=== PATIENT | male | born 1950 | race Caucasian/White ===

== ENCOUNTER 2017-01-12 11:07 | Inpatient (IN) ==
--- NOTE | 2017-01-12 11:32 | EKG Report ---
Stationary ECG Study [facility] Test Date: 01/12/2017 11:33:22 AM Pat Name: MARLEN DIMAS Department: Room: 611 Gender: M Bottom Filler: LEONARDO : 1950 Requested by: Norm Brown Order Number: [id number] Reading MD: MACKENZIE COELHO Intervals [place] Rate: 88 P: 19 MA: 137 QRS: 41 QRSD: 87 T: 61 QT: 346 QTc: 391 Interpretive Statements SINUS RHYTHM at 88 bpm WNL Electronically Signed On 01-12-17 16:05:59 CDT by MACKENZIE COELHO [email or web address]
[2017-01-12 11:42] LABS: Basophils % 0.2 % (0.0-0.8); Eosinophils # 0.2 10*3/uL (0.0-0.87); Eosinophils % 0.9 % (0.00-10.9); Hematocrit 37.4 VOL% (42.0-52.0); Hemoglobin 13.4 GM/DL (14.0-18.0); Immature Granulocytes % 0.8 %; Immature Granulocytes Absolute 0.18 #; Lymphocytes # 1.3 10*3/uL (1.4-4.0); Lymphocytes % 5.9 % (21.2-54.2); Mean Corpuscular HGB Conc 35.8 GM/DL (32-36); Mean Corpuscular Hemoglobin 32 PG (27-34); Mean Corpuscular Volume 89.9 FL (87-102); Mean Platelet Volume 10.3 FL (9.6-12.0); Monocytes # 1.3 10*3/uL (0.11-0.8); Monocytes % 6.1 % (1.7-12.7); Neutrophils # 18.3 10*3/uL (1.4-7.4); Neutrophils % 86.1 % (38.7-73.9); Platelet Count 187 T/CUMM (130-400); Red Blood Count 4.16 MC/CUMM (3.8-5.5); White Blood Count 21.3 T/CUMM (4-12)
[2017-01-12 12:01] LABS: Band Neutrophils 1 % (0-10); Eosinophils 1 % (0-10); Hypochromasia 1+; Lymphocytes 1 % (20-55); Segmented Neutrophils 91 % (50-85); Total Cells Counted 100
[2017-01-12 12:02] LABS: Microcytosis 1+; Platelet Estimate Adequate
[2017-01-12 12:21] LABS: Calcium 8.6 MG/DL (8.5-10.1); Potassium 4.1 MMOL/L (3.5-5.1)
--- NOTE | 2017-01-12 12:23 | General Surg History&Physical ---
Assessment and Plan - Time spent with patient Time spent with patient: Less than 30 minutes (1) Spider bite wound Status: Acute Assessment and plan: This wound reportedly began with a spider bite. This had multiple debridements and now possibly secondarily infected. There are some satellite areas of eschar which may need debridement to see if there is underlying additional necrosis. This will need debridement under anesthesia. We can also consider hyperbaric oxygen therapy as well as IV antibiotic therapy. The procedure and risk of been explained and he wishes to proceed. Current Visit: Yes Qualifiers: Encounter type: initial encounter History of Present Illness Chief complaint: Spider bite right leg History of present illness: Mr. Hunt is a 66 year old male Who several months ago was felt to have sustained a brown recluse bite to his right lower extremity when he was cleaning out an old shed. He did not witness a spider bite. He had a gradual ulcerated area on his right leg which was initially treated by Dr. Whelan and then he was referred to the wound healing center. He is undergone serial debridements but more recently was noted to have some satellite areas of necrosis as well as redness and pain and tenderness extending up his medial right lower leg. I was contacted by the wound center this morning for further debridement and admission for IV antibiotics. He has had some increasing pain in the wound. Pain is mild to moderate. He does not know of aggravating or alleviating factors. He is not having fever or chills that he is aware of. Allergies Allergy/AdvReac Type Severity Reaction Status Date / Time No Known Allergies Allergy Unverified 01/12/17 11:06 Medical,Surgical,& Family Hx - Medical History Cardio: History of: Hypertension Neurology: No history of: Seizures Endocrine: History of: Diabetes Mellitus (IDDM), Thyroid Disorder Musculoskeletal: History of: Back/Neck Problems - Surgical History HEENT Surgeries: Surgical HX of: Eye Surgery (cataracts) - Social History Smoking Status: Light tobacco smoker Frequency of Alcohol Use: None Type of Drug Use: None Exam - Constitutional Vitals: Period Temp Pulse Resp BP Sys/Mancera Pulse Ox Last 24 Hr 98 F 89 20 95/56 98 General appearance: no acute distress - Head Head exam: Present: normocephalic - Eye Eye exam: Absent: scleral icterus Pupils: Present: KATHERYN - ENT Mouth exam: Present: normal voice - Neck Neck exam: Present: trachea midline - Respiratory Respiratory exam: Present: clear to auscultation bilaterally. Absent: accessory muscle use - Cardiovascular Cardiovascular exam: Present: RRR - GI/Abdominal GI/Abdominal exam: Present: soft. Absent: distended, tenderness - Extremities Exam Extremities exam: Present: other (There is about a 7 cm open wound of his right medial calf with exposed fascia. There is some necrotic subcutaneous tissue and possibly some necrotic fascia. There is a exudate over the surface of the wound. There is some erythema extending proximal to the wound along the medial aspect of the lower leg with induration and mild tenderness.). Absent: edema - Neurological Exam Neurological exam: Present: alert, oriented X3. Absent: motor sensory deficit Speech: Present: normal - Skin Skin exam: Present: normal color - Constitutional Constitutional: Absent: chills, fever(s), weight loss - EENT Nose, mouth and throat: Absent: dysphagia - Cardiovascular Cardiovascular: Absent: chest pain at rest, chest pain with activity, dyspnea - Respiratory Respiratory: Absent: cough, dyspnea, hemoptysis, dyspnea on exertion - Gastrointestinal Gastrointestinal: Absent: abdominal pain, hematemesis, hematochezia, nausea, vomiting - Genitourinary Genitourinary: Absent: hematuria - Musculoskeletal Musculoskeletal: Present: back pain - Neurological Neurological: Absent: focal weakness, syncope - Endocrine Endocrine: Absent: polyuria Hematologic/Lymphatic: Absent: easy bleeding, easy bruising Results - Labs CBC & BMP: 01/12/17 11:34 Lab Results: I have reviewed the past 24 hour labs
[2017-01-12] MEDS ORDERED: DEXTROSE 50% 25 GM/50 ML VIAL IV ONE ×2 (12:31)
[2017-01-12] MEDS: LACTATED RINGERS 1,000 ML IV SCH (12:37)
[2017-01-12] MEDS ORDERED: VANCOMYCIN INJ 1,500 MG in SODIUM CHLORIDE 0.9% 500 ML IV ONE (12:45)
[2017-01-12] MEDS ORDERED: BUPIVACAINE 0.25% 50 ML VIAL ONE (13:20)
[2017-01-12] MEDS ORDERED: ONDANSETRON 4 MG/2 ML VIAL IV PRN (14:38)
[2017-01-12] MEDS ORDERED: GLUCAGON 1 MG VIAL IM PRN (14:38)
--- NOTE | 2017-01-12 14:38 | Operative Note ---
Date of procedure: 01/12/17 Pre-op diagnosis: Large necrotic ulcer right lower extremity Post-op diagnosis: same Procedure: Excisional debridement of right lower extremity ulcer likely secondary infected with soft tissue necrotizing infection removing skin subcutaneous tissue fascia and muscle 14 x 9 cm Findings and technique: After informed consent was obtained the patient was brought the operating room and placed in supine position. After IV sedation was administered the patient's right lower extremity was prepped and draped in usual sterile fashion. Local anesthesia was infiltrated widely around this ulcer which was about 6 x 7 cm. The patient was noted to have necrotic skin edges and necrotic subcutaneous tissue as well as some exposed fascia and muscle in the base of the wound with very unhealthy appearing gastrocnemius muscle. The calf itself was not tight. There were satellite areas multiple in number extending over the posterior leg and distally and a few medial some of these are 1 cm in diameter and some of these 1 x 3 cm in size dry eschar. In the proximal aspect of the wound beneath the subcutaneous layer which was necrotic there was a layer of necrotic fascia and soupy appearing muscle which extended proximally up the posterior leg towards the popliteal fossa for about 6 cm. I excised several of these are ulcerated satellite areas and sent in both for tissue culture and also for pathology. Etiology of this was not entirely clear. These each had a punched out lytic which could represent ischemia or pyoderma gangrenosum or less likely active infection. The subcutaneous tissue appeared to be ischemic and portions of necrotic but not purulent. The fascia was soupy and partially liquefied along with some underlying muscle. This was all sharply debrided away. Some of this was sent for culture some of this for permanent section. This was debrided up the posterior leg raising up skin flaps but most of the skin was viable so I preserve this. Wound was irrigated and packed open with moist saline gauze and a bulky dressing applied. Prognosis for his lower extremities questionable. I discussed this case with Dr. Stephanie Contreras and he relayed to me that there was a question of ischemia and the patient actually had a vascular workup ordered but did not keep his CT angiogram done. We will evaluate this further as well Anesthesia: MAC, local Surgeon / Physician: Norm Brown III. Estimated blood loss: other (50 mL) Specimens: other (Tissue for culture and for permanent pathology) Condition: stable Disposition: PACU Results - Labs CBC & BMP: 01/12/17 11:34 01/12/17 11:34 Discharge Plan - Discharge Medications No Action Clorazepate Dipotassium 3.75 mg PO BID Cyclobenzaprine HCl 10 mg PO BID PRN PRN Reason: Muscle Spasm Colchicine [Colcrys] 1 tablet PO DAILY Glyburide/Metformin HCl [Glyburide-Metformin 5-500 mg] 1 each PO BID HYDROcodone/ACETAMIN 5-325 [[place] 5-325] 1 tablet PO BID PRN PRN Reason: Pain Levothyroxine Sodium [Levo-T] 100 mcg PO DAILY Meloxicam 7.5 mg PO DAILY Tramadol HCl [Tramadol Tab] 50 mg PO BID PRN PRN Reason: Pain Insulin Detemir [Levemir FlexPen] 64 unit SUBCUT BEDTIME buPROPion [Wellbutrin] 100 mg PO DAILY Nebivolol [Bystolic] 5 mg PO DAILY Magnesium Chloride [Slow Mag] 64 mg PO DAILY Indapamide [Lozol] 1.25 mg PO DAILY PRN PRN Reason: diuretic Pravastatin Sodium 40 mg PO DAILY NIFEdipine XL TAB [Procardia Xl] 60 mg PO DAILY - Follow Up or Referral - Forms/Instructions
[2017-01-12] MEDS ORDERED: PROPOFOL 200 MG/20 ML VIAL IV ONE (14:42)
[2017-01-12] MEDS ORDERED: KETAMINE 500 MG/10 ML VIAL ONE (14:43)
[2017-01-12] MEDS ORDERED: MIDAZOLAM 2 MG/2 ML VIAL ONE (14:43)
[2017-01-12] MEDS ORDERED: CLINDAMYCIN INJ 600 MG in PREMIX 1 EACH IV SCH (15:30)
[2017-01-12] MEDS: SODIUM CHLORIDE 0.45% 1,000 ML IV SCH (16:06)
--- NOTE | 2017-01-12 16:19 | CT Report ---
Exam: CT angio abdomen/femoral Date: 01/12/2017 2:44 PM Comparison: None Indication: Necrotic ulceration right lower extremity status post debridement Technical: Axial CT imaging was performed from the lung bases through the iliac crest with to the toes. Coronal and sagittal reformatted images were additionally created and submitted for review. 3-D Maximal intensity projection images of the vasculature were additionally created and are available for review. 100 cc of Omnipaque 350 were utilized. Dose reduction: This CT exam was performed using one or more of the following dose reduction techniques: Automated exposure control, automated adjustment of the mA and/or KV according to patient size, or use of iterative reconstruction technique. Total DLP: 1490 mGy*cm Findings: CT angiogram: Abdomen/pelvis. Descending thoracic aorta is nonaneurysmal. Minimal atherosclerotic plaque is noted. The abdominal aorta is also nonaneurysmal. 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 The occlusion occurs approximately just below the level of the left L3 lumbar artery takeoff. The distal aorta is completely occluded with complete occlusion of the common iliac arteries bilaterally which are densely calcified. There is reconstitution within both external iliac vessels, which are diminutive with multifocal atherosclerotic plaque noted. The bilateral internal iliac vessels are also patent but demonstrate multifocal atherosclerotic plaque. Of note, the bilateral inferior epigastric arteries are noted to the significantly hypertrophied/tortuous with direct indication to the common femoral arteries bilaterally Right lower extremity: Common femoral artery is patent with multifocal atherosclerotic plaque and mild (50%) luminal stenosis. The superficial femoral artery is also patent with multifocal atherosclerotic plaque. At the abductor hiatus, there is complete occlusion of the superficial femoral artery with reconstitution of the proximal popliteal artery above the knee. Multifocal atherosclerotic plaque is noted throughout the popliteal artery with areas of mild-moderate (50%) luminal stenosis suggested. Below the knee, there is a three-vessel runoff to the right foot. Left lower extremity: Common femoral artery is patent with mild atherosclerotic plaque. There is mild multifocal atherosclerotic plaque throughout the superficial femoral artery with only mild luminal narrowing. At the abductor hiatus, there is mild-moderate scattered plaque and luminal narrowing (estimated 50-60%). Below the knee, the popliteal artery is patent with multifocal atherosclerotic plaque. The posterior tibial artery is diminutive but appears patent. The anterior tibial and peroneal arteries also are diminutive in size but appear patent with minimal atherosclerotic plaque. Three-vessel runoff. Soft tissue analysis: Lung bases: Minimal by basilar atelectatic changes. No significant pleural or pericardial effusion. Liver and gallbladder: No abnormal enhancing hepatic lesions. No biliary ductal dilatation or gallstones. Of note, the common bile duct is dilated measuring 1.3 cm. There is also a 6 mm calcific density dependently within the CBD likely representing a retained stone. Portal vein patency is not well visualized due to early contrast bolus timing. Spleen: No focal lesions. Pancreas: Unremarkable Adrenals: Unremarkable Kidneys: Both kidneys are equally perfused and demonstrate no evidence for obstructive uropathy. Bowel and Mesentery: Small bowel is nondilated. No free fluid/air within the abdomen. Moderate stool throughout the colon. No mesenteric adenopathy. Retroperitoneum: No enlarged lymph nodes. IVC: Patent Pelvis: Bladder: Markedly distended but otherwise grossly unremarkable with no focal wall thickening or mass Fluid: No free fluid identified. Lymph nodes: No enlarged lymph nodes. Pelvic organs: Prostate is not enlarged. Osseous structures: No suspicious appearing osseous abnormalities noted. Impression: 1. 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 2. Hypertrophied inferior epigastric vessels with reconstitution at the internal/external iliacs with multifocal atherosclerotic plaque. Mild atherosclerotic disease of both common femoral arteries which are otherwise patent. 3. Complete occlusion of the distal right SFA near the abductor hiatus with reconstitution above the knee. Three-vessel runoff to the right foot. 4. Multifocal atherosclerotic plaque with areas of mild-moderate stenosis within the left SFA popliteal. Three-vessel runoff to the left foot. 5. Probable choledocholithiasis and moderate dilatation of the CBD. No evidence of acute cholecystitis. Critical findings discussed with Dr. Stephanie CAR via telephone at 4:15 PM on the day of the examination. PROCEDURE INTERPRETED AT [facility] DEPARTMENT OF RADIOLOGY Final Report Signed by: Mike Slade
--- NOTE | 2017-01-12 16:24 | Hospitalist Consult Note ---
Assessment and Plan (1) Diabetes mellitus type 2 in obese Status: Acute Assessment and plan: Continue home medication meantime do Accu-Cheks q. before meals and at bedtime. Cover the Accu-Cheks with the Humulin R intermediate scale. Check lipid profile in the morning. His A1c on this admission is 7.0%. Current Visit: Yes (2) Spider bite wound Status: Acute Assessment and plan: Before clear to surgical team. Patient also going to be seen by infectious disease. Current Visit: Yes Qualifiers: Encounter type: initial encounter (3) Hypothyroidism Status: Acute Assessment and plan: Check TSH in the morning. This to verify adequacy of treatment Current Visit: Yes (4) Degenerative arthritis Status: Acute Assessment and plan: Continue home medications Current Visit: Yes History of Present Illness - Data of Consult Patient: new to practice (Case of a 66-year-old gentleman who is being admitted to [facility]. by Dr. Ritchie following a debridement of right lower leg area which she supposed to being beaten by a brown recluse spider month ago. Reportedly this patient has had prior debridement of this wound this at this time. Wound was dressed and the compressive dressings after debridement today so I did not examine it. My services is being consulted for medical management of his diabetes mellitus type 2 hypertension history of hypothyroidism history of gout and degenerative arthritis.) Consult date: 01/12/17 Requesting Physician: - Consult Narrative Reason for consult: Medical management History of present illness: Mr. Hunt is a 66 year old male History of diabetes mellitus type 2 reportedly well controlled. Patient does not know what his last A1c was. Is using combination of glyburide/metformin and also Levemir insulin at home. He states that the last time we checked his blood sugar yesterday was in the 70s. Patient also has a history of hypertension, history of hypothyroidism, history of gout and possible degenerative arthritis. He is in the hospital now for soft tissue debridement of supposedly brown recluse bite several months ago. I am informed this area has been debrided before this time. He denies fever or shaking riders at this time. CC: Norm Brown, III., - Home Medications and Allergies Home Medications: Home Medications Medication Instructions Recorded Confirmed Type Clorazepate Dipotassium 3.75 mg PO BID 01/12/17 01/12/17 History Colchicine [Colcrys] 1 tablet PO DAILY 01/12/17 01/12/17 History Cyclobenzaprine HCl 10 mg PO BID PRN 01/12/17 01/12/17 History Glyburide/Metformin HCl 1 each PO BID 01/12/17 01/12/17 History [Glyburide-Metformin 5-500 mg] HYDROcodone/ACETAMIN 5-325 [[place] 1 tablet PO BID PRN 01/12/17 01/12/17 History 5-325] Indapamide [Lozol] 1.25 mg PO DAILY PRN 01/12/17 01/12/17 History Insulin Detemir [Levemir FlexPen] 64 unit SUBCUT BEDTIME 01/12/17 01/12/17 History Levothyroxine Sodium [Levo-T] 100 mcg PO DAILY 01/12/17 01/12/17 History Magnesium Chloride [Slow Mag] 64 mg PO DAILY 01/12/17 01/12/17 History Meloxicam 7.5 mg PO DAILY 01/12/17 01/12/17 History NIFEdipine XL TAB [Procardia Xl] 60 mg PO DAILY 01/12/17 01/12/17 History Nebivolol [Bystolic] 5 mg PO DAILY 01/12/17 01/12/17 History Pravastatin Sodium 40 mg PO DAILY 01/12/17 01/12/17 History Tramadol HCl [Tramadol Tab] 50 mg PO BID PRN 01/12/17 01/12/17 History buPROPion [Wellbutrin] 100 mg PO DAILY 01/12/17 01/12/17 History Allergies/Adverse Reactions: Allergies Allergy/AdvReac Type Severity Reaction Status Date / Time No Known Allergies Allergy Unverified 01/12/17 11:06 Medical,Surgical,& Family Hx - Medical History Cardio: History of: Hypertension Neurology: No history of: Seizures Endocrine: History of: Diabetes Mellitus (IDDM), Thyroid Disorder Musculoskeletal: History of: Back/Neck Problems - Surgical History HEENT Surgeries: Surgical HX of: Eye Surgery (cataracts) - Social History Smoking Status: Light tobacco smoker Frequency of Alcohol Use: None Type of Drug Use: None Review of systems: A 12 point system assessment was done patient denies any shaking riders at this time denies any chills. He is awake and seem to have come out of anesthesia. I then the chief complaint of necrotizing process in the right lower extremity his past medical history and history of presenting illness nothing else is panning out. Exam - Constitutional Vitals: Period Temp Pulse Resp BP Sys/Mancera Pulse Ox Last 24 Hr 97.6 F-98 F 79-89 18-20 95-128/56-73 92-100 General appearance: over weight - Head Head exam: Present: normocephalic, atraumatic - Eye Eye exam: Present: EOMI, other (Anicteric sclera no conjunctival petechia) Pupils: Present: KATHERYN - ENT ENT exam: Present: normal oropharynx - Neck Neck exam: Present: other (Supple neck no adenopathy) - Respiratory Respiratory exam: Present: clear to auscultation bilaterally - Cardiovascular Cardiovascular exam: Present: regular rate and rhythm - GI/Abdominal GI/Abdominal exam: Present: normal bowel sounds, soft - Extremities Exam Extremities exam: Present: full ROM, other (No cyanosis no obvious edema the wound site is dressed in a compressive dressing just had debridement) - Neurological Exam Neurological exam: Present: alert, oriented X3, CN II-XII intact - Psychiatric Psychiatric exam: Present: normal affect, normal mood - Skin Skin exam: Present: warm, dry Results - Labs CBC & BMP: 01/12/17 11:34 01/12/17 11:34 Lab Results: I have reviewed the past 24 hour labs
[2017-01-12] MEDS ORDERED: INDAPAMIDE 2.5 MG TABLET PO PRN (16:36)
--- NOTE | 2017-01-12 16:45 | Vascular Surgery Consult Note ---
History of Present Illness Chief complaint: aortoiliac occlusion History of present illness: Mr. Hunt is a 66 year old male Mr. Vargas is 66-year-old man I met in the office last week with evidence of aortoiliac occlusive disease. He was scheduled for CT angiography but due to progression of the ulcer on his right calf he was hospitalized today to begin treatment of what appears to be a more complex infection that is likely complicated by the degree of ischemia he has. I have reviewed his CT angiogram done today which does show aortoiliac occlusion but he has reasonable common femorals and proximal superficial femoral she does have occlusion of his distal right superficial femoral but reconstitution popliteal with what appears to be fair to good three-vessel runoff. At this time I think he should be planning on an aortobifemoral bypass in order to provide adequate perfusion of his lower leg in order to heal the wound but this needs to be done after all infection is under good control. I do think we need to get cardiac evaluation to be certain that he does not have cardiac disease that is undiagnosed at this point time although he does not report any significant chest pains or unusual shortness of breath. His exercise tolerance has been down due to to his aortoiliac disease. He also reminded me that we had discussed getting a duplex scan of his carotid arteries due to a carotid bruit that I can hear on the left side so I will go ahead and order that and I will follow while here hopefully we can get problems attended to in a timely fashion Home Medications Medication Instructions Recorded Confirmed Type Clorazepate Dipotassium 3.75 mg PO BID 01/12/17 01/12/17 History Colchicine [Colcrys] 1 tablet PO DAILY 01/12/17 01/12/17 History Cyclobenzaprine HCl 10 mg PO BID PRN 01/12/17 01/12/17 History Glyburide/Metformin HCl 1 each PO BID 01/12/17 01/12/17 History [Glyburide-Metformin 5-500 mg] HYDROcodone/ACETAMIN 5-325 [[place] 1 tablet PO BID PRN 01/12/17 01/12/17 History 5-325] Indapamide [Lozol] 1.25 mg PO DAILY PRN 01/12/17 01/12/17 History Insulin Detemir [Levemir FlexPen] 64 unit SUBCUT BEDTIME 01/12/17 01/12/17 History Levothyroxine Sodium [Levo-T] 100 mcg PO DAILY 01/12/17 01/12/17 History Magnesium Chloride [Slow Mag] 64 mg PO DAILY 01/12/17 01/12/17 History Meloxicam 7.5 mg PO DAILY 01/12/17 01/12/17 History NIFEdipine XL TAB [Procardia Xl] 60 mg PO DAILY 01/12/17 01/12/17 History Nebivolol [Bystolic] 5 mg PO DAILY 01/12/17 01/12/17 History Pravastatin Sodium 40 mg PO DAILY 01/12/17 01/12/17 History Tramadol HCl [Tramadol Tab] 50 mg PO BID PRN 01/12/17 01/12/17 History buPROPion [Wellbutrin] 100 mg PO DAILY 01/12/17 01/12/17 History Allergies Allergy/AdvReac Type Severity Reaction Status Date / Time No Known Allergies Allergy Unverified 01/12/17 11:06 Medical,Surgical,& Family Hx - Medical History Cardio: History of: Hypertension Neurology: No history of: Seizures Endocrine: History of: Diabetes Mellitus (IDDM), Thyroid Disorder Musculoskeletal: History of: Back/Neck Problems - Surgical History HEENT Surgeries: Surgical HX of: Eye Surgery (cataracts) - Social History Smoking Status: Light tobacco smoker Frequency of Alcohol Use: None Type of Drug Use: None Exam - Constitutional Vitals: Period Temp Pulse Resp BP Sys/Mancera Pulse Ox Last 24 Hr 97.6 F-98 F 79-89 18-20 95-128/56-73 92-100 Results - Labs CBC & BMP: 01/12/17 11:34 01/12/17 11:34
[2017-01-12] MEDS: ENOXAPARIN 40 MG/0.4 ML SYRINGE SUBCUT SCH (16:53)
--- NOTE | 2017-01-12 17:09 | XRay Report ---
History: Hyperbaric oxygen therapy. Soft tissue ulcer right lower extremity. Peripheral vascular disease Date: 01/12/2017 Study: Chest x-ray AP portable Comparison exam: No previous There is mild cardiomegaly. There is no mediastinal mass. The pulmonary vasculature is not engorged. There is no gross pleural effusion. The lungs are generally clear for shallow breath. There is mild to moderate thoracic spondylosis. Impression: No definite evidence of an acute cardiopulmonary process. Mild cardiomegaly. Shallow breath PROCEDURE INTERPRETED AT [facility] DEPARTMENT OF RADIOLOGY Final Report Signed by: Dr. Linda Gaxiola
[2017-01-12] MEDS: PIPERACILLIN/TAZOBACTAM 3,375 MG in SODIUM CHLORIDE 0.9% 100 ML IV SCH (17:36)
[2017-01-12] MEDS: INSULIN REGULAR 100 UNIT/ML SUBCUT SCH (18:14)
[2017-01-12] MEDS: INSULIN GLARGINE 100 UNIT/ML SUBCUT SCH (21:30)
[2017-01-12] MEDS: glyBURIDE/METFORMIN 5-500 MG TABLET PO SCH (21:30)
[2017-01-12] MEDS: CLORAZEPATE 3.75 MG TABLET PO SCH (21:30)
[2017-01-12] MEDS: DEXTROSE 50% 25 GM/50 ML VIAL IV PRN (23:46)
[2017-01-13] MEDS: INSULIN REGULAR 100 UNIT/ML SUBCUT SCH ×4 (00:18→17:44)
[2017-01-13] MEDS: PIPERACILLIN/TAZOBACTAM 3,375 MG in SODIUM CHLORIDE 0.9% 100 ML IV SCH ×3 (00:24→17:44)
[2017-01-13] MEDS: VANCOMYCIN INJ 1,250 MG in SODIUM CHLORIDE 0.9% 250 ML IV SCH ×2 (04:27→16:31)
[2017-01-13] MEDS: DEXTROSE 50% 25 GM/50 ML VIAL IV PRN (06:24)
[2017-01-13 06:33] LABS: Basophils % 0.2 % (0.0-0.8); Eosinophils # 0.3 10*3/uL (0.0-0.87); Eosinophils % 1.9 % (0.00-10.9); Hematocrit 34.2 VOL% (42.0-52.0); Hemoglobin 12.3 GM/DL (14.0-18.0); Immature Granulocytes % 0.7 %; Immature Granulocytes Absolute 0.11 #; Lymphocytes # 1.6 10*3/uL (1.4-4.0); Lymphocytes % 9.6 % (21.2-54.2); Mean Corpuscular Hemoglobin 32 PG (27-34); Mean Corpuscular Volume 88.4 FL (87-102); Mean Platelet Volume 10.5 FL (9.6-12.0); Monocytes # 1.5 10*3/uL (0.11-0.8); Monocytes % 8.9 % (1.7-12.7); Neutrophils % 78.7 % (38.7-73.9); Platelet Count 142 T/CUMM (130-400); Red Blood Count 3.87 MC/CUMM (3.8-5.5); Red Cell Distribution Width 13.8 % (9.3-17.3); White Blood Count 16.5 T/CUMM (4-12)
--- NOTE | 2017-01-13 07:12 | Event Note ---
He feels better and has soreness in his leg as expected. He is afebrile with stable vital signs. We are treating him with IV antibiotics and wound care. The major underlying problem severe multilevel peripheral vascular disease. I have had him seen by Dr. Moss who agrees that he will need an aortobifemoral bypass. Obviously we want to have the infection cleared up completely before doing this procedure. He has severe limb threatening ischemia and this is probably ischemic necrosis along his posterior leg. I suspect that he developed some secondary infection. Cultures are pending.
[2017-01-13 07:13] LABS: Albumin 2.6 G/DL (3.4-5.0); Calcium 8.3 MG/DL (8.5-10.1); Potassium 3.7 MMOL/L (3.5-5.1)
[2017-01-13 07:21] LABS: Risk Ratio 4.96; Thyroid Stimulating Hormone 0.41 uIU/ml (0.358-3.74); Uric Acid 4.5 MG/DL (3.5-7.2); VLDL CHOLESTEROL 30.8 MG/DL
[2017-01-13] MEDS: NEBIVOLOL 5 MG TABLET PO SCH (09:42)
[2017-01-13] MEDS: LEVOTHYROXINE 100 MCG TABLET PO SCH (09:42)
[2017-01-13] MEDS: glyBURIDE/METFORMIN 5-500 MG TABLET PO SCH ×2 (09:42→22:25)
[2017-01-13] MEDS: MAGNESIUM CHLORIDE 64 MG TABLET PO SCH (09:42)
[2017-01-13] MEDS: PRAVASTATIN 40 MG TABLET PO SCH (09:42)
[2017-01-13] MEDS: MELOXICAM 7.5 MG TABLET PO SCH (09:42)
[2017-01-13] MEDS: CLORAZEPATE 3.75 MG TABLET PO SCH ×2 (09:42→22:17)
[2017-01-13] MEDS: SODIUM CHLORIDE 0.45% 1,000 ML IV SCH ×2 (09:43→17:44)
[2017-01-13] MEDS: buPROPion 100 MG TABLET PO SCH (09:43)
--- NOTE | 2017-01-13 11:01 | Event Note ---
Patient is afebrile with good vital signs cultures are still pending we will get the cardiac evaluation in anticipation of aortobifemoral bypassing and also go ahead and get duplex scan of the carotids due to the left carotid bruit
[2017-01-13] MEDS: ENOXAPARIN 40 MG/0.4 ML SYRINGE SUBCUT SCH (12:27)
--- NOTE | 2017-01-13 12:30 | Hospitalist Progress Note ---
Assessment and Plan (1) Diabetes mellitus type 2 in obese Status: Chronic Assessment and plan: Continue home medication meantime do Accu-Cheks q. before meals and at bedtime. Cover the Accu-Cheks with the Humulin R intermediate scale. Check lipid profile in the morning. His A1c on this admission is 7.0%. I informed the patient is going for hyperbaric chamber treatments. He will need his blood sugars to be a little bit on the high side when going into the chamber. I see that morning Accu-Cheks were above 130. Current Visit: Yes (2) Spider bite wound Status: Chronic Assessment and plan: Before clear to surgical team. Patient also going to be seen by infectious disease. Current Visit: Yes Qualifiers: Encounter type: initial encounter (3) Hypothyroidism Status: Chronic Assessment and plan: TSH showing adequate thyroxine supplementation. Current Visit: Yes (4) Degenerative arthritis Status: Acute Assessment and plan: Continue home medications Current Visit: Yes Hospitalist: Subjective Interval history: Patient seen in consult follow-up no new complaints. Patient was seen yesterday for medical management. Consent of the nonhealing wound in the debridement and patient was on colchicine. That medication was stopped. Reason is" and can be more anti-mitotic. His uric acid is on 4.5. Hemoglobin A1c of 7 which would be a target for somebody his management of diabetes. Because of her diabetes at all therefore been continued Exam - Constitutional Vitals: Period Temp Pulse Resp BP Sys/Mancera Pulse Ox Last 24 Hr 97.6 F-98.8 F 79-95 18-20 98-128/53-73 92-100 General appearance: over weight - Head Head exam: Present: normocephalic, atraumatic - Eye Eye exam: Present: EOMI Pupils: Present: KATHERYN - Respiratory Respiratory exam: Present: clear to auscultation bilaterally - Cardiovascular Cardiovascular exam: Present: regular rate and rhythm - GI/Abdominal GI/Abdominal exam: Present: normal bowel sounds, soft - Extremities Exam Extremities exam: Present: full ROM, other (Wound is dressed no advancing cellulitis) - Neurological Exam Neurological exam: Present: alert, oriented X3, CN II-XII intact - Psychiatric Psychiatric exam: Present: normal affect, normal mood - Skin Skin exam: Present: normal color, warm, dry Results - Labs CBC & BMP: 01/13/17 05:55 01/13/17 05:55 Lab Results: I have reviewed the past 24 hour labs
[2017-01-13] MEDS: LACTATED RINGERS 1,000 ML IV SCH (12:31)
[2017-01-13] MEDS: MORPHINE 2 MG/1 ML SYRINGE IV PRN ×3 (12:38→20:16)
--- NOTE | 2017-01-13 14:25 | Anesthesia Post-Op ---
Anesthesia Post OP - Post Ansesthetic Evaluation Patient seen in post op: Yes Resp: within normal limits CV: within normal limits Mental: within normal limits Temp: within normal limits [id number]: within normal limits Nausea and Vomiting: within normal limits Pain: within normal limits
--- NOTE | 2017-01-13 14:33 | Pathology Report from [facility] ---
[facility] ACCESSION # : [id number] PATIENT NAME : Per iDmas ORDERING DR : ANATOLY BENNETT III, MD CLINICAL HX: RT leg wound POST-OP DX: Same SPECIMEN INFO: #1 RT leg ulcer #2 Additional leg ulcer GROSS DESCRIPTION: Received in formalin in two parts labeled:#1 PER DIMAS & RT LEG ULCER is an aggregate of debrided tissue measuring 1.5 x 1.2 cm, submitted in cassette #1.#2 PER DIMAS & RT LEG ULCER ADDITIONAL is a fragment of debrided focally necrotic tissue measuring 3.8 x 1.7 cm. A merchandising representative section is submitted in cassette #2. DIAGNOSIS FOR PER DIMAS: #1 RIGHT LEG ULCER: Gangrene.#2 ADDITIONAL LEG ULCER: Gangrene COLLECTED DATE: 01/12/2017 [facility] [place] REPORT DATE: 01/13/2017 ELECTRONICALLY SIGNED BY: Aisha Dugan III, M.D. 01/13/2017 - 9:30:30 [facility]
--- NOTE | 2017-01-13 14:42 | Event Note ---
I have been to see the patient 3 times unsuccessfully. The nursing staff told me that he is in hyperbaric. I will try to continue to see the patient as time allows. I have discussed with Ms Rj who saw while I was in the catheterization lab.
--- NOTE | 2017-01-13 15:55 | Infectious Disease Consult ---
Assessment and Plan (1) Diabetes mellitus type 2 in obese Status: Chronic Current Visit: Yes (2) Hyperlipidemia Status: Chronic Current Visit: Yes (3) Hypertension Status: Chronic Current Visit: Yes (4) Spider bite wound Status: Chronic Assessment and plan: The patient leg wound infection may or may not have been related to a spider bite. Multiple organisms are growing from the tissue culture today. Recommendations: I agree with empiric vancomycin and Zosyn. We will follow cultures and adjust antibiotics accordingly. Renal function will need to be monitored daily on the vancomycin and vancomycin trough levels checked intermittently. Will consult pharmacy to assist with this monitoring. Thank you very much for the consult. Will follow. Current Visit: Yes Qualifiers: Encounter type: initial encounter History of Present Illness Chief complaint: Necrotic wounds to right leg History of present illness: Patient seen and examined this morning. Mr. Hunt is a 66 year old male with nonhealing wounds about the right leg since 3 months ago. He thinks it started with a spider bite. Patient has been on several courses of antibiotics and has had debridements done however the wounds have continued, with infection so he was admitted to hospital for further evaluation. He had been seen by Dr. Moss who the patient said told him that he had vascular compromise to the leg with the possibility of losing it in the future if no intervention is done. With his infection the patient has not had any fever or other constitutional symptoms. I am asked to advise regarding antibiotics. Home Medications Medication Instructions Recorded Confirmed Type Clorazepate Dipotassium 3.75 mg PO BID 01/12/17 01/12/17 History Colchicine [Colcrys] 1 tablet PO DAILY 01/12/17 01/12/17 History Cyclobenzaprine HCl 10 mg PO BID PRN 01/12/17 01/12/17 History Glyburide/Metformin HCl 1 each PO BID 01/12/17 01/12/17 History [Glyburide-Metformin 5-500 mg] HYDROcodone/ACETAMIN 5-325 [[place] 1 tablet PO BID PRN 01/12/17 01/12/17 History 5-325] Indapamide [Lozol] 1.25 mg PO DAILY PRN 01/12/17 01/12/17 History Insulin Detemir [Levemir FlexPen] 64 unit SUBCUT BEDTIME 01/12/17 01/12/17 History Levothyroxine Sodium [Levo-T] 100 mcg PO DAILY 01/12/17 01/12/17 History Magnesium Chloride [Slow Mag] 64 mg PO DAILY 01/12/17 01/12/17 History Meloxicam 7.5 mg PO DAILY 01/12/17 01/12/17 History NIFEdipine XL TAB [Procardia Xl] 60 mg PO DAILY 01/12/17 01/12/17 History Nebivolol [Bystolic] 5 mg PO DAILY 01/12/17 01/12/17 History Pravastatin Sodium 40 mg PO DAILY 01/12/17 01/12/17 History Tramadol HCl [Tramadol Tab] 50 mg PO BID PRN 01/12/17 01/12/17 History buPROPion [Wellbutrin] 100 mg PO DAILY 01/12/17 01/12/17 History Allergies Allergy/AdvReac Type Severity Reaction Status Date / Time No Known Allergies Allergy Unverified 01/12/17 11:06 12 point system: reviewed and no additional remarkable complaints except as stated (Per HPI) Medical,Surgical,& Family Hx - Medical History Cardio: History of: Hypertension Neurology: No history of: Seizures Endocrine: History of: Diabetes Mellitus (IDDM), Thyroid Disorder Musculoskeletal: History of: Back/Neck Problems - Surgical History HEENT Surgeries: Surgical HX of: Eye Surgery (cataracts) - Social History Smoking Status: Light tobacco smoker Frequency of Alcohol Use: None Type of Drug Use: None Infectious Disease Exam H&P - Constitutional Vitals: Vital Signs Temp Pulse Resp BP Pulse Ox 98.1 F 95 H 20 114/64 99 01/13/17 11:52 01/13/17 11:52 01/13/17 11:52 01/13/17 11:52 01/13/17 11:52 Intake and Output 01/12/17 01/13/17 01/13/17 23:59 07:59 15:59 Intake Total 340 / 340 470 / 470 420 / 420 Output Total 780 / 780 850 / 850 800 / 800 Balance -440 / -440 -380 / -380 -380 / -380 Intake: IV 100 / 100 350 / 350 Zosyn 3,375 mg In Ns 100 100 / 100 100 / 100 ml @ 25 mls/hr IV Q8H [facility] Rx#:[id number] Vancomycin Inj 1,000 mg 250 / 250 In Ns 250 ml @ 250 mls/hr IV Q12H [facility] Rx#: [id number] Oral 240 / 240 120 / 120 420 / 420 Output: Urine 780 / 780 850 / 850 800 / 800 Other: Voiding Method Urinal Urinal Urinal # Bowel Movements 0 0 Exam: General: Patient relatively comfortable HEENT: Mucous membranes pink and moist, anicteric acyanotic, KATHERYN, no oropharyngeal exudates Neck: Supple, no thyroid gland enlargement Respiratory system: Breath sounds vesicular, no crepitations or wheezes Cardiovascular: Normal S1 and S2, no murmurs appreciated Abdomen: Normal bowel sounds, soft nontender throughout, no organomegaly or mass Genitourinary: No suprapubic pain or bladder distention Extremities: no edema, right leg with surgical bandage which I did not remove since his from his recent surgery yesterday Skin: No rash Reports - Labs CBC & BMP: 01/13/17 05:55 01/13/17 05:55 Labs: Laboratory Results - last 24 hr 01/12/17 01/12/17 01/12/17 15:56 15:58 17:57 WBC RBC Hgb Hct MCV MCH MCHC RDW Plt Count MPV Neut % (Auto) Lymph % (Auto) [place] % (Auto) Eos % (Auto) Baso % (Auto) Neut # (Auto) Lymph # (Auto) [place] # (Auto) Eos # (Auto) Baso # (Auto) Immature Gran % Nucleated RBC % Immature Gran # Nucleated RBCs # Sodium Potassium Chloride Carbon Dioxide Anion Gap BUN Creatinine GFR Calculation BUN/Creatinine Ratio Glucose POC Glucose 86 209 H Calculated Osmolality Uric Acid Calcium Total Bilirubin AST ALT Alkaline Phosphatase Total Creatine Kinase 244 Total Protein Albumin Globulin Albumin/Globulin Ratio Triglycerides Cholesterol LDL Cholesterol VLDL Cholesterol HDL Cholesterol Heart Disease Risk Ratio TSH 3rd Generation 01/12/17 01/12/17 01/12/17 20:10 20:48 23:42 WBC RBC Hgb Hct MCV MCH MCHC RDW Plt Count MPV Neut % (Auto) Lymph % (Auto) [place] % (Auto) Eos % (Auto) Baso % (Auto) Neut # (Auto) Lymph # (Auto) [place] # (Auto) Eos # (Auto) Baso # (Auto) Immature Gran % Nucleated RBC % Immature Gran # Nucleated RBCs # Sodium Potassium Chloride Carbon Dioxide Anion Gap BUN Creatinine GFR Calculation BUN/Creatinine Ratio Glucose POC Glucose 159 H 138 H 49 L* Calculated Osmolality Uric Acid Calcium Total Bilirubin AST ALT Alkaline Phosphatase Total Creatine Kinase Total Protein Albumin Globulin Albumin/Globulin Ratio Triglycerides Cholesterol LDL Cholesterol VLDL Cholesterol HDL Cholesterol Heart Disease Risk Ratio [facility] 3rd Generation 01/13/17 01/13/17 01/13/17 00:24 05:55 05:55 WBC 16.5 H RBC 3.87 Hgb 12.3 L Hct 34.2 L MCV 88.4 MCH 32 MCHC 36.0 RDW 13.8 Plt Count 142 D MPV 10.5 Neut % (Auto) 78.7 H Lymph % (Auto) 9.6 L [place] % (Auto) 8.9 Eos % (Auto) 1.9 Baso % (Auto) 0.2 Neut # (Auto) 13.0 H Lymph # (Auto) 1.6 [place] # (Auto) 1.5 H Eos # (Auto) 0.3 Baso # (Auto) 0.0 Immature Gran % 0.7 Nucleated RBC % 0.0 Immature Gran # 0.11 Nucleated RBCs # 0.00 Sodium 136 Potassium 3.7 Chloride 104 Carbon Dioxide 22 Anion Gap 13.7 BUN 17 D Creatinine 0.80 GFR Calculation 113 BUN/Creatinine Ratio 21.00 H Glucose 47 L POC Glucose 154 H Calculated Osmolality 270.0 L Uric Acid Calcium 8.3 L Total Bilirubin 1.00 AST 25 ALT 22 Alkaline Phosphatase 100 Total Creatine Kinase Total Protein 6.0 L Albumin 2.6 L Globulin 3.4 Albumin/Globulin Ratio 0.7 L Triglycerides Cholesterol LDL Cholesterol VLDL Cholesterol HDL Cholesterol Heart Disease Risk Ratio TSH 3rd Generation 01/13/17 01/13/17 01/13/17 05:55 06:18 06:58 WBC RBC Hgb Hct MCV MCH MCHC RDW Plt Count MPV Neut % (Auto) Lymph % (Auto) [place] % (Auto) Eos % (Auto) Baso % (Auto) Neut # (Auto) Lymph # (Auto) [place] # (Auto) Eos # (Auto) Baso # (Auto) Immature Gran % Nucleated RBC % Immature Gran # Nucleated RBCs # Sodium Potassium Chloride Carbon Dioxide Anion Gap BUN Creatinine GFR Calculation BUN/Creatinine Ratio Glucose POC Glucose 48 L* 201 H Calculated Osmolality Uric Acid 4.5 Calcium Total Bilirubin AST ALT Alkaline Phosphatase Total Creatine Kinase Total Protein Albumin Globulin Albumin/Globulin Ratio Triglycerides 154 H Cholesterol 124 LDL Cholesterol 76.0 VLDL Cholesterol 30.8 HDL Cholesterol 25 L Heart Disease Risk Ratio 4.96 TSH 3rd Generation 0.410 01/13/17 01/13/17 09:47 11:22 WBC RBC Hgb Hct MCV MCH MCHC RDW Plt Count MPV Neut % (Auto) Lymph % (Auto) [place] % (Auto) Eos % (Auto) Baso % (Auto) Neut # (Auto) Lymph # (Auto) [place] # (Auto) Eos # (Auto) Baso # (Auto) Immature Gran % Nucleated RBC % Immature Gran # Nucleated RBCs # Sodium Potassium Chloride Carbon Dioxide Anion Gap BUN Creatinine GFR Calculation BUN/Creatinine Ratio Glucose POC Glucose 162 H 128 H Calculated Osmolality Uric Acid Calcium Total Bilirubin AST ALT Alkaline Phosphatase Total Creatine Kinase Total Protein Albumin Globulin Albumin/Globulin Ratio Triglycerides Cholesterol LDL Cholesterol VLDL Cholesterol HDL Cholesterol Heart Disease Risk Ratio TSH 3rd Generation - Reports Microbiology: Microbiology 01/12/17 14:36 Tissue Culture - Preliminary Foot - Right Gram Negative Rods Gram Positive Cocci Gram Stain - Final 01/12/17 Unknown Abscess Culture - Preliminary Leg - Rt Lower Gram Negative Rods Gram Positive Cocci
--- NOTE | 2017-01-13 17:23 | Cardiology Consult Note ---
Rj Mayes Vanessa RN, am scribing for, and in the presence of, Ilana Girard DO 17 :23. Assessment and Plan - Time spent with patient Time spent with patient: Greater than 30 minutes (Due to assessment, planning, documentation, and medication review) (1) Preoperative cardiovascular examination Status: Acute Assessment and plan: Proceed with proposed surgical intervention as needed without further cardiovascular workup and evaluation Current Visit: Yes (2) Spider bite wound Status: Chronic Assessment and plan: Status post probable spider bite several months ago and now has nonhealing ulcerated area of right leg now with necrosis despite multiple debridements and antibiotics. This is being managed by surgical services and vascular surgery. Current Visit: Yes Qualifiers: Encounter type: initial encounter (3) Hypertension Status: Chronic Assessment and plan: Blood pressure is well controlled at this time. Continue current plan of care. Current Visit: Yes (4) Hyperlipidemia Status: Chronic Assessment and plan: Continue pravastatin. Fasting lipid panel this morning with slightly abnormal triglyceride level but overall unremarkable. Current Visit: Yes (5) Hx of supraventricular tachycardia Status: Chronic Assessment and plan: Patient has previously been evaluated by Dr. Franco for SVT. This has been stable and well controlled with Bystolic. Current Visit: Yes (6) Diabetes mellitus type 2 in obese Status: Chronic Assessment and plan: Glucose levels well controlled at this time. Hospital medicine services have been consulted for primary management of diabetes. Current Visit: Yes (7) Hypothyroidism Status: Chronic Assessment and plan: Synthroid has been continued. TSH this morning 0.410. Current Visit: Yes History of Present Illness - Data of Consult Patient: new to practice (Previous evaluated per Dr. Franco in 2016 ([facility] Consult date: 01/13/17 Requesting Physician: Norm Brown III. - Consult Narrative Reason for consult: preoperative cardiovascular exam History of present illness: PRIMARY LEVEL VIAL SETTER: DR. FRANCO Mr. Hunt is a 66 year old male with risk factor significant for: hypertension, hyperlipidemia, diabetes, tobacco use, obesity, and family history of CAD. Patient is a current everyday smoker. Past medical history includes hypothyroidism, SVT, back/neck problems. Patient was admitted on January 12 to surgical services for further evaluation and treatment of right leg ulcer which has had multiple debridements and now infected. Ulcer is apparently related to previous spider bite several months ago. Recently, the area has been noted to have some furthering necrosis with pain and tenderness of his right leg, and he was admitted from the wound center for IV antibiotics and surgical intervention. He has also been recently on outpatient basis by Dr. 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 Since admission, he has had a CT angiogram demonstrating aortoiliac occlusion with reconstitution in the popliteal area and three-vessel runoff into the right foot. Patient is now being set up for aortobifemoral bypass to provide more adequate perfusion of the lower extremity and assist in wound healing. This will take place once current infection is more stable. Cardiology has been consulted for preoperative cardiovascular exam. Patient seen and examined. Patient is lying completely flat in bed upon arrival to room, is in no acute distress, and is without obvious need. Denies recent or current exertional chest pain. Does report he experiences some dypsnea on exertion for approximately the past year or so, and he feels it has worsened in the last few months especially since he has been requiring the use of a cane to assist with ambulation due to significant discomfort of the right lower extremity. Reports that after walking short distances, he has been requiring rest periods. However, this fatigue has not worsened in severity over the past year. Denies PND, palpitations, presyncope, or syncope. No overt signs of heart failure. BP is well controlled on current medications. Preliminary cultures of right foot and leg on January 12 with gram negative rods and gram positive cocci. Final results pending. I finally was able to see the patient in his room while he was eating dinner. 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 Franco approximately a month and half ago in November. He has not had palpitations or SVT in some time. He denies any signs or symptoms of angina or heart failure he has never had heart failure or coronary artery disease. I feel this patient safe for the patient proceed with proposed surgical intervention for his right lower extremity spider bite without further cardiovascular workup and evaluation. I recommend continuation of his beta- adair. CC: Norm Brown III., - Home Medications and Allergies Home Medications: Home Medications Medication Instructions Recorded Confirmed Type Clorazepate Dipotassium 3.75 mg PO BID 01/12/17 01/12/17 History Colchicine [Colcrys] 1 tablet PO DAILY 01/12/17 01/12/17 History Cyclobenzaprine HCl 10 mg PO BID PRN 01/12/17 01/12/17 History Glyburide/Metformin HCl 1 each PO BID 01/12/17 01/12/17 History [Glyburide-Metformin 5-500 mg] HYDROcodone/ACETAMIN 5-325 [[place] 1 tablet PO BID PRN 01/12/17 01/12/17 History 5-325] Indapamide [Lozol] 1.25 mg PO DAILY PRN 01/12/17 01/12/17 History Insulin Detemir [Levemir FlexPen] 64 unit SUBCUT BEDTIME 01/12/17 01/12/17 History Levothyroxine Sodium [Levo-T] 100 mcg PO DAILY 01/12/17 01/12/17 History Magnesium Chloride [Slow Mag] 64 mg PO DAILY 01/12/17 01/12/17 History Meloxicam 7.5 mg PO DAILY 01/12/17 01/12/17 History NIFEdipine XL TAB [Procardia Xl] 60 mg PO DAILY 01/12/17 01/12/17 History Nebivolol [Bystolic] 5 mg PO DAILY 01/12/17 01/12/17 History Pravastatin Sodium 40 mg PO DAILY 01/12/17 01/12/17 History Tramadol HCl [Tramadol Tab] 50 mg PO BID PRN 01/12/17 01/12/17 History buPROPion [Wellbutrin] 100 mg PO DAILY 01/12/17 01/12/17 History Allergies/Adverse Reactions: Allergies Allergy/AdvReac Type Severity Reaction Status Date / Time No Known Allergies Allergy Unverified 01/12/17 11:06 - Constitutional Constitutional: Present: fatigue. Absent: anorexia, chills, fever(s), frequent falls, night sweats, stops breathing during sleep, weakness, weight gain, weight loss - EENT Eyes: Absent: blurry vision Ears: Absent: decreased hearing Nose, mouth and throat: Absent: dysphagia, epistaxis, nasal congestion, neck pain, sinus pressure, vertigo - Cardiovascular Cardiovascular: Present: dyspnea on exertion. Absent: chest pain at rest, chest pain with activity, diaphoresis, dyspnea, edema, radiating jaw, neck or arm pain, lightheadedness, orthopnea, palpitations, PND - Respiratory Respiratory: Present: dyspnea on exertion. Absent: cough, hemoptysis, change in phlegm color - Gastrointestinal Gastrointestinal: Absent: abdominal pain, bloating, constipation, diarrhea, dysphagia, early satiety, hematemesis, hematochezia, melena, nausea, vomiting - Genitourinary Genitourinary: Absent: difficulty urinating, dysuria, flank pain, hematuria - Musculoskeletal Musculoskeletal: Present: arthralgias, limited range of motion (right leg due to current ulceration and ischemia), myalgias - Neurological Neurological: Absent: abnormal gait, confusion, dizziness, frequent falls, syncope, tremor(s) - Psychiatric Psychiatric: Absent: anxiety, depression - Endocrine Endocrine: Absent: cold intolerance, heat intolerance - Hematologic/Lymphatic Hematologic/Lymphatic: Absent: easy bleeding, easy bruising Medical,Surgical,& Family Hx - Medical History Cardio: History of: Cardiac Dysrhythmia (SVT), Hypertension No history of: CHF, LA, Pacemaker, Valvular Heart Disease Psychological: History of: Depression Neurology: No history of: Dementia, Peripheral Neuropathy, Seizures, TIA Endocrine: History of: Diabetes Mellitus (IDDM), Dyslipidemia, Thyroid Disorder Rheumatology: No history of;: Fibromyalgia Respiratory: No history of: Asthma, COPD, Obstructive Sleep Apnea, Pulmonary Hypertension Renal: No history of: Renal Problems Genitourinary: No history of: Kidney Stones, Prostate Problems Gastrointestinal: No history of: Gastrointestinal Bleed, Hepatitis, Liver Problems, Pancreatitis Musculoskeletal: History of: Back/Neck Problems Hematology: No history of: Anemia, Blood Transfusion Reaction Other: No history of: Cancer, HIV - Surgical History Cardiac Surgeries: Patient Denies: Cardiac Catheterization, Cardiac Surgery HEENT Surgeries: Surgical HX of: Eye Surgery (cataracts) - Social History Smoking Status: Current every day smoker Time spent discussing smoking cessation with patient: more than 10 minutes Frequency of Alcohol Use: None Type of Drug Use: None Functional capacity: uses cane/walker Physical Examination Vital Signs Temp Pulse Resp BP Pulse Ox 98 F 89 20 95/56 98 01/12/17 12:11 01/12/17 12:11 01/12/17 12:11 01/12/17 12:11 01/12/17 12:11 General: Present: No Apparent Distress HEENT: Present: PERRL, Normocephaly, Mucus Membranes Moist. Absent: Jaundice, Pallor Neck: Present: Midline Trachea, No JVD/HJR, No Masses, Bruit (Bilateral) Cardiac: Present: Reg Rate and Rhythm, S1/S2, Other (No rubs gallops or significant murmur). Absent: Tachycardia, Bradycardia Lungs: Present: Clear Ascult./Percussion, Oxygen, No Wheeze, Rales, Rhonchi Neuro: Present: Grossly Intact. Absent: Numbness, Tingling, Weakness, Resting Tremor, Essential Tremor Abdomen: Present: Soft, Active Bowel Sounds. Absent: Ascites, Tender, Firm Skin: Present: Ulceration (Right lower leg; area is currently wrapped with surgical dressing.). Absent: Bruising Extremities: Present: No Clubbing, No Cyanosis, No Edema, Normal Upper Extr. Pulses (3+ bilaterally), Normal Lower Extr. Pulses (2+ bilaterally), Capillary Refill (Normal), Other (Warm, dry) Result/EKG - Labs CBC & BMP: 01/13/17 05:55 01/13/17 05:55 Lab Results: I have reviewed the past 24 hour labs Labs: Laboratory Results - last 24 hr 01/12/17 01/12/17 01/12/17 11:34 11:34 11:34 WBC 21.3 H RBC 4.16 Hgb 13.4 L Hct 37.4 L MCV 89.9 MCH 32 MCHC 35.8 RDW 14.0 Plt Count 187 MPV 10.3 Neut % (Auto) 86.1 H Lymph % (Auto) 5.9 L Island % (Auto) 6.1 Eos % (Auto) 0.9 Baso % (Auto) 0.2 Neut # (Auto) 18.3 H Lymph # (Auto) 1.3 L Island # (Auto) 1.3 H Eos # (Auto) 0.2 Baso # (Auto) 0.0 Total Counted 100 Immature Gran % 0.8 Nucleated RBC % 0.0 Immature Gran # 0.18 Segmented Neutrophils 91 H Band Neutrophils 1 Lymphocytes 1 L Monocytes 6 Eosinophils 1 Nucleated RBCs # 0.00 Platelet Estimate Adequate Hypochromasia 1+ Microcytosis 1+ Sodium 136 Potassium 4.1 Chloride 105 Carbon Dioxide 21 Anion Gap 14.1 BUN 30 H Creatinine 1.20 GFR Calculation 76 BUN/Creatinine Ratio 25.00 H Glucose 51 L POC Glucose Hemoglobin A1c 7.0 H Calculated Osmolality 274.0 Uric Acid Calcium 8.6 Total Bilirubin AST ALT Alkaline Phosphatase Total Creatine Kinase Total Protein Albumin Globulin Albumin/Globulin Ratio Triglycerides Cholesterol LDL Cholesterol VLDL Cholesterol HDL Cholesterol Heart Disease Risk Ratio TSH 3rd Generation 01/12/17 01/12/17 01/12/17 12:33 13:11 15:56 WBC RBC Hgb Hct MCV MCH MCHC RDW Plt Count MPV Neut % (Auto) Lymph % (Auto) Island % (Auto) Eos % (Auto) Baso % (Auto) Neut # (Auto) Lymph # (Auto) Island # (Auto) Eos # (Auto) Baso # (Auto) Total Counted Immature Gran % Nucleated RBC % Immature Gran # Segmented Neutrophils Band Neutrophils Lymphocytes Monocytes Eosinophils Nucleated RBCs # Platelet Estimate Hypochromasia Microcytosis Sodium Potassium Chloride Carbon Dioxide Anion Gap BUN Creatinine GFR Calculation BUN/Creatinine Ratio Glucose POC Glucose 55 L 154 H Hemoglobin A1c Calculated Osmolality Uric Acid Calcium Total Bilirubin AST ALT Alkaline Phosphatase Total Creatine Kinase 244 Total Protein Albumin Globulin Albumin/Globulin Ratio Triglycerides Cholesterol LDL Cholesterol VLDL Cholesterol HDL Cholesterol Heart Disease Risk Ratio TSH Generation 01/12/17 01/12/17 01/12/17 15:58 17:57 20:10 WBC RBC Hgb Hct MCV MCH MCHC RDW Plt Count MPV Neut % (Auto) Lymph % (Auto) Island % (Auto) Eos % (Auto) Baso % (Auto) Neut # (Auto) Lymph # (Auto) Island # (Auto) Eos # (Auto) Baso # (Auto) Total Counted Immature Gran % Nucleated RBC % Immature Gran # Segmented Neutrophils Band Neutrophils Lymphocytes Monocytes Eosinophils Nucleated RBCs # Platelet Estimate Hypochromasia Microcytosis Sodium Potassium Chloride Carbon Dioxide Anion Gap BUN Creatinine GFR Calculation BUN/Creatinine Ratio Glucose POC Glucose 86 209 H 159 H Hemoglobin A1c Calculated Osmolality Uric Acid Calcium Total Bilirubin AST ALT Alkaline Phosphatase Total Creatine Kinase Total Protein Albumin Globulin Albumin/Globulin Ratio Triglycerides Cholesterol LDL Cholesterol VLDL Cholesterol HDL Cholesterol Heart Disease Risk Ratio TSH 3rd Generation 01/12/17 01/12/17 01/13/17 20:48 23:42 00:24 WBC RBC Hgb Hct MCV MCH MCHC RDW Plt Count MPV Neut % (Auto) Lymph % (Auto) Island % (Auto) Eos % (Auto) Baso % (Auto) Neut # (Auto) Lymph # (Auto) Island # (Auto) Eos # (Auto) Baso # (Auto) Total Counted Immature Gran % Nucleated RBC % Immature Gran # Segmented Neutrophils Band Neutrophils Lymphocytes Monocytes Eosinophils Nucleated RBCs # Platelet Estimate Hypochromasia Microcytosis Sodium Potassium Chloride Carbon Dioxide Anion Gap BUN Creatinine GFR Calculation BUN/Creatinine Ratio Glucose POC Glucose 138 H 49 L* 154 H Hemoglobin A1c Calculated Osmolality Uric Acid Calcium Total Bilirubin AST ALT Alkaline Phosphatase Total Creatine Kinase Total Protein Albumin Globulin Albumin/Globulin Ratio Triglycerides Cholesterol LDL Cholesterol VLDL Cholesterol HDL Cholesterol Heart Disease Risk Ratio TSH 3rd Generation 01/13/17 01/13/17 01/13/17 05:55 05:55 05:55 WBC 16.5 H RBC 3.87 Hgb 12.3 L Hct 34.2 L MCV 88.4 MCH 32 MCHC 36.0 RDW 13.8 Plt Count 142 D MPV 10.5 Neut % (Auto) 78.7 H Lymph % (Auto) 9.6 L Island % (Auto) 8.9 Eos % (Auto) 1.9 Baso % (Auto) 0.2 Neut # (Auto) 13.0 H Lymph # (Auto) 1.6 Island # (Auto) 1.5 H Eos # (Auto) 0.3 Baso # (Auto) 0.0 Total Counted Immature Gran % 0.7 Nucleated RBC % 0.0 Immature Gran # 0.11 Segmented Neutrophils Band Neutrophils Lymphocytes Monocytes Eosinophils Nucleated RBCs # 0.00 Platelet Estimate Hypochromasia Microcytosis Sodium 136 Potassium 3.7 Chloride 104 Carbon Dioxide 22 Anion Gap 13.7 BUN 17 D Creatinine 0.80 GFR Calculation 113 BUN/Creatinine Ratio 21.00 H Glucose 47 L POC Glucose Hemoglobin A1c Calculated Osmolality 270.0 L Uric Acid 4.5 Calcium 8.3 L Total Bilirubin 1.00 AST 25 ALT 22 Alkaline Phosphatase 100 Total Creatine Kinase Total Protein 6.0 L Albumin 2.6 L Globulin 3.4 Albumin/Globulin Ratio 0.7 L Triglycerides 154 H Cholesterol 124 LDL Cholesterol 76.0 VLDL Cholesterol 30.8 HDL Cholesterol 25 L Heart Disease Risk Ratio 4.96 TSH 3rd Generation 0.410 01/13/17 01/13/17 01/13/17 06:18 06:58 09:47 WBC RBC Hgb Hct MCV MCH MCHC RDW Plt Count MPV Neut % (Auto) Lymph % (Auto) Island % (Auto) Eos % (Auto) Baso % (Auto) Neut # (Auto) Lymph # (Auto) Island # (Auto) Eos # (Auto) Baso # (Auto) Total Counted Immature Gran % Nucleated RBC % Immature Gran # Segmented Neutrophils Band Neutrophils Lymphocytes Monocytes Eosinophils Nucleated RBCs # Platelet Estimate Hypochromasia Microcytosis Sodium Potassium Chloride Carbon Dioxide Anion Gap BUN Creatinine GFR Calculation BUN/Creatinine Ratio Glucose POC Glucose 48 L* 201 H 162 H Hemoglobin A1c Calculated Osmolality Uric Acid Calcium Total Bilirubin AST ALT Alkaline Phosphatase Total Creatine Kinase Total Protein Albumin Globulin Albumin/Globulin Ratio Triglycerides Cholesterol LDL Cholesterol VLDL Cholesterol HDL Cholesterol Heart Disease Risk Ratio TSH 3rd Generation - Diagnostic Findings Procedure: Chest x-ray: image reviewed by me, report reviewed by me - EKG EKG results: interpreted by me, no acute changes EKG shows: sinus rhythm IEra Shea, DO, personally performed the services described in this documentation, ascribed by Blanca De La Rosa RN in my presence, and it is both accurate and complete 723 .
--- NOTE | 2017-01-13 19:06 | CT Report ---
Exam:CT angio neck Date: 01/13/2017 1:16 PM Comparison: Carotid ultrasound 11/26/2016 Indication: Left carotid bruit Technique: Axial CT images were obtained from the thoracic aortic arch to the skull base with 80 cc of contrast Omnipaque 350 with sagittal axial and coronal imaging reconstructions from axial data. Additional 3-D vascular maximum intensity reproduction images were created and submitted for review. Dose reduction: This CT exam was performed using one or more of the following dose reduction techniques: Automated exposure control, automated adjustment of the mA and/or KV according to patient size, or use of iterative reconstruction technique. Total DLP: 220 Findings: There is multifocal atherosclerotic plaque noted within the aortic arch and great vessels. There is suggestion of moderate focal stenosis with densely calcified plaque in the proximal left subclavian artery (axial image 41 and sagittal image 119). The common carotid arteries appear patent with prominent atherosclerotic plaque noted at the carotid bifurcations bilaterally. The vertebral arteries are patent bilaterally throughout their course in the neck. Minimal focal atherosclerotic plaque is noted at the right vertebral artery origin. The right carotid: Right internal carotid artery measures approximately 4 mm diameter. Severe stenosis is noted at the bifurcation. Estimated luminal stenosis is 85-90%. External carotid artery and branches are patent with mild proximal stenosis. The left carotid: Left internal carotid artery measures 4.8 mm diameter. There is prominent atherosclerotic plaque at the bifurcation with moderate-severe narrowing estimated at 75-85%. External carotid artery and branches are patent but there is additional severe stenosis suggested at the external carotid artery origin. Non-CT Angiogram findings: Lungs are clear. Paraseptal emphysematous changes are noted. There is no adenopathy in the axillary, supra clavicular or mediastinal adelfo stations. Thyroid gland appears unremarkable. No abnormal enhancing lesions are identified within the neck soft tissues. Intracranial contents appear grossly within normal limits. There are mild multilevel degenerative changes noted within the cervical spine. There is no acute osseous abnormality. Impression: 1. Severe bilateral atherosclerotic disease and luminal stenosis within both internal carotid arteries, estimated stenosis of 85-90% on the right and 75-85% on the left. 2. Severe stenosis of the left external carotid artery origin also noted. Direct NASCET criteria was utilized. PROCEDURE INTERPRETED AT [facility] DEPARTMENT OF RADIOLOGY Final Report Signed by: Mike Slade
[2017-01-13] MEDS: CYCLOBENZAPRINE 10 MG TABLET PO PRN (22:17)
[2017-01-13] MEDS: INSULIN GLARGINE 100 UNIT/ML SUBCUT SCH (22:17)
[2017-01-14] MEDS: PIPERACILLIN/TAZOBACTAM 3,375 MG in SODIUM CHLORIDE 0.9% 100 ML IV SCH ×3 (00:53→18:31)
[2017-01-14] MEDS: INSULIN REGULAR 100 UNIT/ML SUBCUT SCH ×4 (01:18→18:32)
[2017-01-14] MEDS: VANCOMYCIN INJ 1,250 MG in SODIUM CHLORIDE 0.9% 250 ML IV SCH ×2 (04:53→16:57)
--- NOTE | 2017-01-14 09:03 | General Surgery Progress Note ---
Assessment and Plan (1) Spider bite wound Status: Chronic Assessment and plan: This wound reportedly began with a spider bite. This had multiple debridements and now possibly secondarily infected. There are some satellite areas of eschar which may need debridement to see if there is underlying additional necrosis. This will need debridement under anesthesia. We can also consider hyperbaric oxygen therapy as well as IV antibiotic therapy. The procedure and risk of been explained and he wishes to proceed. 01/14: He says his leg feels the same and he has motor function in his foot. I looked at his wound with Dr. Velasquez from vascular surgery. He has further necrosis. He needs revascularization but this is an infected field. He is on his way for hyperbaric oxygen treatment this morning and then after that I will debride him again. He understands that his leg may not be salvageable. We are going to try to clear up the infection and get this cleaned up before revascularization. This may be difficult and may ultimately require an amputation. Current Visit: Yes Qualifiers: Encounter type: initial encounter Subjective Patient reports: Present: no new complaints, fever. Absent: nausea, vomiting Exam - Constitutional Vitals: Period Temp Pulse Resp BP Sys/Mancera Pulse Ox Last 24 Hr 97.4 F-100.1 F 85-113 18-22 114-149/59-73 92-99 General appearance: no acute distress - Head Head exam: Present: normocephalic - Eye Eye exam: Absent: scleral icterus - Respiratory Respiratory exam: Absent: accessory muscle use - Extremities Exam Extremities exam: Present: other (The wound has some necrotic muscle proximally but there is no crepitus or gas or obvious cellulitis. There is some liquid drainage which appears to represent necrotic tissue coming more proximally from the wound.). Absent: calf tenderness, edema - Neurological Exam Neurological exam: Present: alert, oriented X3 Results - Labs CBC & BMP: 01/13/17 05:55 01/13/17 05:55 Lab Results: I have reviewed the past 24 hour labs
--- NOTE | 2017-01-14 09:16 | Event Note ---
I reviewed the wound with Dr. Stephanie Contreras and ALBARO Magallanes this morning and certainly there appears to be some continued necrosis but there is also some reasonably healthy gastrocnemius muscle there does not appear to be much surrounding cellulitis at this point in time. Dr. Stephanie Cnotreras and I agree that this revascularization is her best chance of healing this area but certainly we do not want to risk an infected aorto bifemoral graft. My thoughts are to proceed with the debridement the Dr. Stephanie Contreras is going to do today and hyperbaric oxygen will continue antibiotic therapy hopefully will get cultures and sensitivities back to adjust antibiotics if necessary and my thoughts are to potentially plan on aortobifemoral bypass Thursday. Also significantly we have gotten CTA of his carotid arteries which indicates a very high-grade stenosis of both greater than 90% on the right and the left side was greater than 75-80%. It appears that these are asymptomatic and I do not feel that we should delay an aortobifemoral bypass to address the carotid arteries prior to that surgery.
[2017-01-14] MEDS: NEBIVOLOL 5 MG TABLET PO SCH (10:50)
[2017-01-14] MEDS: PRAVASTATIN 40 MG TABLET PO SCH (10:51)
[2017-01-14] MEDS: CLORAZEPATE 3.75 MG TABLET PO SCH ×2 (10:51→21:09)
[2017-01-14] MEDS: MELOXICAM 7.5 MG TABLET PO SCH (10:51)
[2017-01-14] MEDS: LEVOTHYROXINE 100 MCG TABLET PO SCH (10:51)
[2017-01-14] MEDS: MAGNESIUM CHLORIDE 64 MG TABLET PO SCH (10:51)
[2017-01-14] MEDS: buPROPion 100 MG TABLET PO SCH (10:51)
[2017-01-14] MEDS: glyBURIDE/METFORMIN 5-500 MG TABLET PO SCH (10:53)
[2017-01-14] MEDS ORDERED: OXYTOCIN 10 UNIT/ML VIAL ONE (11:00)
[2017-01-14] MEDS ORDERED: PROPOFOL 200 MG/20 ML VIAL IV ONE (11:00)
[2017-01-14] MEDS ORDERED: LIDOCAINE 100 MG/5 ML SYRINGE ONE (11:00)
--- NOTE | 2017-01-14 11:42 | Event Note ---
Patient not seen as he had gone for HBO treatment and after that he will be having debridement surgery. Chart reviewed he has further necrosis of the right leg. Cultures not yet finalized but growing gram-negative rods and gram- positive cocci. He will continue on current antibiotics and I will follow up the cultures again tomorrow and adjust antibiotics accordingly.
--- NOTE | 2017-01-14 11:51 | Hospitalist Progress Note ---
Assessment and Plan (1) Diabetes mellitus type 2 in obese Status: Chronic Assessment and plan: Attention to change in a diabetes treatment with reduction of Lantus to 30 units at bedtime discontinuation of glyburide/metformin and living him on the metformin alone 500 mg with breakfast. Continue to check [id number] of glucose. Patient will be reassessed in the morning. Changes discussed with the patient Current Visit: Yes (2) Spider bite wound Status: Chronic Assessment and plan: Before clear to surgical team. Patient also going to be seen by infectious disease. Current Visit: Yes Qualifiers: Encounter type: initial encounter (3) Hypothyroidism Status: Chronic Assessment and plan: TSH showing adequate thyroxine supplementation. Current Visit: Yes (4) Degenerative arthritis Status: Acute Assessment and plan: Continue home medications Current Visit: Yes (5) Hypoglycemia Status: Acute Assessment and plan: This could be a combination of too much insulin and has been getting use of glyburide and at this time him starting to go to hyperbaric chamber. Cut down the dose of insulin as mentioned above continue [id number] measurements of glucose at intention is to maintain blood sugars between 115 and 135. At the time of him going to hyperbaric chamber his blood sugar should be above 125. Current Visit: Yes Hospitalist: Subjective Interval history: Admitted to the hospital with a skin soft tissue infection that is status post debridement. Patient is consulted to internal medicine and infectious disease. But here to manage his diabetes. Of concern is that blood sugar this morning was very low. My suspicion is that he Lantus insulin that he been using at home is too much for the hospital involvement given control of caloric intake here. We will cut the insulin in half to 30 units at bedtime. She also be taken off the glyburide which she is on is insulinagog. I will leave him on metformin 500 mg of breakfast. Exam - Constitutional Vitals: Period Temp Pulse Resp BP Sys/Manecra Pulse Ox Last 24 Hr 97.4 F-100.1 F 85-113 18-22 114-149/59-73 92-99 General appearance: over weight - Head Head exam: Present: normocephalic, atraumatic - Eye Eye exam: Present: EOMI Pupils: Present: KATHERYN - Respiratory Respiratory exam: Present: clear to auscultation bilaterally - Cardiovascular Cardiovascular exam: Present: regular rate and rhythm - GI/Abdominal GI/Abdominal exam: Present: normal bowel sounds, soft - Extremities Exam Extremities exam: Present: full ROM - Neurological Exam Neurological exam: Present: alert, oriented X3, CN II-XII intact - Psychiatric Psychiatric exam: Present: normal affect, normal mood - Skin Skin exam: Present: warm, dry Results - Labs CBC & BMP: 01/13/17 05:55 01/13/17 05:55 Lab Results: I have reviewed the past 24 hour labs (Noted low point of care glucose measurements) Quality Measures - VTE Contraindication to Mechanical VTE Prophylaxis: Ischemic Vascular Disease
[2017-01-14] MEDS: ENOXAPARIN 40 MG/0.4 ML SYRINGE SUBCUT SCH (13:14)
--- NOTE | 2017-01-14 14:25 | Cardiology Progress Note ---
Assessment and Plan - Time spent with patient Time spent with patient: Less than 30 minutes (1) Preoperative cardiovascular examination Status: Acute Assessment and plan: See plan of care listed below. Current Visit: Yes (2) Spider bite wound Status: Chronic Assessment and plan: See plan of care listed below. Current Visit: Yes Qualifiers: Encounter type: initial encounter (3) Hypertension Status: Chronic Assessment and plan: See plan of care listed below. Current Visit: Yes (4) Hyperlipidemia Status: Chronic Assessment and plan: See plan of care listed below. Current Visit: Yes (5) Hx of supraventricular tachycardia Status: Chronic Assessment and plan: See plan of care listed below. Current Visit: Yes (6) Diabetes mellitus type 2 in obese Status: Chronic Assessment and plan: See plan of care listed below. Current Visit: Yes (7) Hypothyroidism Status: Chronic Assessment and plan: See plan of care listed below. Current Visit: Yes Cardiology - PN: Subj Interval history: PRIMARY REFRIGERATION PERSON: DR. FRANCO SUMMARY: Mr. Hunt is a 66 year old male with a history of hypertension, hyperlipidemia, diabetes, tobacco use, obesity, family history of CAD, hypothyroidism, SVT, back/neck problems who was admitted on 01/12/17 to surgical services for further evaluatino and treatment of right leg ulcer which has had multiple debridements, now infected. Ulcer is apparently related to previous spider bite several months ago. Recently, the area has been noted to have some furthering necrosis with pain and tenderness of his right leg, and he was admitted from the wound center for IV antibiotics and surgical intervention. He has also been recently on outpatient basis by Dr. 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 Cardiology has been consulted for preoperative cardiovascular exam. He has not had palpitations or SVT in some time. He denies any signs or symptoms of angina or heart failure he has never had heart failure or coronary artery disease. It was felt Mr. Hunt could safely proceed with proposed surgical intervention without further cardiovascular workup and evaluation. It was recommended he continue his beta-adair. JANUARY 14, 2017 UPDATE: Mr. Hunt is lying in bed upon exam today. He denies any chest pain, shortness of breath, palpitations. His vital signs have been stable. Potassium is 3.7. Creatinine 0.8 GFR 113. ASSESSMENT/PLAN: 1. PREOPERATIVE CARDIOVASCULAR EXAMINATION - It was felt Mr. Hunt could safely proceed with proposed surgical intervention without further cardiovascular workup and evaluation. It was recommended he continue his beta- adair. 2. SPIDER BITE WOUND - Status post probable spider bite several months ago and now has nonhealing ulcerated area of right leg now with necrosis despite multiple debridements and antibiotics. This is being managed by surgical services and vascular surgery. 3. HYPERTENSION - Blood pressure is well controlled at this time. Continue current plan of care. 4. HYPERLIPIDEMIA - Continue pravastatin. Fasting lipid panel this morning with slightly abnormal triglyceride level but overall unremarkable. 5. HX OF SVT - Patient has previously been evaluated by Dr. Franco for SVT. This has been stable and well controlled with Bystolic. 6. DIABETES MELLITUS - Hospital medicine is following along for primary management of diabetes. Glucose levels well controlled at this time. 7. HYPOTHYROIDISM - Currently on Synthroid with current TSH 0.410. Exam (Progress Note) - Constitutional Vitals: Period Temp Pulse Resp BP Sys/Mancera Pulse Ox Last 24 Hr 97.4 F-100.1 F 85-113 18-22 127-149/59-73 92-98 Exam: General: Present: No Apparent Distress HEENT: Present: PERRL, Normocephaly, Mucus Membranes Moist. Absent: Jaundice, Pallor Neck: Present: Midline Trachea, No JVD/HJR, No Masses, Bruit present bilaterally Cardiac: Present: Reg Rate and Rhythm, S1/S2, Other (No rubs gallops or significant murmur). Absent: Tachycardia, Bradycardia Lungs: Present: Clear Ascult./Percussion, Oxygen, No Wheeze, Rales, Rhonchi Neuro: Present: Grossly Intact. Absent: Numbness, Tingling, Weakness, Resting Tremor, Essential Tremor Abdomen: Present: Soft, Active Bowel Sounds. Absent: Ascites, Tender, Firm Skin: Present: Ulceration (Right lower leg; area is currently wrapped with surgical dressing.). Absent: Bruising Extremities: Present: Warm, dry. No Clubbing, No Cyanosis, No Edema, Upper Extr. Pulses 3+ bilaterally, Lower Extr. Pulses 2+ bilaterally, Capillary Refill normal Result/EKG - Labs CBC & BMP: 01/13/17 05:55 01/13/17 05:55 Lab Results: I have reviewed the past 24 hour labs Labs: Laboratory Results - last 24 hr 01/12/17 01/13/17 01/14/17 15:04 19:47 01:18 POC Glucose 109 H 98 108 H 01/14/17 01/14/17 01/14/17 06:44 07:29 08:34 POC Glucose 60 L < 20 L* 228 H 01/14/17 13:29 POC Glucose 91 Quality Measures - VTE Contraindication to Mechanical VTE Prophylaxis: Ischemic Vascular Disease
[2017-01-14] MEDS ORDERED: METOCLOPRAMIDE 10 MG/2 ML VIAL ONE (14:37)
--- NOTE | 2017-01-14 15:05 | Operative Note ---
Date of procedure: 01/14/17 Pre-op diagnosis: Necrotizing soft tissue infection right lower extremity Post-op diagnosis: same Procedure: Excisional debridement of skin subcutaneous tissue fascia and muscle right lower extremity 7 x 18 cm Findings and technique: After informed consent was obtained the patient was brought the operating room placed in supine position. After IV sedation was administered the patient's right lower extremity was prepped and draped in usual sterile fashion. Local anesthesia was infiltrated and the incision carried out to the popliteal fossa. The necrosis of fascia and muscle appeared to and about 2 cm above were I debrided before. In the previous area of debridement there was some necrotic muscle but this was all superficial. This was all tangentially excised with a #10 blade down to healthy bleeding muscle. Gastrocnemius muscle beneath the debrided surface of appeared to be normal and contracted vigorously with electrocautery. Skin edges and subcutaneous tissue circumferentially around the edges of the wound were debrided back about 1/2 cm further but at this point these tissues all appeared viable after debridement. The final debrided area measured at 7 cm wide by 18 cm in length. A moist saline dressing was placed after the wound was copiously irrigated and a bulky dressing and wrap was placed on the lower extremity. He appeared to tolerate the procedure well. Surgeon / Physician: Norm Brown III. Loss Prevention Consultant: Henry Moss Estimated blood loss: other (50 mL) Specimens: none sent Condition: stable Disposition: PACU Results - Labs CBC & BMP: 01/13/17 05:55 01/13/17 05:55 Discharge Plan - Discharge Medications No Action Clorazepate Dipotassium 3.75 mg PO BID Cyclobenzaprine HCl 10 mg PO BID PRN PRN Reason: Muscle Spasm Colchicine [Colcrys] 1 tablet PO DAILY Glyburide/Metformin HCl [Glyburide-Metformin 5-500 mg] 1 each PO BID HYDROcodone/ACETAMIN 5-325 [[place] 5-325] 1 tablet PO BID PRN PRN Reason: Pain Levothyroxine Sodium [Levo-T] 100 mcg PO DAILY Meloxicam 7.5 mg PO DAILY Tramadol HCl [Tramadol Tab] 50 mg PO BID PRN PRN Reason: Pain Insulin Detemir [Levemir FlexPen] 64 unit SUBCUT BEDTIME buPROPion [Wellbutrin] 100 mg PO DAILY Nebivolol [Bystolic] 5 mg PO DAILY Magnesium Chloride [Slow Mag] 64 mg PO DAILY Indapamide [Lozol] 1.25 mg PO DAILY PRN PRN Reason: diuretic Pravastatin Sodium 40 mg PO DAILY NIFEdipine XL TAB [Procardia Xl] 60 mg PO DAILY - Follow Up or Referral - Forms/Instructions
--- NOTE | 2017-01-14 15:19 | Anesthesia Post-Op ---
Anesthesia Post OP - Post Ansesthetic Evaluation Patient seen in post op: Yes Resp: within normal limits CV: within normal limits Mental: within normal limits Temp: within normal limits [id number]: within normal limits Nausea and Vomiting: within normal limits Pain: within normal limits
[2017-01-14] MEDS: SODIUM HYPOCHLORITE 0.25% IRRIG 473 ML BOTTLE TOP SCH (16:58)
[2017-01-14] MEDS: CHLORHEXIDINE 4% SOLN 118 ML BOTTLE TOP SCH (16:58)
[2017-01-14] MEDS: INSULIN GLARGINE 100 UNIT/ML SUBCUT SCH ×2 (21:10→21:12)
[2017-01-15] MEDS: PIPERACILLIN/TAZOBACTAM 3,375 MG in SODIUM CHLORIDE 0.9% 100 ML IV SCH ×2 (01:34→08:37)
[2017-01-15] MEDS: INSULIN REGULAR 100 UNIT/ML SUBCUT SCH ×4 (04:47→18:08)
[2017-01-15] MEDS: MORPHINE 2 MG/1 ML SYRINGE IV PRN ×3 (05:21→20:17)
[2017-01-15] MEDS: VANCOMYCIN INJ 1,250 MG in SODIUM CHLORIDE 0.9% 250 ML IV SCH ×2 (06:01→16:47)
[2017-01-15 07:08] LABS: Basophils # 0.1 10*3/uL (0.0-0.2); Basophils % 0.3 % (0.0-0.8); Eosinophils # 0.6 10*3/uL (0.0-0.87); Hematocrit 38.1 VOL% (42.0-52.0); Immature Granulocytes % 0.6 %; Immature Granulocytes Absolute 0.13 #; Lymphocytes # 1.9 10*3/uL (1.4-4.0); Lymphocytes % 9.3 % (21.2-54.2); Mean Corpuscular HGB Conc 36.7 GM/DL (32-36); Mean Corpuscular Hemoglobin 32 PG (27-34); Mean Platelet Volume 10.6 FL (9.6-12.0); Monocytes # 1.8 10*3/uL (0.11-0.8); Monocytes % 8.8 % (1.7-12.7); Neutrophils # 15.8 10*3/uL (1.4-7.4); Platelet Count 198 T/CUMM (130-400); Red Blood Count 4.38 MC/CUMM (3.8-5.5); Red Cell Distribution Width 13.2 % (9.3-17.3); White Blood Count 20.2 T/CUMM (4-12)
[2017-01-15 07:22] LABS: Band Neutrophils 1 % (0-10); Eosinophils 1 % (0-10); Hypochromasia Slight; Lymphocytes 12 % (20-55); Microcytosis Slight; Platelet Estimate Adequate; Segmented Neutrophils 80 % (50-85); Total Cells Counted 100
[2017-01-15] MEDS: metFORMIN 500 MG TABLET PO SCH (08:34)
[2017-01-15] MEDS: PRAVASTATIN 40 MG TABLET PO SCH (08:36)
[2017-01-15] MEDS: NEBIVOLOL 5 MG TABLET PO SCH (08:36)
[2017-01-15] MEDS: MAGNESIUM CHLORIDE 64 MG TABLET PO SCH (08:37)
[2017-01-15] MEDS: CLORAZEPATE 3.75 MG TABLET PO SCH ×2 (08:37→20:17)
[2017-01-15] MEDS: buPROPion 100 MG TABLET PO SCH (08:37)
[2017-01-15] MEDS: MELOXICAM 7.5 MG TABLET PO SCH (08:37)
[2017-01-15] MEDS: ENOXAPARIN 40 MG/0.4 ML SYRINGE SUBCUT SCH (08:37)
[2017-01-15] MEDS: LEVOTHYROXINE 100 MCG TABLET PO SCH (08:37)
--- NOTE | 2017-01-15 12:13 | Hospitalist Progress Note ---
Assessment and Plan (1) Diabetes mellitus type 2 in obese Status: Chronic Assessment and plan: Patient is now on Levemir insulin 25 units at bedtime and metformin 500 mg with breakfast. Continue to monitor sugars at point of care. My suspicion is that he would do well. Being that he is going to hyperbaric chamber treatments for sure that should be a little bit on the high side because the chamber will drop his sugars even more. Try to start blood sugars above 125 at all times. I believe internal medicine can sign off at this point. Current Visit: Yes (2) Spider bite wound Status: Chronic Assessment and plan: Before clear to surgical team. Patient also going to be seen by infectious disease. Current Visit: Yes Qualifiers: Encounter type: initial encounter (3) Hypothyroidism Status: Chronic Assessment and plan: TSH showing adequate thyroxine supplementation. Current Visit: Yes (4) Degenerative arthritis Status: Acute Assessment and plan: Continue home medications Current Visit: Yes Hospitalist: Subjective Interval history: Patient is seen interviewed and examined and chart has been reviewed. Concern of hypoglycemia seem to be resolving on lower doses of Levemir. I am reducing Levemir further to 25 units at bedtime. His blood sugars will be lower because he is using hyperbaric chamber. Exam - Constitutional Vitals: Period Temp Pulse Resp BP Sys/Mancera Pulse Ox Last 24 Hr 97.2 F-99.3 F 76-96 16-22 123-150/58-86 95-100 General appearance: over weight - Head Head exam: Present: normocephalic, atraumatic - Eye Eye exam: Present: EOMI Pupils: Present: KATHERYN - ENT ENT exam: Present: normal exam - Neck Neck exam: Present: normal inspection - Respiratory Respiratory exam: Present: clear to auscultation bilaterally - Cardiovascular Cardiovascular exam: Present: regular rate and rhythm - GI/Abdominal GI/Abdominal exam: Present: normal bowel sounds, soft - Extremities Exam Extremities exam: Present: full ROM, other (Also is dressed and I did not undress) - Neurological Exam Neurological exam: Present: alert, oriented X3, CN II-XII intact - Psychiatric Psychiatric exam: Present: normal affect, normal mood - Skin Skin exam: Present: normal color, warm, dry Results - Labs CBC & BMP: 01/15/17 05:08 01/13/17 05:55 Lab Results: I have reviewed the past 24 hour labs Quality Measures - VTE Contraindication to Mechanical VTE Prophylaxis: Ischemic Vascular Disease
--- NOTE | 2017-01-15 12:34 | Cardiology Progress Note ---
Assessment and Plan - Time spent with patient Time spent with patient: Less than 30 minutes (1) Preoperative cardiovascular examination Status: Acute Assessment and plan: See plan of care listed below. Current Visit: Yes (2) Spider bite wound Status: Chronic Assessment and plan: See plan of care listed below. Current Visit: Yes Qualifiers: Encounter type: initial encounter (3) Hypertension Status: Chronic Assessment and plan: See plan of care listed below. Current Visit: Yes (4) Hyperlipidemia Status: Chronic Assessment and plan: See plan of care listed below. Current Visit: Yes (5) Hx of supraventricular tachycardia Status: Chronic Assessment and plan: See plan of care listed below. Current Visit: Yes (6) Diabetes mellitus type 2 in obese Status: Chronic Assessment and plan: See plan of care listed below. Current Visit: Yes (7) Hypothyroidism Status: Chronic Assessment and plan: See plan of care listed below. Current Visit: Yes Cardiology - PN: Subj Interval history: PRIMARY AUTOMOBILE BODY REPAIRER HELPER: DR. FRANCO SUMMARY: Mr. Hunt is a 66 year old male with a history of hypertension, hyperlipidemia, diabetes, tobacco use, obesity, family history of CAD, hypothyroidism, SVT, back/neck problems who was admitted on 01/12/17 to surgical services for further evaluatino and treatment of right leg ulcer which has had multiple debridements, now infected. Ulcer is apparently related to previous spider bite several months ago. Recently, the area has been noted to have some furthering necrosis with pain and tenderness of his right leg, and he was admitted from the wound center for IV antibiotics and surgical intervention. He has also been recently on outpatient basis by Dr. 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 Cardiology has been consulted for preoperative cardiovascular exam. He has not had palpitations or SVT in some time. He denies any signs or symptoms of angina or heart failure he has never had heart failure or coronary artery disease. It was felt Mr. Hunt could safely proceed with proposed surgical intervention without further cardiovascular workup and evaluation. It was recommended he continue his beta-adair. JANUARY 15, 2017 UPDATE: Mr. Hunt is lying in bed upon exam today. He denies any chest pain, shortness of breath, palpitations. His vital signs have been stable, blood pressure mildly elevated at noon today. WBC has risen from a couple of days ago. At this time, he is stable from a cardiology standpoint. He underwent debridement of his right lower extremity wound by Dr. Stephanie CAR yesterday afternoon. He is scheduled for another hyperbaric treatment this afternoon. ASSESSMENT/PLAN: 1. PREOPERATIVE CARDIOVASCULAR EXAMINATION - It was felt Mr. Hunt could safely proceed with proposed surgical intervention without further cardiovascular workup and evaluation. It was recommended he continue his beta- adair. 2. SPIDER BITE WOUND - Status post probable spider bite several months ago and now has nonhealing ulcerated area of right leg now with necrosis despite multiple debridements and antibiotics. This is being managed by surgical services and vascular surgery. 3. HYPERTENSION - Blood pressure is well controlled at this time. Continue current plan of care. 4. HYPERLIPIDEMIA - Continue pravastatin. Fasting lipid panel with slightly abnormal triglyceride level but overall unremarkable. 5. HX OF SVT - Patient has previously been evaluated by Dr. Franco for SVT. This has been stable and well controlled with Bystolic. 6. DIABETES MELLITUS - Hospital medicine is following along for primary management of diabetes. Glucose levels well controlled at this time. 7. HYPOTHYROIDISM - Currently on Synthroid with current TSH 0.410. Exam (Progress Note) - Constitutional Vitals: Period Temp Pulse Resp BP Sys/Mancera Pulse Ox Last 24 Hr 97.2 F-99.3 F 76-96 16-22 123-150/58-86 95-100 Exam: General: Present: No Apparent Distress HEENT: Present: PERRL, Normocephaly, Mucus Membranes Moist. Absent: Jaundice, Pallor Neck: Present: Midline Trachea, No JVD/HJR, No Masses, Bruit present bilaterally Cardiac: Present: Reg Rate and Rhythm, S1/S2. Absent: Tachycardia, Bradycardia Lungs: Present: Clear Ascult./Percussion, Oxygen, No Wheeze, Rales, Rhonchi Neuro: Present: Grossly Intact. Absent: Numbness, Tingling, Weakness, Resting Tremor, Essential Tremor Abdomen: Present: Soft, Active Bowel Sounds. Absent: Ascites, Tender, Firm Skin: Present: Ulceration (Right lower leg; area is currently wrapped with surgical dressing.). Absent: Bruising Extremities: Present: Warm, dry. No Clubbing, No Cyanosis, No Edema, Upper Extr. Pulses 3+ bilaterally, Lower Extr. Pulses 2+ bilaterally, Capillary Refill normal Result/EKG - Labs CBC & BMP: 01/15/17 05:08 01/13/17 05:55 Lab Results: I have reviewed the past 24 hour labs Labs: Laboratory Results - last 24 hr 01/14/17 01/14/17 01/14/17 13:29 15:48 16:50 WBC RBC Hgb Hct MCV MCH MCHC RDW Plt Count MPV Neut % (Auto) Lymph % (Auto) [place] % (Auto) Eos % (Auto) Baso % (Auto) Neut # (Auto) Lymph # (Auto) [place] # (Auto) Eos # (Auto) Baso # (Auto) Total Counted Immature Gran % Nucleated RBC % Immature Gran # Segmented Neutrophils Band Neutrophils Lymphocytes Monocytes Eosinophils Nucleated RBCs # Platelet Estimate Hypochromasia Microcytosis POC Glucose 91 94 Vancomycin Trough 10.6 01/14/17 01/14/17 01/15/17 18:31 19:46 00:31 WBC RBC Hgb Hct MCV MCH MCHC RDW Plt Count MPV Neut % (Auto) Lymph % (Auto) [place] % (Auto) Eos % (Auto) Baso % (Auto) Neut # (Auto) Lymph # (Auto) [place] # (Auto) Eos # (Auto) Baso # (Auto) Total Counted Immature Gran % Nucleated RBC % Immature Gran # Segmented Neutrophils Band Neutrophils Lymphocytes Monocytes Eosinophils Nucleated RBCs # Platelet Estimate Hypochromasia Microcytosis POC Glucose 87 143 H 94 Vancomycin Trough 01/15/17 01/15/17 01/15/17 05:08 06:23 11:11 WBC 20.2 H RBC 4.38 Hgb 14.0 Hct 38.1 L MCV 87.0 MCH 32 MCHC 36.7 H RDW 13.2 Plt Count 198 D MPV 10.6 Neut % (Auto) 78.0 H Lymph % (Auto) 9.3 L [place] % (Auto) 8.8 Eos % (Auto) 3.0 Baso % (Auto) 0.3 Neut # (Auto) 15.8 H Lymph # (Auto) 1.9 [place] # (Auto) 1.8 H Eos # (Auto) 0.6 Baso # (Auto) 0.1 Total Counted 100 Immature Gran % 0.6 Nucleated RBC % 0.0 Immature Gran # 0.13 Segmented Neutrophils 80 Band Neutrophils 1 Lymphocytes 12 L Monocytes 6 Eosinophils 1 Nucleated RBCs # 0.00 Platelet Estimate Adequate Hypochromasia Slight Microcytosis Slight POC Glucose 86 114 H Vancomycin Trough Quality Measures - VTE Contraindication to Mechanical VTE Prophylaxis: Ischemic Vascular Disease
[2017-01-15] MEDS: SODIUM HYPOCHLORITE 0.25% IRRIG 473 ML BOTTLE TOP SCH ×2 (13:58→17:36)
[2017-01-15] MEDS: CHLORHEXIDINE 4% SOLN 118 ML BOTTLE TOP SCH ×2 (13:58→17:36)
--- NOTE | 2017-01-15 16:20 | Infectious Disease Progress ---
Assessment and Plan (1) Diabetes mellitus type 2 in obese Status: Chronic Current Visit: Yes (2) Hyperlipidemia Status: Chronic Current Visit: Yes (3) Hypertension Status: Chronic Current Visit: Yes (4) Spider bite wound Status: Chronic Assessment and plan: Necrotic wound to right leg infected with multiple organisms. Case complicated by severe peripheral vascular disease. Recommendations: 1. Based on susceptibilities of the organisms will de-escalate from Zosyn to ceftriaxone 1 g daily 2. Continue vancomycin with monitoring of serum levels; goal trough level of around 50 3. Monitor renal function closely on vancomycin, recheck BMP tomorrow Current Visit: Yes Qualifiers: Encounter type: initial encounter Infectious Disease - PN: Subj Interval history: Patient seen and examined this morning. He is doing fairly okay except for being sleepy. He has not had fever. Had debridement of the right leg wound yesterday. He is due for revascularization surgery on Thursday. No nausea vomiting or diarrhea on antibiotics. Infectious Disease Exam (PN) - Constitutional Vitals: Temp Pulse Resp BP Pulse Ox 97.3 F L 86 20 149/70 98 01/15/17 11:56 01/15/17 11:56 01/15/17 11:56 01/15/17 11:56 01/15/17 11:56 General appearance: over weight Exam: General appearance: no acute distress, drowsy - Eye Eye exam: Present: EOMI. no icterus Pupils: Present: KATHERYN - ENT ENT exam: no oral exudates - Respiratory Respiratory exam: vesicular BS, no crepitations or wheezes - Cardiovascular Cardiovascular exam: regular rate and rhythm, no murmurs - GI/Abdominal GI/Abdominal exam: normal bowel sounds, soft, non-tender, no organomegaly or mass - Extremities Exam Extremities exam: Right leg bandaged - Skin Skin exam: no rash Results - Labs CBC & BMP: 01/15/17 05:08 01/13/17 05:55 Lab Results: I have reviewed the past 24 hour labs (Multiple organisms isolated from right leg wound including Klebsiella, Proteus, enterococcus faecalis, and MRSA) Quality Measures - VTE Contraindication to Mechanical VTE Prophylaxis: Ischemic Vascular Disease
[2017-01-15] MEDS: INSULIN GLARGINE 100 UNIT/ML SUBCUT SCH (20:04)
[2017-01-15] MEDS: cefTRIAXone 1,000 MG in SODIUM CHLORIDE 0.9% 100 ML IV SCH (20:17)
[2017-01-15] MEDS: SODIUM CHLORIDE 0.45% 1,000 ML IV SCH (20:19)
[2017-01-16] MEDS: INSULIN REGULAR 100 UNIT/ML SUBCUT SCH ×4 (00:52→18:18)
[2017-01-16] MEDS: MORPHINE 2 MG/1 ML SYRINGE IV PRN ×3 (04:09→20:57)
[2017-01-16] MEDS: VANCOMYCIN INJ 1,250 MG in SODIUM CHLORIDE 0.9% 250 ML IV SCH ×2 (04:10→14:46)
[2017-01-16 05:38] LABS: Calcium 8.2 MG/DL (8.5-10.1); Osmolality,Calculated 256.1 MOS/KG (273-304); Potassium 4.3 MMOL/L (3.5-5.1)
--- NOTE | 2017-01-16 07:24 | Event Note ---
He feels much better. He is afebrile. His wound looks much better and there does not appear to be progressive infection or necrosis. I took down his dressing and there are scattered areas of necrotic skin edge and subcutaneous tissue at the edges and a few small areas of fascia that need to be debrided. He is scheduled for hyperbaric oxygen again today. We will let him go ahead and get this treatment. I will schedule him for debridement again for tomorrow. Hopefully we will have him ready for revascularization next week. I feel that the progressive nature of his infection is resolved.
[2017-01-16] MEDS ORDERED: DEXTROSE 50% 25 GM/50 ML SYRINGE IV PRN (07:52)
--- NOTE | 2017-01-16 10:44 | Hospitalist Progress Note ---
Assessment and Plan (1) Diabetes mellitus type 2 in obese Status: Chronic Assessment and plan: Patient is now on Levemir insulin 25 units at bedtime and metformin 500 mg with breakfast. Continue to monitor sugars at point of care. My suspicion is that he would do well. Being that he is going to hyperbaric chamber treatments for sure that should be a little bit on the high side because the chamber will drop his sugars even more. Try to start blood sugars above 125 at all times. I believe internal medicine can sign off at this point. Current Visit: Yes (2) Spider bite wound Status: Chronic Assessment and plan: Before clear to surgical team. Patient also going to be seen by infectious disease. Current Visit: Yes Qualifiers: Encounter type: initial encounter (3) Hypothyroidism Status: Chronic Assessment and plan: TSH showing adequate thyroxine supplementation. Current Visit: Yes (4) Degenerative arthritis Status: Acute Assessment and plan: Continue home medications Current Visit: Yes (5) Hyponatremia Status: Acute Assessment and plan: Treated with buffered salt tablets 1 mg p.o. 3 times daily with food. Repeat BMP and magnesium tomorrow. Current Visit: Yes Hospitalist: Subjective Interval history: This is an internal medicine for over the patient was been consulted to us by surgery. Initially for management of his blood sugars. This seemed to be optimally managed now however today and noticed that she is developed a drop in his serum sodium. Sugar levels are unremarkable. Patient will be given some buffered sodium chloride tablets with the coming 24 hours. Repeat a BMP and magnesium tomorrow. Diabetes management is optimal make sure that blood sugar remains within normal manageable range. Internal medicine will check up on hyponatremia tomorrow and make a decision whether to sign off. Exam - Constitutional Vitals: Period Temp Pulse Resp BP Sys/Mancera Pulse Ox Last 24 Hr 97.1 F-98.8 F 74-90 18-22 122-149/59-70 95-99 General appearance: over weight - Head Head exam: Present: normal inspection, normocephalic, atraumatic - Respiratory Respiratory exam: Present: clear to auscultation bilaterally - Cardiovascular Cardiovascular exam: Present: regular rate and rhythm - GI/Abdominal GI/Abdominal exam: Present: normal bowel sounds, soft - Extremities Exam Extremities exam: Present: full ROM, other (Patient going to hyperbaric chamber) - Neurological Exam Neurological exam: Present: alert, oriented X3, CN II-XII intact - Psychiatric Psychiatric exam: Present: normal affect, normal mood - Skin Skin exam: Present: normal color, warm, dry Results - Labs CBC & BMP: 01/15/17 05:08 01/16/17 04:46 Lab Results: I have reviewed the past 24 hour labs (Noted new hyponatremia; being treated) Quality Measures - VTE Contraindication to Mechanical VTE Prophylaxis: Ischemic Vascular Disease
--- NOTE | 2017-01-16 10:46 | Event Note ---
<Idalmis Kline - Last Filed: 01/16/17 10:43> I stopped by to see Mr. Hunt and he was not in his room. I will stop by this afternoon to check on him. He has been stable from a cardiac standpoint the past few days. Current vital signs and labs are stable. <Ilana Girard - Last Filed: 01/17/17 07:18> No events on monitor. Nothing further to add at this time. Please call or reconsult if further cardiac assistance needed.
[2017-01-16] MEDS: MAGNESIUM CHLORIDE 64 MG TABLET PO SCH (12:03)
--- NOTE | 2017-01-16 12:03 | Infectious Disease Progress ---
Assessment and Plan (1) Diabetes mellitus type 2 in obese Status: Chronic Current Visit: Yes (2) Hyperlipidemia Status: Chronic Current Visit: Yes (3) Hypertension Status: Chronic Current Visit: Yes (4) Spider bite wound Status: Chronic Assessment and plan: Necrotic wound to right leg infected with multiple organisms. Case complicated by severe peripheral vascular disease. Recommendations: 1. Continue ceftriaxone and vancomycin 2. Vancomycin trough level pending for this afternoon; goal ~15 3. Continue to monitor renal function closely on vancomycin Current Visit: Yes Qualifiers: Encounter type: initial encounter Infectious Disease - PN: Subj Interval history: Patient was in excruciating pain when I saw him, pain involving the right leg. He has been tolerating the antibiotics without nausea vomiting or diarrhea. He has not had any fever. Infectious Disease Exam (PN) - Constitutional Vitals: Temp Pulse Resp BP Pulse Ox 98.9 F 79 20 131/57 98 01/16/17 11:51 01/16/17 11:51 01/16/17 11:51 01/16/17 11:51 01/16/17 11:51 General appearance: over weight Exam: General appearance: In severe painful distress - Eye Eye exam: Present: EOMI. no icterus Pupils: Present: KATHERYN - ENT ENT exam: no oral exudates - Respiratory Respiratory exam: vesicular BS, no crepitations or wheezes - Cardiovascular Cardiovascular exam: regular rate and rhythm, no murmurs - GI/Abdominal GI/Abdominal exam: normal bowel sounds, soft, non-tender, no organomegaly or mass - Extremities Exam Extremities exam: Right leg bandaged - Skin Skin exam: no rash Results - Labs CBC & BMP: 01/15/17 05:08 01/16/17 04:46 Lab Results: I have reviewed the past 24 hour labs Quality Measures - VTE Contraindication to Mechanical VTE Prophylaxis: Ischemic Vascular Disease
[2017-01-16] MEDS: CLORAZEPATE 3.75 MG TABLET PO SCH ×2 (12:04→20:57)
[2017-01-16] MEDS: SODIUM CHLORIDE 1 GM TABLET PO SCH ×3 (12:04→20:57)
[2017-01-16] MEDS: buPROPion 100 MG TABLET PO SCH (12:04)
[2017-01-16] MEDS: LEVOTHYROXINE 100 MCG TABLET PO SCH (12:04)
[2017-01-16] MEDS: metFORMIN 500 MG TABLET PO SCH (12:04)
[2017-01-16] MEDS: PRAVASTATIN 40 MG TABLET PO SCH (12:04)
[2017-01-16] MEDS: MELOXICAM 7.5 MG TABLET PO SCH (12:05)
[2017-01-16] MEDS: ENOXAPARIN 40 MG/0.4 ML SYRINGE SUBCUT SCH (12:05)
[2017-01-16] MEDS: NEBIVOLOL 5 MG TABLET PO SCH (12:06)
--- NOTE | 2017-01-16 12:16 | Event Note ---
Mr. Thompson continue with hyperbaric oxygen and Dr. Stephanie Contreras plans for debridement tomorrow I agreed it does appear that we have control of his ongoing infection and that we can proceed with aortobifemoral bypassing on Thursday. At this point we feel ischemia is contributing to the difficulty in healing and controlling his right leg and that it is imperative that we proceed with the bypass in order to be able to heal the large ulcer on the leg. My plan will be to continue his add the antibiotic IV antibiotics after surgery longer than normal due to the ongoing treatment of the infection. I discussed our findings with Mr. Indio moreland and explained the risks that he has involving the actual operation the risk of infection of the graft postoperative bleeding renal pulmonary or cardiac failure and also his increased risk of stroke associated with high-grade carotid stenosis bilaterally. He understands and does agree with our plan for aortobifemoral bypassing on Thursday.
[2017-01-16] MEDS: SODIUM HYPOCHLORITE 0.25% IRRIG 473 ML BOTTLE TOP SCH (13:33)
[2017-01-16] MEDS: CHLORHEXIDINE 4% SOLN 118 ML BOTTLE TOP SCH (13:34)
--- NOTE | 2017-01-16 14:37 | Cardiology Progress Note ---
Addendum entered and electronically signed by Idalmis Kline [employer] 01/16/17 14:52 : Mr. Hunt has been stable from a cardiac standpoint and we have nothing further to add at this time. We will drop off his case. Please feel free to reconsult us if we can be of further assistance or if new issues arise. Original Note: <Idalmis Kline - Last Filed: 01/16/17 14:34> Assessment and Plan - Time spent with patient Time spent with patient: Less than 30 minutes (1) Preoperative cardiovascular examination Status: Acute Assessment and plan: See plan of care listed below. Current Visit: Yes (2) Spider bite wound Status: Chronic Assessment and plan: See plan of care listed below. Current Visit: Yes Qualifiers: Encounter type: initial encounter (3) Hypertension Status: Chronic Assessment and plan: See plan of care listed below. Current Visit: Yes (4) Hyperlipidemia Status: Chronic Assessment and plan: See plan of care listed below. Current Visit: Yes (5) Hx of supraventricular tachycardia Status: Chronic Assessment and plan: See plan of care listed below. Current Visit: Yes (6) Diabetes mellitus type 2 in obese Status: Chronic Assessment and plan: See plan of care listed below. Current Visit: Yes (7) Hypothyroidism Status: Chronic Assessment and plan: See plan of care listed below. Current Visit: Yes Cardiology - PN: Subj Interval history: PRIMARY SPANISH LECTURER: DR. FRANCO SUMMARY: Mr. Hunt is a 66 year old male with a history of hypertension, hyperlipidemia, diabetes, tobacco use, obesity, family history of CAD, hypothyroidism, SVT, back/neck problems who was admitted on 01/12/17 to surgical services for further evaluatino and treatment of right leg ulcer which has had multiple debridements, now infected. Ulcer is apparently related to previous spider bite several months ago. Recently, the area has been noted to have some furthering necrosis with pain and tenderness of his right leg, and he was admitted from the wound center for IV antibiotics and surgical intervention. He has also been recently on outpatient basis by Dr. 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 Cardiology has been consulted for preoperative cardiovascular exam. He has not had palpitations or SVT in some time. He denies any signs or symptoms of angina or heart failure he has never had heart failure or coronary artery disease. It was felt Mr. Hunt could safely proceed with proposed surgical intervention without further cardiovascular workup and evaluation. It was recommended he continue his beta-adair. JANUARY 16, 2017 UPDATE: Mr. Hunt is lying in bed upon exam today. He denies any chest pain, shortness of breath, palpitations. His vital signs have been stable. At this time, he is stable from a cardiology standpoint. He underwent debridement of his right lower extremity wound by Dr. Stephanie CAR on 01/14/17. He underwent another hyperbaric treatment today. His RLE wound has recently been redressed and he is currently in pain. ASSESSMENT/PLAN: 1. PREOPERATIVE CARDIOVASCULAR EXAMINATION - It was felt Mr. Hunt could safely proceed with proposed surgical intervention without further cardiovascular workup and evaluation. It was recommended he continue his beta- adair. 2. SPIDER BITE WOUND - Status post probable spider bite several months ago and now has nonhealing ulcerated area of right leg now with necrosis despite multiple debridements and antibiotics. This is being managed by surgical services and vascular surgery. 3. HYPERTENSION - Blood pressure is well controlled at this time. Continue current plan of care. 4. HYPERLIPIDEMIA - Continue pravastatin. Fasting lipid panel with slightly abnormal triglyceride level but overall unremarkable. 5. HX OF SVT - Patient has previously been evaluated by Dr. Franco for SVT. This has been stable and well controlled with Bystolic. 6. DIABETES MELLITUS - [facility] medicine is following along for primary management of diabetes. Glucose levels well controlled at this time. 7. HYPOTHYROIDISM - Currently on Synthroid with current TSH 0.410. Exam (Progress Note) - Constitutional Vitals: Period Temp Pulse Resp BP Sys/Mancera Pulse Ox Last 24 Hr 97.1 F-98.9 F 74-90 18-20 122-143/57-68 95-99 Exam: General: Present: No Apparent Distress HEENT: Present: PERRL, Normocephaly, Mucus Membranes Moist. Absent: Jaundice, Pallor Neck: Present: Midline Trachea, No JVD/HJR, No Masses, Bruit present bilaterally Cardiac: Present: Reg Rate and Rhythm, S1/S2. Absent: Tachycardia, Bradycardia Lungs: Present: Clear Ascult./Percussion, Oxygen, No Wheeze, Rales, Rhonchi Neuro: Present: Grossly Intact. Absent: Numbness, Tingling, Weakness, Resting Tremor, Essential Tremor Abdomen: Present: Soft, Active Bowel Sounds. Absent: Ascites, Tender, Firm Skin: Present: Ulceration (Right lower leg; area is currently wrapped with surgical dressing.). Absent: Bruising Extremities: Present: Warm, dry. No Clubbing, No Cyanosis, No Edema, Upper Extr. Pulses 3+ bilaterally, Lower Extr. Pulses 2+ bilaterally, Capillary Refill normal Result/EKG - Labs CBC & BMP: 01/15/17 05:08 01/16/17 04:46 Lab Results: I have reviewed the past 24 hour labs Labs: Laboratory Results - last 24 hr 01/15/17 01/15/17 01/16/17 17:59 19:39 00:15 Sodium Potassium Chloride Carbon Dioxide Anion Gap BUN Creatinine GFR Calculation BUN/Creatinine Ratio Glucose POC Glucose 131 H 112 H 94 Calculated Osmolality Calcium Blood Type Antibody Screen 01/16/17 01/16/17 01/16/17 04:05 04:46 04:46 Sodium 128 L Potassium 4.3 Chloride 97 L Carbon Dioxide 20 L Anion Gap 15.3 H BUN 11 Creatinine 0.80 GFR Calculation 113 BUN/Creatinine Ratio 13.00 Glucose 114 H POC Glucose 93 Calculated Osmolality 256.1 L Calcium 8.2 L Blood Type AB POSITIVE Antibody Screen Negative 01/16/17 01/16/17 01/16/17 06:00 07:49 08:18 Sodium Potassium Chloride Carbon Dioxide Anion Gap BUN Creatinine GFR Calculation BUN/Creatinine Ratio Glucose POC Glucose 99 109 H 106 Calculated Osmolality Calcium Blood Type Antibody Screen 01/16/17 11:36 Sodium Potassium Chloride Carbon Dioxide Anion Gap BUN Creatinine GFR Calculation BUN/Creatinine Ratio Glucose POC Glucose 101 Calculated Osmolality Calcium Blood Type Antibody Screen Quality Measures - VTE Contraindication to Mechanical VTE Prophylaxis: Ischemic Vascular Disease <Ilana Girard - Last Filed: 01/16/17 15:43> Assessment and Plan (1) Preoperative cardiovascular examination Status: Acute Current Visit: Yes (2) Spider bite wound Status: Chronic Current Visit: Yes Qualifiers: Encounter type: initial encounter (3) Hypertension Status: Chronic Current Visit: Yes (4) Hyperlipidemia Status: Chronic Current Visit: Yes (5) Hx of supraventricular tachycardia Status: Chronic Current Visit: Yes (6) Diabetes mellitus type 2 in obese Status: Chronic Current Visit: Yes (7) Hypothyroidism Status: Chronic Current Visit: Yes Exam (Progress Note) - Constitutional Vitals: Period Temp Pulse Resp BP Sys/Mancera Pulse Ox Last 24 Hr 97.1 F-98.9 F 74-90 18-20 122-143/57-68 95-99 Result/EKG - Labs CBC & BMP: 01/15/17 05:08 01/16/17 04:46 Labs: Laboratory Results - last 24 hr 01/15/17 01/15/17 01/16/17 17:59 19:39 00:15 Sodium Potassium Chloride Carbon Dioxide Anion Gap BUN Creatinine GFR Calculation BUN/Creatinine Ratio Glucose POC Glucose 131 H 112 H 94 Calculated Osmolality Calcium Blood Type Antibody Screen 01/16/17 01/16/17 01/16/17 04:05 04:46 04:46 Sodium 128 L Potassium 4.3 Chloride 97 L Carbon Dioxide 20 L Anion Gap 15.3 H BUN 11 Creatinine 0.80 GFR Calculation 113 BUN/Creatinine Ratio 13.00 Glucose 114 H POC Glucose 93 Calculated Osmolality 256.1 L Calcium 8.2 L Blood Type AB POSITIVE Antibody Screen Negative 01/16/17 01/16/17 01/16/17 06:00 07:49 08:18 Sodium Potassium Chloride Carbon Dioxide Anion Gap BUN Creatinine GFR Calculation BUN/Creatinine Ratio Glucose POC Glucose 99 109 H 106 Calculated Osmolality Calcium Blood Type Antibody Screen 01/16/17 01/16/17 11:36 15:23 Sodium Potassium Chloride Carbon Dioxide Anion Gap BUN Creatinine GFR Calculation BUN/Creatinine Ratio Glucose POC Glucose 101 97 Calculated Osmolality Calcium Blood Type Antibody Screen
[2017-01-16] MEDS: SODIUM CHLORIDE 0.45% 1,000 ML IV SCH (14:54)
[2017-01-16] MEDS: CYCLOBENZAPRINE 10 MG TABLET PO PRN (20:57)
[2017-01-16] MEDS: cefTRIAXone 1,000 MG in SODIUM CHLORIDE 0.9% 100 ML IV SCH (20:58)
[2017-01-16] MEDS: INSULIN GLARGINE 100 UNIT/ML SUBCUT SCH (20:58)
[2017-01-17] MEDS: SODIUM CHLORIDE 0.45% 1,000 ML IV SCH ×2 (00:32→10:43)
[2017-01-17] MEDS: INSULIN REGULAR 100 UNIT/ML SUBCUT SCH ×4 (00:32→17:43)
[2017-01-17 03:09] LABS: Magnesium 1.9 MG/DL (1.8-2.4); Osmolality,Calculated 256.1 MOS/KG (273-304); Potassium 4.2 MMOL/L (3.5-5.1)
[2017-01-17] MEDS: MORPHINE 2 MG/1 ML SYRINGE IV PRN ×2 (03:29→20:51)
[2017-01-17] MEDS: VANCOMYCIN INJ 1,250 MG in SODIUM CHLORIDE 0.9% 250 ML IV SCH ×2 (04:14→17:39)
[2017-01-17] MEDS: PRAVASTATIN 40 MG TABLET PO SCH (08:37)
[2017-01-17] MEDS: SODIUM CHLORIDE 1 GM TABLET PO SCH ×3 (08:37→20:52)
[2017-01-17] MEDS: metFORMIN 500 MG TABLET PO SCH (08:37)
[2017-01-17] MEDS: MAGNESIUM CHLORIDE 64 MG TABLET PO SCH (08:37)
[2017-01-17] MEDS: ENOXAPARIN 40 MG/0.4 ML SYRINGE SUBCUT SCH (08:37)
[2017-01-17] MEDS: buPROPion 100 MG TABLET PO SCH (08:37)
[2017-01-17] MEDS: MELOXICAM 7.5 MG TABLET PO SCH (08:37)
[2017-01-17] MEDS: LEVOTHYROXINE 100 MCG TABLET PO SCH (08:37)
[2017-01-17] MEDS: CLORAZEPATE 3.75 MG TABLET PO SCH ×2 (08:37→20:52)
[2017-01-17] MEDS: NEBIVOLOL 5 MG TABLET PO SCH (08:57)
[2017-01-17] MEDS: SODIUM HYPOCHLORITE 0.25% IRRIG 473 ML BOTTLE TOP SCH (09:00)
[2017-01-17] MEDS: CHLORHEXIDINE 4% SOLN 118 ML BOTTLE TOP SCH (09:00)
--- NOTE | 2017-01-17 09:12 | Hospitalist Progress Note ---
Assessment and Plan (1) Diabetes mellitus type 2 in obese Status: Chronic Assessment and plan: Stable and controlled on current regime. HbA1c- 7.0. Current Visit: Yes (2) Spider bite wound Status: Chronic Assessment and plan: Necrotic wound to right leg infected with multiple organisms. Case complicated by severe peripheral vascular disease. plan continue Iv antibiotics For debridement today and possible aortobifemoral bypassing on Thursday. Follow ID, Surgery and Cardiology's recommendations Current Visit: Yes Qualifiers: Encounter type: initial encounter (3) Hypothyroidism Status: Chronic Assessment and plan: continue supplements Current Visit: Yes (4) Degenerative arthritis Status: Acute Assessment and plan: stable on home meds Current Visit: Yes (5) Hyponatremia Status: Acute Assessment and plan: Mild- Treated with buffered salt tablets 1 mg p.o. 3 times daily with food. Repeat bmp in am Current Visit: Yes (6) Hypertension Status: Chronic Assessment and plan: stable Current Visit: Yes (7) Hx of supraventricular tachycardia Status: Chronic Assessment and plan: Cardiology is evaluating. Current Visit: Yes Hospitalist: Subjective Interval history: Patient seen this am. Sodium level is still about the same. His blood sugar is properly controlled.He is awaiting a debridement this am. No new issues and no major events overnight. Exam - Constitutional Vitals: Period Temp Pulse Resp BP Sys/Mancera Pulse Ox Last 24 Hr 97.6 F-98.9 F 75-93 18-22 114-155/57-90 93-100 General appearance: no acute distress - Head Head exam: Present: normal inspection - Respiratory Respiratory exam: Present: clear to auscultation bilaterally - Cardiovascular Cardiovascular exam: Present: regular rate and rhythm - GI/Abdominal GI/Abdominal exam: Present: normal bowel sounds - Extremities Exam Extremities exam: Present: other (right leg bandaged, dressings look clean) - Neurological Exam Neurological exam: Present: alert, oriented X3 Results - Labs CBC & BMP: 01/15/17 05:08 01/17/17 02:31 Lab Results: I have reviewed the past 24 hour labs Quality Measures - VTE Contraindication to Mechanical VTE Prophylaxis: Ischemic Vascular Disease
[2017-01-17] MEDS ORDERED: PROPOFOL 200 MG/20 ML VIAL IV ONE (15:02)
[2017-01-17] MEDS ORDERED: LIDOCAINE 2% 5 ML VIAL ONE (15:02)
[2017-01-17] MEDS ORDERED: BUPIVACAINE 0.25% 50 ML VIAL ONE (15:11)
--- NOTE | 2017-01-17 15:41 | Operative Note ---
Date of procedure: 01/17/17 Pre-op diagnosis: Large ischemic wound right lower extremity Post-op diagnosis: same Procedure: Excisional debridement of ischemic right lower extremity wound 7.5 x 19 cm skin subcutaneous tissue, muscle, fascia Findings and technique: After informed consent was obtained the patient was brought the operating room and placed in supine position. After IV sedation was administered the patient's right lower extremity was prepped and draped in usual sterile fashion. Local anesthesia was infiltrated along the wound edges and the most lateral wound edge was excised a bit more and necrotic subcutaneous tissue beneath this debrided as well undermining about a centimeter beneath the skin. There were scattered areas of necrotic fascia which were debrided with a #15 blade. There were small areas of muscle as well superficially. All of this was debrided sharply back to healthy bleeding tissue. I extended the proximal end of the incision about a centimeter and this tissue appeared all viable at the proximal end of the wound. There was no evidence of active infection. The wound was copiously irrigated and good hemostasis noted. Blood loss was minimal. A moist saline packing was placed in a bulky dressing applied. Anesthesia: MAC, local Surgeon / Physician: Norm Brown III. Estimated blood loss: minimal Specimens: none sent Condition: stable Disposition: PACU Results - Labs CBC & BMP: 01/15/17 05:08 01/17/17 02:31 Discharge Plan - Discharge Medications No Action Clorazepate Dipotassium 3.75 mg PO BID Cyclobenzaprine HCl 10 mg PO BID PRN PRN Reason: Muscle Spasm Colchicine [Colcrys] 1 tablet PO DAILY Glyburide/Metformin HCl [Glyburide-Metformin 5-500 mg] 1 each PO BID HYDROcodone/ACETAMIN 5-325 [[place] 5-325] 1 tablet PO BID PRN PRN Reason: Pain Levothyroxine Sodium [Levo-T] 100 mcg PO DAILY Meloxicam 7.5 mg PO DAILY Tramadol HCl [Tramadol Tab] 50 mg PO BID PRN PRN Reason: Pain Insulin Detemir [Levemir FlexPen] 64 unit SUBCUT BEDTIME buPROPion [Wellbutrin] 100 mg PO DAILY Nebivolol [Bystolic] 5 mg PO DAILY Magnesium Chloride [Slow Mag] 64 mg PO DAILY Indapamide [Lozol] 1.25 mg PO DAILY PRN PRN Reason: diuretic Pravastatin Sodium 40 mg PO DAILY NIFEdipine XL TAB [Procardia Xl] 60 mg PO DAILY - Follow Up or Referral - Forms/Instructions
--- NOTE | 2017-01-17 15:50 | Anesthesia Post-Op ---
Anesthesia Post OP - Post Ansesthetic Evaluation Patient seen in post op: Yes Resp: within normal limits CV: within normal limits Mental: within normal limits Temp: within normal limits [id number]: within normal limits Nausea and Vomiting: within normal limits Pain: within normal limits
[2017-01-17] MEDS ORDERED: fentaNYL 100 MCG/2 ML VIAL ONE (15:52)
[2017-01-17] MEDS ORDERED: MIDAZOLAM 2 MG/2 ML VIAL ONE (15:52)
[2017-01-17] MEDS ORDERED: ONDANSETRON 4 MG/2 ML VIAL IV PRN (16:02)
[2017-01-17] MEDS: HYDROmorphone 2 MG/1 ML VIAL IV PRN ×4 (16:05→16:28)
[2017-01-17] MEDS: INSULIN GLARGINE 100 UNIT/ML SUBCUT SCH (20:50)
[2017-01-17] MEDS: cefTRIAXone 1,000 MG in SODIUM CHLORIDE 0.9% 100 ML IV SCH (20:52)
[2017-01-18] MEDS: INSULIN REGULAR 100 UNIT/ML SUBCUT SCH ×4 (00:47→18:51)
[2017-01-18] MEDS: VANCOMYCIN INJ 1,250 MG in SODIUM CHLORIDE 0.9% 250 ML IV SCH ×3 (01:00→18:32)
[2017-01-18] MEDS: MORPHINE 2 MG/1 ML SYRINGE IV PRN ×5 (01:01→18:33)
[2017-01-18 03:15] LABS: Calcium 7.9 MG/DL (8.5-10.1); Osmolality,Calculated 256.1 MOS/KG (273-304); Potassium 4.2 MMOL/L (3.5-5.1)
[2017-01-18] MEDS: SODIUM CHLORIDE 0.45% 1,000 ML IV SCH ×2 (06:30→21:27)
[2017-01-18] MEDS: metFORMIN 500 MG TABLET PO SCH (07:48)
[2017-01-18] MEDS: LEVOTHYROXINE 100 MCG TABLET PO SCH (09:22)
[2017-01-18] MEDS: PRAVASTATIN 40 MG TABLET PO SCH (09:22)
[2017-01-18] MEDS: CLORAZEPATE 3.75 MG TABLET PO SCH ×2 (09:22→21:27)
[2017-01-18] MEDS: MELOXICAM 7.5 MG TABLET PO SCH (09:23)
[2017-01-18] MEDS: buPROPion 100 MG TABLET PO SCH (09:23)
[2017-01-18] MEDS: NEBIVOLOL 5 MG TABLET PO SCH (09:23)
[2017-01-18] MEDS: ENOXAPARIN 40 MG/0.4 ML SYRINGE SUBCUT SCH (09:23)
[2017-01-18] MEDS: MAGNESIUM CHLORIDE 64 MG TABLET PO SCH (09:23)
--- NOTE | 2017-01-18 09:43 | Hospitalist Progress Note ---
Assessment and Plan (1) Diabetes mellitus type 2 in obese Status: Chronic Assessment and plan: Stable and controlled on current regime. HbA1c- 7.0. Current Visit: Yes (2) Spider bite wound Status: Chronic Assessment and plan: Necrotic wound to right leg infected with multiple organisms. Case complicated by severe peripheral vascular disease. S/p debridement yesterday. plan continue Iv antibiotics For aortobifemoral bypassing in am. Follow ID, Surgery and Cardiology's recommendations Current Visit: Yes Qualifiers: Encounter type: initial encounter (3) Hypothyroidism Status: Chronic Assessment and plan: continue supplements Current Visit: Yes (4) Degenerative arthritis Status: Acute Assessment and plan: stable on home meds Current Visit: Yes (5) Hyponatremia Status: Acute Assessment and plan: Mild- Treated with buffered salt tablets 1 mg p.o. 3 times daily with food. Repeat bmp in am Current Visit: Yes (6) Hypertension Status: Chronic Assessment and plan: stable Current Visit: Yes (7) Hx of supraventricular tachycardia Status: Chronic Assessment and plan: Cardiology is evaluating. Current Visit: Yes Hospitalist: Subjective Interval history: Patient seen this am, he has no new complaints.. He had a debridement of his wound yesterday. He will be having a vascular surgery in am. Exam - Constitutional Vitals: Period Temp Pulse Resp BP Sys/Mancera Pulse Ox Last 24 Hr 97.6 F-100.1 F 66-129 16-20 97-136/40-98 16-100 General appearance: no acute distress - Head Head exam: Present: normal inspection - Eye Eye exam: Present: EOMI - Respiratory Respiratory exam: Present: clear to auscultation bilaterally - Cardiovascular Cardiovascular exam: Present: regular rate and rhythm - GI/Abdominal GI/Abdominal exam: Present: normal bowel sounds - Extremities Exam Extremities exam: Present: other (right leg bandaged, dressings look clean) - Neurological Exam Neurological exam: Present: alert, oriented X3 Results - Labs CBC & BMP: 01/15/17 05:08 01/18/17 01:47 Lab Results: I have reviewed the past 24 hour labs Quality Measures - VTE Contraindication to Mechanical VTE Prophylaxis: Ischemic Vascular Disease
--- NOTE | 2017-01-18 11:21 | Event Note ---
He feels much better. His wound looked much better yesterday. His dressing is dry and we will change this today. He should be okay for revascularization for tomorrow. Feel that the active infection in his right lower extremity has been resolved.
[2017-01-18 12:58] LABS: Basophils % 0.3 % (0.0-0.8); Eosinophils # 0.4 10*3/uL (0.0-0.87); Eosinophils % 2.9 % (0.00-10.9); Hematocrit 33.9 VOL% (42.0-52.0); Hemoglobin 12.6 GM/DL (14.0-18.0); Immature Granulocytes % 0.8 %; Immature Granulocytes Absolute 0.11 #; Lymphocytes # 1.6 10*3/uL (1.4-4.0); Lymphocytes % 11.9 % (21.2-54.2); Mean Corpuscular HGB Conc 37.2 GM/DL (32-36); Mean Corpuscular Hemoglobin 32 PG (27-34); Mean Corpuscular Volume 85.8 FL (87-102); Mean Platelet Volume 9.8 FL (9.6-12.0); Monocytes # 1.6 10*3/uL (0.11-0.8); Monocytes % 11.7 % (1.7-12.7); Neutrophils # 9.7 10*3/uL (1.4-7.4); Neutrophils % 72.4 % (38.7-73.9); Platelet Count 149 T/CUMM (130-400); Red Blood Count 3.95 MC/CUMM (3.8-5.5); Red Cell Distribution Width 13.2 % (9.3-17.3); White Blood Count 13.3 T/CUMM (4-12)
[2017-01-18] MEDS: CHLORHEXIDINE 4% SOLN 118 ML BOTTLE TOP SCH (13:40)
[2017-01-18] MEDS: SODIUM HYPOCHLORITE 0.25% IRRIG 473 ML BOTTLE TOP SCH (13:40)
[2017-01-18 13:59] LABS: Calcium 8.3 MG/DL (8.5-10.1); Magnesium 1.9 MG/DL (1.8-2.4)
[2017-01-18 14:00] LABS: Osmolality,Calculated 258.2 MOS/KG (273-304); Potassium 4.5 MMOL/L (3.5-5.1)
[2017-01-18] MEDS: cefTRIAXone 1,000 MG in SODIUM CHLORIDE 0.9% 100 ML IV SCH (21:26)
[2017-01-18] MEDS: INSULIN GLARGINE 100 UNIT/ML SUBCUT SCH (21:27)
[2017-01-19] MEDS: INSULIN REGULAR 100 UNIT/ML SUBCUT SCH ×4 (00:38→17:25)
[2017-01-19] MEDS: VANCOMYCIN INJ 1,250 MG in SODIUM CHLORIDE 0.9% 250 ML IV SCH ×3 (01:16→21:39)
[2017-01-19] MEDS: MORPHINE 2 MG/1 ML SYRINGE IV PRN ×2 (03:43→10:21)
[2017-01-19] MEDS ORDERED: HEPARIN 5,000 UNIT/1 ML VIAL ONE ×2 (07:02→08:54)
[2017-01-19] MEDS ORDERED: VANCOMYCIN 500 MG VIAL ONE ×2 (07:03→08:54)
[2017-01-19] MEDS ORDERED: TISSUE ADHESIVE 1 EACH APPLICATOR TOP ONE (07:03)
[2017-01-19 07:06] LABS: Calcium 8.6 MG/DL (8.5-10.1); Osmolality,Calculated 263.5 MOS/KG (273-304); Potassium 4.6 MMOL/L (3.5-5.1)
[2017-01-19 07:48] LABS: Basophils # 0.1 10*3/uL (0.0-0.2); Basophils % 0.4 % (0.0-0.8); Eosinophils # 0.5 10*3/uL (0.0-0.87); Eosinophils % 3.6 % (0.00-10.9); Hematocrit 33.3 VOL% (42.0-52.0); Hemoglobin 12.2 GM/DL (14.0-18.0); Immature Granulocytes % 0.8 %; Immature Granulocytes Absolute 0.11 #; Lymphocytes # 1.6 10*3/uL (1.4-4.0); Lymphocytes % 11.8 % (21.2-54.2); Mean Corpuscular HGB Conc 36.6 GM/DL (32-36); Mean Corpuscular Hemoglobin 31 PG (27-34); Mean Corpuscular Volume 85.4 FL (87-102); Mean Platelet Volume 10.1 FL (9.6-12.0); Monocytes # 1.5 10*3/uL (0.11-0.8); Monocytes % 10.9 % (1.7-12.7); Neutrophils # 9.9 10*3/uL (1.4-7.4); Neutrophils % 72.5 % (38.7-73.9); Platelet Count 144 T/CUMM (130-400); Red Cell Distribution Width 13.3 % (9.3-17.3); White Blood Count 13.6 T/CUMM (4-12)
--- NOTE | 2017-01-19 08:47 | Event Note ---
He feels well. He did have a fever of 102 last night. I took down his leg dressing on his wound looks good. I see no signs of active infection or necrosis.
[2017-01-19] MEDS ORDERED: MORPHINE 10 MG/10 ML VIAL ONE (08:48)
[2017-01-19] MEDS: MELOXICAM 7.5 MG TABLET PO SCH (09:59)
[2017-01-19] MEDS: buPROPion 100 MG TABLET PO SCH (09:59)
[2017-01-19] MEDS: NEBIVOLOL 5 MG TABLET PO SCH (09:59)
[2017-01-19] MEDS: MAGNESIUM CHLORIDE 64 MG TABLET PO SCH (09:59)
[2017-01-19] MEDS: LEVOTHYROXINE 100 MCG TABLET PO SCH (09:59)
[2017-01-19] MEDS: PRAVASTATIN 40 MG TABLET PO SCH (09:59)
[2017-01-19] MEDS: CLORAZEPATE 3.75 MG TABLET PO SCH ×2 (09:59→20:49)
--- NOTE | 2017-01-19 10:03 | Hospitalist Progress Note ---
Assessment and Plan (1) Diabetes mellitus type 2 in obese Status: Chronic Assessment and plan: Stable and controlled on current regime. HbA1c- 7.0. Current Visit: Yes (2) Spider bite wound Status: Chronic Assessment and plan: Necrotic wound to right leg infected with multiple organisms. Case complicated by severe peripheral vascular disease. S/p debridement two days ago. He is for aortobifemoral bypassing this am plan continue Iv antibiotics . Follow ID, Surgery and Cardiology's recommendations Current Visit: Yes Qualifiers: Encounter type: initial encounter (3) Hypothyroidism Status: Chronic Assessment and plan: continue supplements Current Visit: Yes (4) Degenerative arthritis Status: Acute Assessment and plan: stable on home meds Current Visit: Yes (5) Hyponatremia Status: Acute Assessment and plan: Mild- Treated with buffered salt tablets 1 mg p.o. 3 times daily with food. Repeat bmp in am Current Visit: Yes (6) Hypertension Status: Chronic Assessment and plan: stable Current Visit: Yes (7) Hx of supraventricular tachycardia Status: Chronic Assessment and plan: Cardiology is advising. Current Visit: Yes Hospitalist: Subjective Interval history: Patient states some pain around his right leg. His wound was open and it looked fairly clean. he is going for a revascularization surgery today. Exam - Constitutional Vitals: Period Temp Pulse Resp BP Sys/Mancera Pulse Ox Last 24 Hr 97.0 F-102.3 F 80-113 18-20 99-123/54-79 92-100 General appearance: no acute distress - Head Head exam: Present: normal inspection - Respiratory Respiratory exam: Present: clear to auscultation bilaterally - Cardiovascular Cardiovascular exam: Present: regular rate and rhythm - GI/Abdominal GI/Abdominal exam: Present: normal bowel sounds - Extremities Exam Extremities exam: Present: other (right leg wound) - Neurological Exam Neurological exam: Present: alert, oriented X3 Results - Labs CBC & BMP: 01/19/17 07:32 01/19/17 05:49 Lab Results: I have reviewed the past 24 hour labs Quality Measures - VTE Contraindication to Mechanical VTE Prophylaxis: Ischemic Vascular Disease
[2017-01-19] MEDS: CHLORHEXIDINE 4% SOLN 118 ML BOTTLE TOP SCH (10:05)
[2017-01-19] MEDS: SODIUM HYPOCHLORITE 0.25% IRRIG 473 ML BOTTLE TOP SCH (10:05)
[2017-01-19] MEDS: ENOXAPARIN 40 MG/0.4 ML SYRINGE SUBCUT SCH (10:42)
[2017-01-19] MEDS: metFORMIN 500 MG TABLET PO SCH (10:42)
[2017-01-19] MEDS ORDERED: DEXTROSE 50% 25 GM/50 ML SYRINGE IV PRN (11:11)
[2017-01-19] MEDS ORDERED: GLUCAGON 1 MG VIAL IM PRN (11:11)
--- NOTE | 2017-01-19 11:12 | Event Note ---
Mr. Vargas indeed spiked a fever of 102.3 last night it does not obviously appear to be coming from the right leg but we therefore not certain where it is coming from. The right leg does appear to be healing with current therapy and therefore I think it is safer that we did not do an aortobifemoral bypass in the face of some sort sort of infection. I talked with Dr. Stephanie CAR and it may be most appropriate that we consider moving him to [facility] to undergo hyperbaric oxygen and wound care and continued treatment of whatever infection were dealing with and then do the aortobifemoral bypass in several weeks once we are certain there is no infection that could involve the aortic graft. We also have to recall that he has high-grade bilateral carotid stenosis that will need to be addressed in the future as well
--- NOTE | 2017-01-19 11:57 | Infectious Disease Progress ---
Assessment and Plan (1) Diabetes mellitus type 2 in obese Status: Chronic Current Visit: Yes (2) Hyperlipidemia Status: Chronic Current Visit: Yes (3) Hypertension Status: Chronic Current Visit: Yes (4) Spider bite wound Status: Chronic Assessment and plan: Necrotic wound to right leg infected with multiple organisms. Case complicated by severe peripheral vascular disease. Patient awaiting vascular surgery today. Recommendations: 1. Continue ceftriaxone and vancomycin 2. Vancomycin trough acceptable at 12.8, for soft tissue infection [blood cultures were negative] 3. Continue to monitor renal function closely on vancomycin, sulfites normal at 0.8 Current Visit: Yes Qualifiers: Encounter type: initial encounter Infectious Disease - PN: Subj Interval history: Patient doing fine, uneventful weekend. No fever, pain controlled when I saw him and he seems a bit confused possibly because he just gotten narcotic pain medicine. Denied new rash or itching [even though a rash was noted, but patient says that he has had this problem for many years and has seen 7 different dermatologists for it]. Infectious Disease Exam (PN) - Constitutional Vitals: Temp Pulse Resp BP Pulse Ox 98.4 F 83 20 105/61 97 01/19/17 11:50 01/19/17 11:50 01/19/17 11:50 01/19/17 11:50 01/19/17 11:50 General appearance: no acute distress Exam: General appearance: Comfortable, but drowsy from narcotic pain medicine - Eye Eye exam: Present: EOMI. no icterus Pupils: Present: KATHERYN - ENT ENT exam: no oral exudates - Respiratory Respiratory exam: vesicular BS, no crepitations or wheezes - Cardiovascular Cardiovascular exam: regular rate and rhythm, no murmurs - GI/Abdominal GI/Abdominal exam: normal bowel sounds, soft, non-tender, no organomegaly or mass - Extremities Exam Extremities exam: Right leg bandaged - Skin Skin exam: Erythematous papular rash scattered over upper arms and also entire chest, abdomen, back and proximal thighs Results - Labs CBC & BMP: 01/19/17 07:32 01/19/17 05:49 Lab Results: I have reviewed the past 24 hour labs (Blood cultures negative) Quality Measures - VTE Contraindication to Mechanical VTE Prophylaxis: Ischemic Vascular Disease
[2017-01-19] MEDS: SODIUM CHLORIDE 0.45% 1,000 ML IV SCH (13:04)
[2017-01-19] MEDS: CYCLOBENZAPRINE 10 MG TABLET PO PRN (20:49)
[2017-01-19] MEDS: cefTRIAXone 1,000 MG in SODIUM CHLORIDE 0.9% 100 ML IV SCH (20:49)
[2017-01-19] MEDS: INSULIN GLARGINE 100 UNIT/ML SUBCUT SCH (21:39)
[2017-01-20] MEDS: INSULIN REGULAR 100 UNIT/ML SUBCUT SCH ×4 (00:26→18:48)
[2017-01-20] MEDS: SODIUM CHLORIDE 0.45% 1,000 ML IV SCH ×2 (04:30→21:30)
[2017-01-20] MEDS: VANCOMYCIN INJ 1,250 MG in SODIUM CHLORIDE 0.9% 250 ML IV SCH ×2 (04:30→18:17)
[2017-01-20] MEDS: NEBIVOLOL 5 MG TABLET PO SCH (09:22)
[2017-01-20] MEDS: metFORMIN 500 MG TABLET PO SCH (09:22)
[2017-01-20] MEDS: MAGNESIUM CHLORIDE 64 MG TABLET PO SCH (09:23)
[2017-01-20] MEDS: PRAVASTATIN 40 MG TABLET PO SCH (09:23)
[2017-01-20] MEDS: LEVOTHYROXINE 100 MCG TABLET PO SCH (09:23)
[2017-01-20] MEDS: MELOXICAM 7.5 MG TABLET PO SCH (09:23)
[2017-01-20] MEDS: buPROPion 100 MG TABLET PO SCH (09:23)
[2017-01-20] MEDS: CLORAZEPATE 3.75 MG TABLET PO SCH (09:23)
--- NOTE | 2017-01-20 10:10 | Infectious Disease Progress ---
Assessment and Plan (1) Diabetes mellitus type 2 in obese Status: Chronic Current Visit: Yes (2) Hyperlipidemia Status: Chronic Current Visit: Yes (3) Hypertension Status: Chronic Current Visit: Yes (4) Spider bite wound Status: Chronic Assessment and plan: Necrotic wound to right leg infected with multiple organisms. Case complicated by severe peripheral vascular disease. He had fever night before last but has been afebrile since and looks relatively okay with no focus of obvious new infection. Recommendations: 1. Continue ceftriaxone and vancomycin 2. Follow-up repeat blood cultures Current Visit: Yes Qualifiers: Encounter type: initial encounter Infectious Disease - PN: Subj Interval history: Patient surgery was postponed yesterday of the night before expect 102.3. He feels relatively okay today, no new symptoms including no cough shortness of breath, no vomiting or diarrhea. The rash he noticed yesterday has improved today without any changes in his medications. Infectious Disease Exam (PN) - Constitutional Vitals: Temp Pulse Resp BP Pulse Ox 96.8 F L 81 20 120/65 98 01/20/17 07:29 01/20/17 07:29 01/20/17 09:57 01/20/17 07:29 01/20/17 07:29 General appearance: no acute distress Exam: General appearance: Comfortable - Eye Eye exam: Present: EOMI. no icterus Pupils: Present: KATHERYN - ENT ENT exam: no oral exudates - Respiratory Respiratory exam: vesicular BS, no crepitations or wheezes - Cardiovascular Cardiovascular exam: regular rate and rhythm, no murmurs - GI/Abdominal GI/Abdominal exam: normal bowel sounds, soft, non-tender, no organomegaly or mass - Extremities Exam Extremities exam: Right leg bandaged - Skin Skin exam: Erythematous papular rash much improved today Results - Labs CBC & BMP: 01/19/17 07:32 01/19/17 05:49 Lab Results: I have reviewed the past 24 hour labs Quality Measures - VTE Contraindication to Mechanical VTE Prophylaxis: Ischemic Vascular Disease
--- NOTE | 2017-01-20 10:59 | Hospitalist Progress Note ---
Assessment and Plan (1) Diabetes mellitus type 2 in obese Status: Chronic Assessment and plan: Stable and controlled on current regime. HbA1c- 7.0. Current Visit: Yes (2) Spider bite wound Status: Chronic Assessment and plan: Necrotic wound to right leg infected with multiple organisms. Case complicated by severe peripheral vascular disease. S/p debridement ,Aortobifemoral bypassing surgery postponed due to fever. plan continue Iv antibiotics, re-culture and CXR . Follow ID, Surgery and Cardiology's recommendations Current Visit: Yes Qualifiers: Encounter type: initial encounter (3) Hypothyroidism Status: Chronic Assessment and plan: continue supplements Current Visit: Yes (4) Degenerative arthritis Status: Acute Assessment and plan: stable on home meds Current Visit: Yes (5) Hyponatremia Status: Acute Assessment and plan: Mild- Treated with buffered salt tablets 1 mg p.o. 3 times daily with food. Repeat bmp in am Current Visit: Yes (6) Hypertension Status: Chronic Assessment and plan: stable Current Visit: Yes (7) Hx of supraventricular tachycardia Status: Chronic Assessment and plan: Cardiology is advising. Current Visit: Yes Hospitalist: Subjective Interval history: Patient's vascular surgery was held yesterday due to fever. He will be going to [facility] today and they surgery will be re-scheduled. Patient complains of pain in his leg. Exam - Constitutional Vitals: Period Temp Pulse Resp BP Sys/Mancera Pulse Ox Last 24 Hr 96.8 F-98.4 F 81-122 20-22 105-120/57-70 92-99 General appearance: no acute distress - Head Head exam: Present: normal inspection - Respiratory Respiratory exam: Present: clear to auscultation bilaterally - Cardiovascular Cardiovascular exam: Present: regular rate and rhythm - GI/Abdominal GI/Abdominal exam: Present: normal bowel sounds - Extremities Exam Extremities exam: Present: other (right leg wound) - Neurological Exam Neurological exam: Present: alert, oriented X3 Results - Labs CBC & BMP: 01/19/17 07:32 01/19/17 05:49 Lab Results: I have reviewed the past 24 hour labs Quality Measures - VTE Contraindication to Mechanical VTE Prophylaxis: Ischemic Vascular Disease
--- NOTE | 2017-01-20 12:47 | Event Note ---
He has had no more fever. He really has no complaints. His leg is comfortable. His dressing is dry. We are still doing aggressive wound care. I think we are probably at a point we can look at discharging home and managing his wound as an outpatient. I will check with the wound healing center. We would probably want to make sure that his wound is well-healed and there are no evidence of infection before doing a major peripheral vascular procedure which will require placement of prosthetic material.
--- NOTE | 2017-01-20 17:45 | Event Note ---
I agree with Dr. Stephanie Contreras if we can obtain healing and cleaning of this large wound in the right lower leg without revascularization that would be the ideal approach and then plan on an aortobifemoral bypass and some time later bilateral carotid endarterectomies I have explained this to Mr. Vargas he understands and agrees with the plan I can follow him in the office with Dr. Stephanie Contreras as far as the wound and planning on the aortobifemoral bypass
[2017-01-20] MEDS: ENOXAPARIN 40 MG/0.4 ML SYRINGE SUBCUT SCH (18:08)
[2017-01-20] MEDS: CHLORHEXIDINE 4% SOLN 118 ML BOTTLE TOP SCH (18:09)
[2017-01-20] MEDS: SODIUM HYPOCHLORITE 0.25% IRRIG 473 ML BOTTLE TOP SCH (18:10)
--- NOTE | 2017-01-20 18:45 | XRay Report ---
XR chest 1V portable Indication: Fever Comparison: Chest x-ray 01/12/2017 Technique: Portable AP chest was performed. Findings: Heart size is normal. Pulmonary vasculature appears within normal limits. No significant abnormality of the mediastinal contours demonstrated. Lungs are clear. Bones and soft tissues demonstrate no significant abnormalities. Impression: 1. No evidence of acute pathology. 01/20/2017 6:42 PM PROCEDURE INTERPRETED AT [facility] DEPARTMENT OF RADIOLOGY Final Report Signed by: Dr. Joel Escalera
[2017-01-20] MEDS: cefTRIAXone 1,000 MG in SODIUM CHLORIDE 0.9% 100 ML IV SCH (21:27)
[2017-01-20] MEDS: CYCLOBENZAPRINE 10 MG TABLET PO PRN (21:28)
[2017-01-20] MEDS: INSULIN GLARGINE 100 UNIT/ML SUBCUT SCH (21:30)
[2017-01-21] MEDS: INSULIN REGULAR 100 UNIT/ML SUBCUT SCH ×3 (00:18→12:24)
[2017-01-21] MEDS: VANCOMYCIN INJ 1,250 MG in SODIUM CHLORIDE 0.9% 250 ML IV SCH ×2 (01:51→09:58)
[2017-01-21 07:11] LABS: Albumin 2.3 G/DL (3.4-5.0); Calcium 8.5 MG/DL (8.5-10.1); Osmolality,Calculated 264.4 MOS/KG (273-304); Phosphorous 2.8 MG/DL (2.5-4.9); Potassium 4.6 MMOL/L (3.5-5.1)
[2017-01-21] MEDS: LEVOTHYROXINE 100 MCG TABLET PO SCH (08:56)
[2017-01-21] MEDS: metFORMIN 500 MG TABLET PO SCH (08:56)
[2017-01-21] MEDS: MAGNESIUM CHLORIDE 64 MG TABLET PO SCH (08:56)
[2017-01-21] MEDS: PRAVASTATIN 40 MG TABLET PO SCH (08:56)
[2017-01-21] MEDS: NEBIVOLOL 5 MG TABLET PO SCH (08:56)
[2017-01-21] MEDS: buPROPion 100 MG TABLET PO SCH (08:56)
[2017-01-21] MEDS: MELOXICAM 7.5 MG TABLET PO SCH (08:56)
[2017-01-21] MEDS: ENOXAPARIN 40 MG/0.4 ML SYRINGE SUBCUT SCH (09:04)
[2017-01-21] MEDS ORDERED: COLLAGENASE OINT 30 GM TUBE TOP SCH (09:30)
[2017-01-21] MEDS: CHLORHEXIDINE 4% SOLN 118 ML BOTTLE TOP SCH (10:43)
[2017-01-21] MEDS: SODIUM HYPOCHLORITE 0.25% IRRIG 473 ML BOTTLE TOP SCH (10:43)
--- NOTE | 2017-01-21 11:28 | Hospitalist Progress Note ---
Assessment and Plan (1) Diabetes mellitus type 2 in obese Status: Chronic Assessment and plan: Stable and controlled on current regime. HbA1c- 7.0. Current Visit: Yes (2) Spider bite wound Status: Chronic Assessment and plan: Necrotic wound to right leg infected with multiple organisms. Case complicated by severe peripheral vascular disease. S/p debridement ,Aortobifemoral bypassing surgery postponed due to fever for a later date. WC- gram negative rods plan Continue antibiotics, wound care Follow ID, Surgery and Cardiology's recommendations Current Visit: Yes Qualifiers: Encounter type: initial encounter (3) Hypothyroidism Status: Chronic Assessment and plan: continue supplements Current Visit: Yes (4) Degenerative arthritis Status: Acute Assessment and plan: stable on home meds Current Visit: Yes (5) Hyponatremia Status: Acute Assessment and plan: Mild- Treated with buffered salt tablets 1 mg p.o. 3 times daily with food. Current Visit: Yes (6) Hypertension Status: Chronic Assessment and plan: stable Current Visit: Yes (7) Hx of supraventricular tachycardia Status: Chronic Assessment and plan: stable. Current Visit: Yes Hospitalist: Subjective Interval history: Patient states he was doing alright. [facility] declined him yesterday due to his Insurance policy.He will be going home today with outpt wound care and continuation of antibiotics. Exam - Constitutional Vitals: Period Temp Pulse Resp BP Sys/Mancera Pulse Ox Last 24 Hr 96.8 F-98.3 F 73-111 18-22 102-113/55-65 95-99 General appearance: no acute distress - Head Head exam: Present: normal inspection - Respiratory Respiratory exam: Present: clear to auscultation bilaterally - Cardiovascular Cardiovascular exam: Present: regular rate and rhythm - GI/Abdominal GI/Abdominal exam: Present: normal bowel sounds - Extremities Exam Extremities exam: Present: other (right leg wound) - Neurological Exam Neurological exam: Present: alert, oriented X3 Results - Labs CBC & BMP: 01/19/17 07:32 01/21/17 06:09 Lab Results: I have reviewed the past 24 hour labs Quality Measures - VTE Contraindication to Mechanical VTE Prophylaxis: Ischemic Vascular Disease
[2017-01-21 11:45] VITALS: BP 117/62
--- NOTE | 2017-01-21 11:48 | Infectious Disease Progress ---
Assessment and Plan (1) Diabetes mellitus type 2 in obese Status: Chronic Current Visit: Yes (2) Hyperlipidemia Status: Chronic Current Visit: Yes (3) Hypertension Status: Chronic Current Visit: Yes (4) Spider bite wound Status: Chronic Assessment and plan: Necrotic wound to right leg infected with multiple organisms. Case complicated by severe peripheral vascular disease. He has been afebrile for the past 48 hours. Recommendations: On discharge patient can be switched to Bactrim double strength 1 tablet twice a day, and Augmentin 875 mg twice a day, both for 14 days. He will follow with Dr. Brown in the outpatient setting I will see him only if necessary. Current Visit: Yes Qualifiers: Encounter type: initial encounter Infectious Disease - PN: Subj Interval history: Patient feeling okay, control pain to right leg. He has not fever. No nausea vomiting or diarrhea and antibiotics. He supposed to be going home today. Infectious Disease Exam (PN) - Constitutional Vitals: Temp Pulse Resp BP Pulse Ox 98.2 F 84 20 117/62 99 01/21/17 11:44 01/21/17 11:44 01/21/17 11:44 01/21/17 11:44 01/21/17 11:44 General appearance: no acute distress Exam: General appearance: Comfortable - Eye Eye exam: Present: EOMI. no icterus Pupils: Present: KATHERYN - ENT ENT exam: no oral exudates - Extremities Exam Extremities exam: Right leg bandaged - Skin Skin exam: Erythematous papular rash improved Results - Labs CBC & BMP: 01/19/17 07:32 01/21/17 06:09 Lab Results: I have reviewed the past 24 hour labs Quality Measures - VTE Contraindication to Mechanical VTE Prophylaxis: Ischemic Vascular Disease
--- NOTE | 2017-01-21 13:08 | Discharge Summary ---
Hospital Course - Hospital Course Hospital Course: 66-year-old white male with history of hypertension, hyperlipidemia, diabetes, tobacco use, obesity, hypothyroidism, SVT admitted on 01/12/[address] Stephanie CAR with necrotic right leg wound. Patient was followed by cardiology, hospitalist, Dr. Moss from vascular surgery, and Dr. Mayorga the infectious diseases. Patient underwent his first debridement on 01/12/2017 for necrotizing soft tissue infection. He underwent hyperbaric oxygen treatment daily to help heal the wound. His second operation was on 01/14/2017 where he underwent further debridement that went into the muscle. His final operation was on 2016. Patient's wound is looking much better. His insurance will not allow long-term acute care placement for further wound care and IV antibiotics. He will be discharged home with home health for daily wound care and these orders have been written. Dr. Silver is recommended Bactrim twice daily and Augmentin twice daily both for 14 days. Patient will follow up with Dr. Brown the third and Dr. Moss in 1 week. Patient will likely undergo an aorto bi-fem bypass in the near future. Complete discharge instructions were given to the patient. Care coordination, chart review, and completed discharge paperwork took approximately 45 minutes. - Time spent with patient Time with patient DS: Greater than 30 minutes Discharge Plan - Discharge Data Disposition: Discharge Diet: heart healthy Activity: as per physical therapy Hygiene: may shower Weight Bearing at Discharge: weight bear as tolerated Driving: other (No driving if taking pain medications) Contact your physician if you experience:: fever over 101, Redness or swelling - Discharge Medications New Amoxicillin/Clav Tab [Augmentin Tab] 875 mg PO BID #28 tablet Chlorhexidine 4% Soln [Hibiclens] 1 applic TOP DAILY applic HYDROcodone/ACETAMIN 5-325 [[place] 5-325] 1 tablet PO Q4H PRN #30 tablet PRN Reason: Pain Moderate (4-7) Sodium Hypochlorite 0.25% Irr [Dakins 1/2 Strength 0.25% Soln] 1 applic TOP DAILY applic Sulfameth/Trimeth 800-160 Tab [Bactrim DS Tab] 1 tablet PO BID #28 tablet Collagenase Oint [Santyl Oint] 1 applic TOP DAILY applic Continue Clorazepate Dipotassium 3.75 mg PO BID Cyclobenzaprine HCl 10 mg PO BID PRN PRN Reason: Muscle Spasm Colchicine [Colcrys] 1 tablet PO DAILY Glyburide/Metformin HCl [Glyburide-Metformin 5-500 mg] 1 each PO BID Levothyroxine Sodium [Levo-T] 100 mcg PO DAILY Meloxicam 7.5 mg PO DAILY Tramadol HCl [Tramadol Tab] 50 mg PO BID PRN PRN Reason: Pain Insulin Detemir [Levemir FlexPen] 64 unit SUBCUT BEDTIME buPROPion [Wellbutrin] 100 mg PO DAILY Nebivolol [Bystolic] 5 mg PO DAILY Magnesium Chloride [Slow Mag] 64 mg PO DAILY Indapamide [Lozol] 1.25 mg PO DAILY PRN PRN Reason: diuretic Pravastatin Sodium 40 mg PO DAILY NIFEdipine XL TAB [Procardia Xl] 60 mg PO DAILY Discontinued HYDROcodone/ACETAMIN 5-325 [[place] 5-325] 1 tablet PO BID PRN PRN Reason: Pain - Follow Up or Referral Follow Up: Norm Brown III., MD [Physician] - 1 Week (see rosanne at same time in clinic) - Forms/Instructions Exam - Constitutional Vitals: Period Temp Pulse Resp BP Sys/Mancera Pulse Ox Last 24 Hr 97.8 F-98.3 F 73-111 18-22 108-117/55-65 95-99 Discharge Results Procedures and tests throughout hospitalization: Pending Orders 01/20/17 08:51 Blood Culture Routine 01/20/17 11:38 Urine Culture Routine 01/20/17 18:30 Wound Culture Routine 01/22/17 09:30 Vancomycin,Trough Timed Labs on day of discharge: Labs from last 24 hours 01/21/17 01/21/17 01/21/17 11:29 06:09 04:58 Sodium 133 L Potassium 4.6 Chloride 101 Carbon Dioxide 25 Anion Gap 11.6 BUN 8 Creatinine 0.80 GFR Calculation 113 BUN/Creatinine Ratio 10.00 Glucose 120 H POC Glucose 219 H 144 H Calculated Osmolality 264.4 L Calcium 8.5 Phosphorus 2.8 Albumin 2.3 L Vancomycin Trough 01/21/17 01/20/17 01/20/17 00:17 19:28 18:38 Sodium Potassium Chloride Carbon Dioxide Anion Gap BUN Creatinine GFR Calculation BUN/Creatinine Ratio Glucose POC Glucose 106 245 H 258 H Calculated Osmolality Calcium Phosphorus Albumin Vancomycin Trough 01/20/17 12:28 Sodium Potassium Chloride Carbon Dioxide Anion Gap BUN Creatinine GFR Calculation BUN/Creatinine Ratio Glucose POC Glucose Calculated Osmolality Calcium Phosphorus Albumin Vancomycin Trough 21.7 H Preliminary micro results at discharge 01/20/17 11:38 Urine Culture - Preliminary Urine,Clean Catch No Growth at 24 hours. 01/20/17 08:51 Blood Culture - Preliminary Blood No growth at 1 day 01/20/17 08:51 Blood Culture - Preliminary Blood No growth at 1 day 01/20/17 18:30 Wound Culture - Preliminary Leg - Rt Lower Gram Negative Rods DS: Provider Date of admission: 01/12/17 14:38 Primary care physician: Rajeev Osborne MD Attending physician on admission: Norm Brown III., Consults: 01/12/17 14:38 Consult to Physician [CONS] Routine Comment: Diabetic financial management consultant Provider: Consult to Specialist Group: Hospitalist When should Consulting Provider be notified: Now Person Notified: genevieve Date Notified: 01/12/17 Time Notified: 16:03 Consult Notification Comment: Consult to Physician [CONS] Routine Comment: Necrotizing soft tissue infection right lower extr Consulting Provider: Felipa Silver Consult to Specialist Group: Infectious Disease When should Consulting Provider be notified: Now Person Notified: brittaney Date Notified: 01/12/17 Time Notified: 15:44 01/12/17 16:30 Consult to Physician [CONS] Routine Comment: Preop eval needs aortobifem Consulting Provider: Consult to Specialist Group: Cardiology When should Consulting Provider be notified: In am Person Notified: Yolande Date Notified: 01/12/17 Time Notified: 17:53 Consult Notification Comment: [facility] notified at 1753 01/13/17 10:58 Consult to Physician [CONS] Routine Comment: Consulting Provider: Consult to Specialist Group: Cardiology 01/13/17 10:59 Consult to Physician [CONS] Routine Comment: aortoiliac occlusion. evaluate cardiac status Consulting Provider: Cardiology - [facility] Consult to Specialist Group: Cardiology Person Notified: ben Date Notified: 01/13/17 Time Notified: 11:20 01/13/17 15:58 Consult to Pharmacy [CONS] Routine Reason for Pharmacy Consult: Dose/Manage Vancomycin 01/14/17 09:41 Consult to Anesthesiology [CONS] Routine Consulting Provider: Reason for Anesthesiology: Pre-op Clearance 01/19/17 11:43 Consult to Case Mgmt/Social Srvs [CONS] Routine Reason for Case Mgmt/Social Srvs: LTAC Consult Comment: britney 01/21/17 09:18 Consult to Case Mgmt/Social Srvs [CONS] Routine Reason for Case Mgmt/Social Srvs: Home Health Equipment Consult Comment: daily wound care, walker for home Discharging clinician: ALBARO Salamanca Expected date of discharge: 01/21/17
[2017-01-21] MEDS: SODIUM CHLORIDE 0.45% 1,000 ML IV SCH (13:49)
== END 2017-01-21 14:21 | disposition home health service (06) | DRG 580 ==
LOC: N.OR 11:07 → N.SDSINP 11:11 → N.2E 14:38
PROVIDERS: ADMIT Surgery; ATTEND Surgery

== ENCOUNTER 2017-03-20 12:56 | Inpatient (IN) ==
[2017-03-20] MEDS ORDERED: SODIUM CHLORIDE 0.9% 1,000 ML IV STA ×2 (13:19→14:45)
[2017-03-20] MEDS ORDERED: VANCOMYCIN INJ 1,000 MG in SODIUM CHLORIDE 0.9% 250 ML IV STA (13:19)
--- NOTE | 2017-03-20 13:24 | Emergency Department Note ---
Arrival - Arrival Chief Complaint: Wound/Laceration Stated Complaint: wound ED Nursing Triage Note: spider bite to right lower leg on october that is infected. told by home health nurse today to come to er Mode of Arrival: Stretcher Limitations: No Limitations Source: Patient Time Seen by Provider: 03/20/17 13:19 - History of Present Illness HPI Narrative: This 66-year-old white male who has been battling a horrendous right calf necrotic lesion from a spider bite has had significant change in the appearance of the wound as well as generalized weakness to the point he collapsed on the floor yesterday and could not get himself up without the help of a neighbor. He has been followed by both Dr. Brown and Dr. Moss as concerns his wound and has been compliant with medication but has observed a considerable change in the character of the wound since changing a type of topical ointment he had been prescribed. The patient denies any chills or fever in association with this but has had increasing instabilities of blood sugars on both ends of the spectrum. He is not on any antibiotics at this point time. Currently he is hypotensive but in no obvious distress. Onset (ago): day(s) (Patient presents several days post change in symptoms) Allergies/Adverse Reactions: Allergies Allergy/AdvReac Type Severity Reaction Status Date / Time No Known Allergies Allergy Unverified 01/28/17 07:35 Home Medications: Home Medications Medication Instructions Recorded Confirmed Type Clorazepate Dipotassium 3.75 mg PO BID 01/12/17 03/20/17 History Colchicine [Colcrys] 1 tablet PO QAM 01/12/17 03/20/17 History Cyclobenzaprine HCl 10 mg PO BID PRN 01/12/17 03/20/17 History Glyburide/Metformin HCl 1 each PO BID 01/12/17 03/20/17 History [Glyburide-Metformin 5-500 mg] Insulin Detemir [Levemir FlexPen] 64 unit SUBCUT BEDTIME 01/12/17 03/20/17 History Levothyroxine Sodium [Levo-T] 100 mcg PO QAM 01/12/17 03/20/17 History Magnesium Chloride [Slow Mag] 64 mg PO QAM 01/12/17 03/20/17 History Meloxicam 7.5 mg PO QAM 01/12/17 03/20/17 History NIFEdipine XL TAB [Procardia Xl] 60 mg PO QAM 01/12/17 03/20/17 History Nebivolol [Bystolic] 5 mg PO QAM 01/12/17 03/20/17 History Pravastatin Sodium 40 mg PO QAM 01/12/17 03/20/17 History Tramadol HCl [Tramadol Tab] 50 mg PO BID PRN 01/12/17 03/20/17 History buPROPion [Wellbutrin] 100 mg PO QAM 01/12/17 03/20/17 History HYDROcodone/ACETAMIN 5-325 [[place] 1 tablet PO Q4H PRN #30 tablet 01/21/17 Rx 5-325] Chlorhexidine 4% Soln [Hibiclens] 1 applic TOP QA 03/20/17 03/20/17 History Collagenase Oint [Santyl Oint] 1 applic TOP QAM 03/20/17 03/20/17 History Lisinopril [Lisinopril] 10 mg PO QAM 03/20/17 03/20/17 History Sodium Hypochlorite 0.25% Irr 1 applic TOP QAM 03/20/17 03/20/17 History [Dakins 1/2 Strength 0.25% Soln] predniSONE TAB [PredniSONE] 10 mg PO QAM 03/20/17 03/20/17 History Review of System - Review of System 12 point system: reviewed and no additional remarkable complaints except as stated - Review of System Constitutional: Present: as per HPI Skin: Present: as per HPI Medical,Surgical,& Family Hx - Medical History Cardio: History of: Cardiac Dysrhythmia (SVT), Hypertension No history of: CHF, AR, Pacemaker, Valvular Heart Disease Psychological: History of: Depression Neurology: No history of: Cerebrovascular Accident, Dementia, Migraine, Peripheral Neuropathy, Seizures, TIA, Vertigo HEENT: History of: Dental Problems (UPPER AND LOWER) Endocrine: History of: Diabetes Mellitus (IDDM), Dyslipidemia, Thyroid Disorder Rheumatology: History of;: Gout (MEDICATION), Rheumatoid Arthritis Respiratory: No history of: Asthma, COPD, Obstructive Sleep Apnea, Pulmonary Hypertension Comment Only: Respiratory Problems (HAD FLU VACCINE) Gastrointestinal: No history of: Gastrointestinal Bleed Musculoskeletal: History of: Back/Neck Problems Hematology: No history of: Blood Transfusion Reaction Other: No history of: Anesthesia Reactions, Cancer, HIV - Surgical History Cardiac Surgeries: Patient Denies: Cardiac Catheterization, Cardiac Surgery Thoracic Surgeries: Patient denies;: Organ Transplant HEENT Surgeries: Surgical HX of: Eye Surgery (cataracts) Abdominal Surgeries: Patient denies: Colonoscopy - Family History Family History: Reports;: Family Diabetes (FATHER) - Social History Smoking Status: Current every day smoker Exam Physical Examination: GENERAL: Well developed, well nourished but ill-appearing white male in no acute distress. HEENT: Normocephalic. No trauma. Moist mucous membranes. EOMI. PERRLA. ENT NML NECK: Supple. No adenopathy. CARDIAC: Regular. No murmurs. Heart rate 96 CHEST: Clear to auscultation. No respiratory distress. O2 sat 97% ABDOMEN: Soft. Nontender. Active bowel sounds. EXTREMITIES: No trauma. Normal ROM. No pedal edema. Right calf reveals 12" x 4 " black eschar with red tender boundary which was infiltrated with maggots SKIN: No diaphoresis. No rash. Wound as above. NEURO: Alert. Oriented 3 but very lethargic. Motor, sensory, vibratory intact. No focal deficits. Vital Signs: Vital Signs Temperature 97.3 F L 03/20/17 12:59 Pulse Rate 96 H 03/20/17 12:59 Respiratory Rate 20 03/20/17 12:59 Blood Pressure 106/52 03/20/17 12:59 Course - Reevaluation(s) Reevaluation #1: Patient advised of need for hospitalization. - Consultations Consultation #1: Patient seen in consultation with Dr. Chang who will admit for further evaluation treatment. Results - Labs CBC & BMP: 03/20/17 13:37 03/20/17 13:37 Labs: I reviewed the laboratory noted the significant elevation white blood cell count , renal azotemic numbers, hyponatremia, and elevated CK. - Diagnostic Findings Procedure: Chest x-ray: image reviewed by me, report reviewed by me (No acute process.) Disposition Clinical Impression: Sepsis, Infected eschar, Renal azotemia, Rhabdomyolysis Case discussed with: patient Disposition: Still a Patient Condition: Guarded Time of Disposition: 14:44
[2017-03-20] MEDS ORDERED: VANCOMYCIN 1,000 MG VIAL ONE (13:31)
--- NOTE | 2017-03-20 13:36 | XRay Report ---
XR chest 1V portable Indication: Altered mental status. Chest one view: Comparison 01/20/2017. Heart size and mediastinal contour are normal. Lungs are hypoinflated but generally clear, except for minimal bibasilar atelectasis. Pleural spaces are clear. Bones are intact. Impression: Mild pulmonary hypoinflation with atelectasis. PROCEDURE INTERPRETED AT [facility] DEPARTMENT OF RADIOLOGY Final Report Signed by: Bradford Jaimes M.D.
[2017-03-20 13:50] LABS: Basophils % 0.2 % (0.0-0.8); Eosinophils # 0.1 10*3/uL (0.0-0.87); Eosinophils % 0.4 % (0.00-10.9); Hematocrit 26.6 VOL% (42.0-52.0); Hemoglobin 9.7 GM/DL (14.0-18.0); Immature Granulocytes % 1.4 %; Immature Granulocytes Absolute 0.26 #; Lymphocytes # 1.4 10*3/uL (1.4-4.0); Lymphocytes % 7.1 % (21.2-54.2); Mean Corpuscular HGB Conc 36.5 GM/DL (32-36); Mean Corpuscular Hemoglobin 31 PG (27-34); Mean Corpuscular Volume 84.4 FL (87-102); Mean Platelet Volume 9.9 FL (9.6-12.0); Monocytes # 1.5 10*3/uL (0.11-0.8); Neutrophils # 15.8 10*3/uL (1.4-7.4); Neutrophils % 82.9 % (38.7-73.9); Platelet Count 212 T/CUMM (130-400); Red Blood Count 3.15 MC/CUMM (3.8-5.5); Red Cell Distribution Width 15.5 % (9.3-17.3); White Blood Count 19.1 T/CUMM (4-12)
[2017-03-20 14:27] LABS: Lactic Acid 1.6 MMOL/L (0.4-2.0)
[2017-03-20 14:41] LABS: Alanine Aminotransferase 59 U/L (16-61); Albumin 2.3 G/DL (3.4-5.0); Alkaline Phosphatase 115 U/L (45-117); Aspartate Amino Transferase 289 U/L (0-37); Blood Urea Nitrogen 73 MG/DL (7-18); CKMB % 0.5 %; Glucose 71 MG/DL (74-106); Osmolality,Calculated 270.5 MOS/KG (273-304); Potassium 3.7 MMOL/L (3.5-5.1); Sodium 125 MMOL/L (136-145); Troponin I Only < 0.015 NG/ML (0.00-0.045)
[2017-03-20 15:21] LABS: Apearance,Urine Slightly Hazy (Clear); Bilirubin,Urine Negative (Negative); Blood, Urine Large mg/dL (Negative); Glucose,Urine (UA) Negative (Negative); Hyaline Casts,Urine 4 /LPF (0-3); Ketones,Urine Negative (Negative); Mucus,Urine Occasional /LPF (Occasional); Nitrite,Urine Negative (Negative); Protein,Urine 30 MG/DL; RBC,Urine 10 /HPF (0-4); Squamous Epithelial Cell,Urine Occasional /HPF (0-10); Urine Specific Gravity 1.013 (1.001-1.035); Urine Urobilinogen < 2.0 EU/DL (0.2-1.0); WBC,Urine 5 /HPF (0-6)
[2017-03-20 15:22] LABS: Urine Color Brown (Yellow)
--- NOTE | 2017-03-20 16:07 | General Surg History&Physical ---
Assessment and Plan (1) Sepsis Status: Acute Assessment and plan: Sepsis secondary to infection of the chronic, ischemic wound of the right lower extremity. Blood cultures have been obtained and are pending. We will continue with ciprofloxacin and vancomycin based on previous cultures. Patient will undergo debridement of the wound in the morning. IV hydration in the interim. We will consult hospitalist for assistance in medical management with me should the patient's multiple comorbidities and current acute renal failure with baseline creatinine of 0.8, and acute on chronic hyponatremia with baseline sodium levels recorded here around 132. Current Visit: Yes (2) Peripheral vascular disease Status: Acute Assessment and plan: Wound healing is compromised secondary to severe PVD, but the procedure has been precluded due to the associated infection of the right lower extremity. Monitor for now we will consult with Dr. Velasquez. I discussed with the patient and his family member present that he is certainly at risk for limb loss. Current Visit: Yes (3) Acute renal failure (ARF) Status: Acute Assessment and plan: Baseline creatinine around 0.8. Consult hospitalist for assistance in management. We will hydrate and monitor as he is certainly volume depleted. Avoid nephrotoxic agents. Note pharmacy has been consulted for dose adjustment of medications. Current Visit: Yes (4) Nicotine dependence Status: Acute Assessment and plan: We will encourage smoking cessation. This could certainly be another factor for the wound's failure to heal. Will encourage cessation. Current Visit: Yes Qualifiers: Nicotine product type: cigarettes (5) Hypoglycemia Status: Acute Assessment and plan: Patient with insulin-dependent diabetes mellitus. His reported having hypoglycemic episodes at home with blood glucose levels in the 50s. Blood glucose levels borderline low here. We will hold home meds and start sliding scale insulin. Appreciate hospitalist assistance in management. Current Visit: No (6) Hyponatremia Status: Acute Assessment and plan: Chronic but currently slightly worse with sodium of 125. IV hydration and monitor. Current Visit: No (7) Prophylactic measure Status: Acute Assessment and plan: GI prophylaxis: PPI daily DVT prophylaxis: Patient has severe PVD we will hold mechanical devices. Current Visit: Yes History of Present Illness Chief complaint: Weakness RLE infection History of present illness: Mr. Hunt is a 66 year old male with past medical history of insulin dependent diabetes mellitus, severe peripheral vascular disease, hypertension, hypothyroidism, and gout who presented to the emergency department with worsening infection of the right lower extremity. The patient is somewhat sleepy and is a fair historian, but the chart from his previous admission has been reviewed. Patient apparently suffered a spider bite in October 2016 after which he developed and infection and initially received wound care on an outpatient basis. He subsequently required admission for IV antibiotics and multiple surgical debridements with cultures with polymicrobial growth including Klebsiella, Proteus, MRSA, and enterococcus. He was found to have a severe PVD with recommendation for femoropopliteal bypass due to severe PVD, but this procedure was delayed I considering the infection of the right lower extremity. The patient was discharged on 01/21/2017 with home health services and oral antibiotics per infectious disease recommendations, and he required additional excisional debridement on 01/28/2017 which improves performed on an outpatient basis. He has continued with home health services and performing daily wound care himself, and on no antibiotics. Patient reports he has been having increased pain and weakness for the past 2-3 days. He was unable to get out of the floor yesterday. He denies any known fever, chills, riders although he does report generalized weakness and decreased oral intake. He denies chest pain, palpitations, shortness breath, wheeze, cough, dysuria, flank pain, or additional open wounds. Home Medications Medication Instructions Recorded Confirmed Type Clorazepate Dipotassium 3.75 mg PO BID 01/12/17 03/20/17 History Colchicine [Colcrys] 1 tablet PO QAM 01/12/17 03/20/17 History Cyclobenzaprine HCl 10 mg PO BID PRN 01/12/17 03/20/17 History Glyburide/Metformin HCl 1 each PO BID 01/12/17 03/20/17 History [Glyburide-Metformin 5-500 mg] Insulin Detemir [Levemir FlexPen] 64 unit SUBCUT BEDTIME 01/12/17 03/20/17 History Levothyroxine Sodium [Levo-T] 100 mcg PO QAM 01/12/17 03/20/17 History Magnesium Chloride [Slow Mag] 64 mg PO QAM 01/12/17 03/20/17 History Meloxicam 7.5 mg PO QAM 01/12/17 03/20/17 History NIFEdipine XL TAB [Procardia Xl] 60 mg PO QAM 01/12/17 03/20/17 History Nebivolol [Bystolic] 5 mg PO QAM 01/12/17 03/20/17 History Pravastatin Sodium 40 mg PO QAM 01/12/17 03/20/17 History Tramadol HCl [Tramadol Tab] 50 mg PO BID PRN 01/12/17 03/20/17 History buPROPion [Wellbutrin] 100 mg PO QAM 01/12/17 03/20/17 History HYDROcodone/ACETAMIN 5-325 [[place] 1 tablet PO Q4H PRN #30 tablet 01/21/17 Rx 5-325] Chlorhexidine 4% Soln [Hibiclens] 1 applic TOP QA 03/20/17 03/20/17 History Collagenase Oint [Santyl Oint] 1 applic TOP [facility] 03/20/17 03/20/17 History Lisinopril [Lisinopril] 10 mg PO QA 03/20/17 03/20/17 History Sodium Hypochlorite 0.25% Irr 1 applic TOP [facility] 03/20/17 03/20/17 History [Dakins 1/2 Strength 0.25% Soln] predniSONE TAB [PredniSONE] 10 mg PO QAM 03/20/17 03/20/17 History Allergies Allergy/AdvReac Type Severity Reaction Status Date / Time No Known Allergies Allergy Unverified 01/28/17 07:35 Medical,Surgical,& Family Hx - Medical History Cardio: History of: Cardiac Dysrhythmia (SVT), Hypertension Psychological: History of: Depression HEENT: History of: Dental Problems (UPPER AND LOWER) Endocrine: History of: Diabetes Mellitus (IDDM), Dyslipidemia, Thyroid Disorder Rheumatology: History of;: Gout (MEDICATION) Respiratory: Comment Only: Respiratory Problems (HAD FLU VACCINE) Renal: No history of: Renal Problems Musculoskeletal: History of: Back/Neck Problems Other: History of: MRSA, Miscellaneous Medical Problems (Severe peripheral vascular disease, 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) No history of: Anesthesia Reactions - Surgical History HEENT Surgeries: Surgical HX of: Eye Surgery (cataracts) - Family History Family History: Reports;: Family Diabetes (FATHER) - Social History Smoking Status: Current every day smoker Frequency of Alcohol Use: None Marital Status: Single Lives With:: Alone Exam - Constitutional Vitals: Period Temp Pulse Resp BP Sys/Mancera Pulse Ox Last 24 Hr 97.3 F-97.3 F 96-96 20-20 106-106/52-52 General appearance: other (Ill-appearing) - Head Head exam: Present: atraumatic - Eye Eye exam: Absent: scleral icterus - Neck Neck exam: Present: trachea midline - Respiratory Respiratory exam: Present: other (Coarse breath sounds bilaterally; no wheeze, rales, or rhonchi appreciated) - Cardiovascular Cardiovascular exam: Present: RRR - GI/Abdominal GI/Abdominal exam: Present: normal bowel sounds, soft. Absent: tenderness - Extremities Exam Extremities exam: Present: other (Right lower extremity with large calf wound with dry overlying eschar which is foul-smelling. Maggots reported on one previously. Surrounding erythema and satellite arterial ulcers also present.) - Neurological Exam Neurological exam: Present: alert, oriented X3 - Skin Skin exam: Present: other (Brisk capillary refill of fingers. ). Absent: diaphoretic, mottled - Constitutional Constitutional: Present: as per HPI - Cardiovascular Cardiovascular: Present: as per HPI - Respiratory Respiratory: Present: as per HPI - Gastrointestinal Gastrointestinal: Absent: diarrhea, nausea, vomiting - Genitourinary Genitourinary: Present: as per HPI Results - Labs CBC & BMP: 03/20/17 13:37 03/20/17 13:37 Lab Results: I have reviewed the past 24 hour labs - Impressions EKG is pending Chest x-ray with atelectatic changes Electronic medical record reviewed from previous hospitalization
[2017-03-20 16:14] LABS: Burr Cells Few; Platelet Estimate Normal; Poikilocytosis 1+
[2017-03-20] MEDS ORDERED: SODIUM CHLORIDE 0.9% 1,000 ML IV SCH (16:45)
[2017-03-20] MEDS ORDERED: DEXTROSE 50% 25 GM/50 ML SYRINGE IV PRN (16:45)
[2017-03-20] MEDS ORDERED: SODIUM CHLORIDE 0.9% 1,000 ML IV ONE (16:45)
[2017-03-20] MEDS ORDERED: GLUCAGON 1 MG VIAL IM PRN (16:45)
[2017-03-20] MEDS ORDERED: ACETAMINOPHEN 325 MG TABLET PO PRN (16:45)
[2017-03-20] MEDS ORDERED: CIPROFLOXACIN INJ 400 MG in PREMIX 1 EACH IV SCH (17:30)
[2017-03-20] MEDS ORDERED: CYCLOBENZAPRINE 10 MG TABLET PO PRN (17:57)
[2017-03-20] MEDS: INSULIN REGULAR 100 UNIT/ML SUBCUT SCH ×2 (17:58→21:32)
--- NOTE | 2017-03-20 18:01 | Hospitalist Consult Note ---
<Jorge Larson - Last Filed: 03/20/17 17:50> Assessment and Plan - Time spent with patient Time spent with patient: Greater than 30 minutes (1) Ischemic necrosis of right leg Status: Acute Assessment and plan: Patient followed by general surgery is scheduled for excisional debridement of necrotic tissue in the a.m. ID has been consulted for assistance with antibiotic management. Current Visit: Yes (2) Sepsis Status: Acute Assessment and plan: Secondary to chronic ischemic wound of right lower extremity. Blood cultures pending. Patient started on Cipro and vancomycin. White count 19.1, lactic acid 1.6. Patient is hypotensive. IV fluids have been ordered for volume repletion. Current Visit: Yes (3) Elevated CPK Status: Acute Assessment and plan: Patient at risk for rhabdomyolysis. Total creatinine kinase greater than 5000. We will continue IV fluids. Current Visit: Yes (4) Elevated AST (SGOT) Status: Acute Current Visit: Yes (5) Diabetes mellitus type 2 in obese Status: Chronic Assessment and plan: Patient is actually hypoglycemic on admission. Will give 1 amp D50 and start D5 infusion. Continue Accu-cheks ACHS and SSI. Current Visit: No (6) Hypothyroidism Status: Chronic Current Visit: No (7) Hyperlipidemia Status: Chronic Current Visit: No (8) Hypoglycemia Status: Acute Assessment and plan: Give 1 amp D50. Start D5 infusion. Hemoglobin A1c. Current Visit: No (9) Hyponatremia Status: Acute Current Visit: No (10) Tobacco abuse Status: Acute Assessment and plan: Patient admits to continued nicotine dependence. He has been counseled on the importance of cessation as well as how this dependence could further complicate wound healing. We will continue to encourage cessation and offer assistance as the patient agrees. Current Visit: Yes (11) Peripheral vascular disease Status: Acute Assessment and plan: Chronic. Dr. Moss has been consulted for assistance with management. Current Visit: Yes (12) Acute renal failure (ARF) Status: Acute Assessment and plan: Baseline creatinine apparently 0.8. Creatinine today is 2.5. We will continue IVF. Consider renal consult. Current Visit: Yes History of Present Illness - Data of Consult Patient: new to practice Consult date: 03/20/17 Requesting Physician: Chi Chang - Consult Narrative Reason for consult: medical management History of present illness: Mr. Hunt is a 66 year old male with past medical history significant for hypertension, PVD, insulin-dependent diabetes mellitus, gout and depression. This patient is followed by Dr. Stephanie CAR and currently being managed by Dr. Chang. He is admitted for a chronic to the medial calf of the right leg is scheduled to have an excisional debridement of the necrotic tissue on tomorrow. We will consulted to assist with medical management. On exam, the patient is resting comfortably in the bed. He does have a severely affected right leg with eschar, necrotic tissue and visible maggots. Patient's nephew is at bedside and reports much of the history. Apparently this patient suffered a spider bite in October 2016 and did not have the wound looked that up until approximately 3 weeks later. He has been through a series of excisional debridements and wound care in addition to vascular surgeries in an effort to salvage his leg. It appears that the wound was doing well until recently. Patient denies headache, blurry vision, decreased appetite, abdominal tenderness , lower extremity edema. Patient does have confirmed dark, loose and foul- smelling stool, dysuria and difficulty walking. Regarding his diabetes, the patient is on oral metformin in addition to nightly Levemir. Today the patient is hypoglycemic with the nurse documenting a blood sugar of 42 just before our exam. Patient will be given an amp of D50 and started on D5 infusion. Patient's labs are grossly abnormal. WBC 19.1, hemoglobin 9.7, hematocrit 26.6, sodium 125, chloride 94, carbon dioxide 20, BUN 73, creatinine 2.50, osmolality 270.5, AST 289, ALT 59, total creatinine kinase 5172, CK-MB 25.2. Of note, the patient's urine is a dark brown color with large blood, RBCs, WBC and hyaline cast. This case been discussed with Dr. Wade, consulting physician. We are happy to follow along throughout this patient's course. Thank you for the consult. CC: Norm Brown III., - Home Medications and Allergies Home Medications: Home Medications Medication Instructions Recorded Confirmed Type Clorazepate Dipotassium 3.75 mg PO BID 01/12/17 03/20/17 History Colchicine [Colcrys] 1 tablet PO QAM 01/12/17 03/20/17 History Cyclobenzaprine HCl 10 mg PO BID PRN 01/12/17 03/20/17 History Glyburide/Metformin HCl 1 each PO BID 01/12/17 03/20/17 History [Glyburide-Metformin 5-500 mg] Insulin Detemir [Levemir FlexPen] 64 unit SUBCUT BEDTIME 01/12/17 03/20/17 History Levothyroxine Sodium [Levo-T] 100 mcg PO QAM 01/12/17 03/20/17 History Magnesium Chloride [Slow Mag] 64 mg PO QAM 01/12/17 03/20/17 History Meloxicam 7.5 mg PO QAM 01/12/17 03/20/17 History NIFEdipine XL TAB [Procardia Xl] 60 mg PO QAM 01/12/17 03/20/17 History Nebivolol [Bystolic] 5 mg PO QAM 01/12/17 03/20/17 History Pravastatin Sodium 40 mg PO QAM 01/12/17 03/20/17 History Tramadol HCl [Tramadol Tab] 50 mg PO BID PRN 01/12/17 03/20/17 History buPROPion [Wellbutrin] 100 mg PO QAM 01/12/17 03/20/17 History HYDROcodone/ACETAMIN 5-325 [Seney 1 tablet PO Q4H PRN #30 tablet 01/21/17 Rx 5-325] Chlorhexidine 4% Soln [Hibiclens] 1 applic [facility] 03/20/17 03/20/17 History Collagenase Oint [Santyl Oint] 1 applic TOP QA 03/20/17 03/20/17 History Lisinopril [Lisinopril] 10 mg PO QA 03/20/17 03/20/17 History Sodium Hypochlorite 0.25% Irr 1 applic [facility] 03/20/17 03/20/17 History [Dakins 1/2 Strength 0.25% Soln] predniSONE TAB [PredniSONE] 10 mg PO QAM 03/20/17 03/20/17 History Allergies/Adverse Reactions: Allergies Allergy/AdvReac Type Severity Reaction Status Date / Time No Known Allergies Allergy Unverified 01/28/17 07:35 Medical,Surgical,& Family Hx - Medical History Cardio: History of: Cardiac Dysrhythmia (SVT), Hypertension No history of: CHF, [place], Pacemaker, Valvular Heart Disease Psychological: History of: Depression Neurology: No history of: Cerebrovascular Accident, Dementia, Migraine, Peripheral Neuropathy, Seizures, TIA, Vertigo HEENT: History of: Dental Problems (UPPER AND LOWER) Endocrine: History of: Diabetes Mellitus (IDDM), Dyslipidemia, Thyroid Disorder Rheumatology: History of;: Gout (MEDICATION), Rheumatoid Arthritis Respiratory: No history of: Asthma, COPD, Obstructive Sleep Apnea, Pulmonary Hypertension Comment Only: Respiratory Problems (HAD FLU VACCINE) Renal: No history of: Renal Problems Gastrointestinal: No history of: Gastrointestinal Bleed, Hepatitis, Liver Problems, Pancreatitis Musculoskeletal: History of: Back/Neck Problems Hematology: No history of: Blood Transfusion Reaction Other: History of: MRSA, Miscellaneous Medical Problems (Severe peripheral vascular disease, 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) No history of: Anesthesia Reactions, Cancer, HIV - Surgical History Cardiac Surgeries: Patient Denies: Cardiac Catheterization, Cardiac Surgery Thoracic Surgeries: Patient denies;: Organ Transplant HEENT Surgeries: Surgical HX of: Eye Surgery (cataracts) Abdominal Surgeries: Patient denies: Colonoscopy - Family History Family History: Reports;: Family Diabetes (FATHER and SISTER) - Social History Smoking Status: Current every day smoker Frequency of Alcohol Use: None Marital Status: Single Lives With:: Alone Functional capacity: independent ambulation - Constitutional Constitutional: Present: weakness. Absent: anorexia, headache(s) - EENT Eyes: Absent: blurry vision, loss of vision Ears: Absent: decreased hearing, ear pain Nose, mouth and throat: Absent: hoarseness, sinus pressure, sore throat - Cardiovascular Cardiovascular: Absent: chest pain at rest, chest pain with activity, dyspnea, dyspnea on exertion - Respiratory Respiratory: Absent: cough, dyspnea, hemoptysis, pain on inspiration - Gastrointestinal Gastrointestinal: Present: change in bowel habits (dark, loose, foul smelling stool), diarrhea, loose stools. Absent: abdominal pain, nausea, vomiting - Genitourinary Genitourinary: Present: difficulty urinating, hematuria. Absent: flank pain - Musculoskeletal Musculoskeletal: Present: arthralgias, muscle weakness - Neurological Neurological: Present: abnormal gait, numbness. Absent: syncope - Psychiatric Psychiatric: Present: depression. Absent: anxiety - Endocrine Endocrine: Present: cold intolerance - Hematologic/Lymphatic Hematologic/Lymphatic: Present: easy bleeding, easy bruising Exam - Constitutional Vitals: Period Temp Pulse Resp BP Sys/Mancera Pulse Ox Last 24 Hr 97.3 F-97.3 F 77-96 16-20 80-116/41-60 95-100 Exam: General appearance: obese, mild distress - Head Head exam: Present: normocephalic, atraumatic - Eye Eye exam: Present: EOMI. Absent: conjunctival injection, nystagmus Pupils: Present: KATHERYN, normal accommodation - ENT ENT exam: Present: normal exam, normal external ear exam - Neck Neck exam: Present: normal inspection. Absent: lymphadenopathy, tenderness, thyromegaly - Respiratory Respiratory exam: Present: clear to auscultation bilaterally. Absent: rales, rhonchi, wheezes - Cardiovascular Cardiovascular exam: Present: regular rate and rhythm. Absent: carotid bruit, gallop, rubs - GI/Abdominal GI/Abdominal exam: Present: normal bowel sounds. Absent: ascites, distended, mass - Extremities Exam Extremities exam: Present: Ischemic necrosis of the right lower extremity - Back Exam Back exam: Absent: CVA tenderness (L), CVA tenderness (R) - Neurological Exam Neurological exam: Present: alert, oriented X3, CN II-XII intact, reflexes normal - Psychiatric Psychiatric exam: Present: normal affect, normal mood - Skin Skin exam: Present: Ischemic necrosis of the right lower extremity, eschar, mottling Results - Labs CBC & BMP: 03/20/17 13:37 03/20/17 13:37 Lab Results: I have reviewed the past 24 hour labs - Diagnostic Findings Procedure: Chest x-ray: image reviewed by me, report reviewed by me Quality Measures - VTE Contraindication to Pharmacological VTE Prophylaxis: High Risk of Bleeding Contraindication to Mechanical VTE Prophylaxis: Ischemic Vascular Disease <Dee Wade - Last Filed: 03/20/17 20:03> Assessment and Plan (1) Ischemic necrosis of right leg Status: Acute Assessment and plan: sepsis order set, zosyn and daptomycin instead of vanco due to renal failure. Wound cx grew out proteus, MRSA, Klebsiella and enterococcus, blood cx pending Current Visit: Yes (2) Acute renal failure (ARF) Status: Acute Assessment and plan: renal us, monitor for rhabdo Current Visit: Yes (3) Elevated AST (SGOT) Status: Acute Assessment and plan: hold pravastatin, denies alcohol hx, check alcohol level and uds, hold pravastatin, thiamine and folate Current Visit: Yes (4) Elevated CPK Status: Acute Assessment and plan: check mg and phos, serial cpk, aggressive hydration Current Visit: Yes (5) Nicotine dependence Status: Acute Assessment and plan: nicotine patch Current Visit: Yes Qualifiers: Nicotine product type: cigarettes (6) Peripheral vascular disease Status: Acute Current Visit: Yes (7) Sepsis Status: Acute Assessment and plan: sepsis order set used Current Visit: Yes (8) Hypoglycemia Status: Acute Assessment and plan: bs every 2 hours till stable on D5, HOLD insulin, glyburide/metformin Current Visit: No (9) Hyponatremia Status: Acute Assessment and plan: d5ns at 150 ml/hr Current Visit: No (10) Hypertension Status: Chronic Assessment and plan: blood pressure running low, hold bystolic lisinopril, Current Visit: No (11) Hypokalemia Status: Acute Assessment and plan: replace and recheck in am Current Visit: Yes History of Present Illness - Consult Narrative History of present illness: Mr. Hunt is a 66 year old male seen and examined. Nephew at bedside answering questions. Patient will needs to go for wound care, IV abx and rehab. He is at high risk for losing his right leg. Leg looks ischemic with necrosis. Agree with above. Patient rather lethargic due to low bs. Asked them to give D50. CC: Norm Brown III., Exam - Constitutional Vitals: Period Temp Pulse Resp BP Sys/Mancera Pulse Ox Last 24 Hr 97.3 F-97.8 F 77-96 16-20 80-116/41-60 95-100 Results - Labs CBC & BMP: 03/20/17 13:37 03/20/17 18:31 Labs: blood cx pending, ua negative for infection, sputum cx pending - Diagnostic Findings Procedure: Chest x-ray: report reviewed by me (hypoinflation with atelectasis )
[2017-03-20] MEDS: DEXTROSE 5% NACL 0.9% 1,000 ML IV SCH (18:26)
[2017-03-20 18:29] LABS: Magnesium 2.3 MG/DL (1.8-2.4); Phosphorous 3.9 MG/DL (2.5-4.9)
[2017-03-20 18:40] LABS: Free T4 (Free Thyroxine) 1.13 NG/DL (0.76-1.46); Thyroid Stimulating Hormone 1.58 uIU/ml (0.358-3.74)
[2017-03-20] MEDS ORDERED: VANCOMYCIN INJ 1,250 MG in SODIUM CHLORIDE 0.9% 250 ML IV SCH (19:00)
[2017-03-20] MEDS ORDERED: INFLUENZA VIRUS VACCINE 0.5 ML SYRINGE IM ONE (19:04)
[2017-03-20] MEDS: ALBUTEROL/IPRATROPIUM 3 ML NEB RESP TX SCH ×2 (19:30→23:58)
[2017-03-20] MEDS ORDERED: SODIUM CHLORIDE 0.9% 2,650 ML IV ONE (19:44)
[2017-03-20 19:48] LABS: Calcium 7.4 MG/DL (8.5-10.1); Osmolality,Calculated 276.1 MOS/KG (273-304); Potassium 3.3 MMOL/L (3.5-5.1)
[2017-03-20] MEDS ORDERED: POTASSIUM CHLORIDE 20 MEQ TABLET PO ONE (19:55)
[2017-03-20 21:15] LABS: ABG Base Excess -6.9 MMOL/L (-2.5-2.5); ABG HCO3 18.8 MMOL/L (20-26); ABG Oxygen Saturation 95.5 % (95-100); ABG PCO2 23.4 MM HG (35-48); ABG PH 7.434 (7.35-7.45); ABG PO2 78.6 MM HG (80-95); ABG TCO2 13.8 MMOL/L (23-27); Allen Test Positive; Pt O2 Delivery Device Room Air
[2017-03-20 21:27] LABS: Barbiturates Screen,Urine Negative (Negative); Benzodiazepines Screen,Urine Positive (Negative); Cannabinoid Screen,Urine Negative (Negative); Opiate Screen,Urine Positive (Negative); Phencyclidine Screen,Urine Negative (Negative)
[2017-03-20] MEDS: CLORAZEPATE 3.75 MG TABLET PO SCH (21:30)
[2017-03-20] MEDS: PIPERACILLIN/TAZOBACTAM 3,375 MG in SODIUM CHLORIDE 0.9% 100 ML IV SCH (22:01)
[2017-03-21 01:54] LABS: Basophils # 0.1 10*3/uL (0.0-0.2); Basophils % 0.3 % (0.0-0.8); Eosinophils # 0.1 10*3/uL (0.0-0.87); Eosinophils % 0.6 % (0.00-10.9); Hematocrit 27.4 VOL% (42.0-52.0); Hemoglobin 9.7 GM/DL (14.0-18.0); Immature Granulocytes % 1.1 %; Immature Granulocytes Absolute 0.18 #; Lymphocytes # 1.1 10*3/uL (1.4-4.0); Lymphocytes % 6.5 % (21.2-54.2); Mean Corpuscular HGB Conc 35.4 GM/DL (32-36); Mean Corpuscular Hemoglobin 30 PG (27-34); Mean Corpuscular Volume 84.6 FL (87-102); Mean Platelet Volume 9.7 FL (9.6-12.0); Monocytes # 1.1 10*3/uL (0.11-0.8); Monocytes % 6.6 % (1.7-12.7); Neutrophils # 14.5 10*3/uL (1.4-7.4); Neutrophils % 84.9 % (38.7-73.9); Platelet Count 195 T/CUMM (130-400); Red Blood Count 3.24 MC/CUMM (3.8-5.5); Red Cell Distribution Width 15.1 % (9.3-17.3)
[2017-03-21 02:08] LABS: Albumin 2.2 G/DL (3.4-5.0); Bilirubin,Total 0.5 MG/DL (0.2-1.0); Calcium 7.5 MG/DL (8.5-10.1); Osmolality,Calculated 275.8 MOS/KG (273-304); Potassium 3.7 MMOL/L (3.5-5.1)
[2017-03-21] MEDS: ALBUTEROL/IPRATROPIUM 3 ML NEB RESP TX SCH ×6 (03:38→23:22)
[2017-03-21 03:49] LABS: Band Neutrophils 3 % (0-10); Eosinophils 2 % (0-10); Lymphocytes 7 % (20-55); Platelet Estimate Normal; Segmented Neutrophils 86 % (50-85); Total Cells Counted 100
[2017-03-21] MEDS: DEXTROSE 5% NACL 0.9% 1,000 ML IV SCH ×2 (04:22→18:25)
[2017-03-21] MEDS ORDERED: SODIUM CHLORIDE 0.9% 500 ML IV ONE (05:46)
[2017-03-21] MEDS: PIPERACILLIN/TAZOBACTAM 3,375 MG in SODIUM CHLORIDE 0.9% 100 ML IV SCH ×3 (06:22→21:47)
[2017-03-21] MEDS: INSULIN REGULAR 100 UNIT/ML SUBCUT SCH ×4 (08:06→21:38)
[2017-03-21] MEDS ORDERED: LIDOCAINE 2% 5 ML VIAL ONE (08:43)
[2017-03-21] MEDS ORDERED: PROPOFOL 200 MG/20 ML VIAL IV ONE (08:43)
[2017-03-21] MEDS ORDERED: PHENYLEPHRINE 1 MG/10 ML SYRINGE IV ONE (08:43)
[2017-03-21] MEDS ORDERED: HYDROCORTISONE 100 MG VIAL ONE (08:43)
[2017-03-21] MEDS ORDERED: LIDOCAINE 1%/EPI INJ 20 ML VIAL ONE (08:52)
[2017-03-21] MEDS ORDERED: PRAVASTATIN 40 MG TABLET PO SCH (09:00)
--- NOTE | 2017-03-21 10:25 | Operative Note ---
Date of procedure: 03/21/17 Pre-op diagnosis: Chronic wound right lower leg with nonviable tissue, rhabdomyolysis Post-op diagnosis: same Procedure: Procedure performed: Excisional debridement of right lower leg including nonviable and necrotic skin, subcutaneous tissue, fascia, muscle. Area debrided 22 x 10 cm Procedure in detail: After informed consent was obtained, patient was taken to the operating suite lights upon the operating table. After monitored anesthesia was initiated the right lower extremity was prepped and draped in usual sterile fashion. After procedural pause remaining maggots within the wound were suctioned. 10 blade scalpel forceps Metzenbaum scissors and curette were all used to perform an excisional debridement removing all of the necrotic nonviable tissue. This extended down onto the gastrocnemius muscle and portions of it were removed as well. All of the obvious nonviable tissue was removed. Infection did not appear to represent necrotizing fasciitis. There was no extension of the infection beyond the wound. There was good hemostasis with spot electrocautery. The wound was irrigated with Dakin's solution and Dakin soaked Kerlix was used to pack the wound. Sterile dressings applied and patient was taken recovery room in stable condition. All lap and needle counts were correct at the end of the case. Anesthesia: MAC Surgeon / Physician: Chi Chang Estimated blood loss: other (Less than 10 cc) Specimens: other (Culture sent) Condition: stable Disposition: PACU Results - Labs CBC & BMP: 03/21/17 00:56 03/21/17 00:56 Discharge Plan - Discharge Medications No Action Clorazepate Dipotassium 3.75 mg PO BID Cyclobenzaprine HCl 10 mg PO BID PRN PRN Reason: Muscle Spasm Colchicine [Colcrys] 1 tablet PO QAM Glyburide/Metformin HCl [Glyburide-Metformin 5-500 mg] 1 each PO BID Levothyroxine Sodium [Levo-T] 100 mcg PO QAM Meloxicam 7.5 mg PO QAM Tramadol HCl [Tramadol Tab] 50 mg PO BID PRN PRN Reason: Pain Insulin Detemir [Levemir FlexPen] 64 unit SUBCUT BEDTIME buPROPion [Wellbutrin] 100 mg PO QAM HYDROcodone/ACETAMIN 5-325 [Ruso 5-325] 1 tablet PO Q4H PRN #30 tablet PRN Reason: Pain Moderate (4-7) Collagenase Oint [Santyl Oint] 1 applic TOP QAM Chlorhexidine 4% Soln [Hibiclens] 1 applic TOP QAM Lisinopril [Lisinopril] 10 mg PO QAM Nebivolol [Bystolic] 5 mg PO QAM Magnesium Chloride [Slow Mag] 64 mg PO QAM Pravastatin Sodium 40 mg PO QAM NIFEdipine XL TAB [Procardia Xl] 60 mg PO QAM Sodium Hypochlorite 0.25% Irr [Dakins 1/2 Strength 0.25% Soln] 1 applic TOP QAM predniSONE TAB [PredniSONE] 10 mg PO QAM - Follow Up or Referral - Forms/Instructions
[2017-03-21] MEDS: LEVOTHYROXINE 100 MCG TABLET PO SCH (12:54)
[2017-03-21] MEDS: MAGNESIUM CHLORIDE 64 MG TABLET PO SCH (12:54)
[2017-03-21] MEDS: THIAMINE 100 MG TABLET PO SCH (12:54)
[2017-03-21] MEDS: buPROPion 100 MG TABLET PO SCH (12:54)
[2017-03-21] MEDS: CLORAZEPATE 3.75 MG TABLET PO SCH ×2 (12:54→21:40)
[2017-03-21] MEDS: FOLIC ACID 1 MG TABLET PO SCH (12:55)
[2017-03-21] MEDS: PANTOPRAZOLE 40 MG TABLET PO SCH (12:55)
--- NOTE | 2017-03-21 13:18 | Hospitalist Progress Note ---
Assessment and Plan (1) Ischemic necrosis of right leg Status: Acute Assessment and plan: Status post debridement continue Zosyn and daptomycin Current Visit: Yes (2) Acute renal failure (ARF) Status: Acute Assessment and plan: renal us pending, no evidence of rhabdomyolysis. BUN and creatinine improving with hydration Current Visit: Yes (3) Elevated AST (SGOT) Status: Acute Assessment and plan: hold pravastatin, denies alcohol intake but his AST remains high Current Visit: Yes (4) Elevated CPK Status: Acute Assessment and plan: Review his CPKs due to falls no evidence of rhabdomyolysis. Current Visit: Yes (5) Nicotine dependence Status: Acute Assessment and plan: nicotine patch Current Visit: Yes Qualifiers: Nicotine product type: cigarettes (6) Peripheral vascular disease Status: Acute Assessment and plan: Dr. Moss will consult. Current Visit: Yes (7) Sepsis Status: Acute Assessment and plan: sepsis Current Visit: Yes (8) Hypoglycemia Status: Acute Assessment and plan: Blood sugars are now elevated. Try taking the D5 out of the normal saline and decrease blood sugar checks to every 4 Current Visit: No (9) Hyponatremia Status: Acute Assessment and plan: Improving with normal saline. Continue to hydrate. Recheck BMP in the Current Visit: No (10) Hypertension Status: Chronic Assessment and plan: Blood pressure more stable today but we continue to hold by systolic and lisinopril. Continue normal saline Current Visit: No (11) Hypokalemia Status: Acute Assessment and plan: Resolved but continue to monitor. Current Visit: Yes Hospitalist: Subjective Interval history: Patient is rather lethargic returning from surgery. Patient underwent an extensive debridement of his necrotic tissue including the muscle the fascia and the subcutaneous tissue. Patient has a poor living status and will have to go to LTAC for rehab prior to returning home. Exam - Constitutional Vitals: Period Temp Pulse Resp BP Sys/Mancera Pulse Ox Last 24 Hr 97 F-98.8 F 77-97 16-24 84-124/41-60 93-100 Exam: Heart Rate-[RRR] Lungs-[CTAB] GI-[+bs soft, NT] Ext-right leg graft. Neuro lethargic from anesthesia psych unable to evaluate due to anesthesia General [no acute distress] Results - Labs CBC & BMP: 03/21/17 00:56 03/21/17 00:56 Lab Results: I have reviewed the past 24 hour labs Labs: Cultures 2 pending, magnesium 2.3, phosphorus 3.9, CPK is trending down. No evidence of rhabdo - Diagnostic Findings Procedure: Ultrasound: report reviewed by me (Renal ultrasound pending) Quality Measures - VTE Contraindication to Pharmacological VTE Prophylaxis: High Risk of Bleeding Contraindication to Mechanical VTE Prophylaxis: Ischemic Vascular Disease
--- NOTE | 2017-03-21 13:46 | Anesthesia Post-Op ---
Anesthesia Post OP - Post Ansesthetic Evaluation Patient seen in post op: Yes Resp: within normal limits CV: within normal limits Mental: within normal limits Temp: within normal limits [id number]: within normal limits Nausea and Vomiting: within normal limits Pain: within normal limits
[2017-03-21] MEDS ORDERED: fentaNYL 100 MCG/2 ML VIAL ONE (13:52)
[2017-03-21] MEDS ORDERED: KETAMINE 500 MG/10 ML VIAL ONE (13:52)
[2017-03-21] MEDS ORDERED: MIDAZOLAM 2 MG/2 ML VIAL ONE (13:52)
[2017-03-21] MEDS ORDERED: VANCOMYCIN INJ 1,250 MG in SODIUM CHLORIDE 0.9% 250 ML IV SCH (14:00)
[2017-03-21] MEDS: SODIUM CHLORIDE 0.9% 1,000 ML IV SCH (14:28)
[2017-03-21] MEDS: NICOTINE 21 MG/24 HR PATCH TRANSDERM SCH (14:32)
[2017-03-21] MEDS: DAPTOmycin 500 MG in SODIUM CHLORIDE 0.9% 50 ML IV SCH (21:20)
[2017-03-22 00:44] LABS: Albumin 2.1 G/DL (3.4-5.0); Bilirubin,Total 0.8 MG/DL (0.2-1.0); Calcium 7.8 MG/DL (8.5-10.1); Osmolality,Calculated 282.8 MOS/KG (273-304); Potassium 3.5 MMOL/L (3.5-5.1); Total Protein 5.1 G/DL (6.4-8.3)
[2017-03-22 00:45] LABS: Basophils % 0.2 % (0.0-0.8); Eosinophils % 0.2 % (0.00-10.9); Hematocrit 27.2 VOL% (42.0-52.0); Hemoglobin 9.8 GM/DL (14.0-18.0); Immature Granulocytes % 1.1 %; Immature Granulocytes Absolute 0.19 #; Lymphocytes # 1.2 10*3/uL (1.4-4.0); Lymphocytes % 6.8 % (21.2-54.2); Mean Corpuscular Hemoglobin 31 PG (27-34); Mean Corpuscular Volume 85.3 FL (87-102); Mean Platelet Volume 9.7 FL (9.6-12.0); Monocytes # 1.1 10*3/uL (0.11-0.8); Monocytes % 6.5 % (1.7-12.7); Neutrophils # 14.4 10*3/uL (1.4-7.4); Neutrophils % 85.2 % (38.7-73.9); Platelet Count 180 T/CUMM (130-400); Red Blood Count 3.19 MC/CUMM (3.8-5.5); Red Cell Distribution Width 15.5 % (9.3-17.3)
[2017-03-22] MEDS: ALBUTEROL/IPRATROPIUM 3 ML NEB RESP TX SCH ×6 (03:40→22:52)
[2017-03-22 03:59] LABS: Anisocytosis 1+
[2017-03-22 04:00] LABS: Platelet Estimate Normal
[2017-03-22] MEDS: SODIUM CHLORIDE 0.9% 1,000 ML IV SCH ×5 (04:15→17:19)
[2017-03-22] MEDS: PIPERACILLIN/TAZOBACTAM 3,375 MG in SODIUM CHLORIDE 0.9% 100 ML IV SCH ×3 (06:20→22:33)
[2017-03-22] MEDS: LEVOTHYROXINE 100 MCG TABLET PO SCH (06:21)
[2017-03-22] MEDS ORDERED: SODIUM CHLORIDE 0.9% 500 ML IV ONE (08:24)
--- NOTE | 2017-03-22 08:27 | Ultrasound Report ---
Renal ultrasound Indication: Acute renal failure Comparison: None available Findings: There is small amount of ascites are present in the right side of the abdomen. There is prominent left extrarenal pelvis. Otherwise the kidneys are normal in size and echogenicity. No hydronephrosis or nephrolithiasis is seen. The right renal length is 11.9 cm. The left renal length is 11.1 cm. No free fluid or other abnormality is seen. Impression: Prominent left extrarenal pelvis. No other evidence of renal abnormality demonstrated. Ultrasound images stored and captured. PROCEDURE INTERPRETED AT [facility] DEPARTMENT OF RADIOLOGY Final Report Signed by: Dr. Nixon Beltran
[2017-03-22] MEDS ORDERED: DIGOXIN 0.5 MG/2 ML AMP IV ONE ×2 (08:28→17:12)
[2017-03-22] MEDS ORDERED: DILTIAZEM 50 MG/10 ML VIAL IV ONE (08:29)
[2017-03-22] MEDS: INSULIN REGULAR 100 UNIT/ML SUBCUT SCH ×4 (09:38→20:46)
[2017-03-22] MEDS: CLORAZEPATE 3.75 MG TABLET PO SCH (09:40)
[2017-03-22] MEDS: buPROPion 100 MG TABLET PO SCH (09:40)
[2017-03-22] MEDS: FOLIC ACID 1 MG TABLET PO SCH (10:13)
[2017-03-22] MEDS: MAGNESIUM CHLORIDE 64 MG TABLET PO SCH (10:13)
[2017-03-22] MEDS: PANTOPRAZOLE 40 MG TABLET PO SCH ×2 (10:13→20:46)
[2017-03-22] MEDS: THIAMINE 100 MG TABLET PO SCH (10:13)
[2017-03-22] MEDS: NICOTINE 21 MG/24 HR PATCH TRANSDERM SCH (10:13)
--- NOTE | 2017-03-22 10:16 | Gastrointestinal Consult Note ---
Assessment and Plan (1) Gastrointestinal hemorrhage with melena Status: Acute Assessment and plan: Patient noted today to have dark grossly guaiac positive stools on physical exam consistent with melena. He does have some mild epigastric tenderness as well as some reflux symptoms. I am going to increase his Protonix to 40 mg twice daily and we will get him scheduled for upper endoscopy to occur tomorrow. Differential diagnosis is wide but includes esophagitis, gastritis, peptic ulcer disease, AVMs, duodenitis and gastric cancer. This patient may also have some component of anemia due to his necrotic leg ulcers and of course anemia of chronic disease with bone marrow suppression as additional components to his blood loss. I will definitely check the patient's stomach for evidence of Helicobacter pylori infection and possibly celiac sprue. Current Visit: Yes (2) Anemia Status: Acute Current Visit: Yes (3) GERD (gastroesophageal reflux disease) Status: Acute Assessment and plan: He does have some mild reflux symptoms and this should be controlled with pantoprazole 40 mg twice daily. Will check again tomorrow to see if esophagitis is present that might be feeding into his anemia. Current Visit: Yes (4) Screening for colorectal cancer Status: Acute Assessment and plan: The patient has not had a colonoscopy up to this point and is 15 years overdue. There may be a second source for anemia although with his recent drop from hematocrit of 38 to his current 27% this seems more like an acute illness as opposed to chronic blood loss from a cancer. We can arrange for colonoscopy to occur as an outpatient further down the road. We can leave him on his diet at present time and will arrange for upper endoscopy tomorrow morning. If no source of bleeding is found we may consider doing colonoscopy this admission, given the dark guaiac positive stools. Current Visit: Yes History of Present Illness Chief complaint: Melena, HCT 38% --> 27% off of anticoagulation, GERD History of present illness: Mr. Hunt is a 66 year old male who is known to have been bitten by a spider reported to be a brown recluse back in October 2016, who is being followed by Dr. Moss and Dr. Stephanie CAR, as well as Dr. Chang for his severely affected right leg previously with necrotic tissue/eschar/visible maggots now status post debridement as well as wound care and successive vascular surgeries in order to attempt to salvage the leg. Patient is anemic and does feel a fair amount of heartburn indigestion. Back when he was originally seen in 01/15/17 he was noted to have a hematocrit of 38.1%. Over the successive 2 months the patient's hematocrit has drifted down to the 27.2% range, and nursing staff noted that he was having some dark stools today that have proved to be grossly guaiac positive on evaluation by the lab. He does not have particular abdominal pain in the area but is mildly queasy. He wants to drink liquids but has not interested in eating just ye much, with his suppressed appetite. The patient does not recall being scoped from above or below. He is 66 years old-- he has a history of drinking alcohol but was evasive as to how much she would drink but stated that this stopped in the . 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 Home Medications Medication Instructions Recorded Confirmed Type Clorazepate Dipotassium 3.75 mg PO BID 01/12/17 03/20/17 History Colchicine [Colcrys] 1 tablet PO QAM 01/12/17 03/20/17 History Cyclobenzaprine HCl 10 mg PO BID PRN 01/12/17 03/20/17 History Glyburide/Metformin HCl 1 each PO BID 01/12/17 03/20/17 History [Glyburide-Metformin 5-500 mg] Insulin Detemir [Levemir FlexPen] 64 unit SUBCUT BEDTIME 01/12/17 03/20/17 History Levothyroxine Sodium [Levo-T] 100 mcg PO QAM 01/12/17 03/20/17 History Magnesium Chloride [Slow Mag] 64 mg PO QAM 01/12/17 03/20/17 History Meloxicam 7.5 mg PO QAM 01/12/17 03/20/17 History NIFEdipine XL TAB [Procardia Xl] 60 mg PO QAM 01/12/17 03/20/17 History Nebivolol [Bystolic] 5 mg PO QAM 01/12/17 03/20/17 History Pravastatin Sodium 40 mg PO QAM 01/12/17 03/20/17 History Tramadol HCl [Tramadol Tab] 50 mg PO BID PRN 01/12/17 03/20/17 History buPROPion [Wellbutrin] 100 mg PO QAM 01/12/17 03/20/17 History HYDROcodone/ACETAMIN 5-325 [Marathon 1 tablet PO Q4H PRN #30 tablet 01/21/17 Rx 5-325] Chlorhexidine 4% Soln [Hibiclens] 1 applic TOP QA 03/20/17 03/20/17 History Collagenase Oint [Santyl Oint] 1 applic TOP QA 03/20/17 03/20/17 History Lisinopril [Lisinopril] 10 mg PO [facility] 03/20/17 03/20/17 History Sodium Hypochlorite 0.25% Irr 1 applic TOP [facility] 03/20/17 03/20/17 History [Dakins 1/2 Strength 0.25% Soln] predniSONE TAB [PredniSONE] 10 mg PO [facility] 03/20/17 03/20/17 History Allergies Allergy/AdvReac Type Severity Reaction Status Date / Time No Known Allergies Allergy Unverified 01/28/17 07:35 Medical,Surgical,& Family Hx - Medical History Cardio: History of: Cardiac Dysrhythmia (SVT), Hypertension No history of: CHF, [place], Pacemaker, Valvular Heart Disease Psychological: History of: Depression Neurology: No history of: Cerebrovascular Accident, Dementia, Migraine, Peripheral Neuropathy, Seizures, TIA, Vertigo HEENT: History of: Dental Problems (UPPER AND LOWER) Endocrine: History of: Diabetes Mellitus (IDDM), Dyslipidemia, Thyroid Disorder Rheumatology: History of;: Gout (MEDICATION), Rheumatoid Arthritis Respiratory: No history of: Asthma, COPD, Obstructive Sleep Apnea, Pulmonary Hypertension Comment Only: Respiratory Problems (HAD FLU VACCINE) Renal: No history of: Renal Problems Gastrointestinal: No history of: Gastrointestinal Bleed, Hepatitis, Liver Problems, Pancreatitis Musculoskeletal: History of: Back/Neck Problems Hematology: No history of: Blood Transfusion Reaction Other: History of: MRSA, Miscellaneous Medical Problems (Severe peripheral vascular disease, 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) No history of: Anesthesia Reactions, Cancer, HIV - Surgical History Cardiac Surgeries: Patient Denies: Cardiac Catheterization, Cardiac Surgery Thoracic Surgeries: Patient denies;: Organ Transplant HEENT Surgeries: Surgical HX of: Eye Surgery (cataracts) Abdominal Surgeries: Patient denies: Colonoscopy - Family History Family History: Reports;: Family Cancer (father- prostate cancer), Family Diabetes (FATHER and SISTER), Family Hypertension (sister) - Social History Smoking Status: Current every day smoker Frequency of Alcohol Use: None Type of Drug Use: None Review of systems: Constitutional: Denies fever, chills, but does have some nausea, without vomiting Eyes: Denies dry eyes, and scleral icterus HENT: Denies headaches Cardiovascular: Denies acute chest pain and claudication Respiratory: Denies shortness of breath, wheezing, and difficulty breathing, denies cough Gastrointestinal: As noted in the HPI Genitourinary: Denies dysuria and hematuria Neurologic: Denies vision loss, and loss of sensation Musculoskeletal: Admits to joint stiffness, and muscular weakness, no joint swelling Psychiatric: Denies depression and constance symptoms Heme-Lymph: Denies easy bruising, lymph node enlargement or tenderness, night sweats, excessive bleeding Allergies-immunologic: Admits to occasional pruritus but no rhinorrhea Exam - Constitutional Vitals: Period Temp Pulse Resp BP Sys/Mancera Pulse Ox Last 24 Hr 97 F-98.6 F 81-144 17-20 68-151/51-74 91-100 General appearance: mild distress Exam: Constitutional: Well-developed, well-nourished, alert, and in no acute distress Head and face: Head: Normocephalic atraumatic Eyes: Conjunctiva without injection, no gross scleral icterus, pupils equal and round bilaterally Ears: Intact to conversation in both ears Nose: External appearance is normal, nares patent Mouth: Oral mucous membranes moist without erythema dentition noted to be without erosion Neck: Normal appearance, no masses or tenderness, trachea midline Thyroid: Gland midline and appropriate size for age Respiratory: Normal respiratory effort, clear to auscultation without wheezes, rhonchi or rales Cardiovascular: Regular rate and rhythm, normal S1, S2, the exam is without rubs, or gallops. Gastrointestinal: Mild tenderness to palpation in the epigastric region, normal active bowel sounds, tone normal without rigidity or guarding, no masses present, no hepatomegaly, the patient has a moderate amount of tympany but no spleen tip felt. No rectal exam obtained. Lymphatic: Neck without adenopathy, axilla without lymphadenopathy present Musculoskeletal: Right and left lower extremities with trace evidence of edema, right leg is bandaged from recent surgery Skin and subcutaneous tissue: Right leg ulcerations currently bandaged, normal skin turgor, digits and nails without clubbing/cyanosis/deformities. Neurologic: The patient is grossly oriented to person place and time, cranial nerves show tongue movements are normal with normal tongue extrusion midline, light touch sensation is intact. Psychiatric: No hallucinations or delusions are present, does not appear depressed Results - Labs CBC & BMP: 03/22/17 00:14 03/22/17 00:14 Quality Measures - VTE Contraindication to Pharmacological VTE Prophylaxis: High Risk of Bleeding Contraindication to Mechanical VTE Prophylaxis: Ischemic Vascular Disease
--- NOTE | 2017-03-22 11:00 | Event Note ---
Afebrile, hypotensive and was receiving fluids. The time I saw him he was being going to be transferred to the ICU. His lower extremity wound was examined. Overall it appears much improved. There is very minimal shallow nonviable tissue present but no purulence or necrotizing component present. His feet are warm. Creatinine is much improved. White blood cell count 17, 000. GI has been consulted for melena.
--- NOTE | 2017-03-22 11:09 | Hospitalist Progress Note ---
Assessment and Plan (1) Ischemic necrosis of right leg Status: Acute Assessment and plan: Status post debridement continue Zosyn and daptomycin Current Visit: Yes (2) Acute renal failure (ARF) Status: Acute Assessment and plan: renal us normal size kidneys, no evidence of rhabdomyolysis. BUN and creatinine improving with hydration Current Visit: Yes (3) Elevated AST (SGOT) Status: Acute Assessment and plan: hold pravastatin, ast returning to normal Current Visit: Yes (4) Elevated CPK Status: Acute Assessment and plan: CPKs improving, due to falls no evidence of rhabdomyolysis. Current Visit: Yes (5) Nicotine dependence Status: Acute Assessment and plan: nicotine patch Current Visit: Yes Qualifiers: Nicotine product type: cigarettes (6) Peripheral vascular disease Status: Acute Assessment and plan: Dr. Moss will consult. Current Visit: Yes (7) Sepsis Status: Acute Assessment and plan: sepsis worsening, moved to ICU, recheck lactic acid, NS bolus 500 ml Current Visit: Yes (8) Hypoglycemia Status: Acute Assessment and plan: resolved Current Visit: No (9) Hyponatremia Status: Acute Assessment and plan: resolved Current Visit: No (10) Hypokalemia Status: Acute Assessment and plan: Resolved Current Visit: Yes (11) Hypotension Status: Acute Assessment and plan: ns bolus 500 ml, ns at 150 ml/hr Current Visit: Yes Hospitalist: Subjective Interval history: Critical care time 45 minutes. Called urgently by nursing the patient was hypotensive. We gave him a normal saline bolus. We have examined his surgical wound with Dr. Chang and discussed his case. Still has some evidence of necrosis but looks tremendously better from yesterday after debridement. Patient went into A. fib with rapid ventricular response and blood pressure dropped down to 65 systolic. I gave him 0.5 of IV dig and 20 of diltiazem and lowered his heart rate from 177-109. His blood pressure has improved and he is now at 95 systolic. I made him to the CCU for closer monitoring. He has now converted to sinus rhythm but is still tacky at 109. Patient very lethargic still not eating very much. Patient has black tarry stools and was guaiac positive. I am asked Dr. Aponte to see him. So far he has not required any blood. Exam - Constitutional Vitals: Period Temp Pulse Resp BP Sys/Mancera Pulse Ox Last 24 Hr 97.1 F-98.6 F 83-144 17-27 68-151/51-74 91-100 Exam: Heart Rate-[RRR] Lungs-[CTAB] GI-[+bs soft, NT] Ext-right lower extremity still evidence of some necrotic tissue but tremendously better after surgery Neuro still lethargic but answering questions psych depressed mood and affect General [no acute distress] Results - Labs CBC & BMP: 03/22/17 00:14 03/22/17 00:14 Lab Results: I have reviewed the past 24 hour labs Labs: Patient growing 2 types of gram-negative rods and gram-positive cocci in his wound. Blood cultures are negative no growth. - Diagnostic Findings Procedure: Ultrasound: report reviewed by me (renal normal size kidneys ) Quality Measures - VTE Contraindication to Pharmacological VTE Prophylaxis: High Risk of Bleeding Contraindication to Mechanical VTE Prophylaxis: Ischemic Vascular Disease
[2017-03-22] MEDS: DILTIAZEM INJ 100 MG in SODIUM CHLORIDE 0.9% 100 ML IV SCH ×2 (14:30→22:34)
[2017-03-22 14:54] LABS: Apearance,Urine Slightly Hazy (Clear); Bilirubin,Urine Negative (Negative); Blood, Urine Moderate mg/dL (Negative); Glucose,Urine (UA) 50 mg/dL (Negative); Ketones,Urine Negative (Negative); Nitrite,Urine Negative (Negative); Protein,Urine Negative; RBC,Urine 25 /HPF (0-4); Urine Color Yellow (Yellow); Urine Specific Gravity 1.015 (1.001-1.035); Urine Urobilinogen < 2.0 EU/DL (0.2-1.0); WBC,Urine 51 /HPF (0-6)
[2017-03-22] MEDS ORDERED: AMIODARONE INJ 150 MG in DEXTROSE 5% 100 ML IV ONE (15:58)
--- NOTE | 2017-03-22 17:02 | Cardiology Consult Note ---
Assessment and Plan (1) Atrial fibrillation with RVR Status: Acute Assessment and plan: This may related to the patient's underlying illness exacerbating this. We will try to slow his heart rates down. Previous echocardiogram revealed normal left ventricular function over a year ago. He has a SVT previously. He has not kept follow-up. Agree with trying some amiodarone as well as getting echocardiogram. Current Visit: Yes (2) Ischemic necrosis of right leg Status: Acute Assessment and plan: Being treated by surgery. Current Visit: Yes (3) Tobacco abuse Status: Chronic Assessment and plan: This certainly asked his medical problems. Current Visit: Yes (4) Hypotension Status: Acute Assessment and plan: This may relate his heart rate as well as maybe some volume contraction and his sepsis. Current Visit: Yes (5) Anemia Status: Acute Assessment and plan: Etiology unclear. Monitor. Patient may want me blood. Current Visit: Yes History of Present Illness - Data of Consult Patient: known to practice within the last 3 years Consult date: 03/22/17 Requesting Physician: Dee Wade - Consult Narrative Reason for consult: Atrial fibrillation History of present illness: Mr. Hunt is a 66 year old male who was admitted with an infected right leg and apparently septic. He is in atrial fibrillation with rapid ventricular response at this time. His admission ECG and other telemetry strips reveal sinus rhythm. Diltiazem has been a bit slow his heart rates were because of hypotension. Is been given 1 dose of digoxin. He denies any chest pain or anginal symptomatology. I have seen the patient previously not seen him 9 almost a year and a half because of known follow-up. The patient has a history of SVT as well as hypertension dyslipidemia and diabetes and hypothyroidism. Darshan the patient is only a fair historian at best. Is hard to get details. CC: Norm Brown, III., - Home Medications and Allergies Home Medications: Home Medications Medication Instructions Recorded Confirmed Type Clorazepate Dipotassium 3.75 mg PO BID 01/12/17 03/20/17 History Colchicine [Colcrys] 1 tablet PO QAM 01/12/17 03/20/17 History Cyclobenzaprine HCl 10 mg PO BID PRN 01/12/17 03/20/17 History Glyburide/Metformin HCl 1 each PO BID 01/12/17 03/20/17 History [Glyburide-Metformin 5-500 mg] Insulin Detemir [Levemir FlexPen] 64 unit SUBCUT BEDTIME 01/12/17 03/20/17 History Levothyroxine Sodium [Levo-T] 100 mcg PO QAM 01/12/17 03/20/17 History Magnesium Chloride [Slow Mag] 64 mg PO QAM 01/12/17 03/20/17 History Meloxicam 7.5 mg PO QAM 01/12/17 03/20/17 History NIFEdipine XL TAB [Procardia Xl] 60 mg PO QAM 01/12/17 03/20/17 History Nebivolol [Bystolic] 5 mg PO QAM 01/12/17 03/20/17 History Pravastatin Sodium 40 mg PO QAM 01/12/17 03/20/17 History Tramadol HCl [Tramadol Tab] 50 mg PO BID PRN 01/12/17 03/20/17 History buPROPion [Wellbutrin] 100 mg PO QAM 01/12/17 03/20/17 History HYDROcodone/ACETAMIN 5-325 [[place] 1 tablet PO Q4H PRN #30 tablet 01/21/17 Rx 5-325] Chlorhexidine 4% Soln [Hibiclens] 1 applic TOP QAM 03/20/17 03/20/17 History Collagenase Oint [Santyl Oint] 1 applic TOP QAM 03/20/17 03/20/17 History Lisinopril [Lisinopril] 10 mg PO QAM 03/20/17 03/20/17 History Sodium Hypochlorite 0.25% Irr 1 applic TOP QAM 03/20/17 03/20/17 History [[place] 1/2 Strength 0.25% Soln] predniSONE TAB [PredniSONE] 10 mg PO QAM 03/20/17 03/20/17 History Allergies/Adverse Reactions: Allergies Allergy/AdvReac Type Severity Reaction Status Date / Time No Known Allergies Allergy Unverified 01/28/17 07:35 Review of systems: Constitutional: No recent fever chills. He states Weissmann about the same. Eyes: Denies visual changes or loss of vision Ears: Denies decreased hearing, vertigo Nose, mouth and throat: Denies dysphagia, epistaxis, headaches, neck pain, tongue swelling, Neck: Denies thyromegaly or masses. No stiffness. Cardiovascular: as per HPI Respiratory: Denies cough, dyspnea, hemoptysis, dyspnea on exertion, wheezing Gastrointestinal: Denies abdominal pain, constipation, dyspepsia, dysphagia, hematemesis, hematochezia, melena, nausea, vomiting Genitourinary: Denies dysuria, hematuria, nocturia Musculoskeletal: Denies arthralgias, joint swelling, muscle weakness, myalgias Neurological: denies abnormal gait, abnormal speech, confusion, convulsions, frequent falls, headaches, memory loss, syncope Psychiatric: Denies anxiety, confusion, depression Endocrine: Denies cold intolerance, fatigue, heat intolerance Hematologic/Lymphatic: Denies easy bleeding, easy bruising Dermatologic: Denies Rash, itching, shingles Medical,Surgical,& Family Hx - Medical History Cardio: History of: Cardiac Dysrhythmia (SVT), Hypertension No history of: CHF, [place], Pacemaker, Valvular Heart Disease Psychological: History of: Depression Neurology: No history of: Cerebrovascular Accident, Dementia, Migraine, Peripheral Neuropathy, Seizures, TIA, Vertigo HEENT: History of: Dental Problems (UPPER AND LOWER) Endocrine: History of: Diabetes Mellitus (IDDM), Dyslipidemia, Thyroid Disorder Rheumatology: History of;: Gout (MEDICATION), Rheumatoid Arthritis Respiratory: No history of: Asthma, COPD, Obstructive Sleep Apnea, Pulmonary Hypertension Comment Only: Respiratory Problems (HAD FLU VACCINE) Renal: No history of: Renal Problems Gastrointestinal: No history of: Gastrointestinal Bleed, Hepatitis, Liver Problems, Pancreatitis Musculoskeletal: History of: Back/Neck Problems Hematology: No history of: Blood Transfusion Reaction Other: History of: MRSA, Miscellaneous Medical Problems (Severe peripheral vascular disease, 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) No history of: Anesthesia Reactions, Cancer, HIV - Surgical History Cardiac Surgeries: Patient Denies: Cardiac Catheterization, Cardiac Surgery Thoracic Surgeries: Patient denies;: Organ Transplant HEENT Surgeries: Surgical HX of: Eye Surgery (cataracts) Abdominal Surgeries: Patient denies: Colonoscopy - Family History Family History: Reports;: Family Cancer (father- prostate cancer), Family Diabetes (FATHER and SISTER), Family Hypertension (sister) - Social History Smoking Status: Current every day smoker Frequency of Alcohol Use: None Type of Drug Use: None Marital Status: Lives With:: Alone Functional capacity: independent ambulation Physical Examination Vital Signs Temp Pulse Resp BP 97.3 F L 96 H 20 106/52 03/20/17 12:59 03/20/17 12:59 03/20/17 12:59 03/20/17 12:59 Exam: General appearance: normal weight, no acute distress but he is quiet. Head exam: normal inspection, atraumatic Eye exam: Pupils are equal and reactive. EOMI. There is no trauma. Ear exam: Anatomically normal. Normal auditory acuity to conversation. Oral exam: No significant oral lesions. Neck exam: normal inspection no JVD. No carotid bruit. Trachea is in midline. Respiratory exam: clear to auscultation bilaterally posteriorly and anteriorly with good air movement. No rales, rhonchi or wheezes. Cardiovascular exam: Tachycardic with irregular rhythm without gross murmur gallop or rub. No precordial lift. No bruits over the major arteries. Chest wall/torso: Anatomically normal. No tenderness, deformity Peripheral Pulses: Radial pulses are thready and 1-2+. Foot pulses are minimal. GI/Abdominal exam: normal bowel sounds, soft and nontender, no abdominal bruits or pulsatile masses. Musculoskeletal/Extremities exam: Right lower leg is bandaged from his surgical wound. Neurological exam: alert, oriented X3. There is no gross neurologic deficits. Should be no suture in those patients fair historian at best. Psychiatric exam: normal affect, normal mood. Cognitive function is grossly intact. Skin exam: normal color, warm. No rashes or other skin lesions. Result/EKG - Labs CBC & BMP: 03/22/17 00:14 03/22/17 00:14 Lab Results: I have reviewed the past 24 hour labs Labs: Laboratory Results - last 24 hr 03/21/17 03/21/17 03/21/17 18:01 19:50 23:33 WBC RBC Hgb Hct MCV MCH MCHC RDW Plt Count MPV Neut % (Auto) Lymph % (Auto) [place] % (Auto) Eos % (Auto) Baso % (Auto) Neut # (Auto) Lymph # (Auto) [place] # (Auto) Eos # (Auto) Baso # (Auto) Immature Gran % Nucleated RBC % Immature Gran # Nucleated RBCs # Platelet Estimate Immature Plt Fraction Anisocytosis Sodium Potassium Chloride Carbon Dioxide Anion Gap BUN Creatinine GFR Calculation BUN/Creatinine Ratio Glucose POC Glucose 263 H 170 H Calculated Osmolality Calcium Total Bilirubin AST ALT Alkaline Phosphatase Total Creatine Kinase 990 H D Total Protein Albumin Globulin Albumin/Globulin Ratio Urine Color Urine Appearance Urine pH Ur Specific [place] Urine Protein Urine Glucose (UA) Urine Ketones Urine Blood Urine Nitrate Urine Bilirubin Urine Urobilinogen Urine Leukocytes Urine RBC Urine WBC Ur Culture Indicated? 03/22/17 03/22/17 03/22/17 00:14 00:14 00:14 WBC 17.0 H RBC 3.19 L Hgb 9.8 L Hct 27.2 L MCV 85.3 L MCH 31 MCHC 36.0 RDW 15.5 Plt Count 180 MPV 9.7 Neut % (Auto) 85.2 H Lymph % (Auto) 6.8 L [place] % (Auto) 6.5 Eos % (Auto) 0.2 Baso % (Auto) 0.2 Neut # (Auto) 14.4 H Lymph # (Auto) 1.2 L [place] # (Auto) 1.1 H Eos # (Auto) 0.0 Baso # (Auto) 0.0 Immature Gran % 1.1 Nucleated RBC % 0.0 Immature Gran # 0.19 Nucleated RBCs # 0.00 Platelet Estimate Normal Immature Plt Fraction 0.0 Anisocytosis 1+ Sodium 137 Potassium 3.5 Chloride 108 H Carbon Dioxide 19 L Anion Gap 13.5 BUN 35 H D Creatinine 1.30 GFR Calculation 67 BUN/Creatinine Ratio 26.00 H Glucose 138 H POC Glucose Calculated Osmolality 282.8 Calcium 7.8 L Total Bilirubin 0.80 AST 95 H ALT 50 Alkaline Phosphatase 144 H Total Creatine Kinase 611 H D Total Protein 5.1 L Albumin 2.1 L Globulin 3.0 Albumin/Globulin Ratio 0.7 L Urine Color Urine Appearance Urine pH Ur Specific [place] Urine Protein Urine Glucose (UA) Urine Ketones Urine Blood Urine Nitrate Urine Bilirubin Urine Urobilinogen Urine Leukocytes Urine RBC Urine WBC Ur Culture Indicated? 03/22/17 03/22/17 03/22/17 05:01 05:36 07:10 WBC RBC Hgb Hct MCV MCH MCHC RDW Plt Count MPV Neut % (Auto) Lymph % (Auto) [place] % (Auto) Eos % (Auto) Baso % (Auto) Neut # (Auto) Lymph # (Auto) [place] # (Auto) Eos # (Auto) Baso # (Auto) Immature Gran % Nucleated RBC % Immature Gran # Nucleated RBCs # Platelet Estimate Immature Plt Fraction Anisocytosis Sodium Potassium Chloride Carbon Dioxide Anion Gap BUN Creatinine GFR Calculation BUN/Creatinine Ratio Glucose POC Glucose 156 H 173 H Calculated Osmolality Calcium Total Bilirubin AST ALT Alkaline Phosphatase Total Creatine Kinase 417 H D Total Protein Albumin Globulin Albumin/Globulin Ratio Urine Color Urine Appearance Urine pH Ur Specific [place] Urine Protein Urine Glucose (UA) Urine Ketones Urine Blood Urine Nitrate Urine Bilirubin Urine Urobilinogen Urine Leukocytes Urine RBC Urine WBC Ur Culture Indicated? 03/22/17 03/22/17 03/22/17 08:38 11:39 12:06 WBC RBC Hgb Hct MCV MCH MCHC RDW Plt Count MPV Neut % (Auto) Lymph % (Auto) [place] % (Auto) Eos % (Auto) Baso % (Auto) Neut # (Auto) Lymph # (Auto) [place] # (Auto) Eos # (Auto) Baso # (Auto) Immature Gran % Nucleated RBC % Immature Gran # Nucleated RBCs # Platelet Estimate Immature Plt Fraction Anisocytosis Sodium Potassium Chloride Carbon Dioxide Anion Gap BUN Creatinine GFR Calculation BUN/Creatinine Ratio Glucose POC Glucose 184 H 192 H Calculated Osmolality Calcium Total Bilirubin AST ALT Alkaline Phosphatase Total Creatine Kinase 334 H Total Protein Albumin Globulin Albumin/Globulin Ratio Urine Color Urine Appearance Urine pH Ur Specific [place] Urine Protein Urine Glucose (UA) Urine Ketones Urine Blood Urine Nitrate Urine Bilirubin Urine Urobilinogen Urine Leukocytes Urine RBC Urine WBC Ur Culture Indicated? 03/22/17 03/22/17 14:15 16:37 WBC RBC Hgb Hct MCV MCH MCHC RDW Plt Count MPV Neut % (Auto) Lymph % (Auto) [place] % (Auto) Eos % (Auto) Baso % (Auto) Neut # (Auto) Lymph # (Auto) [place] # (Auto) Eos # (Auto) Baso # (Auto) Immature Gran % Nucleated RBC % Immature Gran # Nucleated RBCs # Platelet Estimate Immature Plt Fraction Anisocytosis Sodium Potassium Chloride Carbon Dioxide Anion Gap BUN Creatinine GFR Calculation BUN/Creatinine Ratio Glucose POC Glucose 228 H Calculated Osmolality Calcium Total Bilirubin AST ALT Alkaline Phosphatase Total Creatine Kinase Total Protein Albumin Globulin Albumin/Globulin Ratio Urine Color Yellow Urine Appearance Slightly hazy Urine pH 5.0 Ur Specific [place] 1.015 Urine Protein Negative Urine Glucose (UA) 50 Urine Ketones Negative Urine Blood Moderate Urine Nitrate Negative Urine Bilirubin Negative Urine Urobilinogen < 2.0 H Urine Leukocytes Small H Urine RBC 25 Urine WBC 51 Ur Culture Indicated? Results to follow - Impressions Impressions: Telemetry with atrial ablation rapid ventricular response. ECG of 03/21/17 yesterday morning revealed atrial fibrillation with increased ventricular response. No acute EKG changes though. Quality Measures - VTE Contraindication to Pharmacological VTE Prophylaxis: High Risk of Bleeding Contraindication to Mechanical VTE Prophylaxis: Ischemic Vascular Disease
[2017-03-22] MEDS ORDERED: FUROSEMIDE 40 MG/4 ML VIAL IV ONE (17:20)
[2017-03-22] MEDS ORDERED: POTASSIUM CHLORIDE 20 MEQ TABLET PO ONE (17:22)
--- NOTE | 2017-03-22 17:22 | XRay Report ---
XR chest 1V portable Indication: Shortness of breath Comparison: 28 February 2017 Findings: The heart and mediastinum are stable in size and configuration. The pulmonary vascularity is increased with bilateral increased interstitial lung density. No other lung infiltrates, effusions, pneumothorax or other abnormality is demonstrated. Impression: Findings suggest cardiac decompensation. PROCEDURE INTERPRETED AT [facility] DEPARTMENT OF RADIOLOGY Final Report Signed by: Dr. Nixon Beltran
[2017-03-22] MEDS ORDERED: AMIODARONE INJ 450 MG in DEXTROSE 5% 241 ML IV SCH (17:30)
[2017-03-22] MEDS ORDERED: PHENYLEPHRINE DRIP 40 MG/250 ML PREMIX IV SCH (17:30)
[2017-03-22] MEDS: DAPTOmycin 500 MG in SODIUM CHLORIDE 0.9% 50 ML IV SCH (20:45)
[2017-03-22] MEDS: METOPROLOL TARTRATE 25 MG TABLET PO SCH (20:46)
[2017-03-22] MEDS: MORPHINE 2 MG/1 ML SYRINGE IV PRN (23:23)
[2017-03-23] MEDS: AMIODARONE INJ 450 MG in DEXTROSE 5% 241 ML IV SCH ×2 (01:27→14:50)
[2017-03-23] MEDS: ALBUTEROL/IPRATROPIUM 3 ML NEB RESP TX SCH ×6 (02:54→23:30)
[2017-03-23] MEDS: DILTIAZEM INJ 100 MG in SODIUM CHLORIDE 0.9% 100 ML IV SCH ×2 (04:02→23:35)
[2017-03-23 05:54] LABS: Basophils # 0.1 10*3/uL (0.0-0.2); Basophils % 0.3 % (0.0-0.8); Eosinophils # 0.1 10*3/uL (0.0-0.87); Eosinophils % 0.7 % (0.00-10.9); Hemoglobin 9.9 GM/DL (14.0-18.0); Immature Granulocytes % 1.1 %; Immature Granulocytes Absolute 0.22 #; Lymphocytes # 1.9 10*3/uL (1.4-4.0); Lymphocytes % 9.7 % (21.2-54.2); Mean Corpuscular HGB Conc 35.4 GM/DL (32-36); Mean Corpuscular Hemoglobin 31 PG (27-34); Mean Corpuscular Volume 87.2 FL (87-102); Mean Platelet Volume 9.6 FL (9.6-12.0); Monocytes # 1.8 10*3/uL (0.11-0.8); Monocytes % 9.4 % (1.7-12.7); Neutrophils # 15.3 10*3/uL (1.4-7.4); Neutrophils % 78.8 % (38.7-73.9); Platelet Count 222 T/CUMM (130-400); Red Blood Count 3.21 MC/CUMM (3.8-5.5); Red Cell Distribution Width 15.9 % (9.3-17.3); White Blood Count 19.4 T/CUMM (4-12)
[2017-03-23] MEDS: PIPERACILLIN/TAZOBACTAM 3,375 MG in SODIUM CHLORIDE 0.9% 100 ML IV SCH ×3 (06:00→21:17)
[2017-03-23] MEDS: LEVOTHYROXINE 100 MCG TABLET PO SCH (06:01)
[2017-03-23 06:34] LABS: Eosinophils 1 % (0-10); Giant Platelets Few; Lymphocytes 8 % (20-55); Ovalocytes Slight; Platelet Estimate Adequate; Segmented Neutrophils 81 % (50-85); Total Cells Counted 100
[2017-03-23 06:35] LABS: Albumin 1.9 G/DL (3.4-5.0); Bilirubin,Total 0.8 MG/DL (0.2-1.0); Calcium 7.7 MG/DL (8.5-10.1); Osmolality,Calculated 282.5 MOS/KG (273-304); Potassium 3.7 MMOL/L (3.5-5.1); Total Protein 5.2 G/DL (6.4-8.3)
--- NOTE | 2017-03-23 08:17 | Cardiology Progress Note ---
Assessment and Plan (1) Atrial fibrillation with RVR Status: Acute Current Visit: Yes (2) Diabetes Status: Chronic Assessment and plan: SEE PLAN OF CARE LISTED BELOW. Current Visit: Yes (3) Melena Status: Acute Assessment and plan: SEE PLAN OF CARE LISTED BELOW. Current Visit: Yes (4) Anemia Status: Acute Assessment and plan: SEE PLAN OF CARE LISTED BELOW. Current Visit: Yes (5) Elevated AST (SGOT) Status: Acute Assessment and plan: SEE PLAN OF CARE LISTED BELOW. Current Visit: Yes (6) Ischemic necrosis of right leg Status: Acute Current Visit: Yes (7) Tobacco abuse Status: Chronic Assessment and plan: SEE PLAN OF CARE LISTED BELOW. Current Visit: Yes (8) Hx of supraventricular tachycardia Status: Chronic Assessment and plan: SEE PLAN OF CARE LISTED BELOW. Current Visit: No (9) Hyperlipidemia Status: Chronic Assessment and plan: SEE PLAN OF CARE LISTED BELOW. Current Visit: No (10) Hypertension Status: Chronic Assessment and plan: SEE PLAN OF CARE LISTED BELOW. Current Visit: No (11) Hypothyroidism Status: Chronic Assessment and plan: SEE PLAN OF CARE LISTED BELOW. Current Visit: No Cardiology - PN: Subj Interval history: CLIENT SERVICE ASSOCIATE: Dr. Contreras SUMMARY Mr. Hunt is a 66 year old male who was admitted with an infected right leg and apparently septic. He was noted to be in atrial fibrillation with rapid ventricular response at the time of admission. This appears to be a new diagnosis. Patient has a past medical history of SVT, hypertension, dyslipidemia, hypothyroidism and diabetes. Over a year ago, patient did have echocardiogram which revealed normal left ventricular function. Patient was seen in consultation yesterday by cardiology. Cardizem infusion was initiated as well as digoxin. Patient spontaneously cardioverted back to normal sinus rhythm. Chads vasc score 3. MARCH 23, 2017 Patient was seen and examined in the CCU. Patient is currently on both amiodarone and Cardizem infusion. He is in normal sinus rhythm. At this point , we will discontinue Cardizem infusion, continue amiodarone infusion until 4: 30 PM. Will then transition to p.o. Patient is without cardiac complaints. Denies chest pain, heaviness or tightness. Denies shortness of breath. H&H this morning is 9.9 and 28.0. Stool is 4+ positive for occult blood over the weekend. She has been consulted and plans to do EGD today. Patient is currently n.p.o. Creatinine has now normalized at 0.9. BUN remains elevated at 25. AST is 58. Due to elevated AST we are holding off on adding lipid- lowering agent. Echocardiogram has been completed. Results are pending. Hemodynamically stable. I will further discuss with Dr. Tolentino and await his additional recommendations. IMPRESSION AND PLAN: 1. ATRIAL FIBRILLATION WITH RAPID VENTRICULAR RESPONSE - New diagnosis. Suspect that this is related to patient's acute infectious process. Patient has now converted to normal sinus rhythm. We will discontinue IV Cardizem. Continue amiodarone infusion until 4:30 PM then transition to p.o. Continue beta-blockade. I have slightly increased dose. Continue digoxin. Will monitor renal function closely with this medication. Chads vas score is 3. Unfortunately, patient is not a candidate for anticoagulation given his acute anemia/melena. GI workup underway. 2. ISCHEMIC NECROSIS OF RIGHT LEG - Management per surgery. 3. TOBACCO ABUSE - I have spent several minutes discussing the importance of smoking cessation. 4. HYPERTENSION - Well controlled. Will monitor blood pressure and adjust accordingly this hospitalization. 5 DYSLIPIDEMIA - I will check a lipid panel in the morning. Holding lipid- lowering agent due to elevated AST. 6. HYPOTHYROIDISM - Thyroid studies within normal limits. Management per attending. 7. DIABETES - Hemoglobin A1c 6.0. Continue sliding scale insulin. Management per attending. 8. HISTORY OF SVT - No SVT noted this hospitalization. 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 Continue beta-blockade. 9. ANEMIA - Etiology is unknown at this time. Stool was 4+ positive for occult blood. Because of this, we will hold off on adding anticoagulation until this has been worked up. GI plans for EGD this morning. 10. MELENA - Plan for EGD this morning. Patient is n.p.o. 11. ELEVATED AST - We will hold off on initiating lipid-lowering agent. Monitor daily. Per attending and GI. Exam (Progress Note) - Constitutional Vitals: Period Temp Pulse Resp BP Sys/Mancera Pulse Ox Last 24 Hr 97.2 F-99.3 F 87-174 17-91 63-144/46-91 90-100 Exam: General appearance: Appears well with no apparent distress. Pleasant and cooperative. Appears comfortable. Head exam: PERRL, normal inspection, atraumatic Oral exam: No significant oral lesions. Neck exam: normal inspection no JVD. No carotid bruit. Trachea is in midline. Respiratory exam: clear to auscultation bilaterally posteriorly and anteriorly with good air movement. No rales, rhonchi or wheezes. Oxygen via nasal cannula. Cardiovascular exam: Regular rate and rhythm without gross murmur gallop or rub. No precordial lift. No bruits over the major arteries. Chest wall/torso: Anatomically normal. No tenderness, deformity Peripheral Pulses: Radial pulses are thready and 1-2+. Foot pulses are minimal. GI/Abdominal exam: normal bowel sounds, soft and nontender, no abdominal bruits or pulsatile masses. Musculoskeletal/Extremities exam: Right lower leg is bandaged from his surgical wound. Neurological exam: alert, oriented X3. There is no gross neurologic deficits. Should be no suture in those patients fair historian at best. Psychiatric exam: normal affect, normal mood. Cognitive function is grossly intact. Skin exam: normal color, warm. No rashes or other skin lesions. Result/EKG - Labs CBC & BMP: 03/23/17 04:33 03/23/17 04:33 Lab Results: I have reviewed the past 24 hour labs Labs: Laboratory Results - last 24 hr 03/22/17 03/22/17 03/22/17 07:10 08:38 11:39 WBC RBC Hgb Hct MCV MCH MCHC RDW Plt Count MPV Neut % (Auto) Lymph % (Auto) [place] % (Auto) Eos % (Auto) Baso % (Auto) Neut # (Auto) Lymph # (Auto) [place] # (Auto) Eos # (Auto) Baso # (Auto) Total Counted Immature Gran % Nucleated RBC % Immature Gran # Segmented Neutrophils Lymphocytes Monocytes Eosinophils Nucleated RBCs # Platelet Estimate Giant Platelets Immature Plt Fraction Ovalocytes Sodium Potassium Chloride Carbon Dioxide Anion Gap BUN Creatinine GFR Calculation BUN/Creatinine Ratio Glucose POC Glucose 173 H 184 H Calculated Osmolality Calcium Total Bilirubin AST ALT Alkaline Phosphatase Total Creatine Kinase 334 H B-Natriuretic Peptide Total Protein Albumin Globulin Albumin/Globulin Ratio Urine Color Urine Appearance Urine pH Ur Specific [place] Urine Protein Urine Glucose (UA) Urine Ketones Urine Blood Urine Nitrate Urine Bilirubin Urine Urobilinogen Urine Leukocytes Urine RBC Urine WBC Ur Culture Indicated? 03/22/17 03/22/17 03/22/17 12:06 14:15 16:37 WBC RBC Hgb Hct MCV MCH MCHC RDW Plt Count MPV Neut % (Auto) Lymph % (Auto) [place] % (Auto) Eos % (Auto) Baso % (Auto) Neut # (Auto) Lymph # (Auto) [place] # (Auto) Eos # (Auto) Baso # (Auto) Total Counted Immature Gran % Nucleated RBC % Immature Gran # Segmented Neutrophils Lymphocytes Monocytes Eosinophils Nucleated RBCs # Platelet Estimate Giant Platelets Immature Plt Fraction Ovalocytes Sodium Potassium Chloride Carbon Dioxide Anion Gap BUN Creatinine GFR Calculation BUN/Creatinine Ratio Glucose POC Glucose 192 H 228 H Calculated Osmolality Calcium Total Bilirubin AST ALT Alkaline Phosphatase Total Creatine Kinase B-Natriuretic Peptide Total Protein Albumin Globulin Albumin/Globulin Ratio Urine Color Yellow Urine Appearance Slightly hazy Urine pH 5.0 Ur Specific [place] 1.015 Urine Protein Negative Urine Glucose (UA) 50 Urine Ketones Negative Urine Blood Moderate Urine Nitrate Negative Urine Bilirubin Negative Urine Urobilinogen < 2.0 H Urine Leukocytes Small H Urine RBC 25 Urine WBC 51 Ur Culture Indicated? Results to follow 03/22/17 03/22/17 03/23/17 17:15 20:09 04:33 WBC RBC Hgb Hct MCV MCH MCHC RDW Plt Count MPV Neut % (Auto) Lymph % (Auto) [place] % (Auto) Eos % (Auto) Baso % (Auto) Neut # (Auto) Lymph # (Auto) [place] # (Auto) Eos # (Auto) Baso # (Auto) Total Counted Immature Gran % Nucleated RBC % Immature Gran # Segmented Neutrophils Lymphocytes Monocytes Eosinophils Nucleated RBCs # Platelet Estimate Giant Platelets Immature Plt Fraction Ovalocytes Sodium 139 Potassium 3.7 Chloride 108 H Carbon Dioxide 21 Anion Gap 13.7 BUN 25 H Creatinine 0.90 GFR Calculation 104 BUN/Creatinine Ratio 27.00 H Glucose 143 H POC Glucose 196 H Calculated Osmolality 282.5 Calcium 7.7 L Total Bilirubin 0.80 AST 58 H ALT 47 Alkaline Phosphatase 218 H Total Creatine Kinase B-Natriuretic Peptide 291 H Total Protein 5.2 L Albumin 1.9 L Globulin 3.3 Albumin/Globulin Ratio 0.5 L Urine Color Urine Appearance Urine pH Ur Specific [place] Urine Protein Urine Glucose (UA) Urine Ketones Urine Blood Urine Nitrate Urine Bilirubin Urine Urobilinogen Urine Leukocytes Urine RBC Urine WBC Ur Culture Indicated? 03/23/17 03/23/17 04:33 07:43 WBC 19.4 H RBC 3.21 L Hgb 9.9 L Hct 28.0 L MCV 87.2 MCH 31 MCHC 35.4 RDW 15.9 Plt Count 222 D MPV 9.6 Neut % (Auto) 78.8 H Lymph % (Auto) 9.7 L [place] % (Auto) 9.4 Eos % (Auto) 0.7 Baso % (Auto) 0.3 Neut # (Auto) 15.3 H Lymph # (Auto) 1.9 [place] # (Auto) 1.8 H Eos # (Auto) 0.1 Baso # (Auto) 0.1 Total Counted 100 Immature Gran % 1.1 Nucleated RBC % 0.0 Immature Gran # 0.22 Segmented Neutrophils 81 Lymphocytes 8 L Monocytes 10 Eosinophils 1 Nucleated RBCs # 0.00 Platelet Estimate Adequate Giant Platelets Few Immature Plt Fraction 0.0 Ovalocytes Slight Sodium Potassium Chloride Carbon Dioxide Anion Gap BUN Creatinine GFR Calculation BUN/Creatinine Ratio Glucose POC Glucose 174 H Calculated Osmolality Calcium Total Bilirubin AST ALT Alkaline Phosphatase Total Creatine Kinase B-Natriuretic Peptide Total Protein Albumin Globulin Albumin/Globulin Ratio Urine Color Urine Appearance Urine pH Ur Specific [place] Urine Protein Urine Glucose (UA) Urine Ketones Urine Blood Urine Nitrate Urine Bilirubin Urine Urobilinogen Urine Leukocytes Urine RBC Urine WBC Ur Culture Indicated? Quality Measures - VTE Contraindication to Pharmacological VTE Prophylaxis: High Risk of Bleeding Contraindication to Mechanical VTE Prophylaxis: Ischemic Vascular Disease
[2017-03-23] MEDS: INSULIN REGULAR 100 UNIT/ML SUBCUT SCH ×4 (08:19→20:39)
[2017-03-23] MEDS: METOPROLOL TARTRATE 25 MG TABLET PO SCH ×2 (08:21→20:14)
[2017-03-23] MEDS: PANTOPRAZOLE 40 MG TABLET PO SCH ×2 (08:22→20:40)
[2017-03-23] MEDS: THIAMINE 100 MG TABLET PO SCH (08:22)
[2017-03-23] MEDS: MAGNESIUM CHLORIDE 64 MG TABLET PO SCH (08:22)
[2017-03-23] MEDS: FOLIC ACID 1 MG TABLET PO SCH (08:22)
[2017-03-23] MEDS ORDERED: HYDROCORTISONE 100 MG VIAL IV SCH (08:30)
[2017-03-23] MEDS ORDERED: FUROSEMIDE 40 MG/4 ML VIAL IV ONE (08:37)
[2017-03-23] MEDS: NICOTINE 21 MG/24 HR PATCH TRANSDERM SCH (08:39)
[2017-03-23] MEDS: SODIUM HYPOCHLORITE 0.25% IRRIG 473 ML BOTTLE TOP SCH (08:48)
[2017-03-23] MEDS: MORPHINE 2 MG/1 ML SYRINGE IV PRN ×2 (08:48→15:36)
[2017-03-23] MEDS ORDERED: DIGOXIN 0.5 MG/2 ML AMP IV SCH (09:00)
[2017-03-23] MEDS ORDERED: METOPROLOL TARTRATE 25 MG TABLET PO ONE (09:36)
--- NOTE | 2017-03-23 10:01 | Vascular Surgery Consult Note ---
History of Present Illness Chief complaint: aortoiliac occlusion History of present illness: Mr. Hunt is a 66 year old male Mr. Vargas is a 66-year-old man I have been seeing with Dr. Stephanie CAR for the past 2 months. 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 He is returned with infection of the leg again that has been debrided and is actually cleaning up there is actually relatively healthy looking granulation tissue over the muscle which is showing healing by contracture. He had been seen in the office several weeks ago and was making progress and he was due to see me early this month to plan on the aortobifemoral bypass. At this point I think it still indicated that we revascularize his lower legs I do not know that he is in a condition that would allow the aortobifemoral bypass the option otherwise would be an axillobifemoral bypass but these procedures have a much lower long-term patency than aortobifemoral bypassing. I think at this point in time we should continue to treat the current infection determine the level of his overall health and perhaps we can reach a point proceeding with surgery for revascularization during this hospitalization perhaps even late this week Home Medications Medication Instructions Recorded Confirmed Type Clorazepate Dipotassium 3.75 mg PO BID 01/12/17 03/20/17 History Colchicine [Colcrys] 1 tablet PO QAM 01/12/17 03/20/17 History Cyclobenzaprine HCl 10 mg PO BID PRN 01/12/17 03/20/17 History Glyburide/Metformin HCl 1 each PO BID 01/12/17 03/20/17 History [Glyburide-Metformin 5-500 mg] Insulin Detemir [Levemir FlexPen] 64 unit SUBCUT BEDTIME 01/12/17 03/20/17 History Levothyroxine Sodium [Levo-T] 100 mcg PO QAM 01/12/17 03/20/17 History Magnesium Chloride [Slow Mag] 64 mg PO QAM 01/12/17 03/20/17 History Meloxicam 7.5 mg PO QAM 01/12/17 03/20/17 History NIFEdipine XL TAB [Procardia Xl] 60 mg PO QAM 01/12/17 03/20/17 History Nebivolol [Bystolic] 5 mg PO QAM 01/12/17 03/20/17 History Pravastatin Sodium 40 mg PO QAM 01/12/17 03/20/17 History Tramadol HCl [Tramadol Tab] 50 mg PO BID PRN 01/12/17 03/20/17 History buPROPion [Wellbutrin] 100 mg PO QAM 01/12/17 03/20/17 History HYDROcodone/ACETAMIN 5-325 [[place] 1 tablet PO Q4H PRN #30 tablet 01/21/17 Rx 5-325] Chlorhexidine 4% Soln [Hibiclens] 1 applic TOP QA 03/20/17 03/20/17 History Collagenase Oint [Santyl Oint] 1 applic TOP QA 03/20/17 03/20/17 History Lisinopril [Lisinopril] 10 mg PO QAM 03/20/17 03/20/17 History Sodium Hypochlorite 0.25% Irr 1 applic TOP QAM 03/20/17 03/20/17 History [Dakins 1/2 Strength 0.25% Soln] predniSONE TAB [PredniSONE] 10 mg PO QAM 03/20/17 03/20/17 History Allergies Allergy/AdvReac Type Severity Reaction Status Date / Time No Known Allergies Allergy Unverified 01/28/17 07:35 Medical,Surgical,& Family Hx - Medical History Cardio: History of: Cardiac Dysrhythmia (SVT), Hypertension No history of: CHF, [place], Pacemaker, Valvular Heart Disease Psychological: History of: Depression Neurology: No history of: Cerebrovascular Accident, Dementia, Migraine, Peripheral Neuropathy, Seizures, TIA, Vertigo HEENT: History of: Dental Problems (UPPER AND LOWER) Endocrine: History of: Diabetes Mellitus (IDDM), Dyslipidemia, Thyroid Disorder Rheumatology: History of;: Gout (MEDICATION), Rheumatoid Arthritis Respiratory: No history of: Asthma, COPD, Obstructive Sleep Apnea, Pulmonary Hypertension Comment Only: Respiratory Problems (HAD FLU VACCINE) Renal: No history of: Renal Problems Gastrointestinal: No history of: Gastrointestinal Bleed, Hepatitis, Liver Problems, Pancreatitis Musculoskeletal: History of: Back/Neck Problems Hematology: No history of: Blood Transfusion Reaction Other: History of: MRSA, Miscellaneous Medical Problems (Severe peripheral vascular disease, 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) No history of: Anesthesia Reactions, Cancer, HIV - Surgical History Cardiac Surgeries: Patient Denies: Cardiac Catheterization, Cardiac Surgery Thoracic Surgeries: Patient denies;: Organ Transplant HEENT Surgeries: Surgical HX of: Eye Surgery (cataracts) Abdominal Surgeries: Patient denies: Colonoscopy - Family History Family History: Reports;: Family Cancer (father- prostate cancer), Family Diabetes (FATHER and SISTER), Family Hypertension (sister) - Social History Smoking Status: Current every day smoker Frequency of Alcohol Use: None Type of Drug Use: None Exam - Constitutional Vitals: Period Temp Pulse Resp BP Sys/Mancera Pulse Ox Last 24 Hr 96.7 F-99.3 F 87-174 21-91 63-151/46-91 90-99 Quality Measures - VTE Contraindication to Pharmacological VTE Prophylaxis: High Risk of Bleeding Contraindication to Mechanical VTE Prophylaxis: Ischemic Vascular Disease Results - Labs CBC & BMP: 03/23/17 04:33 03/23/17 04:33
--- NOTE | 2017-03-23 12:10 | Infectious Disease Consult ---
Assessment and Plan (1) Acute renal failure (ARF) Status: Acute Current Visit: Yes (2) Ischemic necrosis of right leg Status: Acute Assessment and plan: Right leg wound infected once again with multiple organisms. Recommendations: I agree with current antibiotic therapy. Monitor CPK closely on daptomycin. When ready for discharge we may be able to get him on an oral antibiotic combination. Thank you much for the consult. Will follow. Current Visit: Yes (3) Peripheral vascular disease Status: Acute Current Visit: Yes (4) Diabetes Status: Chronic Current Visit: Yes (5) Hyperlipidemia Status: Chronic Current Visit: No History of Present Illness Chief complaint: Right leg infection History of present illness: Mr. Hunt is a 66 year old male with severe peripheral vascular disease who has had a chronic nonhealing wound to the right leg. He was in hospital for similar problem about 2 months ago when I saw him and recommended on antibiotic therapy for discharge. He was supposed to have vascular intervention however this has been postponed due to the presence of infection. Patient was brought to hospital over the weekend after home health found his wound looked unhealthy. Apparently he had fallen as well and had difficulty getting back to his bed. Wound culture done on this admission came up positive for several organisms, and I am asked to assist with antibiotic therapy. Patient has not had any fever since admission. He has been in ICU because of GI bleed with hypotensive state. Home Medications Medication Instructions Recorded Confirmed Type Clorazepate Dipotassium 3.75 mg PO BID 01/12/17 03/20/17 History Colchicine [Colcrys] 1 tablet PO QAM 01/12/17 03/20/17 History Cyclobenzaprine HCl 10 mg PO BID PRN 01/12/17 03/20/17 History Glyburide/Metformin HCl 1 each PO BID 01/12/17 03/20/17 History [Glyburide-Metformin 5-500 mg] Insulin Detemir [Levemir FlexPen] 64 unit SUBCUT BEDTIME 01/12/17 03/20/17 History Levothyroxine Sodium [Levo-T] 100 mcg PO QAM 01/12/17 03/20/17 History Magnesium Chloride [Slow Mag] 64 mg PO QAM 01/12/17 03/20/17 History Meloxicam 7.5 mg PO QAM 01/12/17 03/20/17 History NIFEdipine XL TAB [Procardia Xl] 60 mg PO QAM 01/12/17 03/20/17 History Nebivolol [Bystolic] 5 mg PO QAM 01/12/17 03/20/17 History Pravastatin Sodium 40 mg PO QAM 01/12/17 03/20/17 History Tramadol HCl [Tramadol Tab] 50 mg PO BID PRN 01/12/17 03/20/17 History buPROPion [Wellbutrin] 100 mg PO QAM 01/12/17 03/20/17 History HYDROcodone/ACETAMIN 5-325 [[place] 1 tablet PO Q4H PRN #30 tablet 01/21/17 Rx 5-325] Chlorhexidine 4% Soln [Hibiclens] 1 applic TOP QA 03/20/17 03/20/17 History Collagenase Oint [Santyl Oint] 1 applic TOP QA 03/20/17 03/20/17 History Lisinopril [Lisinopril] 10 mg PO QAM 03/20/17 03/20/17 History Sodium Hypochlorite 0.25% Irr 1 applic TOP QAM 03/20/17 03/20/17 History [Dakins 1/2 Strength 0.25% Soln] predniSONE TAB [PredniSONE] 10 mg PO QAM 03/20/17 03/20/17 History Allergies Allergy/AdvReac Type Severity Reaction Status Date / Time No Known Allergies Allergy Unverified 01/28/17 07:35 12 point system: reviewed and no additional remarkable complaints except as stated (Per HPI) Medical,Surgical,& Family Hx - Medical History Cardio: History of: Cardiac Dysrhythmia (SVT), Hypertension No history of: CHF, [place], Pacemaker, Valvular Heart Disease Psychological: History of: Depression Neurology: No history of: Cerebrovascular Accident, Dementia, Migraine, Peripheral Neuropathy, Seizures, TIA, Vertigo HEENT: History of: Dental Problems (UPPER AND LOWER) Endocrine: History of: Diabetes Mellitus (IDDM), Dyslipidemia, Thyroid Disorder Rheumatology: History of;: Gout (MEDICATION), Rheumatoid Arthritis Respiratory: No history of: Asthma, COPD, Obstructive Sleep Apnea, Pulmonary Hypertension Comment Only: Respiratory Problems (HAD FLU VACCINE) Renal: No history of: Renal Problems Gastrointestinal: No history of: Gastrointestinal Bleed, Hepatitis, Liver Problems, Pancreatitis Musculoskeletal: History of: Back/Neck Problems Hematology: No history of: Blood Transfusion Reaction Other: History of: MRSA, Miscellaneous Medical Problems (Severe peripheral vascular disease, 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) No history of: Anesthesia Reactions, Cancer, HIV - Surgical History Cardiac Surgeries: Patient Denies: Cardiac Catheterization, Cardiac Surgery Thoracic Surgeries: Patient denies;: Organ Transplant HEENT Surgeries: Surgical HX of: Eye Surgery (cataracts) Abdominal Surgeries: Patient denies: Colonoscopy - Family History Family History: Reports;: Family Cancer (father- prostate cancer), Family Diabetes (FATHER and SISTER), Family Hypertension (sister) - Social History Smoking Status: Current every day smoker Frequency of Alcohol Use: None Type of Drug Use: None Infectious Disease Exam H&P - Constitutional Vitals: Vital Signs Temp Pulse Resp BP Pulse Ox 96.7 F L 90 28 H 136/62 98 03/23/17 08:00 03/23/17 11:49 03/23/17 11:49 03/23/17 11:45 03/23/17 11:49 Intake and Output 03/22/17 03/23/17 03/23/17 23:59 07:59 15:59 Intake Total 914 / 914 473.5 / 473.5 100 / 100 Output Total 1890 / 1890 1145 / 1145 925 / 925 Balance -976 / -976 -671.5 / -671.5 -825 / -825 Intake: IV 604 / 604 473.5 / 473.5 100 / 100 Cordarone Inj 150 mg In 103 / 103 D5 100 ml @ 618 mls/hr IV ONCE ONE Rx#:[id number] Cordarone Inj 450 mg In 250 / 250 D5 241 ml @ 1 MG/MIN 33. 33 mls/hr IV .Q7H31M NANCY Rx#:[id number] Cubicin 500 mg In Ns 50 50 / 50 ml @ 100 mls/hr IV Q24H NANCY Rx#:[id number] Cardizem Inj 100 mg In Ns 95 / 95 123.5 / 123.5 100 ml @ 5 MG/HR 5 mls/ hr IV TITRATE NANCY Rx#: [id number] Zosyn 3,375 mg In Ns 100 100 / 100 100 / 100 100 / 100 ml @ 25 mls/hr IV Q8H NANCY Rx#:[id number] Ns 1,000 ml @ 125 mls/hr 256 / 256 IV .Q8H NANCY Rx#: [id number] Oral 310 / 310 Output: Urine 1890 / 1890 1145 / 1145 925 / 925 Other: Voiding Method Indwelling Catheter Indwelling Catheter Indwelling Catheter Weight 87.09 kg Patient Weight 03/23/17 23:59 Weight 87.09 kg Exam: General: Patient chronically ill looking, very drowsy but arousable HEENT: Mucous membranes pink and moist, anicteric acyanotic, KATHERYN, no oral exudates, mouth very dry Neck: Supple, no thyroid gland enlargement Respiratory system: Breath sounds vesicular, no crepitations or wheezes Cardiovascular: Normal S1 and S2, no murmurs appreciated Abdomen: Normal bowel sounds, soft nontender throughout, no organomegaly or mass Genitourinary: No suprapubic pain or bladder distention Extremities: no edema, right leg bandaged Skin: No rash Reports - Labs CBC & BMP: 03/23/17 04:33 03/23/17 04:33 Labs: Laboratory Results - last 24 hr 03/22/17 03/22/17 03/22/17 11:39 12:06 14:15 WBC RBC Hgb Hct MCV MCH MCHC RDW Plt Count MPV Neut % (Auto) Lymph % (Auto) [place] % (Auto) Eos % (Auto) Baso % (Auto) Neut # (Auto) Lymph # (Auto) [place] # (Auto) Eos # (Auto) Baso # (Auto) Total Counted Immature Gran % Nucleated RBC % Immature Gran # Segmented Neutrophils Lymphocytes Monocytes Eosinophils Nucleated RBCs # Platelet Estimate Giant Platelets Immature Plt Fraction Ovalocytes Sodium Potassium Chloride Carbon Dioxide Anion Gap BUN Creatinine GFR Calculation BUN/Creatinine Ratio Glucose POC Glucose 192 H Calculated Osmolality Calcium Total Bilirubin AST ALT Alkaline Phosphatase Total Creatine Kinase 334 H B-Natriuretic Peptide Total Protein Albumin Globulin Albumin/Globulin Ratio Urine Color Yellow Urine Appearance Slightly hazy Urine pH 5.0 Ur Specific [place] 1.015 Urine Protein Negative Urine Glucose (UA) 50 Urine Ketones Negative Urine Blood Moderate Urine Nitrate Negative Urine Bilirubin Negative Urine Urobilinogen < 2.0 H Urine Leukocytes Small H Urine RBC 25 Urine WBC 51 Ur Culture Indicated? Results to follow 03/22/17 03/22/17 03/22/17 16:37 17:15 20:09 WBC RBC Hgb Hct MCV MCH MCHC RDW Plt Count MPV Neut % (Auto) Lymph % (Auto) [place] % (Auto) Eos % (Auto) Baso % (Auto) Neut # (Auto) Lymph # (Auto) [place] # (Auto) Eos # (Auto) Baso # (Auto) Total Counted Immature Gran % Nucleated RBC % Immature Gran # Segmented Neutrophils Lymphocytes Monocytes Eosinophils Nucleated RBCs # Platelet Estimate Giant Platelets Immature Plt Fraction Ovalocytes Sodium Potassium Chloride Carbon Dioxide Anion Gap BUN Creatinine GFR Calculation BUN/Creatinine Ratio Glucose POC Glucose 228 H 196 H Calculated Osmolality Calcium Total Bilirubin AST ALT Alkaline Phosphatase Total Creatine Kinase B-Natriuretic Peptide 291 H Total Protein Albumin Globulin Albumin/Globulin Ratio Urine Color Urine Appearance Urine pH Ur Specific [place] Urine Protein Urine Glucose (UA) Urine Ketones Urine Blood Urine Nitrate Urine Bilirubin Urine Urobilinogen Urine Leukocytes Urine RBC Urine WBC Ur Culture Indicated? 03/23/17 03/23/17 03/23/17 04:33 04:33 07:43 WBC 19.4 H RBC 3.21 L Hgb 9.9 L Hct 28.0 L MCV 87.2 MCH 31 MCHC 35.4 RDW 15.9 Plt Count 222 D MPV 9.6 Neut % (Auto) 78.8 H Lymph % (Auto) 9.7 L [place] % (Auto) 9.4 Eos % (Auto) 0.7 Baso % (Auto) 0.3 Neut # (Auto) 15.3 H Lymph # (Auto) 1.9 [place] # (Auto) 1.8 H Eos # (Auto) 0.1 Baso # (Auto) 0.1 Total Counted 100 Immature Gran % 1.1 Nucleated RBC % 0.0 Immature Gran # 0.22 Segmented Neutrophils 81 Lymphocytes 8 L Monocytes 10 Eosinophils 1 Nucleated RBCs # 0.00 Platelet Estimate Adequate Giant Platelets Few Immature Plt Fraction 0.0 Ovalocytes Slight Sodium 139 Potassium 3.7 Chloride 108 H Carbon Dioxide 21 Anion Gap 13.7 BUN 25 H Creatinine 0.90 GFR Calculation 104 BUN/Creatinine Ratio 27.00 H Glucose 143 H POC Glucose 174 H Calculated Osmolality 282.5 Calcium 7.7 L Total Bilirubin 0.80 AST 58 H ALT 47 Alkaline Phosphatase 218 H Total Creatine Kinase B-Natriuretic Peptide Total Protein 5.2 L Albumin 1.9 L Globulin 3.3 Albumin/Globulin Ratio 0.5 L Urine Color Urine Appearance Urine pH Ur Specific [place] Urine Protein Urine Glucose (UA) Urine Ketones Urine Blood Urine Nitrate Urine Bilirubin Urine Urobilinogen Urine Leukocytes Urine RBC Urine WBC Ur Culture Indicated? 03/23/17 12:05 WBC RBC Hgb Hct MCV MCH MCHC RDW Plt Count MPV Neut % (Auto) Lymph % (Auto) [place] % (Auto) Eos % (Auto) Baso % (Auto) Neut # (Auto) Lymph # (Auto) [place] # (Auto) Eos # (Auto) Baso # (Auto) Total Counted Immature Gran % Nucleated RBC % Immature Gran # Segmented Neutrophils Lymphocytes Monocytes Eosinophils Nucleated RBCs # Platelet Estimate Giant Platelets Immature Plt Fraction Ovalocytes Sodium Potassium Chloride Carbon Dioxide Anion Gap BUN Creatinine GFR Calculation BUN/Creatinine Ratio Glucose POC Glucose 173 H Calculated Osmolality Calcium Total Bilirubin AST ALT Alkaline Phosphatase Total Creatine Kinase B-Natriuretic Peptide Total Protein Albumin Globulin Albumin/Globulin Ratio Urine Color Urine Appearance Urine pH Ur Specific [place] Urine Protein Urine Glucose (UA) Urine Ketones Urine Blood Urine Nitrate Urine Bilirubin Urine Urobilinogen Urine Leukocytes Urine RBC Urine WBC Ur Culture Indicated? - Reports Microbiology: Microbiology 03/21/17 Unknown Abscess Culture - Final Leg - Rt Lower Proteus mirabilis Enterobacter cloacae Staph Aureus Methicillin Resis 03/22/17 Unknown Urine Culture - Preliminary Urine,Clean Catch No Growth at 24 hours. 03/22/17 09:00 MRSA Surveillance Culture - Final Nares - Both Nares (Mrsa screen) MRSA ISOLATED Please place patient in contact isolation per Infection Control. 03/21/17 17:30 Stool Culture - Final Stool No enteric pathogens at 48 hrs 03/21/17 17:34 Stool Occult Blood (ANU) - Final Stool 4+ Positive for Occult Blood Stool Occult Blood (ANU) - Final 4+ Positive for Occult Blood 03/21/17 Unknown Anaerobic Culture - Final Tissue - Wound No anaerobe isolated
--- NOTE | 2017-03-23 12:38 | Hospitalist Progress Note ---
Assessment and Plan (1) Diabetes mellitus type 2 in obese Status: Chronic Assessment and plan: 1)DM- continue SSI 2)rapid afib- rate controlled yesterday and he has converted now. contineu dig and dilt and amio for now. 3)GIB with melena- Dr Aponte to see. 4)PVD/diabetic leg infection causing sepsis- surgeons planning further surgery. on cubicin and zosyn for polymicrobial culture results 5)renal failure- resolved. Current Visit: No (2) Hypertension Status: Chronic Current Visit: No (3) Hyperlipidemia Status: Chronic Current Visit: No (4) Peripheral vascular disease Status: Acute Current Visit: Yes (5) Acute renal failure (ARF) Status: Acute Current Visit: Yes (6) Ischemic necrosis of right leg Status: Acute Current Visit: Yes Hospitalist: Subjective Interval history: Mr Hunt is looking ok this morning and says he is feeling a lot better. No nausea, no shortness of breath. Exam - Constitutional Vitals: Period Temp Pulse Resp BP Sys/Mancera Pulse Ox Last 24 Hr 96.7 F-99.3 F 87-174 21-40 63-154/46-91 90-99 General appearance: no acute distress, over weight - Eye Eye exam: Present: EOMI. Absent: scleral icterus - Respiratory Respiratory exam: Present: clear to auscultation bilaterally - Cardiovascular Cardiovascular exam: Present: irregular rhythm, tachycardia - GI/Abdominal GI/Abdominal exam: Present: normal bowel sounds, soft. Absent: tenderness - Extremities Exam Extremities exam: Present: other (wound dressed on right leg. no edema on left.) Results - Labs CBC & BMP: 03/23/17 04:33 03/23/17 04:33 Lab Results: I have reviewed the past 24 hour labs Quality Measures - VTE Contraindication to Pharmacological VTE Prophylaxis: High Risk of Bleeding Contraindication to Mechanical VTE Prophylaxis: Ischemic Vascular Disease
--- NOTE | 2017-03-23 13:09 | CT Report ---
Postcontrast CT right lower extremity March 23, 2017 1122 hours Indication: Compartment syndrome evaluate for necrosis Comparison images not available Technique: CT scanning of the right lower extremity was performed after administration of intravenous contrast per routine protocol. Axial, coronal and sagittal images submitted for interpretation. The CT exam was performed using one or more of the following dose reduction techniques: Automated exposure control, adjustment of the mA and/or kV according to patient size, or use of iterative reconstruction technique. Findings: Extensive superficial soft tissue debridement involving the posterior medial calf with superficial fasciotomy. No subcutaneous air or central hypodensity to suggest necrosis. No abnormal enhancement. The posterior compartmental musculature is unremarkable in attenuation and enhancement. Multifocal plaquing along the superficial femoral and popliteal arteries through the visualized trifurcation. Diminutive enhancement of the distal extremity vasculature. Osseous structures are intact. Impression: 1. Extensive superficial soft tissue debridement and fasciotomy, uncomplicated 2. No findings to suggest deep soft tissue abscess or necrosis. 3. Peripheral atherosclerosis with poor enhancement of the distal extremity vessels. Consider CTA with runoff if clinically concerned for perfusion abnormalities PROCEDURE INTERPRETED AT [facility] DEPARTMENT OF RADIOLOGY Final Report Signed by: Derek Pickens MD
--- NOTE | 2017-03-23 13:20 | Event Note ---
I saw the patient this morning. He looks and feels much better. He denies leg pain. Took down his dressing and his wound actually looks clean. I do not see signs of active infection. His cultures are growing multiple organisms. We will continue with treatment of what was probably some element of septicemia. I discussed the case with Dr. Cummings. Hopefully get him cleaned out enough for revascularization. I think the origin of this wound has been ischemic. Still has motor function and sensation in his foot.
--- NOTE | 2017-03-23 13:33 | Physician Query Form ---
CLICK EDIT DOCUMENT TO SELECT QUERY ANSWER --> OK --> SIGN Cori Jiang RN Clinical Financial Recruiter W) [phone] (f) [phone] [email or web address] PROVIDERS: Make your selection(s) from the choices in EACH section by typing an "x" and enter comments in the comment section. Please use your independent medical judgment in providing your response. This request does not imply that any particular answer is desired or expected. CLINICAL INDICATORS: (Providers should not edit this section) Based on documentation of "Acute sepsis" "Acute renal failure" "Hypotensive, going to be transferred to ICU" "Acute ischemic ischemic necrosis of right leg" Treated with excisional debridement, IV Vancomycin, IV Cubicin, IV Zosyn, IV Solu Cortef, Multiple NS boluses and IV SUDHA. Please clarify which, if any, of the following is the etiology of the above symptoms and treatment rendered: ( ) Severe Sepsis (sepsis with acute organ failure) - Please specify type acute organ failure: ( ) Septic Shock (severe sepsis with hypotension) ( ) SIRS of noninfectious origin ( x) Sepsis due to a device, implant or graft, please specify:right leg infection ( ) Localized infection only, without systemic illness, please specify infection : ( ) Bacteremia (abnormal lab finding only, does not indicate systemic illness) ( ) Other condition, please specify: ( ) Clinically unable to determine Criteria for Sepsis (SIRS due to an infection) should be based on 2 or more of the following being present: Temperature > 101F or < 96.8F WBC > 12,000 or < 4,000, or > 10% bands Tachycardia HR > 90 beats/minute Tachypnea RR > 20 breaths/minute or PaCO2 > 32mmHg Lactate level > 2.0 mmol/L (>4 is equivalent to severe sepsis) Altered Mental Status Mottling of skin or prolonged capillary refill Non-diabetic hyperglycemia (blood sugar >120 mg/dl) Other evidence of acute organ failure associated with sepsis ( severe sepsis) COMMENTS: PLEASE ALSO DOCUMENT RESPONSE IN PROGRESS NOTES AND/OR DISCHARGE SUMMARY Use of terms such as suspected, likely, or probable (associated with a specific diagnosis that is being evaluated, monitored, or treated as if it exists) are acceptable and can be restated in the discharge summary if not ruled out. MTDD
--- NOTE | 2017-03-23 14:20 | Operative Note ---
Date of procedure: 03/23/17 Pre-op diagnosis: Anemia, melena, guaiac positive stools, hematocrit 28%. Post-op diagnosis: other (This patient had bleeding due to a number of causes: 13 cm of LA class D erosive esophagitis in the distal third of the esophagus. There was gastroparesis evident by retained food in the fundus, lesser curvature gastric ulcer 3 cm in size biopsied to rule out malignancy, duodenal bulb ulcer and duodenitis noted as well.) Procedure: PROCEDURE: Esophagogastroduodenoscopy (EGD) with cold biopsy for pathology REFERRING PHYSICIAN: Norm Brown III, MD INDICATIONS: This patient has anemia with hematocrit down to 27/28%, guaiac positive stools, nausea, and history of melena over the last several days. The prior H&P was reviewed and interrim changes are as noted: No change from GI consultation yesterday ENDOSCOPIST: Arvin Aponte MD ENDOSCOPE: Olympus Video 100 System upper endoscope ASA CLASS: 4 EXAM: CV: regular rate and rhythm respiratory: Clear without wheezes abdominal: active bowel sounds MEDICATION: Per nursing anesthesia protocol, see their notes PROCEDURE: After discussion of the potential risks and benefits of upper endoscopy, the informed consent was obtained. The patient was then placed in the left lateral decubitus position where sedation was achieved as noted above. Esophageal intubation was performed without difficulty, and the endoscope was advanced through the esophagus, stomach and duodenum. A slow withdrawal was then performed with retroflexion in the stomach for careful inspection of the incisura angularis, fundus and cardia. The scope was then returned to a neutral position and withdrawn through the esophagus. The patient tolerated the procedure well and without complication. BIOPSIES: Distal esophagus, gastric body and lesser curvature ulcer, duodenal ulcerations/inflammation PHOTOGRAPHS: Obtained FINDINGS: Hypopharynx and Larynx: Normal Esohagoscopy Upper and middle thirds: LA class D erosive esophagitis from 27-40 cm Lower third LA class D erosive esophagitis between 27-40 cm, biopsied Esophogastric junctions: No gross evidence of stricturing, LA class D esophagitis noted here, biopsies taken Gastroscopy: Cardia/Fundus: 2 cm hiatal hernia, large amount of retained food and some heme in the stomach Body: On the lesser curvature at the incisura angularis was a 3 cm ulcer, cavitating, with margins that were biopsied for malignancy and Helicobacter pylori, stomach was J-shaped Antrum and pylorus mild patchy gastritis, biopsied Duodenoscopy: Bulb posterior bulb deep ulcer noted here as well, margins biopsy Second and third portions: Ratty appearing inflammation noted all the way into the second portion of the duodenum, biopsied to rule out pancreatic malignancy IMPRESSION: This patient had bleeding due to a number of causes: 13 cm of LA class D erosive esophagitis in the distal third of the esophagus. There was gastroparesis evident by retained food in the fundus, lesser curvature gastric ulcer 3 cm in size biopsied to rule out malignancy, duodenal bulb ulcer and duodenitis noted as well. RECOMMENDATIONS: Follow up for biopsy results in 1-2 weeks by phone [phone] Continue anti-gastroesophageal reflux measures (avoid carbonated and acidic beverages, avoid eating within 2 hours of bedtime, avoid tight fitting clothing , and elevate the front bed posts 6 inches prior to sleeping. Reglan 10 mg IV every 6 hours for the gastroparesis Protonix 40 mg IV twice daily for the underlying gastritis/gastric ulcers Transfuse as needed Patient requires repeat upper endoscopy and 8 weeks to check for healing. Arvin Aponte MD COPY TO: Norm Brown the third Anesthesia: ISABELLE Surgeon / Physician: Arvin Aponte Estimated blood loss: minimal Specimens: other (Distal esophagus, gastric antrum/body/ulcer bed on the lesser curvature, duodenal ulcer and second portion) Condition: stable Disposition: post procedure unit ([facility] Suite) Results - Labs CBC & BMP: 03/23/17 04:33 03/23/17 04:33 Discharge Plan - Discharge Medications No Action Clorazepate Dipotassium 3.75 mg PO BID Cyclobenzaprine HCl 10 mg PO BID PRN PRN Reason: Muscle Spasm Colchicine [Colcrys] 1 tablet PO QAM Glyburide/Metformin HCl [Glyburide-Metformin 5-500 mg] 1 each PO BID Levothyroxine Sodium [Levo-T] 100 mcg PO QAM Meloxicam 7.5 mg PO QAM Tramadol HCl [Tramadol Tab] 50 mg PO BID PRN PRN Reason: Pain Insulin Detemir [Levemir FlexPen] 64 unit SUBCUT BEDTIME buPROPion [Wellbutrin] 100 mg PO QAM HYDROcodone/ACETAMIN 5-325 [[place] 5-325] 1 tablet PO Q4H PRN #30 tablet PRN Reason: Pain Moderate (4-7) Collagenase Oint [Santyl Oint] 1 applic TOP QAM Chlorhexidine 4% Soln [Hibiclens] 1 applic TOP QAM Lisinopril [Lisinopril] 10 mg PO QAM Nebivolol [Bystolic] 5 mg PO QAM Magnesium Chloride [Slow Mag] 64 mg PO QAM Pravastatin Sodium 40 mg PO QAM NIFEdipine XL TAB [Procardia Xl] 60 mg PO QAM Sodium Hypochlorite 0.25% Irr [Dakins 1/2 Strength 0.25% Soln] 1 applic TOP QAM predniSONE TAB [PredniSONE] 10 mg PO QAM - Follow Up or Referral - Forms/Instructions
--- NOTE | 2017-03-23 14:24 | Gastrointestinal Progress Note ---
Assessment and Plan (1) Gastrointestinal hemorrhage with melena Status: Acute Assessment and plan: Patient noted today to have dark grossly guaiac positive stools on physical exam consistent with melena. He does have some mild epigastric tenderness as well as some reflux symptoms. I am going to increase his Protonix to 40 mg twice daily and we will get him scheduled for upper endoscopy to occur tomorrow. Differential diagnosis is wide but includes esophagitis, gastritis, peptic ulcer disease, AVMs, duodenitis and gastric cancer. This patient may also have some component of anemia due to his necrotic leg ulcers and of course anemia of chronic disease with bone marrow suppression as additional components to his blood loss. I will definitely check the patient's stomach for evidence of Helicobacter pylori infection and possibly celiac sprue. 03/23/17--This patient had bleeding due to a number of causes: 13 cm of LA class D erosive esophagitis in the distal third of the esophagus. There was gastroparesis evident by retained food in the fundus, lesser curvature gastric ulcer 3 cm in size biopsied to rule out malignancy, duodenal bulb ulcer and duodenitis noted as well. Current Visit: Yes (2) Anemia Status: Acute Current Visit: Yes (3) GERD (gastroesophageal reflux disease) Status: Acute Assessment and plan: He does have some mild reflux symptoms and this should be controlled with pantoprazole 40 mg twice daily. Will check again tomorrow to see if esophagitis is present that might be feeding into his anemia. 03/23/17--13 cm of LA class D erosive esophagitis noted on upper endoscopy. Current Visit: Yes (4) Screening for colorectal cancer Status: Acute Assessment and plan: The patient has not had a colonoscopy up to this point and is 15 years overdue. There may be a second source for anemia although with his recent drop from hematocrit of 38 to his current 27% this seems more like an acute illness as opposed to chronic blood loss from a cancer. We can arrange for colonoscopy to occur as an outpatient further down the road. We can leave him on his diet at present time and will arrange for upper endoscopy tomorrow morning. If no source of bleeding is found we may consider doing colonoscopy this admission, given the dark guaiac positive stools. 03/23/17--The patient has enough reasons for his anemia on upper GI tract evaluation. Likely put off colonoscopy until a later date as an outpatient, this could be accomplished at the same time we do the follow-up 8 week exam to recheck the ulcer in the stomach.. Current Visit: Yes Gastroenterology - PN: Subj Interval history: Patient has mild nausea still going on. Exam (Progress Note) - Constitutional Vitals: Period Temp Pulse Resp BP Sys/Mancera Pulse Ox Last 24 Hr 96.7 F-99.3 F 83-174 18-40 63-154/42-093 90-99 General appearance: mild distress - Head Head exam: Present: normocephalic, atraumatic - Eye Eye exam: Present: EOMI Pupils: Present: KATHERYN - Respiratory Respiratory exam: Present: clear to auscultation bilaterally. Absent: rhonchi, stridor, wheezes - Cardiovascular Cardiovascular exam: Present: regular rate and rhythm - GI/Abdominal GI/Abdominal exam: Present: normal bowel sounds, distended, soft. Absent: tenderness, rebound - Extremities Exam Extremities exam: Absent: edema - Neurological Exam Neurological exam: Present: alert, oriented X3 - Psychiatric Psychiatric exam: Present: normal affect, normal mood - Skin Skin exam: Present: warm Results - Labs CBC & BMP: 03/23/17 04:33 03/23/17 04:33
--- NOTE | 2017-03-23 14:59 | Anesthesia Post-Op ---
Anesthesia Post OP - Post Ansesthetic Evaluation Patient seen in post op: Yes Resp: within normal limits CV: within normal limits Mental: within normal limits Temp: within normal limits Dnxz-Ib-Dheojpxio: within normal limits Nausea and Vomiting: within normal limits Pain: within normal limits
[2017-03-23] MEDS: AMIODARONE 200 MG TABLET PO SCH ×2 (15:42→20:40)
[2017-03-23] MEDS ORDERED: DILTIAZEM INJ 100 MG in SODIUM CHLORIDE 0.9% 100 ML IV SCH (17:30)
--- NOTE | 2017-03-23 18:29 | Order Completion Report ---
See report scanned to EMR
[2017-03-23] MEDS: DAPTOmycin 500 MG in SODIUM CHLORIDE 0.9% 50 ML IV SCH (20:39)
[2017-03-23] MEDS: ONDANSETRON 4 MG/2 ML VIAL IV PRN (23:43)
[2017-03-24] MEDS: ALBUTEROL/IPRATROPIUM 3 ML NEB RESP TX SCH ×3 (02:47→11:35)
[2017-03-24] MEDS: DILTIAZEM INJ 100 MG in SODIUM CHLORIDE 0.9% 100 ML IV SCH ×2 (05:54→21:46)
[2017-03-24] MEDS: PIPERACILLIN/TAZOBACTAM 3,375 MG in SODIUM CHLORIDE 0.9% 100 ML IV SCH ×3 (05:54→21:46)
[2017-03-24] MEDS: MORPHINE 2 MG/1 ML SYRINGE IV PRN ×4 (06:15→20:23)
[2017-03-24] MEDS: ONDANSETRON 4 MG/2 ML VIAL IV PRN (06:15)
[2017-03-24] MEDS: LEVOTHYROXINE 100 MCG TABLET PO SCH (06:22)
[2017-03-24 06:34] LABS: ABG Base Excess -6.5 MMOL/L (-2.5-2.5); ABG HCO3 19.1 MMOL/L (20-26); ABG Oxygen Saturation 97.8 % (95-100); ABG PH 7.477 (7.35-7.45); ABG PO2 93.2 MM HG (80-95); ABG TCO2 13.8 MMOL/L (23-27)
[2017-03-24 06:35] LABS: ABG PCO2 20.9 MM HG (35-48)
[2017-03-24 06:45] LABS: Basophils # 0.1 10*3/uL (0.0-0.2); Basophils % 0.3 % (0.0-0.8); Eosinophils # 0.1 10*3/uL (0.0-0.87); Eosinophils % 0.2 % (0.00-10.9); Hematocrit 32.5 VOL% (42.0-52.0); Hemoglobin 11.1 GM/DL (14.0-18.0); Immature Granulocytes % 1.4 %; Immature Granulocytes Absolute 0.47 #; Lymphocytes # 2.3 10*3/uL (1.4-4.0); Lymphocytes % 7.1 % (21.2-54.2); Mean Corpuscular HGB Conc 34.2 GM/DL (32-36); Mean Corpuscular Hemoglobin 30 PG (27-34); Mean Corpuscular Volume 87.8 FL (87-102); Mean Platelet Volume 9.4 FL (9.6-12.0); Monocytes # 2.6 10*3/uL (0.11-0.8); Monocytes % 8.1 % (1.7-12.7); Neutrophils # 26.9 10*3/uL (1.4-7.4); Neutrophils % 82.9 % (38.7-73.9); Platelet Count 268 T/CUMM (130-400); Red Cell Distribution Width 15.8 % (9.3-17.3); White Blood Count 32.5 T/CUMM (4-12)
[2017-03-24 07:16] LABS: Albumin 2.1 G/DL (3.4-5.0); Bilirubin,Total 1.4 MG/DL (0.2-1.0); Calcium 8.3 MG/DL (8.5-10.1); Osmolality,Calculated 282.5 MOS/KG (273-304); Risk Ratio 5.48; Total Protein 5.7 G/DL (6.4-8.3)
[2017-03-24 07:18] LABS: Band Neutrophils 1 % (0-10); Eosinophils 1 % (0-10); Giant Platelets Few; Lymphocytes 8 % (20-55); Platelet Estimate Adequate; Segmented Neutrophils 83 % (50-85); Total Cells Counted 100
[2017-03-24 07:25] LABS: Calcium 8.2 MG/DL (8.5-10.1); Magnesium 1.4 MG/DL (1.8-2.4); Osmolality,Calculated 282.5 MOS/KG (273-304); Potassium 3.8 MMOL/L (3.5-5.1)
--- NOTE | 2017-03-24 07:37 | XRay Report ---
XR chest 1V portable Indication: Shortness of breath Comparison: One March 2017 Findings: The heart and mediastinum are stable in size and configuration. The pulmonary vascularity is normal in caliber. There is increased of bilateral pulmonary density most prominent in the upper lobes similar to previous exam. No other lung infiltrates, effusions, pneumothorax or other abnormality is demonstrated. Impression: No significant change. PROCEDURE INTERPRETED AT [facility] DEPARTMENT OF RADIOLOGY Final Report Signed by: Dr. Nixon Beltran
[2017-03-24] MEDS: METOPROLOL TARTRATE 25 MG TABLET PO SCH (08:08)
[2017-03-24] MEDS: MAGNESIUM CHLORIDE 64 MG TABLET PO SCH (08:08)
[2017-03-24] MEDS: THIAMINE 100 MG TABLET PO SCH (08:08)
[2017-03-24] MEDS: FOLIC ACID 1 MG TABLET PO SCH (08:08)
[2017-03-24] MEDS: PANTOPRAZOLE 40 MG TABLET PO SCH ×2 (08:08→20:04)
[2017-03-24] MEDS: INSULIN REGULAR 100 UNIT/ML SUBCUT SCH ×4 (08:08→20:04)
[2017-03-24] MEDS: NICOTINE 21 MG/24 HR PATCH TRANSDERM SCH (08:08)
[2017-03-24] MEDS: SODIUM HYPOCHLORITE 0.25% IRRIG 473 ML BOTTLE TOP SCH (08:09)
[2017-03-24] MEDS: AMIODARONE INJ 450 MG in DEXTROSE 5% 241 ML IV SCH ×2 (08:15→23:06)
[2017-03-24] MEDS ORDERED: SODIUM CHLORIDE 0.9% 1,000 ML IV SCH (08:30)
--- NOTE | 2017-03-24 09:08 | Gastrointestinal Progress Note ---
Assessment and Plan (1) Gastrointestinal hemorrhage with melena Status: Acute Assessment and plan: Patient noted today to have dark grossly guaiac positive stools on physical exam consistent with melena. He does have some mild epigastric tenderness as well as some reflux symptoms. I am going to increase his Protonix to 40 mg twice daily and we will get him scheduled for upper endoscopy to occur tomorrow. Differential diagnosis is wide but includes esophagitis, gastritis, peptic ulcer disease, AVMs, duodenitis and gastric cancer. This patient may also have some component of anemia due to his necrotic leg ulcers and of course anemia of chronic disease with bone marrow suppression as additional components to his blood loss. I will definitely check the patient's stomach for evidence of Helicobacter pylori infection and possibly celiac sprue. 03/23/17--This patient had bleeding due to a number of causes: 13 cm of LA class D erosive esophagitis in the distal third of the esophagus. There was gastroparesis evident by retained food in the fundus, lesser curvature gastric ulcer 3 cm in size biopsied to rule out malignancy, duodenal bulb ulcer and duodenitis noted as well. 03/24/17--Biopsies from the stomach are still pending at this point to rule out malignancy with gastric cancer/lymphoma. Will look for Helicobacter pylori as well. The patient is on Protonix twice daily and appears that this is allowing his hematocrit to regenerate adequately. No need for colonoscopy this admission. Current Visit: Yes (2) Anemia Status: Acute Current Visit: Yes (3) GERD (gastroesophageal reflux disease) Status: Acute Assessment and plan: He does have some mild reflux symptoms and this should be controlled with pantoprazole 40 mg twice daily. Will check again tomorrow to see if esophagitis is present that might be feeding into his anemia. 03/23/17--13 cm of LA class D erosive esophagitis noted on upper endoscopy. 03/24/17--As noted above, patient is not complaining any difficulty with swallowing or heartburn now. Current Visit: Yes (4) Screening for colorectal cancer Status: Acute Assessment and plan: The patient has not had a colonoscopy up to this point and is 15 years overdue. There may be a second source for anemia although with his recent drop from hematocrit of 38 to his current 27% this seems more like an acute illness as opposed to chronic blood loss from a cancer. We can arrange for colonoscopy to occur as an outpatient further down the road. We can leave him on his diet at present time and will arrange for upper endoscopy tomorrow morning. If no source of bleeding is found we may consider doing colonoscopy this admission, given the dark guaiac positive stools. 03/23/17--The patient has enough reasons for his anemia on upper GI tract evaluation. Likely put off colonoscopy until a later date as an outpatient, this could be accomplished at the same time we do the follow-up 8 week exam to recheck the ulcer in the stomach. 03/24/17--Will observe this patient on food. Current Visit: Yes Gastroenterology - PN: Subj Interval history: No complaints of any belly pain or further dark stools despite the fact that his EGD demonstrated severe esophagitis, gastritis and duodenitis. Biopsies are pending. Patient's white blood cell count is increased up to 32.5K up from 19.4K yesterday, hematocrit is also increased up from 28.0 percent yesterday 32.5 percent today. The patient is growing out Proteus mirabilis Enterobacter cloacae and MRSA from his right leg wound. Exam (Progress Note) - Constitutional Vitals: Period Temp Pulse Resp BP Sys/Mancera Pulse Ox Last 24 Hr 96.1 F-98.8 F 77-165 16-43 81-161/42-093 89-100 General appearance: no acute distress - Eye Eye exam: Present: EOMI Pupils: Present: KATHERYN - Respiratory Respiratory exam: Present: clear to auscultation bilaterally, wheezes. Absent: rhonchi, stridor - Cardiovascular Cardiovascular exam: Present: regular rate and rhythm - GI/Abdominal GI/Abdominal exam: Present: normal bowel sounds, distended, tenderness (On compression of the epigastric area), soft. Absent: guarding, rebound - Neurological Exam Neurological exam: Present: alert, oriented X3 - Psychiatric Psychiatric exam: Present: normal affect, normal mood - Skin Skin exam: Present: warm Results - Labs CBC & BMP: 03/24/17 06:27 03/24/17 06:27
--- NOTE | 2017-03-24 10:14 | Cardiology Progress Note ---
Assessment and Plan (1) Atrial fibrillation with RVR Status: Acute Current Visit: Yes (2) Diabetes Status: Chronic Assessment and plan: SEE PLAN OF CARE LISTED BELOW. Current Visit: Yes (3) Melena Status: Acute Assessment and plan: SEE PLAN OF CARE LISTED BELOW. Current Visit: Yes (4) Anemia Status: Acute Assessment and plan: SEE PLAN OF CARE LISTED BELOW. Current Visit: Yes (5) Elevated AST (SGOT) Status: Acute Assessment and plan: SEE PLAN OF CARE LISTED BELOW. Current Visit: Yes (6) Ischemic necrosis of right leg Status: Acute Current Visit: Yes (7) Tobacco abuse Status: Chronic Assessment and plan: SEE PLAN OF CARE LISTED BELOW. Current Visit: Yes (8) Hx of supraventricular tachycardia Status: Chronic Assessment and plan: SEE PLAN OF CARE LISTED BELOW. Current Visit: No (9) Hyperlipidemia Status: Chronic Assessment and plan: SEE PLAN OF CARE LISTED BELOW. Current Visit: No (10) Hypertension Status: Chronic Assessment and plan: SEE PLAN OF CARE LISTED BELOW. Current Visit: No (11) Hypothyroidism Status: Chronic Assessment and plan: SEE PLAN OF CARE LISTED BELOW. Current Visit: No (12) Erosive esophagitis Status: Acute Assessment and plan: SEE PLAN OF CARE LISTED BELOW. Current Visit: Yes (13) Sepsis Status: Acute Assessment and plan: SEE PLAN OF CARE LISTED BELOW. Current Visit: Yes Cardiology - PN: Subj Interval history: ROOF PROMENADE TILE SETTER: Dr. Contreras SUMMARY Mr. Hunt is a 66 year old male who was admitted with an infected right leg and apparently septic. He was noted to be in atrial fibrillation with rapid ventricular response at the time of admission. This appears to be a new diagnosis. Patient has a past medical history of SVT, hypertension, dyslipidemia, hypothyroidism and diabetes. Over a year ago, patient did have echocardiogram which revealed normal left ventricular function. Patient was seen in consultation yesterday by cardiology. Cardizem infusion was initiated as well as digoxin. Patient spontaneously cardioverted back to normal sinus rhythm. Chads vasc score 3. MARCH 24, 2017 Patient was seen and examined in the CCU along with Dr. Tolentino. Patient has went back to atrial fibrillation with rapid ventricular response. Cardizem infusion was reinitiated last night. This morning, he remains in RVR. After discussing with Dr. Tolentino, we will discontinue Cardizem infusion and reinitiate amiodarone infusion. This can be very difficult to maintain rate control given patient's underlying infectious process. Suspect the patient is septic. White blood cell count this morning is 32. He is also becoming tachypneic and more short of breath. Pulmonary has been consulted. I do saturations above 90%. I will add IV fluids this morning to help with patient's underlying septicemia. I will also increase his beta blockade dose to assist with rate control. He is without chest pain, heaviness or tightness. Denies heart racing/palpitations at this time. However, he reports that he could feel RVR earlier this morning. EGD yesterday did reveal etiology of bleeding. This is felt to be multifactorial to include: Erosive esophagitis, duodenal bulb ulcer and duodenitis. Unfortunately, erosive esophagitis has high bleeding risk and will be unable to anticoagulate patient to reduce his stroke risk. H&H is stable this morning. We will continue to monitor this daily and transfuse as needed. Echocardiogram yesterday revealed preserved EF, 60%. Grade 2 diastolic dysfunction. I will further discuss with Dr. Tolentino and await his additional recommendations. REVIEW OF SYSTEMS: Respiratory: Confirms tachypnea and shortness of breath. Cardiac: Denies chest pain, heaviness or tightness. Confirms heart racing/ palpitations GI: Denies nausea, vomiting. IMPRESSION AND PLAN: 1. ATRIAL FIBRILLATION WITH RAPID VENTRICULAR RESPONSE - New diagnosis. Back in RVR this morning. Will discontinue Cardizem infusion as this is not maintaining rate control. Will reinitiate amiodarone infusion. I will also add IV fluids to help with underlying sepsis. Increase beta-blockade dose. Rate control be hard to maintain given patient's underlying infectious process. Suspect sepsis given patient's increasing white blood cell count of 32. Chads vas score is 3. Unfortunately, patient is not a candidate for anticoagulation as he has a high bleeding risk. EGD yesterday revealed erosive esophagitis, duodenal ulcer and duodenitis. Patient has been deemed not a candidate for anticoagulation. 2. ISCHEMIC NECROSIS OF RIGHT LEG - Management per surgery. 3. TOBACCO ABUSE - I have spent several minutes discussing the importance of smoking cessation. 4. HYPERTENSION - Well controlled. Will monitor blood pressure and adjust accordingly this hospitalization. 5 DYSLIPIDEMIA - Holding lipid-lowering agent due to elevated AST. LDL 92. 6. HYPOTHYROIDISM - Thyroid studies within normal limits. Management per attending. 7. DIABETES - Hemoglobin A1c 6.0. Continue sliding scale insulin. Management per attending. 8. HISTORY OF SVT - No SVT noted this hospitalization. Will monitor on media monitor. Continue beta-blockade. 9. ANEMIA - Improving. Bleeding was felt to be multifactorial to include: Erosive esophagitis, duodenal bulb ulcer and duodenitis. Will monitor daily CBC and transfuse as needed. GI following. Protonix twice daily. 10. MELENA - GI following. EGD 03/23 revealed class D erosive esophagitis, gastroparesis duodenal bulb ulcer and duodenitis. Bleeding felt to be multifactorial to include all of the previous mentioned. Protonix twice daily. 11. ELEVATED AST - We will hold off on initiating lipid-lowering agent. Monitor daily. Per attending and GI. 12. SEPSIS - Suspect source is ischemic necrosis of right leg. IV fluids initiated today. Continue IV antibiotics. Management per attending. 13. EROSIVE ESOPHAGITIS - Monitor daily CBC. Transfuse as needed. Protonix twice daily. Deemed not a candidate for anticoagulation. GI following. Exam (Progress Note) - Constitutional Vitals: Period Temp Pulse Resp BP Sys/Mancera Pulse Ox Last 24 Hr 96.1 F-98.8 F 77-165 16-43 81-161/42-093 89-100 Exam: General appearance: Mild respiratory distress. Cooperative Head exam: PERRL, normal inspection, atraumatic Oral exam: No significant oral lesions. Neck exam: normal inspection no JVD. No carotid bruit. Trachea is in midline. Respiratory exam: clear to auscultation bilaterally, wheezing. Tachypnea. Oxygen via nonrebreather. Cardiovascular exam: Irregular rate and rhythm, tachycardia without gross murmur gallop or rub. No precordial lift. No bruits over the major arteries. Chest wall/torso: Anatomically normal. No tenderness, deformity Peripheral Pulses: Radial pulses are 2+. Foot pulses are minimal. GI/Abdominal exam: normal bowel sounds, soft and nontender, no abdominal bruits or pulsatile masses. Musculoskeletal/Extremities exam: Right lower leg is bandaged from his surgical wound. Neurological exam: alert, oriented X3. There is no gross neurologic deficits. Should be no suture in those patients fair historian at best. Psychiatric exam: normal affect, normal mood. Cognitive function is grossly intact. Skin exam: normal color, warm. No rashes or other skin lesions. Result/EKG - Labs CBC & BMP: 03/24/17 06:27 03/24/17 06:27 Lab Results: I have reviewed the past 24 hour labs Labs: Laboratory Results - last 24 hr 03/23/17 03/23/17 03/23/17 12:05 16:39 19:49 WBC RBC Hgb Hct MCV MCH MCHC RDW Plt Count MPV Neut % (Auto) Lymph % (Auto) [place] % (Auto) Eos % (Auto) Baso % (Auto) Neut # (Auto) Lymph # (Auto) [place] # (Auto) Eos # (Auto) Baso # (Auto) Total Counted Immature Gran % Nucleated RBC % Immature Gran # Segmented Neutrophils Band Neutrophils Lymphocytes Monocytes Eosinophils Nucleated RBCs # Platelet Estimate Giant Platelets Immature Plt Fraction ABG pH ABG pCO2 ABG pO2 ABG HCO3 ABG Total CO2 ABG O2 Saturation ABG Base Excess Sodium Potassium Chloride Carbon Dioxide Anion Gap BUN Creatinine GFR Calculation BUN/Creatinine Ratio Glucose POC Glucose 173 H 176 H 153 H Calculated Osmolality Calcium Magnesium Total Bilirubin AST ALT Alkaline Phosphatase Total Protein Albumin Globulin Albumin/Globulin Ratio Triglycerides Cholesterol LDL Cholesterol VLDL Cholesterol HDL Cholesterol Heart Disease Risk Ratio 03/24/17 03/24/17 03/24/17 06:27 06:27 06:27 WBC 32.5 H D RBC 3.70 L Hgb 11.1 L Hct 32.5 L MCV 87.8 MCH 30 MCHC 34.2 RDW 15.8 Plt Count 268 D MPV 9.4 L Neut % (Auto) 82.9 H Lymph % (Auto) 7.1 L [place] % (Auto) 8.1 Eos % (Auto) 0.2 Baso % (Auto) 0.3 Neut # (Auto) 26.9 H Lymph # (Auto) 2.3 [place] # (Auto) 2.6 H Eos # (Auto) 0.1 Baso # (Auto) 0.1 Total Counted 100 Immature Gran % 1.4 Nucleated RBC % 0.0 Immature Gran # 0.47 Segmented Neutrophils 83 Band Neutrophils 1 Lymphocytes 8 L Monocytes 7 Eosinophils 1 Nucleated RBCs # 0.00 Platelet Estimate Adequate Giant Platelets Few Immature Plt Fraction 0.0 ABG pH ABG pCO2 ABG pO2 ABG HCO3 ABG Total CO2 ABG O2 Saturation ABG Base Excess Sodium 139 139 Potassium 4.0 3.8 Chloride 107 106 Carbon Dioxide 20 L 20 L Anion Gap 16.0 H 16.8 H BUN 24 H 24 H Creatinine 0.80 0.80 GFR Calculation 108 108 BUN/Creatinine Ratio 30.00 H 30.00 H Glucose 141 H 142 H POC Glucose Calculated Osmolality 282.5 282.5 Calcium 8.3 L 8.2 L Magnesium 1.4 L Total Bilirubin 1.40 H AST 46 H ALT 42 Alkaline Phosphatase 265 H Total Protein 5.7 L Albumin 2.1 L Globulin 3.6 H Albumin/Globulin Ratio 0.5 L Triglycerides Cholesterol LDL Cholesterol VLDL Cholesterol HDL Cholesterol Heart Disease Risk Ratio 03/24/17 03/24/17 03/24/17 06:27 06:33 07:39 WBC RBC Hgb Hct MCV MCH MCHC RDW Plt Count MPV Neut % (Auto) Lymph % (Auto) [place] % (Auto) Eos % (Auto) Baso % (Auto) Neut # (Auto) Lymph # (Auto) [place] # (Auto) Eos # (Auto) Baso # (Auto) Total Counted Immature Gran % Nucleated RBC % Immature Gran # Segmented Neutrophils Band Neutrophils Lymphocytes Monocytes Eosinophils Nucleated RBCs # Platelet Estimate Giant Platelets Immature Plt Fraction ABG pH 7.477 H ABG pCO2 20.9 L* ABG pO2 93.2 ABG HCO3 19.1 L ABG Total CO2 13.8 L ABG O2 Saturation 97.8 ABG Base Excess -6.5 L Sodium Potassium Chloride Carbon Dioxide Anion Gap BUN Creatinine GFR Calculation BUN/Creatinine Ratio Glucose POC Glucose 160 H Calculated Osmolality Calcium Magnesium Total Bilirubin AST ALT Alkaline Phosphatase Total Protein Albumin Globulin Albumin/Globulin Ratio Triglycerides 150 Cholesterol 137 LDL Cholesterol 92.0 VLDL Cholesterol 30.0 HDL Cholesterol 25 L Heart Disease Risk Ratio 5.48 Quality Measures - VTE Contraindication to Pharmacological VTE Prophylaxis: High Risk of Bleeding Contraindication to Mechanical VTE Prophylaxis: Ischemic Vascular Disease
--- NOTE | 2017-03-24 10:24 | Pathology Report from [facility] ---
[facility] – [place] ACCESSION # : [id number] PATIENT NAME : Per Dimas ORDERING DR : Arvin Aponte MD CLINICAL HX: GI Bleed POST-OP DX: #1 Large ulcer #2 Duodenitis ? cancer Ulcer bulb #3 Esophagitis SPECIMEN INFO: #1 Lesser curvature ulcer #2 Duodenal biopsy #3 Esophageal biopsy GROSS DESCRIPTION: #1 Received in formalin labeled with the patients name PER DIMAS and #1 consists of multiple fragments of pink-alatorre mucosal tissue collectively measuring 1.2 cm x up to 0.4 cm. Submitted in cassette #1.#2 Received in formalin labeled with the patients name PER DIMAS and #2 consists of multiple fragments of pink-alatorre mucosal tissue collectively measuring 1.1 cm x up to 0.5 cm. Submitted in cassette #2.#3 Received in formalin labeled with the patients name PER DIMAS and #3 consists of multiple fragments of walter-alatorre mucosal tissue collectively measuring 0.8 cm x up to 0.6 cm. Submitted in cassette #3. DIAGNOSIS FOR PER DIMAS: #1 LESSER CURVATURE ULCER BIOPSY: Acute and chronic gastritis with ulceration and intestinal metaplasia. H. pylori not seen on H&E or special stain with appropriate control.#2 DUODENAL BIOPSY: Acute and chronic duodenitis with focal ulceration. No evidence of granulomas, parasites, tumor, or celiac disease.#3 ESOPHAGEAL BIOPSY: Fragmented esophageal squamous mucosa with epithelial hyperplasia and focal acute inflammation. Detached fragments of gastric cardia-type mucosa with inflammation. H. pylori not seen on H&E or special stain with appropriate control. COLLECTED DATE: 03/23/2017 [facility] REPORT DATE: 03/24/2017 ELECTRONICALLY SIGNED BY: Addison Dunbar M.D. 03/24/2017 - 9:00:14 WENCESLAO
[2017-03-24] MEDS ORDERED: METOPROLOL TARTRATE 25 MG TABLET PO ONE (10:50)
--- NOTE | 2017-03-24 11:08 | Event Note ---
Mr. Vargas appears to be having medical issues that would prevent consideration of an aortobifemoral bypass at this time. The leg itself does not appear to be acutely ischemic in the wound when properly treated is healing. I see no evidence of ongoing sepsis related to his right leg or wound nor anything on the past CT scan that would explain it. I do not believe the leg is ischemic in 2 require revascularization in the face of the other ongoing problems. On the other hand it may not be possible for us to adequately treat him as an outpatient and have him prepared for major surgery
[2017-03-24] MEDS ORDERED: ALBUTEROL 2.5 MG/3 ML NEB RESP TX PRN (11:22)
[2017-03-24] MEDS ORDERED: LEVALBUTEROL 1.25 MG/3 ML NEB RESP TX PRN (11:30)
--- NOTE | 2017-03-24 12:16 | Hospitalist Progress Note ---
Assessment and Plan (1) Diabetes mellitus type 2 in obese Status: Chronic Assessment and plan: 1)respiratory distress- better with BIPAP which I started this morning, remains alert and conversant. change albuterol to xopenex. Pulmonary to see. BP is stable. Try a dose of lasix to see if diuresis improves his resp status. 2)rapid afib- back in rapid afib on amio infusion. no anticoagulation because of current GIB. 3)GIB with melena- Dr Aponte did EGD and saw erosive gastritis, gastroparesis, gastric ulcer and duodenal bulb ulcer and duodenitis- biopsies pending. 4)PVD/diabetic leg infection causing sepsis- surgeons planning further surgery. on cubicin and zosyn for polymicrobial culture results 5)renal failure- resolved. Current Visit: No (2) Hypertension Status: Chronic Current Visit: No (3) Hyperlipidemia Status: Chronic Current Visit: No (4) Peripheral vascular disease Status: Acute Current Visit: Yes (5) Acute renal failure (ARF) Status: Acute Current Visit: Yes (6) Ischemic necrosis of right leg Status: Acute Current Visit: Yes Hospitalist: Subjective Interval history: MR Hunt is not feeling well this morning.Last night her went back into afib with RVR from NSR. A dilt drip was started but did not control his heart rate which remained in the 150s. He has been switched to amio this morning but also remians with a rate of 150s. His WBC has increased to 32. He denies pain. He has become more short of breath since going into afib and has increased O2 requirement. Repeat CXR this morning looked unchanged. No cough or sputum production. No nausea or vomiting. No rash no headache. ABG showed 7.47/20.9/93 on NRB early this morning. Pulmonary has been consulted. In the meantime I have changed him to BIPAP which has increased his sats and his respiratory rate has come down. Exam - Constitutional Vitals: Period Temp Pulse Resp BP Sys/Manecra Pulse Ox Last 24 Hr 96.1 F-98.8 F 77-168 16-43 81-161/42-093 89-100 General appearance: mild distress, over weight - Eye Eye exam: Present: EOMI. Absent: scleral icterus - Respiratory Respiratory exam: Present: rhonchi. Absent: wheezes - Cardiovascular Cardiovascular exam: Present: irregular rhythm, tachycardia - GI/Abdominal GI/Abdominal exam: Present: normal bowel sounds, soft - Extremities Exam Extremities exam: Absent: edema - Neurological Exam Neurological exam: Present: alert, oriented X3 - Skin Skin exam: Present: warm, dry Results - Labs CBC & BMP: 03/24/17 06:27 03/24/17 06:27 Lab Results: I have reviewed the past 24 hour labs Quality Measures - VTE Contraindication to Pharmacological VTE Prophylaxis: High Risk of Bleeding Contraindication to Mechanical VTE Prophylaxis: Ischemic Vascular Disease
[2017-03-24] MEDS ORDERED: FUROSEMIDE 40 MG/4 ML VIAL IV ONE (12:20)
[2017-03-24] MEDS ORDERED: MAGNESIUM SULF RIDER 2 GM in PREMIX 1 EACH IV ONE (13:06)
--- NOTE | 2017-03-24 15:22 | Infectious Disease Progress ---
Assessment and Plan (1) Acute renal failure (ARF) Status: Acute Current Visit: Yes (2) Ischemic necrosis of right leg Status: Acute Assessment and plan: In looking at his right leg wound today, it does not appear to be acutely infected. It is likely colonized with multiple organisms. The acute worsening of leukocytosis today may be stress response from the events last night. Recommendations: Continue antibiotics and wound care Current Visit: Yes (3) Peripheral vascular disease Status: Acute Current Visit: Yes (4) Diabetes Status: Chronic Current Visit: Yes (5) Hyperlipidemia Status: Chronic Current Visit: No Infectious Disease - PN: Subj Interval history: Patient seen and examined this morning. He had a rough night with severe tachycardia and oxygen desaturation. He has not had fever. Says he is feeling a bit better this morning. On oxygen via 100% nonrebreather. Infectious Disease Exam (PN) - Constitutional Vitals: Temp Pulse Resp BP Pulse Ox 98.2 F 122 H 29 H 130/70 100 03/24/17 12:00 03/24/17 14:00 03/24/17 14:00 03/24/17 14:00 03/24/17 14:00 General appearance: mild distress, over weight Exam: General appearance: Chronically ill looking, responds appropriately - Eye Eye exam: Present: EOMI. no icterus Pupils: Present: KATHERYN - ENT ENT exam: no oral exudates - Respiratory Respiratory exam: vesicular BS, no crepitations or wheezes - Cardiovascular Cardiovascular exam: regular rate and rhythm, no murmurs - GI/Abdominal GI/Abdominal exam: normal bowel sounds, soft, non-tender, no organomegaly or mass - Extremities Exam Extremities exam: Right leg wound noted with large area of exposed muscle, diffuse interspersed areas of necrotic tissue but no drainage of pus, no surrounding erythema or induration - Skin Skin exam: no rash Results - Labs CBC & BMP: 03/24/17 06:27 03/24/17 06:27 Lab Results: I have reviewed the past 24 hour labs Quality Measures - VTE Contraindication to Pharmacological VTE Prophylaxis: High Risk of Bleeding Contraindication to Mechanical VTE Prophylaxis: Ischemic Vascular Disease
--- NOTE | 2017-03-24 16:08 | Event Note ---
Patient is continued to have some tachycardia looks better. His wound does not appear to be the source of any sepsis. Infectious disease is following.
[2017-03-24] MEDS ORDERED: FUROSEMIDE 20 MG/2 ML VIAL IV ONE (16:32)
--- NOTE | 2017-03-24 16:36 | Pulmonology Consult Note ---
Assessment and Plan (1) Congestive heart failure with left ventricular diastolic dysfunction Status: Acute Assessment and plan: Chest x-ray has developed bilateral upper lobe infiltrates consistent with cephalization as with congestive heart failure since admission. His weight is not up but he was up about 2 L the first day he was here. He is surgically diuresed. He feels a little better at present. He has LVH with a normal LV ejection fraction and 2+ diastolic dysfunction on echo. His BNP was 291 day before yesterday. I do think we need to stop his IV fluids and diurese him further. Getting his heart rhythm regulated will help with good bit. He is getting amiodarone and is at present in sinus rhythm with a rate of 100. Current Visit: Yes (2) Sepsis Status: Acute Assessment and plan: Continuing with antibiotics for sepsis due to right leg wound. I suspect it was originally a staph infection. He never saw the spider. Current Visit: Yes (3) Ischemic necrosis of right leg Status: Acute Assessment and plan: Post debridement. Broad-spectrum antibiotics. CPK has come down since admission Current Visit: Yes (4) Atrial fibrillation with RVR Status: Acute Assessment and plan: Presently sinus rhythm with rate of 100. Hopefully will stay there. Current Visit: Yes (5) Diabetes Status: Chronic Assessment and plan: Blood sugars fairly well controlled. Current Visit: Yes (6) Melena Status: Acute Assessment and plan: No further bleeding. Current Visit: Yes (7) Erosive esophagitis Status: Acute Assessment and plan: Had GI bleeding secondary to this. Current Visit: Yes (8) Acute respiratory failure with hypoxemia Status: Acute Assessment and plan: Oxygen saturation in the upper 90s on facemask BiPAP with settings of 10/5 and 50% oxygen. Try to reduce the oxygen a little bit. I think this will improve with diuresis. Current Visit: Yes History of Present Illness Chief complaint: Dyspnea History of present illness: Mr. Hunt is a 66 year old male who came in with a necrotic area on his right lower leg. He had thought it was a spider bite. He never saw the spider. Subsequently grew out staph and Proteus. He has been on antibiotics and has had it debrided. He developed tachyarrhythmias with paroxysmal atrial fibrillation. He dropped his oxygen saturation during that time. At present his heart rate is about 100 and normal sinus rhythm. O2 sat has come up commensurately. He is on BiPAP 50% with a setting of 10/5 and has an O2 sat in the 98% range. He says he is not short of breath at present. He relates that he smokes an occasional cigar but is not a regular smoker. He does not know of any history of chronic lung disease. He is diabetic. Cardiac evaluation has shown normal LV function with LVH and 2+ diastolic dysfunction. He had a BNP of 291 a couple of days back. Home Medications Medication Instructions Recorded Confirmed Type Clorazepate Dipotassium 3.75 mg PO BID 01/12/17 03/20/17 History Colchicine [Colcrys] 1 tablet PO QAM 01/12/17 03/20/17 History Cyclobenzaprine HCl 10 mg PO BID PRN 01/12/17 03/20/17 History Glyburide/Metformin HCl 1 each PO BID 01/12/17 03/20/17 History [Glyburide-Metformin 5-500 mg] Insulin Detemir [Levemir FlexPen] 64 unit SUBCUT BEDTIME 01/12/17 03/20/17 History Levothyroxine Sodium [Levo-T] 100 mcg PO QAM 01/12/17 03/20/17 History Magnesium Chloride [Slow Mag] 64 mg PO QAM 01/12/17 03/20/17 History Meloxicam 7.5 mg PO QAM 01/12/17 03/20/17 History NIFEdipine XL TAB [Procardia Xl] 60 mg PO QAM 01/12/17 03/20/17 History Nebivolol [Bystolic] 5 mg PO QAM 01/12/17 03/20/17 History Pravastatin Sodium 40 mg PO QAM 01/12/17 03/20/17 History Tramadol HCl [Tramadol Tab] 50 mg PO BID PRN 01/12/17 03/20/17 History buPROPion [Wellbutrin] 100 mg PO QAM 01/12/17 03/20/17 History HYDROcodone/ACETAMIN 5-325 [[place] 1 tablet PO Q4H PRN #30 tablet 01/21/17 Rx 5-325] Chlorhexidine 4% Soln [Hibiclens] 1 applic TOP QAM 03/20/17 03/20/17 History Collagenase Oint [Santyl Oint] 1 applic TOP QAM 03/20/17 03/20/17 History Lisinopril [Lisinopril] 10 mg PO QAM 03/20/17 03/20/17 History Sodium Hypochlorite 0.25% Irr 1 applic TOP [facility] 03/20/17 03/20/17 History [[place] 1/2 Strength 0.25% Soln] predniSONE TAB [PredniSONE] 10 mg PO QAM 03/20/17 03/20/17 History Allergies Allergy/AdvReac Type Severity Reaction Status Date / Time No Known Allergies Allergy Unverified 01/28/17 07:35 12 point system: reviewed and no additional remarkable complaints except as stated - Cardiovascular Cardiovascular: Present: dyspnea, dyspnea on exertion, palpitations - Respiratory Respiratory: Present: dyspnea, dyspnea on exertion - Gastrointestinal Gastrointestinal: Present: melena - Musculoskeletal Musculoskeletal: Present: myalgias (Right leg pain) Exam (Pulmonay) H&P - Constitutional Vitals: Period Temp Pulse Resp BP Sys/Mancera Pulse Ox Last 24 Hr 96.1 F-98.4 F 92-168 19-43 81-158/50-97 89-100 Exam: Patient is alert oriented. Pulse around 100. Systolic blood pressure is 115. Pupils react to light. Facemask BiPAP in place. Neck is supple no bruits. Chest reveals some rales bilaterally and a few rhonchi in the upper lobes. Heart rate around 100 without murmur. Abdomen soft nontender no masses. Extremities no clubbing cyanosis or edema. The right leg is bandaged from the need to the ankle. Medical,Surgical,& Family Hx - Medical History Cardio: History of: Cardiac Dysrhythmia (SVT), Hypertension No history of: CHF, ND, Pacemaker, Valvular Heart Disease Psychological: History of: Depression Neurology: No history of: Cerebrovascular Accident, Dementia, Migraine, Peripheral Neuropathy, Seizures, TIA, Vertigo HEENT: History of: Dental Problems (UPPER AND LOWER) Endocrine: History of: Diabetes Mellitus (IDDM), Dyslipidemia, Thyroid Disorder Rheumatology: History of;: Gout (MEDICATION), Rheumatoid Arthritis Respiratory: No history of: Asthma, COPD, Obstructive Sleep Apnea, Pulmonary Hypertension Comment Only: Respiratory Problems (HAD FLU VACCINE) Renal: No history of: Renal Problems Gastrointestinal: No history of: Gastrointestinal Bleed, Hepatitis, Liver Problems, Pancreatitis Musculoskeletal: History of: Back/Neck Problems Hematology: No history of: Blood Transfusion Reaction Other: History of: MRSA, Miscellaneous Medical Problems (Severe peripheral vascular disease, 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) No history of: Anesthesia Reactions, Cancer, HIV - Surgical History Cardiac Surgeries: Patient Denies: Cardiac Catheterization, Cardiac Surgery Thoracic Surgeries: Patient denies;: Organ Transplant HEENT Surgeries: Surgical HX of: Eye Surgery (cataracts) Abdominal Surgeries: Patient denies: Colonoscopy - Family History Family History: Reports;: Family Cancer (father- prostate cancer), Family Diabetes (FATHER and SISTER), Family Hypertension (sister) - Social History Smoking Status: Current every day smoker Frequency of Alcohol Use: None Type of Drug Use: None Results - Labs CBC & BMP: 03/24/17 06:27 03/24/17 06:27 Lab Results: I have reviewed the past 24 hour labs - Diagnostic Findings Procedure: Chest x-ray: image reviewed by me (Cephalization suggestive of congestive heart failure. This was not present on admission.) Quality Measures - VTE Contraindication to Pharmacological VTE Prophylaxis: High Risk of Bleeding Contraindication to Mechanical VTE Prophylaxis: Ischemic Vascular Disease
[2017-03-24] MEDS: METOPROLOL TARTRATE 50 MG TABLET PO SCH (20:04)
[2017-03-24] MEDS: DAPTOmycin 500 MG in SODIUM CHLORIDE 0.9% 50 ML IV SCH (20:04)
[2017-03-24] MEDS ORDERED: DIGOXIN 0.5 MG/2 ML AMP IV ONE (22:27)
[2017-03-25 03:43] LABS: ABG Base Excess -5.5 MMOL/L (-2.5-2.5); ABG HCO3 15.7 MMOL/L (20-26); ABG Oxygen Saturation 92.3 % (95-100); ABG PH 7.503 (7.35-7.45); ABG PO2 57.4 MM HG (80-95); ABG TCO2 16.4 MMOL/L (23-27); Allen Test Positive; Pt O2 Delivery Device BIPAP
[2017-03-25 03:45] LABS: ABG PCO2 20.5 MM HG (35-48)
[2017-03-25] MEDS: DILTIAZEM INJ 100 MG in SODIUM CHLORIDE 0.9% 100 ML IV SCH (05:05)
[2017-03-25] MEDS: PIPERACILLIN/TAZOBACTAM 3,375 MG in SODIUM CHLORIDE 0.9% 100 ML IV SCH (05:40)
[2017-03-25 05:41] LABS: Calcium 8.1 MG/DL (8.5-10.1); Magnesium 1.7 MG/DL (1.8-2.4); Osmolality,Calculated 287.3 MOS/KG (273-304); Potassium 4.5 MMOL/L (3.5-5.1)
[2017-03-25] MEDS: LEVOTHYROXINE 100 MCG TABLET PO SCH (06:42)
[2017-03-25] MEDS ORDERED: FUROSEMIDE 40 MG/4 ML VIAL IV ONE (06:43)
[2017-03-25] MEDS ORDERED: SODIUM BICARBONATE 50 MEQ/50 ML VIAL IV ONE (06:44)
[2017-03-25] MEDS ORDERED: SODIUM BICARBONATE 50 MEQ/50 ML SYRINGE IV ONE ×4 (06:46→11:35)
--- NOTE | 2017-03-25 06:46 | Pulmonology Progress Note ---
Pulmonary - PN: Subj Interval history: 66-year-old man with a right leg infection and sepsis. He has developed bilateral perihilar and upper lobe infiltrates consistent with congestive heart failure. He has been diuresed but his x-ray really does not look much better. His O2 sat is in the upper 90s on facemask BiPAP 50% oxygen with a setting of 10 /5. His heart rate has gone up to around 115 with atrial fibrillation again. Respiratory rate is about 40. Blood pressure is on the low side. He has a metabolic acidosis. I stopped his IV fluids yesterday because of the congestive heart failure. We will give him 1 amp of bicarbonate diurese further. Patient does not appear to be tiring out but may require mechanical ventilation. His abdomen is also somewhat protuberant and I do not hear bowel sounds. May be developing ileus. Exam (Progress Note) - Constitutional Vitals: Period Temp Pulse Resp BP Sys/Mancera Pulse Ox Last 24 Hr 98 F-99.1 F 102-168 19-44 81-158/45-97 63-100 Exam: He is alert and responsive. Respiratory rate is 40 pulse 115 and irregular. Systolic blood pressure around 95. Afebrile. Pupils reactive. Neck is supple. Chest reveals some basilar rales. Heart rate is rapid and irregular. Abdomen is protuberant. I do not hear any bowel sounds. These nontender. Extremities no clubbing or cyanosis. Bandage on right leg. Trace of edema. Results - Labs CBC & BMP: 03/24/17 06:27 03/25/17 04:13 Lab Results: I have reviewed the past 24 hour labs - Diagnostic Findings Procedure: Chest x-ray: image reviewed by me (Bilateral perihilar and upper lobe infiltrates with cephalization most consistent with congestive heart failure. Little change from yesterday.) Assessment and Plan (1) Congestive heart failure with left ventricular diastolic dysfunction Status: Acute Assessment and plan: Chest x-ray has developed bilateral upper lobe infiltrates consistent with cephalization as with congestive heart failure since admission. His weight is not up but he was up about 2 L the first day he was here. He is surgically diuresed. He feels a little better at present. He has LVH with a normal LV ejection fraction and 2+ diastolic dysfunction on echo. His BNP was 291 day before yesterday. I do think we need to stop his IV fluids and diurese him further. Getting his heart rhythm regulated will help with good bit. He is getting amiodarone and is at present in sinus rhythm with a rate of 100. 03/25/2017 patient is back in atrial fibrillation with rapid ventricular response. This is aggravating his congestive heart failure. Current Visit: Yes (2) Sepsis Status: Acute Assessment and plan: Continuing with antibiotics for sepsis due to right leg wound. I suspect it was originally a staph infection. He never saw the spider. 03/25/2017 continuing broad-spectrum antibiotics. Current Visit: Yes (3) Ischemic necrosis of right leg Status: Acute Assessment and plan: Post debridement. Broad-spectrum antibiotics. CPK has come down since admission 03/25/2017 surgery following. Current Visit: Yes (4) Atrial fibrillation with RVR Status: Acute Assessment and plan: Presently sinus rhythm with rate of 100. Hopefully will stay there. 03/25/2017 heart rate 115 and atrial fibrillation. Cardiology is addressing. Current Visit: Yes (5) Diabetes Status: Chronic Assessment and plan: Blood sugars fairly well controlled. 03/25/2017 glucoses have been fairly well controlled. He does have a metabolic acidosis however. Recheck lactic acid level. Current Visit: Yes (6) Melena Status: Acute Assessment and plan: No further bleeding. Current Visit: Yes (7) Erosive esophagitis Status: Acute Assessment and plan: Had GI bleeding secondary to this. Current Visit: Yes (8) Acute respiratory failure with hypoxemia Status: Acute Assessment and plan: Oxygen saturation in the upper 90s on facemask BiPAP with settings of 10/5 and 50% oxygen. Try to reduce the oxygen a little bit. I think this will improve with diuresis. 03/25/2017 his PO2 was in the 50s this morning however with no changes on the BiPAP settings are FiO2, his O2 sats measured in the upper 90s on the oximeter at present. Will not change settings. Current Visit: Yes
--- NOTE | 2017-03-25 07:30 | XRay Report ---
XR chest 1V portable Indication: Shortness of breath Comparison: 24 March 2017 Findings: The heart and mediastinum are normal in size and configuration. The pulmonary vascularity is normal in caliber. Bilateral lung pulmonary infiltrates are similar to previous study. No other lung infiltrates, effusions, pneumothorax or other abnormality is demonstrated. Impression: No significant change. PROCEDURE INTERPRETED AT [facility] DEPARTMENT OF RADIOLOGY Final Report Signed by: Dr. Nixon Beltran
--- NOTE | 2017-03-25 07:37 | Cardiology Progress Note ---
Assessment and Plan (1) Atrial fibrillation with RVR Status: Acute Current Visit: Yes (2) Diabetes Status: Chronic Assessment and plan: SEE PLAN OF CARE LISTED BELOW. Current Visit: Yes (3) Melena Status: Acute Assessment and plan: SEE PLAN OF CARE LISTED BELOW. Current Visit: Yes (4) Anemia Status: Acute Assessment and plan: SEE PLAN OF CARE LISTED BELOW. Current Visit: Yes (5) Elevated AST (SGOT) Status: Acute Assessment and plan: SEE PLAN OF CARE LISTED BELOW. Current Visit: Yes (6) Ischemic necrosis of right leg Status: Acute Current Visit: Yes (7) Tobacco abuse Status: Chronic Assessment and plan: SEE PLAN OF CARE LISTED BELOW. Current Visit: Yes (8) Hx of supraventricular tachycardia Status: Chronic Assessment and plan: SEE PLAN OF CARE LISTED BELOW. Current Visit: No (9) Hyperlipidemia Status: Chronic Assessment and plan: SEE PLAN OF CARE LISTED BELOW. Current Visit: No (10) Hypertension Status: Chronic Assessment and plan: SEE PLAN OF CARE LISTED BELOW. Current Visit: No (11) Hypothyroidism Status: Chronic Assessment and plan: SEE PLAN OF CARE LISTED BELOW. Current Visit: No (12) Erosive esophagitis Status: Acute Assessment and plan: SEE PLAN OF CARE LISTED BELOW. Current Visit: Yes (13) Sepsis Status: Acute Assessment and plan: SEE PLAN OF CARE LISTED BELOW. Current Visit: Yes (14) Acute kidney injury Status: Acute Assessment and plan: SEE PLAN OF CARE LISTED BELOW. Current Visit: Yes (15) Congestive heart failure with left ventricular diastolic dysfunction Status: Acute Assessment and plan: SEE PLAN OF CARE LISTED BELOW. Current Visit: Yes Qualifiers: Congestive heart failure chronicity: acute Qualified Code(s): I50.31 - Acute diastolic (congestive) heart failure Cardiology - PN: Subj Interval history: FURNACE OPERATOR: Dr. Contreras SUMMARY Mr. Hunt is a 66 year old male who was admitted with an infected right leg and apparently septic. He was noted to be in atrial fibrillation with rapid ventricular response at the time of admission. This appears to be a new diagnosis. Patient has a past medical history of SVT, hypertension, dyslipidemia, hypothyroidism and diabetes. Over a year ago, patient did have echocardiogram which revealed normal left ventricular function. Patient was seen in consultation yesterday by cardiology. Cardizem infusion was initiated as well as digoxin. Patient spontaneously cardioverted back to normal sinus rhythm. Chads vasc score 3. Anticoagulation being held due to GI bleed. Etiology of GI bleed felt to be multifactorial to include: Erosive esophagitis, duodenal bulb ulcer and duodenitis. Unfortunately, erosive esophagitis has high bleeding risk and will be unable to anticoagulate patient to reduce his stroke risk. Echocardiogram revealed preserved EF, 60%. Grade 2 diastolic dysfunction. MARCH 25, 2017 Patient was seen and examined in the CCU. Patient continues to be in atrial fibrillation with reasonably well rate control. Heart rates ranging from 90s- 110s. He required reinitiation of Cardizem infusion overnight due to rapid ventricular response. This is currently infusing at 5 mg an hour. Patient borderline hypotensive. He continues to be in respiratory distress and generally does not look well. Currently on CPAP. Oxygen saturation stable. Patient reports that he continues to be dyspneic. He is without other specific complaints. He denies chest pain, heaviness or tightness. White blood cell count this morning 53.2. Suspect sepsis. Origin of infection undetermined at this time. Surgery feels as though right leg is without acute infectious process. Continue with IV antibiotics. His underlying atrial fibrillation is going to be hard to control given his sepsis picture. Over the past 2 days, patient has had recurrent RVR after diltiazem drip has been discontinued. For this reason, we will continue with both amiodarone and diltiazem for now. I will further discuss with Dr. Tolentino and await his additional recommendations. REVIEW OF SYSTEMS: Respiratory: Confirms tachypnea and shortness of breath. Cardiac: Denies chest pain, heaviness or tightness. Occasional heart racing/ operations. GI: Denies nausea, vomiting. IMPRESSION AND PLAN: 1. ATRIAL FIBRILLATION WITH RAPID VENTRICULAR RESPONSE - New diagnosis. Continues to be in A. fib, heart rates are reasonably controlled. Rate control has been difficult to maintain given his sepsis picture. For this reason, we will continue with both amiodarone and diltiazem for now. Continue beta- blockade with hold parameters. Chads vas score is 3. Unfortunately, patient is not a candidate for anticoagulation as he has a high bleeding risk. EGD yesterday revealed erosive esophagitis, duodenal ulcer and duodenitis. Patient has been deemed not a candidate for anticoagulation. 2. ISCHEMIC NECROSIS OF RIGHT LEG - Management per surgery. 3. TOBACCO ABUSE - Continue to encourage smoking cessation. 4. HYPERTENSION - Borderline hypotension. Will monitor blood pressure and adjust accordingly this hospitalization. 5 DYSLIPIDEMIA - Holding lipid-lowering agent due to elevated AST. LDL 92. 6. HYPOTHYROIDISM - Thyroid studies within normal limits. Management per attending. 7. DIABETES - Hemoglobin A1c 6.0. Continue sliding scale insulin. Management per attending. 8. HISTORY OF SVT - No SVT noted this hospitalization. Will monitor on site monitor. Continue beta-blockade. 9. ANEMIA - Improving. Bleeding was felt to be multifactorial to include: Erosive esophagitis, duodenal bulb ulcer and duodenitis. Will monitor daily CBC and transfuse as needed. GI following. Protonix twice daily. 10. MELENA - GI following. EGD 03/23 revealed class D erosive esophagitis, gastroparesis duodenal bulb ulcer and duodenitis. Bleeding felt to be multifactorial to include all of the previous mentioned. Protonix twice daily. 11. ELEVATED AST - We will hold off on initiating lipid-lowering agent. Monitor daily. Per attending and GI. 12. SEPSIS - Origin of infection undetermined at this time. Surgery feels as though right leg is without acute infectious process. Continue IV antibiotics. Management per attending. 13. EROSIVE ESOPHAGITIS - Monitor daily CBC. Transfuse as needed. Protonix twice daily. Deemed not a candidate for anticoagulation. GI following. 14. ACUTE KIDNEY INJURY - Creatinine 1.8. Management per attending. 15. ACUTE DIASTOLIC CONGESTIVE HEART FAILURE - Patient does have preserved EF. Gentle IV hydration was initiated yesterday given patient's sepsis picture. This has since been discontinued and diuresis reinitiated. BNP 291. Will monitor strict I's and O's and daily weights. Will monitor renal function closely with diuresis. Exam (Progress Note) - Constitutional Vitals: Period Temp Pulse Resp BP Sys/Mancera Pulse Ox Last 24 Hr 98 F-99.1 F 102-168 19-44 81-158/45-97 63-100 Exam: General appearance: Mild respiratory distress. Cooperative Head exam: PERRL, normal inspection, atraumatic Oral exam: No significant oral lesions. Neck exam: normal inspection no JVD. No carotid bruit. Trachea is in midline. Respiratory exam: Coarse breath sounds, rhonchi, rales and bilateral bases. Tachypnea. Oxygen via CPAP. Cardiovascular exam: Irregular rate and rhythm, mild tachycardia without gross murmur gallop or rub. No precordial lift. No bruits over the major arteries. Chest wall/torso: Anatomically normal. No tenderness, deformity Peripheral Pulses: Radial pulses are 2+. Foot pulses are minimal, Doppler used. GI/Abdominal exam: Hypoactive bowel sounds, large, distended, no abdominal bruits or pulsatile masses. Musculoskeletal/Extremities exam: Right lower leg is bandaged from his surgical wound. Neurological exam: alert, oriented X3. There is no gross neurologic deficits. Psychiatric exam: normal affect. Cognitive function is grossly intact. Skin exam: No rashes or other skin lesions. Result/EKG - Labs CBC & BMP: 03/25/17 09:10 03/25/17 09:10 Lab Results: I have reviewed the past 24 hour labs Labs: Laboratory Results - last 24 hr 03/24/17 03/24/17 03/24/17 07:39 11:28 16:38 ABG pH ABG pCO2 ABG pO2 ABG HCO3 ABG Total CO2 ABG O2 Saturation ABG Base Excess FiO2 Sodium Potassium Chloride Carbon Dioxide Anion Gap BUN Creatinine GFR Calculation BUN/Creatinine Ratio Glucose POC Glucose 160 H 139 H 167 H Calculated Osmolality Calcium Magnesium 03/24/17 03/25/17 03/25/17 19:23 03:51 04:13 ABG pH 7.503 H ABG pCO2 20.5 L* ABG pO2 57.4 L ABG HCO3 15.7 L ABG Total CO2 16.4 L ABG O2 Saturation 92.3 L ABG Base Excess -5.5 L FiO2 50.00 Sodium 141 Potassium 4.5 Chloride 110 H Carbon Dioxide 16 L Anion Gap 19.5 H BUN 34 H D Creatinine 1.00 GFR Calculation 91 BUN/Creatinine Ratio 34.00 H Glucose 88 POC Glucose 169 H Calculated Osmolality 287.3 Calcium 8.1 L Magnesium 1.7 L Quality Measures - VTE Contraindication to Pharmacological VTE Prophylaxis: High Risk of Bleeding Contraindication to Mechanical VTE Prophylaxis: Ischemic Vascular Disease
[2017-03-25 07:45] LABS: Basophils # 0.1 10*3/uL (0.0-0.2); Basophils % 0.1 % (0.0-0.8); Eosinophils # 0.1 10*3/uL (0.0-0.87); Eosinophils % 0.1 % (0.00-10.9); Hematocrit 33.5 VOL% (42.0-52.0); Hemoglobin 11.5 GM/DL (14.0-18.0); Immature Granulocytes % 3.1 %; Immature Granulocytes Absolute 1.77 #; Lymphocytes # 2.2 10*3/uL (1.4-4.0); Lymphocytes % 3.9 % (21.2-54.2); Mean Corpuscular HGB Conc 34.3 GM/DL (32-36); Mean Corpuscular Hemoglobin 31 PG (27-34); Mean Corpuscular Volume 89.1 FL (87-102); Mean Platelet Volume 9.6 FL (9.6-12.0); Monocytes # 3.3 10*3/uL (0.11-0.8); Monocytes % 5.9 % (1.7-12.7); NRBC # 0.03 10*3/uL; Neutrophils # 49.6 10*3/uL (1.4-7.4); Neutrophils % 86.9 % (38.7-73.9); Platelet Count 347 T/CUMM (130-400); Red Blood Count 3.76 MC/CUMM (3.8-5.5); Red Cell Distribution Width 16.1 % (9.3-17.3)
[2017-03-25] MEDS ORDERED: MAGNESIUM SULF INJ 3 GM in SODIUM CHLORIDE 0.9% 100 ML IV ONE (07:50)
[2017-03-25 08:10] LABS: Band Neutrophils 1 % (0-10); Burr Cells Slight; Hypochromasia Slight; Lymphocytes 2 % (20-55); Platelet Estimate Adequate; Polychromasia Slight; Segmented Neutrophils 90 % (50-85); Target Cells Slight; Total Cells Counted 100
[2017-03-25] MEDS ORDERED: MIDAZOLAM 10 MG/2 ML VIAL ONE (08:26)
[2017-03-25] MEDS ORDERED: SUCCINYLCHOLINE 200 MG/10 ML VIAL ONE (08:26)
[2017-03-25] MEDS ORDERED: NOREPINEPHRINE 4 MG/4 ML VIAL IV ONE ×2 (08:26→12:43)
[2017-03-25] MEDS: NOREPINEPHRINE 8 MG in SODIUM CHLORIDE 0.9% 242 ML IV SCH ×4 (08:30→20:47)
[2017-03-25] MEDS ORDERED: ATROPINE 1 MG/10 ML SYRINGE ONE (08:35)
[2017-03-25] MEDS ORDERED: DEXTROSE 50% 25 GM/50 ML SYRINGE IV ONE (08:35)
[2017-03-25] MEDS ORDERED: EPINEPHrine 1 MG/10 ML SYRINGE ONE (08:35)
[2017-03-25] MEDS: SODIUM HYPOCHLORITE 0.25% IRRIG 473 ML BOTTLE TOP SCH (08:40)
[2017-03-25] MEDS: PROPOFOL 1,000 MG/100 ML BOTTLE IV SCH ×2 (08:57→17:17)
[2017-03-25] MEDS ORDERED: PROPOFOL 1,000 MG/100 ML BOTTLE IV ONE (08:57)
[2017-03-25] MEDS ORDERED: SODIUM CHLORIDE 0.9% 1,000 ML IV ONE ×2 (09:00→18:02)
--- NOTE | 2017-03-25 09:06 | Event Note ---
Patient became hypotensive and hypoxemic. A code was called. Dr. Lowe from anesthesiology intubated him with a 7.5 Kinyarwanda tube using the glide scope. Patient had loss of pulse after that and we did closed chest massage for about a minute. We then got a palpable pulse and his blood pressure was up to about 95 systolic. He was given some epinephrine. He was given half a milligram of atropine. He did have some bradycardia with rate getting down into the 40s with atrial flutter with block. At the present time he is on the ventilator and he has come out from under the influence of the Versed and succinyl choline and he is responsive. We have him on 100% oxygen on the ventilator. ABGs are pending. He had a distended abdomen and an NG tube was placed. The upper portion of the abdomen was observed on the chest x-ray and showed loops of gas- filled bowel. Case was discussed with Dr. Miranda and with Dr. Brown. CTs will be obtained with PE protocol to be sure he has not had a pulmonary embolus. Also concerned about his abdomen with abdominal distention. The patient has not had abdominal pain which would go away from ischemic bowel.
--- NOTE | 2017-03-25 09:08 | Event Note ---
He has continued to develop more of a septic picture actually dictated this morning. He is now on the ventilator but hemodynamically stable. He had brief CPR. Is not complaining of any abdominal or chest pain. I specifically asked him yesterday afternoon without any abdominal pain or pain with breathing. His chest x-ray did not show an obvious pneumonia. Source of his sepsis is unclear. His leg looks clean. His leg to see if there was a deep space infection in his leg. His dressing down again this morning. I examined the perirectal area as well. All of this looks okay. We will obtain a CT scan of his chest abdomen and pelvis to look for an occult source of infection. I did update his nephew Mr. Torsten Hunt about his condition.
--- NOTE | 2017-03-25 09:09 | Operative Note ---
Date of procedure: 03/25/17 (Right subclavian triple lumen CVP line) Pre-op diagnosis: Respiratory failure and shock Post-op diagnosis: same Procedure: After a timeout to be sure we were dealing with Per Hunt, the patient's right subclavian area was prepped with ChloraPrep. A drape was positioned. The right subclavian vein was entered with the probing needle. We did use 1% lidocaine local however the patient was still sedated from his intubation. We got a good return of blood. Wire was placed inside the needle and then the needle replaced with a dilator. We then advanced the catheter without difficulty and obtained blood from all 3 ports. Catheter was sutured down. Chest x-ray post procedure showed no evidence of pneumothorax. Tip of the catheter is in the lower right atrium or inferior vena cava just below that. It is in good location and can be used. Anesthesia: local, conscious sedation Surgeon / Physician: Morgan Taylor Estimated blood loss: minimal Specimens: none sent Condition: critical Disposition: ICU (Actually CCU) Results - Labs CBC & BMP: 03/25/17 07:38 03/25/17 04:13 Discharge Plan - Discharge Medications No Action Clorazepate Dipotassium 3.75 mg PO BID Cyclobenzaprine HCl 10 mg PO BID PRN PRN Reason: Muscle Spasm Colchicine [Colcrys] 1 tablet PO QAM Glyburide/Metformin HCl [Glyburide-Metformin 5-500 mg] 1 each PO BID Levothyroxine Sodium [Levo-T] 100 mcg PO QAM Meloxicam 7.5 mg PO QAM Tramadol HCl [Tramadol Tab] 50 mg PO BID PRN PRN Reason: Pain Insulin Detemir [Levemir FlexPen] 64 unit SUBCUT BEDTIME buPROPion [Wellbutrin] 100 mg PO QAM HYDROcodone/ACETAMIN 5-325 [[place] 5-325] 1 tablet PO Q4H PRN #30 tablet PRN Reason: Pain Moderate (4-7) Collagenase Oint [Santyl Oint] 1 applic TOP QAM Chlorhexidine 4% Soln [Hibiclens] 1 applic TOP QAM Lisinopril [Lisinopril] 10 mg PO QAM Nebivolol [Bystolic] 5 mg PO QAM Magnesium Chloride [Slow Mag] 64 mg PO QAM Pravastatin Sodium 40 mg PO QAM NIFEdipine XL TAB [Procardia Xl] 60 mg PO QAM Sodium Hypochlorite 0.25% Irr [Dakins 1/2 Strength 0.25% Soln] 1 applic TOP QAM predniSONE TAB [PredniSONE] 10 mg PO QAM - Follow Up or Referral - Forms/Instructions
--- NOTE | 2017-03-25 09:13 | XRay Report ---
XR chest 1V portable Indication: Endotracheal tube placement, NG tube placement, central line placement Comparison: Chest x-ray March 25, 2017 at 3:01 AM Technique: 3 frontal views of the chest. Findings: Tip of endotracheal tube proximal 4 cm above the edita. Tip of nonweighted enteric tube projects over the mid stomach. Tip of right-sided central venous catheter projects over the mid right atrium. Low lung volumes again demonstrated with mild opacification of the bilateral mid and upper lungs as well as minimally medially within the bilateral lung bases suggesting atelectasis/consolidation which appears similar to comparison study. Visualized osseous and surrounding soft tissue structures appear grossly unchanged. IMPRESSION: As above. PROCEDURE INTERPRETED AT [facility] DEPARTMENT OF RADIOLOGY Final Report Signed by: Dr Paulino Yadav
[2017-03-25 09:28] LABS: Basophils # 0.1 10*3/uL (0.0-0.2); Basophils % 0.3 % (0.0-0.8); Eosinophils # 0.1 10*3/uL (0.0-0.87); Eosinophils % 0.2 % (0.00-10.9); Hematocrit 29.3 VOL% (42.0-52.0); Hemoglobin 9.7 GM/DL (14.0-18.0); Immature Granulocytes % 5.2 %; Immature Granulocytes Absolute 2.76 #; Lymphocytes # 2.2 10*3/uL (1.4-4.0); Lymphocytes % 4.2 % (21.2-54.2); Mean Corpuscular HGB Conc 33.1 GM/DL (32-36); Mean Corpuscular Hemoglobin 31 PG (27-34); Mean Corpuscular Volume 92.4 FL (87-102); Mean Platelet Volume 9.5 FL (9.6-12.0); Monocytes % 5.7 % (1.7-12.7); NRBC # 0.04 10*3/uL; Neutrophils # 44.9 10*3/uL (1.4-7.4); Neutrophils % 84.4 % (38.7-73.9); Platelet Count 315 T/CUMM (130-400); Red Blood Count 3.17 MC/CUMM (3.8-5.5); Red Cell Distribution Width 15.9 % (9.3-17.3)
--- NOTE | 2017-03-25 09:35 | Event Note ---
Critical care time 45minutes: I responded to call from nurse this morning that the patient's heart rate was dropping to the 60s, she could not get a blood pressure and his sats were in the 60s also, on BIPAP. Vivien Segundo and I arrived and spent at least 45 minutes at the bedside for code and coordinating care with Dr Taylor and Dr Brown. On our arrival at the bedside he was unresponsive but breathing and most notably his abdomen was very distended which is new compared to yesterday. His nurse did not report that he had complained of anything and Dr Taylor who saw him prior to this agreed that he did not look good this morning but was not complaining of anything specific. He has continued to have melena which is why he has not been anticoagulated. Anesthesia intubated after which he lost his pulse and CPR was started. He received Epi and atropine and his heart rate was restored. Levophed was started , he was bolused with NS, he received bicarb, and also D50 for a glucose of 27. Dr Taylor placed subclavian central line. Assessment- He is likely septic from as yet unidentified source. His ischemic leg wound which was infected on admission now appears to have a clean base. His abdomen is definitely changed and he may have ischemic bowel of diverticulitis. On XR he has ileus with bowel gas throughout. NGT placed after intubation with significant amount of air removed and some decrease in distention of his abdomen. Another consideration is PE- he is not on DVT ppx because of his GIB. Plan- CT scan C/A/P continue pressor support. Diprivan, repeat ABG. Check labs. change antibiotics to Merrem and flagyl instead of Zosyn and continue cubicin. Dr Mayorga will also see him. Bcx repeated. consider repeat echo for possibility of SBE. Begin D5W with 2 amps of bicarb at 75/hr after bolus complete. Some pulmonary edema on CXR so I will keep this in mind as we give volume. Currently sats 100%.
[2017-03-25] MEDS: INSULIN REGULAR 100 UNIT/ML SUBCUT SCH ×4 (09:38→22:17)
[2017-03-25 09:43] LABS: White Blood Count 53.2 T/CUMM (4-12)
[2017-03-25 09:48] LABS: Band Neutrophils 5 % (0-10); Burr Cells Slight; Lymphocytes 5 % (20-55); Segmented Neutrophils 83 % (50-85); Total Cells Counted 100
[2017-03-25 09:49] LABS: Hypochromasia Slight; Platelet Estimate Normal
[2017-03-25] MEDS ORDERED: MEROPENEM 1,000 MG in SODIUM CHLORIDE 0.9% 50 ML IV SCH (10:00)
[2017-03-25 10:06] LABS: Albumin 1.5 G/DL (3.4-5.0); Bilirubin,Total 1.2 MG/DL (0.2-1.0); Calcium 7.3 MG/DL (8.5-10.1); Osmolality,Calculated 290.3 MOS/KG (273-304); Potassium 4.9 MMOL/L (3.5-5.1); Total Protein 4.2 G/DL (6.4-8.3)
[2017-03-25] MEDS: SODIUM BICARB INJ 100 MEQ in DEXTROSE 5% 900 ML IV SCH (10:27)
[2017-03-25] MEDS: METOPROLOL TARTRATE 50 MG TABLET PO SCH ×2 (10:56→21:52)
[2017-03-25] MEDS: FOLIC ACID 1 MG TABLET PO SCH (10:56)
[2017-03-25] MEDS: PANTOPRAZOLE 40 MG TABLET PO SCH (10:57)
[2017-03-25] MEDS: MAGNESIUM CHLORIDE 64 MG TABLET PO SCH (10:57)
[2017-03-25] MEDS: THIAMINE 100 MG TABLET PO SCH (10:58)
[2017-03-25] MEDS ORDERED: PHENYLEPHRINE DRIP 40 MG/250 ML PREMIX IV ONE (11:28)
[2017-03-25] MEDS ORDERED: SODIUM CHLORIDE 0.9% 250 ML IV PRN (11:33)
[2017-03-25] MEDS ORDERED: PHENYLEPHRINE DRIP 40 MG/250 ML PREMIX IV SCH (12:00)
--- NOTE | 2017-03-25 12:19 | Infectious Disease Progress ---
Assessment and Plan (1) Acute renal failure (ARF) Status: Acute Assessment and plan: Renal function acutely deteriorated today compared to yesterday with creatinine almost doubling. Will adjust antibiotic doses. Current Visit: Yes (2) Ischemic necrosis of right leg Status: Acute Assessment and plan: Is leg did not look acutely infected with a slight yesterday, and is unlikely to be the source of his sepsis. Current Visit: Yes (3) Peripheral vascular disease Status: Acute Current Visit: Yes (4) Diabetes Status: Chronic Current Visit: Yes (5) Hyperlipidemia Status: Chronic Current Visit: No (6) Leukocytosis Status: Acute Assessment and plan: Patient has severe leukocytosis, much worse than yesterday. With his abdominal distention today and wondering if this could be a leukemoid reaction related to C. difficile with toxic megacolon. With toxic megacolon patient will not have any stools. Alternatively it could be a stress response. Need to make sure there is no new infection such as in the bloodstream or pneumonia. Recommendations: 1. Agree with addition of Flagyl 2. Check stool for C. difficile toxin if unable to obtain 3. Will await results of CT abdomen pending for today. There is thickening of the colon and this would support a possible diagnosis of C. difficile infection 4. Sputum Gram stain and culture 5. Continue meropenem and daptomycin for now, but given renal failure decrease meropenem to 1 g every 12 Prognosis guarded Current Visit: Yes Infectious Disease - PN: Subj Interval history: Chart reviewed with events of this morning noted. Patient deteriorated this morning with worsening respiratory distress ultimately with respiratory arrest and then he had brief moment where he lost his pulse. That was regained after about a minute of CPR. Patient on the vent. Noted to have severely distended abdomen since this morning. He is not been having any stools according to his nurse. No fever. Infectious Disease Exam (PN) - Constitutional Vitals: Temp Pulse Resp BP Pulse Ox 98.9 F 87 27 H 141/65 96 03/25/17 04:00 03/25/17 09:30 03/25/17 11:18 03/25/17 09:30 03/25/17 09:30 General appearance: mild distress, over weight Exam: General appearance: Sedated on the vent - Eye Eye exam: Present: EOMI. no icterus Pupils: Present: KATHERYN - ENT ENT exam: ET tube in situ - Respiratory Respiratory exam: vesicular BS, no crepitations or wheezes - Cardiovascular Cardiovascular exam: regular rate and rhythm, no murmurs - GI/Abdominal GI/Abdominal exam: Abdomen more distended than yesterday, absent bowel sounds, soft - Extremities Exam Extremities exam: Right leg wound bandaged - Skin Skin exam: no rash Results - Labs CBC & BMP: 03/25/17 09:10 03/25/17 09:10 Lab Results: I have reviewed the past 24 hour labs Quality Measures - VTE Contraindication to Pharmacological VTE Prophylaxis: High Risk of Bleeding Contraindication to Mechanical VTE Prophylaxis: Ischemic Vascular Disease
[2017-03-25] MEDS: HYDROCORTISONE 100 MG VIAL IV SCH ×2 (12:45→21:52)
--- NOTE | 2017-03-25 12:54 | Hospitalist Progress Note ---
Assessment and Plan (1) Diabetes mellitus type 2 in obese Status: Chronic Assessment and plan: 1)respiratory and cardiac arrest- code requiring CPR for 5 minutes, now intubated, central line on 2 pressors and has bicarb in fluids and has had boluses of IVF. He is switching between afib and NSR. H&H dropped over a few hours- transfuse for BP suppport and watch for GIB. 2)sepsis- WBC up, temp low, glucose low. on D5, archana ghotra. Changed antibiotics to merrem and flagyl with the cubicin. Appreciate help from ID- cdiff if stool available. 3)GIB with melena- H&H dropping, multiple sources of UGI bleeding seen on EGD. No anticoagulation for afib because of GIB. 4)PVD/diabetic arterial ulcer infection- wound looks good. 5)renal failure- resolved but at risk for redevelopment with today's events. monitor. 6)patient is critically and gravely ill. His nephew is his only family and the nurses have spoken with him today. He is coming to visitation this afternoon. Current Visit: No (2) Hypertension Status: Chronic Current Visit: No (3) Hyperlipidemia Status: Chronic Current Visit: No (4) Peripheral vascular disease Status: Acute Current Visit: Yes (5) Acute renal failure (ARF) Status: Acute Current Visit: Yes (6) Ischemic necrosis of right leg Status: Acute Current Visit: Yes Hospitalist: Subjective Interval history: See critical care note for events of the morning. Since code, he was stable on vent and converted to NSR for a while. His BP dropped again despite being maxxed on Levaphed so I have added [place], repeated a bolus and ordered a transfusion. His H&H has dropped from 11-9 over the morning, and combined with the hypotension could represent acute GIB. He is sedated on Diprivan. His sats are 100%. We cannot get an ABG. Vivien IRVIN and I attempted an monica but were not able to get one in his right radial artery. Dr Moss is going to do one when he can. A CT scan of chest abd pelvis is ordered but he cannot go until his BP is more stable. Exam - Constitutional Vitals: Period Temp Pulse Resp BP Sys/Mancera Pulse Ox Last 24 Hr 98 F-99.1 F 60-164 16-46 60-154/42-136 63-100 General appearance: no acute distress, over weight - Eye Eye exam: Present: EOMI Pupils: Present: KATHERYN - Respiratory Respiratory exam: Present: clear to auscultation bilaterally, rhonchi - Cardiovascular Cardiovascular exam: Present: irregular rhythm, tachycardia - GI/Abdominal GI/Abdominal exam: Present: distended, firm, hypoactive bowel sounds - Extremities Exam Extremities exam: Absent: edema Results - Labs CBC & BMP: 03/25/17 09:10 03/25/17 09:10 Lab Results: I have reviewed the past 24 hour labs Quality Measures - VTE Contraindication to Pharmacological VTE Prophylaxis: High Risk of Bleeding Contraindication to Mechanical VTE Prophylaxis: Ischemic Vascular Disease
[2017-03-25] MEDS: MEROPENEM 1,000 MG in SODIUM CHLORIDE 0.9% 50 ML IV SCH (12:56)
[2017-03-25] MEDS ORDERED: DEXTROSE 50% 25 GM/50 ML VIAL IV PRN (13:00)
[2017-03-25] MEDS ORDERED: LIDOCAINE 1%/EPI INJ 20 ML VIAL ONE (13:36)
[2017-03-25] MEDS ORDERED: EPINEPHrine 1 MG/ML VIAL ONE (13:37)
--- NOTE | 2017-03-25 15:08 | General Surgery Progress Note ---
Assessment and Plan - Time spent with patient Time spent with patient: Greater than 30 minutes (1) Sepsis Status: Acute Assessment and plan: He continues to deteriorate and appears to have a septic picture. I have had extensive discussion with Dr. Taylor and also with Dr. Miranda. I have also discussed this with the patient who is actually awake on the ventilator and also with his nephew both on the phone and in person. We discussed the option of looking in his abdomen briefly at the bedside to make sure that we are not dealing with bowel. Patient denies abdominal pain but he is sedated somewhat on the ventilator. Yesterday afternoon he was not complaining of abdominal pain and denies abdominal pain at that time. I had ordered a CT scan but he has been too hemodynamically unstable to take to the scanner. He is on 3 pressors. I have done a procedure at the bedside with a small incision under local anesthesia and he had straw-colored fluid in his abdomen with no evidence of necrosis or purulence in the visualized small bowel and transverse colon appeared healthy. I discussed the situation with his nephew who is been his caregiver. The nephew and the patient and both were relayed to me that he does not have a relationship at all with his children. His nephew does not think that he has had any contact with his children in at least 20 years. The nephew has been letting his children know about his situation however. We discussed the fact that he is critically ill and is probably not going to survive. He would like for him to be DO NOT RESUSCITATE. I think that this is very reasonable and if he codes again he is unlikely to recover. We are doing maximal supportive care that we can at this point. We will continue with antibiotics. The source of his infection is unclear. I do not think that is from his abdomen. His leg looks better than it is ever looked and his CT scan of his leg was negative. I discussed the possibility of amputation with his son and he does not feel that he would want to do this unless we were sure that it was going to help his situation. He understands that I think he is probably not going to survive this episode. We will continue with continued supportive care and change his CODE STATUS to DNR. Current Visit: Yes Qualifiers: Sepsis type: sepsis due to unspecified organism Qualified Code(s): A41.9 - Sepsis, unspecified organism Subjective Patient reports: Present: other (He is awake on the ventilator). Absent: still having pain Exam - Constitutional Vitals: Period Temp Pulse Resp BP Sys/Mancera Pulse Ox Last 24 Hr 97 F-99.1 F 60-164 16-46 60-154/42-136 63-100 - Head Head exam: Present: normocephalic - Eye Eye exam: Absent: scleral icterus - Respiratory Respiratory exam: Present: accessory muscle use - GI/Abdominal GI/Abdominal exam: Present: distended, hypoactive bowel sounds, soft. Absent: guarding, tenderness, rebound - Neurological Exam Neurological exam: Present: alert. Absent: motor sensory deficit - Skin Skin exam: Present: mottled Results - Labs CBC & BMP: 03/25/17 09:10 03/25/17 09:10 Lab Results: I have reviewed the past 24 hour labs Quality Measures - VTE Contraindication to Pharmacological VTE Prophylaxis: High Risk of Bleeding Contraindication to Mechanical VTE Prophylaxis: Ischemic Vascular Disease
--- NOTE | 2017-03-25 15:10 | Operative Note ---
Date of procedure: 03/25/17 Pre-op diagnosis: Sepsis of unspecified source Post-op diagnosis: same Procedure: Mini laparotomy at the bedside Findings and technique after informed consent was obtained both from the patient was awake on the ventilator and his nephew we gave the patient some propofol infusion and prepped his abdomen in the usual sterile fashion. Local anesthesia was infiltrated where a small incision approximately 4-5 cm in length was made just above the umbilicus in the upper midline. Peritoneum was entered under local anesthesia under direct vision. There was some straw- colored fluid. There was no foul-smelling fluid or purulence. There was minimal ascites. There was no bleeding. His omentum appeared normal. His small bowel that was visualized appeared normal. His transverse colon appeared normal. I then closed the fascia with a running 0 Monocryl suture. Subcutaneous layer was closed and up to 3-0 Vicryl suture and the skin with skin clips. Anesthesia: local Surgeon / Physician: Norm Brown III. Estimated blood loss: none Specimens: none sent Condition: stable Disposition: no change Results - Labs CBC & BMP: 03/25/17 09:10 03/25/17 09:10 Discharge Plan - Discharge Medications No Action Clorazepate Dipotassium 3.75 mg PO BID Cyclobenzaprine HCl 10 mg PO BID PRN PRN Reason: Muscle Spasm Colchicine [Colcrys] 1 tablet PO QAM Glyburide/Metformin HCl [Glyburide-Metformin 5-500 mg] 1 each PO BID Levothyroxine Sodium [Levo-T] 100 mcg PO QAM Meloxicam 7.5 mg PO QAM Tramadol HCl [Tramadol Tab] 50 mg PO BID PRN PRN Reason: Pain Insulin Detemir [Levemir FlexPen] 64 unit SUBCUT BEDTIME buPROPion [Wellbutrin] 100 mg PO QAM HYDROcodone/ACETAMIN 5-325 [[place] 5-325] 1 tablet PO Q4H PRN #30 tablet PRN Reason: Pain Moderate (4-7) Collagenase Oint [Santyl Oint] 1 applic TOP QAM Chlorhexidine 4% Soln [Hibiclens] 1 applic TOP QAM Lisinopril [Lisinopril] 10 mg PO QAM Nebivolol [Bystolic] 5 mg PO QAM Magnesium Chloride [Slow Mag] 64 mg PO QAM Pravastatin Sodium 40 mg PO QAM NIFEdipine XL TAB [Procardia Xl] 60 mg PO QAM Sodium Hypochlorite 0.25% Irr [[place] 1/2 Strength 0.25% Soln] 1 applic TOP QAM predniSONE TAB [PredniSONE] 10 mg PO QAM - Follow Up or Referral - Forms/Instructions
[2017-03-25] MEDS: metroNIDAZOLE INJ 500 MG in PREMIX 1 EACH IV SCH ×2 (16:24→23:31)
--- NOTE | 2017-03-25 17:09 | Gastrointestinal Progress Note ---
Assessment and Plan (1) Gastrointestinal hemorrhage with melena Status: Acute Assessment and plan: Patient noted today to have dark grossly guaiac positive stools on physical exam consistent with melena. He does have some mild epigastric tenderness as well as some reflux symptoms. I am going to increase his Protonix to 40 mg twice daily and we will get him scheduled for upper endoscopy to occur tomorrow. Differential diagnosis is wide but includes esophagitis, gastritis, peptic ulcer disease, AVMs, duodenitis and gastric cancer. This patient may also have some component of anemia due to his necrotic leg ulcers and of course anemia of chronic disease with bone marrow suppression as additional components to his blood loss. I will definitely check the patient's stomach for evidence of Helicobacter pylori infection and possibly celiac sprue. 03/23/17--This patient had bleeding due to a number of causes: 13 cm of LA class D erosive esophagitis in the distal third of the esophagus. There was gastroparesis evident by retained food in the fundus, lesser curvature gastric ulcer 3 cm in size biopsied to rule out malignancy, duodenal bulb ulcer and duodenitis noted as well. 03/24/17--Biopsies from the stomach are still pending at this point to rule out malignancy with gastric cancer/lymphoma. Will look for Helicobacter pylori as well. The patient is on Protonix twice daily and appears that this is allowing his hematocrit to regenerate adequately. No need for colonoscopy this admission. 03/25/17--Biopsies from the stomach show relatively benign appearance without evidence of lymphoma or cancer. Patient continues on Protonix twice daily, he is requiring blood now 2 units with an extremely high white blood cell count of unclear etiology. Laparoscopy did not demonstrate any evidence of soilage or dusky bowel. I will go ahead and check a lactic acid level tomorrow morning. Patient remains on acid blocking medication for his esophagitis and ulcers. The large deep ulcer in the lesser curvature is at risk for perforation. Current Visit: Yes (2) Anemia Status: Acute Assessment and plan: The patient is getting 2 units now, and hematocrit is dropped from 33.5-->29.3 on the off chance that this might help stabilize the patient's pressure if he is actively bleeding and also has an underlying sepsis. Current Visit: Yes (3) GERD (gastroesophageal reflux disease) Status: Acute Assessment and plan: He does have some mild reflux symptoms and this should be controlled with pantoprazole 40 mg twice daily. Will check again tomorrow to see if esophagitis is present that might be feeding into his anemia. 03/23/17--13 cm of LA class D erosive esophagitis noted on upper endoscopy. 03/24/17--As noted above, patient is not complaining any difficulty with swallowing or heartburn now. 03/25/17--As noted above from yesterday. Current Visit: Yes (4) Screening for colorectal cancer Status: Acute Assessment and plan: The patient has not had a colonoscopy up to this point and is 15 years overdue. There may be a second source for anemia although with his recent drop from hematocrit of 38 to his current 27% this seems more like an acute illness as opposed to chronic blood loss from a cancer. We can arrange for colonoscopy to occur as an outpatient further down the road. We can leave him on his diet at present time and will arrange for upper endoscopy tomorrow morning. If no source of bleeding is found we may consider doing colonoscopy this admission, given the dark guaiac positive stools. 03/23/17--The patient has enough reasons for his anemia on upper GI tract evaluation. Likely put off colonoscopy until a later date as an outpatient, this could be accomplished at the same time we do the follow-up 8 week exam to recheck the ulcer in the stomach. 03/24/17--Will observe this patient on food. 03/25/17--If the patient survives to tomorrow we can consider doing a limited flexible sigmoidoscopy to look and see if there are pseudomembranes, however I think this is unlikely given the patient's C. difficile being negative, however megacolon could result in this situation. Patient is getting Flagyl IV as well- -we might need to drag a tube into the proximal colon in order to irrigate liquid vancomycin to this region if that unprepped flexible sigmoidoscopy were to be positive for pseudomembranes. Current Visit: Yes Gastroenterology - PN: Subj Interval history: The patient has developed sepsis from an unclear source--with his deep ulceration is certainly possible he may have developed a perforation of the stomach, he does not appear to have dusky ischemic bowel by laparotomy done at the bedside today. He is requiring more blood at this time, but his NG tube placed into the stomach does not appear to show any gross evidence of bleeding. He is on maxed out on his pressor agents with white blood cell count this drop slightly from 57,000 now down to 53.2K. The patient appears to be premorbid at this time and is been made a DNR. CT scanning had been planned in order to look for colonic thickening but the patient is too ill to survive the trip. Exam (Progress Note) - Constitutional Vitals: Period Temp Pulse Resp BP Sys/Mancera Pulse Ox Last 24 Hr 97 F-100 F 60-164 15-46 48-154/37-136 63-100 General appearance: severe distress Exam: Now intubated on the ventilator, he does withdraw to painful stimuli, he does not track with his eyes or follow commands. - Respiratory Respiratory exam: Present: clear to auscultation bilaterally, other (Patient is intubated) - Cardiovascular Cardiovascular exam: Present: regular rate and rhythm - GI/Abdominal GI/Abdominal exam: Present: distended, firm, tenderness (In all quadrants), other (No bowel sounds). Absent: guarding, rebound - Neurological Exam Neurological exam: Present: altered (The patient is able to groan in pain to painful stimuli/abdominal pressure) - Psychiatric Psychiatric exam: Present: flat affect - Skin Skin exam: Present: warm Results - Labs CBC & BMP: 03/25/17 09:10 03/25/17 09:10
[2017-03-25] MEDS: PHENYLEPHRINE INJ 160 MG in SODIUM CHLORIDE 0.9% 234 ML IV SCH (17:19)
--- NOTE | 2017-03-25 20:15 | Order Completion Report ---
See report scanned to EMR
[2017-03-25 20:28] LABS: VBG Base Excess -9.3 MEQ/L (0-4); VBG HCO3 16.8 MEQ/L (24-28); VBG Oxygen Saturation 80.6 %; VBG PCO2 30.2 MMHG (41-51); VBG PH 7.323; VBG PO2 48.4 MMHG (17-40)
--- NOTE | 2017-03-25 20:29 | Order Completion Report ---
See report scanned to EMR
--- NOTE | 2017-03-25 20:33 | Order Completion Report ---
See report scanned to EMR
[2017-03-25] MEDS: DAPTOmycin 500 MG in SODIUM CHLORIDE 0.9% 50 ML IV SCH (21:52)
[2017-03-25] MEDS: PANTOPRAZOLE 40 MG VIAL IV SCH (21:52)
[2017-03-26] MEDS: NOREPINEPHRINE 16 MG in SODIUM CHLORIDE 0.9% 234 ML IV SCH ×3 (01:08→15:49)
[2017-03-26] MEDS: MEROPENEM 1,000 MG in SODIUM CHLORIDE 0.9% 50 ML IV SCH (01:38)
[2017-03-26] MEDS: SODIUM BICARB INJ 100 MEQ in DEXTROSE 5% 900 ML IV SCH ×2 (02:14→15:50)
[2017-03-26] MEDS: PROPOFOL 1,000 MG/100 ML BOTTLE IV SCH (02:52)
[2017-03-26] MEDS: AMIODARONE INJ 450 MG in DEXTROSE 5% 241 ML IV SCH ×2 (03:12→14:12)
[2017-03-26 03:26] LABS: ABG HCO3 16.6 MMOL/L (20-26); ABG Oxygen Saturation 99.6 % (95-100); ABG PCO2 21.6 MM HG (35-48); ABG PH 7.391 (7.35-7.45); ABG TCO2 11.4 MMOL/L (23-27); Allen Test Positive; Pt O2 Delivery Device Ventilator
[2017-03-26 04:28] LABS: Hematocrit 40.8 VOL% (42.0-52.0); Hemoglobin 13.9 GM/DL (14.0-18.0); Immature Granulocytes % 3.2 %; Immature Granulocytes Absolute 1.93 #; Lymphocytes # 1.8 10*3/uL (1.4-4.0); Mean Corpuscular HGB Conc 34.1 GM/DL (32-36); Mean Corpuscular Hemoglobin 30 PG (27-34); Mean Corpuscular Volume 89.3 FL (87-102); Mean Platelet Volume 10.6 FL (9.6-12.0); Monocytes # 1.9 10*3/uL (0.11-0.8); Monocytes % 3.2 % (1.7-12.7); NRBC # 0.18 10*3/uL; Neutrophils % 90.6 % (38.7-73.9); Platelet Count 244 T/CUMM (130-400); Red Blood Count 4.57 MC/CUMM (3.8-5.5); Red Cell Distribution Width 16.2 % (9.3-17.3)
[2017-03-26 04:31] LABS: White Blood Count 60.7 T/CUMM (4-12)
[2017-03-26 04:56] LABS: Band Neutrophils 2 % (0-10); Hypochromasia Slight; Lymphocytes 4 % (20-55); Microcytosis 1+; Segmented Neutrophils 91 % (50-85); Total Cells Counted 100
[2017-03-26 04:57] LABS: Burr Cells Slight
[2017-03-26 05:16] LABS: Albumin 1.7 G/DL (3.4-5.0); Bilirubin,Total 2.2 MG/DL (0.2-1.0); Calcium 7.3 MG/DL (8.5-10.1); Osmolality,Calculated 299.4 MOS/KG (273-304); Potassium 5.2 MMOL/L (3.5-5.1); Total Protein 4.6 G/DL (6.4-8.3)
[2017-03-26] MEDS: metroNIDAZOLE INJ 500 MG in PREMIX 1 EACH IV SCH ×2 (05:47→14:26)
[2017-03-26] MEDS: PHENYLEPHRINE INJ 160 MG in SODIUM CHLORIDE 0.9% 234 ML IV SCH ×2 (06:23→14:10)
--- NOTE | 2017-03-26 06:59 | General Surgery Progress Note ---
Assessment and Plan - Time spent with patient Time spent with patient: Less than 30 minutes (1) Sepsis Status: Acute Assessment and plan: He continues to deteriorate and appears to have a septic picture. I have had extensive discussion with Dr. Taylor and also with Dr. Miranda. I have also discussed this with the patient who is actually awake on the ventilator and also with his nephew both on the phone and in person. We discussed the option of looking in his abdomen briefly at the bedside to make sure that we are not dealing with bowel. Patient denies abdominal pain but he is sedated somewhat on the ventilator. Yesterday afternoon he was not complaining of abdominal pain and denies abdominal pain at that time. I had ordered a CT scan but he has been too hemodynamically unstable to take to the scanner. He is on 3 pressors. I have done a procedure at the bedside with a small incision under local anesthesia and he had straw-colored fluid in his abdomen with no evidence of necrosis or purulence in the visualized small bowel and transverse colon appeared healthy. I discussed the situation with his nephew who is been his caregiver. The nephew and the patient and both were relayed to me that he does not have a relationship at all with his children. His nephew does not think that he has had any contact with his children in at least 20 years. The nephew has been letting his children know about his situation however. We discussed the fact that he is critically ill and is probably not going to survive. He would like for him to be DO NOT RESUSCITATE. I think that this is very reasonable and if he codes again he is unlikely to recover. We are doing maximal supportive care that we can at this point. We will continue with antibiotics. The source of his infection is unclear. I do not think that is from his abdomen. His leg looks better than it is ever looked and his CT scan of his leg was negative. I discussed the possibility of amputation with his son and he does not feel that he would want to do this unless we were sure that it was going to help his situation. He understands that I think he is probably not going to survive this episode. We will continue with continued supportive care and change his CODE STATUS to DNR. 03/26: He is stool came back positive for Clostridium difficile. It had been negative before. He is still critically ill on the ventilator. I did discuss this case with Dr. Lombardi from gastroenterology. He is going to do a more endoscopy at the bedside and probably place an infusion catheter to instill vancomycin and his colon. Discussed the possibility of total colectomy as well. We can give him a short trial of medical treatment for his colitis. This is of course if he confirmed pseudomembranes on sigmoidoscopy. He may require total abdominal colectomy. Current Visit: Yes Qualifiers: Sepsis type: sepsis due to unspecified organism Qualified Code(s): A41.9 - Sepsis, unspecified organism Subjective Patient reports: Present: no new complaints, other (Having some diarrhea on the ventilator) Exam - Constitutional Vitals: Period Temp Pulse Resp BP Sys/Mancera Pulse Ox Last 24 Hr 97 F-100 F 60-156 15-46 48-154/34-136 81-100 - Respiratory Respiratory exam: Absent: accessory muscle use - GI/Abdominal GI/Abdominal exam: Present: distended. Absent: guarding, tenderness Results - Labs CBC & BMP: 03/26/17 04:00 03/26/17 04:05 Lab Results: I have reviewed the past 24 hour labs Quality Measures - VTE Contraindication to Pharmacological VTE Prophylaxis: High Risk of Bleeding Contraindication to Mechanical VTE Prophylaxis: Ischemic Vascular Disease
--- NOTE | 2017-03-26 07:02 | Gastrointestinal Progress Note ---
Assessment and Plan (1) Gastrointestinal hemorrhage with melena Status: Acute Assessment and plan: Patient noted today to have dark grossly guaiac positive stools on physical exam consistent with melena. He does have some mild epigastric tenderness as well as some reflux symptoms. I am going to increase his Protonix to 40 mg twice daily and we will get him scheduled for upper endoscopy to occur tomorrow. Differential diagnosis is wide but includes esophagitis, gastritis, peptic ulcer disease, AVMs, duodenitis and gastric cancer. This patient may also have some component of anemia due to his necrotic leg ulcers and of course anemia of chronic disease with bone marrow suppression as additional components to his blood loss. I will definitely check the patient's stomach for evidence of Helicobacter pylori infection and possibly celiac sprue. 03/23/17--This patient had bleeding due to a number of causes: 13 cm of LA class D erosive esophagitis in the distal third of the esophagus. There was gastroparesis evident by retained food in the fundus, lesser curvature gastric ulcer 3 cm in size biopsied to rule out malignancy, duodenal bulb ulcer and duodenitis noted as well. 03/24/17--Biopsies from the stomach are still pending at this point to rule out malignancy with gastric cancer/lymphoma. Will look for Helicobacter pylori as well. The patient is on Protonix twice daily and appears that this is allowing his hematocrit to regenerate adequately. No need for colonoscopy this admission. 03/25/17--Biopsies from the stomach show relatively benign appearance without evidence of lymphoma or cancer. Patient continues on Protonix twice daily, he is requiring blood now 2 units with an extremely high white blood cell count of unclear etiology. Laparoscopy did not demonstrate any evidence of soilage or dusky bowel. I will go ahead and check a lactic acid level tomorrow morning. Patient remains on acid blocking medication for his esophagitis and ulcers. The large deep ulcer in the lesser curvature is at risk for perforation. 03/26/17--the patient's C. difficile has returned positive now with a white blood cell count of 60,000, got is not going to work with the ileus present, we will need to treat the C. difficile/toxic megacolon (likely) with rectal tube and retention enemas after sigmoidoscopy/colonoscopy to confirm the diagnosis. Dr. Stephanie Contreras may need to do surgery in order to remove the colon if this proves to be compromised. Current Visit: Yes (2) Anemia Status: Acute Assessment and plan: The patient is getting 2 units now, and hematocrit is dropped from 33.5-->29.3 on the off chance that this might help stabilize the patient's pressure if he is actively bleeding and also has an underlying sepsis. 03/26/17--anemia now resolved status post transfusion, hematocrit is 40%, I suspect bone marrow suppression and ongoing blood losses from the GI tract given the dark stools. Hypotension is likely due to sepsis. Current Visit: Yes (3) GERD (gastroesophageal reflux disease) Status: Acute Assessment and plan: He does have some mild reflux symptoms and this should be controlled with pantoprazole 40 mg twice daily. Will check again tomorrow to see if esophagitis is present that might be feeding into his anemia. 03/23/17--13 cm of LA class D erosive esophagitis noted on upper endoscopy. 03/24/17--As noted above, patient is not complaining any difficulty with swallowing or heartburn now. 03/25/17--As noted above from yesterday. 03/26/17--no gross evidence of cancer in the GI tract biopsied previously with upper endoscopy done on 03/23/17 Current Visit: Yes (4) Screening for colorectal cancer Status: Acute Assessment and plan: The patient has not had a colonoscopy up to this point and is 15 years overdue. There may be a second source for anemia although with his recent drop from hematocrit of 38 to his current 27% this seems more like an acute illness as opposed to chronic blood loss from a cancer. We can arrange for colonoscopy to occur as an outpatient further down the road. We can leave him on his diet at present time and will arrange for upper endoscopy tomorrow morning. If no source of bleeding is found we may consider doing colonoscopy this admission, given the dark guaiac positive stools. 03/23/17--The patient has enough reasons for his anemia on upper GI tract evaluation. Likely put off colonoscopy until a later date as an outpatient, this could be accomplished at the same time we do the follow-up 8 week exam to recheck the ulcer in the stomach. 03/24/17--Will observe this patient on food. 03/25/17--If the patient survives to tomorrow we can consider doing a limited flexible sigmoidoscopy to look and see if there are pseudomembranes, however I think this is unlikely given the patient's C. difficile being negative, however megacolon could result in this situation. Patient is getting Flagyl IV as well- -we might need to drag a tube into the proximal colon in order to irrigate liquid vancomycin to this region if that unprepped flexible sigmoidoscopy were to be positive for pseudomembranes. 03/26/17--we will do a colonoscopy versus flexible sigmoidoscopy to confirm the presence of pseudomembranes and/or toxic megacolon. We will try and drag it tube up rectally into as high up as it will go in the GI tract for retention enema. Current Visit: Yes Gastroenterology - PN: Subj Interval history: The patient's white blood cell count is up to 60.7 thousand, pressors cannot be weaned. The patient is putting out small amounts of black liquid via rectal tube, over the evening he has become an uric, multisystem organ failure setting and. The patient underwent a bedside laparotomy by Dr. Brown yesterday which did not show any ebony pus in the abdomen and no evidence of dusky bowel was seen. The patient is a DNR but over the evening time C. difficile has come back positive and so toxic megacolon is in the differential. Exam (Progress Note) - Constitutional Vitals: Period Temp Pulse Resp BP Sys/Mancera Pulse Ox Last 24 Hr 97 F-100 F 60-156 15-46 48-154/34-136 81-100 General appearance: severe distress - ENT ENT exam: Present: other (Intubated) - Respiratory Respiratory exam: Present: rhonchi. Absent: wheezes - Cardiovascular Cardiovascular exam: Present: irregular rhythm, tachycardia - GI/Abdominal GI/Abdominal exam: Present: distended, soft, other (The patient essentially has no bowel sounds, distended and tympanitic). Absent: guarding, rebound - Extremities Exam Extremities exam: Present: edema - Neurological Exam Neurological exam: Present: other (Sedated on the propofol) - Skin Skin exam: Present: warm Results - Labs CBC & BMP: 03/26/17 04:00 03/26/17 04:05
--- NOTE | 2017-03-26 07:03 | Pulmonology Progress Note ---
Pulmonary - PN: Subj Interval history: 66-year-old man with a right leg infection and sepsis. He has developed bilateral perihilar and upper lobe infiltrates consistent with congestive heart failure. He has been diuresed but his x-ray really does not look much better. His O2 sat is in the upper 90s on facemask BiPAP 50% oxygen with a setting of 10 /5. His heart rate has gone up to around 115 with atrial fibrillation again. Respiratory rate is about 40. Blood pressure is on the low side. He has a metabolic acidosis. I stopped his IV fluids yesterday because of the congestive heart failure. We will give him 1 amp of bicarbonate diurese further. Patient does not appear to be tiring out but may require mechanical ventilation. His abdomen is also somewhat protuberant and I do not hear bowel sounds. May be developing ileus. 03/26/2017 patient had cardiopulmonary arrest yesterday with CPR intubation. Has a central line now. We will stop the Lasix. He is getting a good bit of fluid because of hypotension. He has a distended abdomen may well have toxic megacolon. He does have positive stool for C. difficile now. GI is seeing him. His chest x-ray looks pretty clear. Has some minimal cephalization. PO2 is in the mid 200s. We will reduce FiO2 from 100% to 60%. Still has a significant metabolic acidosis. Exam (Progress Note) - Constitutional Vitals: Period Temp Pulse Resp BP Sys/Macnera Pulse Ox Last 24 Hr 97 F-100 F 60-156 15-46 48-154/34-136 81-100 Exam: He is poorly responsive, on sedation on the ventilator. Systolic blood pressure around 75. Afebrile. Pupils reactive. Neck is supple. Chest reveals some basilar rales. Heart rate is rapid and irregular. Abdomen is protuberant. I do not hear any bowel sounds. These nontender. Extremities no clubbing or cyanosis. Bandage on right leg. Trace of edema. Results - Labs CBC & BMP: 03/26/17 04:00 03/26/17 04:05 Lab Results: I have reviewed the past 24 hour labs - Diagnostic Findings Procedure: Chest x-ray: image reviewed by me (Minimal interstitial infiltrates in the upper lobes. Looks better than yesterday. ET tube in good position. CVP line in good position.) Assessment and Plan (1) Congestive heart failure with left ventricular diastolic dysfunction Status: Acute Assessment and plan: Chest x-ray has developed bilateral upper lobe infiltrates consistent with cephalization as with congestive heart failure since admission. His weight is not up but he was up about 2 L the first day he was here. He is surgically diuresed. He feels a little better at present. He has LVH with a normal LV ejection fraction and 2+ diastolic dysfunction on echo. His BNP was 291 day before yesterday. I do think we need to stop his IV fluids and diurese him further. Getting his heart rhythm regulated will help with good bit. He is getting amiodarone and is at present in sinus rhythm with a rate of 100. 03/25/2017 patient is back in atrial fibrillation with rapid ventricular response. This is aggravating his congestive heart failure. 03/26/2017 has a low blood pressure. Have stopped his Lasix. Appears septic. Current Visit: Yes Qualifiers: Congestive heart failure chronicity: acute Qualified Code(s): I50.31 - Acute diastolic (congestive) heart failure (2) Sepsis Status: Acute Assessment and plan: Continuing with antibiotics for sepsis due to right leg wound. I suspect it was originally a staph infection. He never saw the spider. 03/25/2017 continuing broad-spectrum antibiotics. 03/26/2017 patient is on broad-spectrum antibiotics. Has been started on Flagyl for apparent C. difficile colitis with probable megacolon. Defer to infectious disease and GI as far as where to go with antibiotics. Current Visit: Yes Qualifiers: Sepsis type: sepsis due to unspecified organism Qualified Code(s): A41.9 - Sepsis, unspecified organism (3) Ischemic necrosis of right leg Status: Acute Assessment and plan: Post debridement. Broad-spectrum antibiotics. CPK has come down since admission 03/25/2017 surgery following. 03/26/2017 the leg does not appear to be grossly infected. Current Visit: Yes (4) Atrial fibrillation with RVR Status: Acute Assessment and plan: Presently sinus rhythm with rate of 100. Hopefully will stay there. 03/25/2017 heart rate 115 and atrial fibrillation. Cardiology is addressing. 03/26/2017 has atrial fibrillation with a rate in the 110-120 range. Cardiology following the Current Visit: Yes (5) Diabetes Status: Chronic Assessment and plan: Blood sugars fairly well controlled. 03/25/2017 glucoses have been fairly well controlled. He does have a metabolic acidosis however. Recheck lactic acid level. 03/26/2017 glucoses are well controlled. Does have significant lactic acidosis. Lactic acid was 7 yesterday Current Visit: Yes (6) Melena Status: Acute Assessment and plan: No further bleeding. Current Visit: Yes (7) Erosive esophagitis Status: Acute Assessment and plan: Had GI bleeding secondary to this. Current Visit: Yes (8) Acute respiratory failure with hypoxemia Status: Acute Assessment and plan: Oxygen saturation in the upper 90s on facemask BiPAP with settings of 10/5 and 50% oxygen. Try to reduce the oxygen a little bit. I think this will improve with diuresis. 03/25/2017 his PO2 was in the 50s this morning however with no changes on the BiPAP settings are FiO2, his O2 sats measured in the upper 90s on the oximeter at present. Will not change settings. 03/26/2017 PO2 is in the mid 200s on 100% oxygen on the ventilator. We will reduce FiO2 to 60%. Continues to need hyperventilation to help correct his metabolic acidosis. This appears to be lactic acidosis due to sepsis. Current Visit: Yes
[2017-03-26] MEDS: LEVOTHYROXINE 100 MCG TABLET PO SCH (07:06)
--- NOTE | 2017-03-26 08:35 | XRay Report ---
History: Patient on ventilator Date: 03/26/2017 Study: Chest x-ray AP portable Comparison exam: 03/25/2017. A right subclavian central line is well-positioned with its tip over the atriocaval junction level. The endotracheal and nasogastric tubes remain in stable position. There is no pneumothorax. There is no gross pleural effusion. There is improved aeration in both lungs compared to the previous study, though there is still some strandy and hazy right basilar and left mid to upper lung infiltrate. There is no interval worsening. Osseous structures are stable. The cardiomediastinal silhouette is unchanged. Impression: Improved bilateral infiltrate compared to the previous study. Otherwise stable exam PROCEDURE INTERPRETED AT [facility] DEPARTMENT OF RADIOLOGY Final Report Signed by: Dr. Linda Gaxiola
[2017-03-26] MEDS: PANTOPRAZOLE 40 MG VIAL IV SCH (09:52)
[2017-03-26] MEDS: HYDROCORTISONE 100 MG VIAL IV SCH (09:53)
[2017-03-26] MEDS ORDERED: SODIUM CHLORIDE 0.9% 1,000 ML IV ONE (10:07)
--- NOTE | 2017-03-26 10:18 | Infectious Disease Progress ---
Assessment and Plan (1) Acute renal failure (ARF) Status: Acute Assessment and plan: Renal function acutely deteriorated and worsening with oliguria likely due to severe hypotention. Will further adjust antibiotic doses. Current Visit: Yes (2) Ischemic necrosis of right leg Status: Acute Assessment and plan: His leg is not actively infected. Current Visit: Yes (3) Peripheral vascular disease Status: Acute Current Visit: Yes (4) Diabetes Status: Chronic Current Visit: Yes (5) Hyperlipidemia Status: Chronic Current Visit: No (6) Leukocytosis Status: Acute Assessment and plan: Patient indeed has C. diff. and the severe leukocytosis is a leukemoid reaction to severe C. diff. Recommendations: treatment as below Current Visit: Yes (7) C. difficile colitis Status: Acute Assessment and plan: Very severe C. diff. infection with presumed pseudomembranous colitis with toxic megacolon. THis is the cause of the profound leukocytosis. No evidence of any other infection. Recommendations: 1. Continue IV FLagyl 2. Patient needs vancomycin enemas, 500mg q6h, but nurses are doing soap water enemas per Dr Bundy in preparation for a C-scope 3. Stop the daptomycin and meropenem as all other cultures negative 4. Colectomy may be the only way to treat this severe case of C. diff. However given the current critical state and comorbids, he is unlikely to survive such surgery (BP currently unmeasurable) Prognosis dismal unfortunately Current Visit: Yes Infectious Disease - PN: Subj Interval history: Patient has deteriorated since yesterday, maxed out on 2 pressors. Had bedside minilap yesterday but nothing untoward found. He continues to be oliguric. poorly responsive. No fever. Infectious Disease Exam (PN) - Constitutional Vitals: Temp Pulse Resp BP Pulse Ox 98.4 F 122 H 24 87/72 94 L 03/26/17 04:00 03/26/17 06:45 03/26/17 09:34 03/26/17 06:45 03/26/17 06:00 General appearance: severe distress Exam: General appearance: unresponsive on the vent - Eye Eye exam: Present: EOMI. no icterus, scleral edema Pupils: Present: KATHERYN - ENT ENT exam: ET tube in situ - Respiratory Respiratory exam: vesicular BS, no crepitations or wheezes - Cardiovascular Cardiovascular exam: regular rate and rhythm, no murmurs - GI/Abdominal GI/Abdominal exam: Abdomen seems a little less distended than yesterday, absent bowel sounds, soft - Extremities Exam Extremities exam: Right leg wound bandaged - Skin Skin exam: no rash, skin very mottled and cool Results - Labs CBC & BMP: 03/26/17 04:00 03/26/17 04:05 Lab Results: I have reviewed the past 24 hour labs Quality Measures - VTE Contraindication to Pharmacological VTE Prophylaxis: High Risk of Bleeding Contraindication to Mechanical VTE Prophylaxis: Ischemic Vascular Disease
--- NOTE | 2017-03-26 11:14 | Cardiology Progress Note ---
Assessment and Plan (1) Atrial fibrillation with RVR Status: Acute Current Visit: Yes (2) Diabetes Status: Chronic Assessment and plan: SEE PLAN OF CARE LISTED BELOW. Current Visit: Yes (3) Melena Status: Acute Assessment and plan: SEE PLAN OF CARE LISTED BELOW. Current Visit: Yes (4) Anemia Status: Acute Assessment and plan: SEE PLAN OF CARE LISTED BELOW. Current Visit: Yes (5) Elevated AST (SGOT) Status: Acute Assessment and plan: SEE PLAN OF CARE LISTED BELOW. Current Visit: Yes (6) Ischemic necrosis of right leg Status: Acute Current Visit: Yes (7) Tobacco abuse Status: Chronic Assessment and plan: SEE PLAN OF CARE LISTED BELOW. Current Visit: Yes (8) Hx of supraventricular tachycardia Status: Chronic Assessment and plan: SEE PLAN OF CARE LISTED BELOW. Current Visit: No (9) Hyperlipidemia Status: Chronic Assessment and plan: SEE PLAN OF CARE LISTED BELOW. Current Visit: No (10) Hypertension Status: Chronic Assessment and plan: SEE PLAN OF CARE LISTED BELOW. Current Visit: No (11) Hypothyroidism Status: Chronic Assessment and plan: SEE PLAN OF CARE LISTED BELOW. Current Visit: No (12) Erosive esophagitis Status: Acute Assessment and plan: SEE PLAN OF CARE LISTED BELOW. Current Visit: Yes (13) Sepsis Status: Acute Assessment and plan: SEE PLAN OF CARE LISTED BELOW. Current Visit: Yes Qualifiers: Sepsis type: sepsis due to unspecified organism Qualified Code(s): A41.9 - Sepsis, unspecified organism (14) Acute kidney injury Status: Acute Assessment and plan: SEE PLAN OF CARE LISTED BELOW. Current Visit: Yes (15) Congestive heart failure with left ventricular diastolic dysfunction Status: Acute Assessment and plan: SEE PLAN OF CARE LISTED BELOW. Current Visit: Yes Qualifiers: Congestive heart failure chronicity: acute Qualified Code(s): I50.31 - Acute diastolic (congestive) heart failure Exam (Progress Note) - Constitutional Vitals: Period Temp Pulse Resp BP Sys/Mancera Pulse Ox Last 24 Hr 97 F-100 F 84-156 15-34 48-146/34-112 93-100 Result/EKG - Labs CBC & BMP: 03/26/17 04:00 03/26/17 04:05 Labs: Laboratory Results - last 24 hr 03/21/17 03/25/17 03/25/17 18:01 09:10 11:44 WBC RBC Hgb Hct MCV MCH MCHC RDW Plt Count MPV Neut % (Auto) Lymph % (Auto) [place] % (Auto) Eos % (Auto) Baso % (Auto) Neut # (Auto) Lymph # (Auto) [place] # (Auto) Eos # (Auto) Baso # (Auto) Total Counted Immature Gran % Nucleated RBC % Immature Gran # Segmented Neutrophils Band Neutrophils Lymphocytes Monocytes Nucleated RBCs # Immature Plt Fraction Hypochromasia Microcytosis [place] Cells Morphology Comment ABG pH ABG pCO2 ABG pO2 ABG HCO3 ABG Total CO2 ABG O2 Saturation ABG Base Excess VBG pH VBG pCO2 VBG pO2 VBG HCO3 VBG Total CO2 VBG O2 Saturation VBG Base Excess FiO2 Sodium Potassium Chloride Carbon Dioxide Anion Gap BUN Creatinine GFR Calculation BUN/Creatinine Ratio Glucose POC Glucose 108 H Calculated Osmolality Lactic Acid Calcium Magnesium Total Bilirubin AST ALT Alkaline Phosphatase Total Protein Albumin Globulin Albumin/Globulin Ratio O & P Concentrate Exam See comments Blood Type AB POSITIVE Antibody Screen Negative Crossmatch See Detail 03/25/17 03/25/17 03/25/17 12:24 14:48 16:12 WBC RBC Hgb Hct MCV MCH MCHC RDW Plt Count MPV Neut % (Auto) Lymph % (Auto) [place] % (Auto) Eos % (Auto) Baso % (Auto) Neut # (Auto) Lymph # (Auto) [place] # (Auto) Eos # (Auto) Baso # (Auto) Total Counted Immature Gran % Nucleated RBC % Immature Gran # Segmented Neutrophils Band Neutrophils Lymphocytes Monocytes Nucleated RBCs # Immature Plt Fraction Hypochromasia Microcytosis Noé Cells Morphology Comment ABG pH ABG pCO2 ABG pO2 ABG HCO3 ABG Total CO2 ABG O2 Saturation ABG Base Excess VBG pH VBG pCO2 VBG pO2 VBG HCO3 VBG Total CO2 VBG O2 Saturation VBG Base Excess FiO2 Sodium Potassium Chloride Carbon Dioxide Anion Gap BUN Creatinine GFR Calculation BUN/Creatinine Ratio Glucose POC Glucose 125 H 125 H Calculated Osmolality Lactic Acid 7.3 H Calcium Magnesium Total Bilirubin AST ALT Alkaline Phosphatase Total Protein Albumin Globulin Albumin/Globulin Ratio O & P Concentrate Exam Blood Type Antibody Screen Crossmatch 03/25/17 03/25/17 03/25/17 18:07 20:25 22:11 WBC RBC Hgb Hct MCV MCH MCHC RDW Plt Count MPV Neut % (Auto) Lymph % (Auto) [place] % (Auto) Eos % (Auto) Baso % (Auto) Neut # (Auto) Lymph # (Auto) [place] # (Auto) Eos # (Auto) Baso # (Auto) Total Counted Immature Gran % Nucleated RBC % Immature Gran # Segmented Neutrophils Band Neutrophils Lymphocytes Monocytes Nucleated RBCs # Immature Plt Fraction Hypochromasia Microcytosis Noé Cells Morphology Comment ABG pH ABG pCO2 ABG pO2 ABG HCO3 ABG Total CO2 ABG O2 Saturation ABG Base Excess VBG pH 7.323 VBG pCO2 30.2 L VBG pO2 48.4 H VBG HCO3 16.8 L VBG Total CO2 13.9 VBG O2 Saturation 80.6 VBG Base Excess -9.3 L FiO2 21.00 Sodium Potassium Chloride Carbon Dioxide Anion Gap BUN Creatinine GFR Calculation BUN/Creatinine Ratio Glucose POC Glucose 107 H 122 H Calculated Osmolality Lactic Acid Calcium Magnesium Total Bilirubin AST ALT Alkaline Phosphatase Total Protein Albumin Globulin Albumin/Globulin Ratio O & P Concentrate Exam Blood Type Antibody Screen Crossmatch 03/26/17 03/26/17 03/26/17 01:41 03:15 04:00 WBC 60.7 H* RBC 4.57 D Hgb 13.9 L D Hct 40.8 L MCV 89.3 MCH 30 MCHC 34.1 RDW 16.2 Plt Count 244 D MPV 10.6 Neut % (Auto) 90.6 H Lymph % (Auto) 3.0 L Spencer % (Auto) 3.2 Eos % (Auto) 0.0 Baso % (Auto) 0.0 Neut # (Auto) 55.0 H Lymph # (Auto) 1.8 Spencer # (Auto) 1.9 H Eos # (Auto) 0.0 Baso # (Auto) 0.0 Total Counted 100 Immature Gran % 3.2 Nucleated RBC % 0.3 Immature Gran # 1.93 Segmented Neutrophils 91 H Band Neutrophils 2 Lymphocytes 4 L Monocytes 3 Nucleated RBCs # 0.18 Immature Plt Fraction 0.0 Hypochromasia Slight Microcytosis 1+ Noé Cells Slight Morphology Comment ABG pH 7.391 ABG pCO2 21.6 L ABG pO2 257.0 H ABG HCO3 16.6 L ABG Total CO2 11.4 L ABG O2 Saturation 99.6 ABG Base Excess -10.0 L VBG pH VBG pCO2 VBG pO2 VBG HCO3 VBG Total CO2 VBG O2 Saturation VBG Base Excess FiO2 100.00 Sodium Potassium Chloride Carbon Dioxide Anion Gap BUN Creatinine GFR Calculation BUN/Creatinine Ratio Glucose POC Glucose 125 H Calculated Osmolality Lactic Acid Calcium Magnesium Total Bilirubin AST ALT Alkaline Phosphatase Total Protein Albumin Globulin Albumin/Globulin Ratio O & P Concentrate Exam Blood Type Antibody Screen Crossmatch 03/26/17 03/26/17 04:05 06:32 WBC RBC Hgb Hct MCV MCH MCHC RDW Plt Count MPV Neut % (Auto) Lymph % (Auto) [place] % (Auto) Eos % (Auto) Baso % (Auto) Neut # (Auto) Lymph # (Auto) [place] # (Auto) Eos # (Auto) Baso # (Auto) Total Counted Immature Gran % Nucleated RBC % Immature Gran # Segmented Neutrophils Band Neutrophils Lymphocytes Monocytes Nucleated RBCs # Immature Plt Fraction Hypochromasia Microcytosis [place] Cells Morphology Comment ABG pH ABG pCO2 ABG pO2 ABG HCO3 ABG Total CO2 ABG O2 Saturation ABG Base Excess VBG pH VBG pCO2 VBG pO2 VBG HCO3 VBG Total CO2 VBG O2 Saturation VBG Base Excess FiO2 Sodium 140 Potassium 5.2 H Chloride 105 Carbon Dioxide 17 L Anion Gap 23.2 H BUN 62 H D Creatinine 2.90 H GFR Calculation 25 BUN/Creatinine Ratio 21.00 H Glucose 157 H POC Glucose 156 H Calculated Osmolality 299.4 Lactic Acid Calcium 7.3 L Magnesium 3.0 H Total Bilirubin 2.20 H AST 3139 H ALT 954 H Alkaline Phosphatase 249 H Total Protein 4.6 L Albumin 1.7 L Globulin 2.9 Albumin/Globulin Ratio 0.5 L O & P Concentrate Exam Blood Type Antibody Screen Crossmatch Quality Measures - VTE Contraindication to Pharmacological VTE Prophylaxis: High Risk of Bleeding Contraindication to Mechanical VTE Prophylaxis: Ischemic Vascular Disease
--- NOTE | 2017-03-26 11:16 | Cardiology Progress Note ---
Assessment and Plan (1) Atrial fibrillation with RVR Status: Acute Assessment and plan: 66-year-old male, anemia, erosive esophagitis, severe PAD, ischemic right lower extremity, paroxysmal atrial fibrillation/RVR. Preserved ejection fraction, normal pulmonary pressure on echo. Patient had a cold earlier today, suspected pulseless electrical activity, he never had asystole or sustained VTA. Responded to epinephrine, CPR. Now intubated Labs show worsened WBC count, abdomen is more distended. He seems to be having overwhelming C. difficile infection. Deteriorating clinical course, despite maximal medical management. -Continue fluids, pressors for blood pressure support. -Continue amiodarone for heart rate control. LFTs are markedly elevated, suspect shock liver. I do not think we have other means for rate control at this point, despite the risk of amiodarone exacerbating liver issues -He is not a candidate for anticoagulation due to anemia, severe upper GI findings. -Severe PAD, lower extremity infection. He is not a candidate for surgical revascularization at this time due to high procedure risks. Both lower extremities appeared to be ischemic at this time, likely due to severe hypotension and high-dose pressors -Prognosis is dismal Current Visit: Yes (2) C. difficile colitis Status: Acute Current Visit: Yes Cardiology - PN: Subj Interval history: He remains hypotensive, despite high-dose pressor support. Mini lap at bedside yesterday did not show bowel necrosis. Overwhelming CBC infection is suspected , with worsening clinical course. In atrial fibrillation, RVR. He is unresponsive, intubated on the vent. LFTs increasing, labs show worsening sepsis Exam (Progress Note) - Constitutional Vitals: Period Temp Pulse Resp BP Sys/Mancera Pulse Ox Last 24 Hr 97 F-100 F 84-156 15-34 48-146/34-112 93-100 General appearance: no acute distress, over weight - Head Head exam: Present: normal inspection. Absent: hematoma - Eye Eye exam: Absent: periorbital swelling, laceration to eyelids - ENT ENT exam: Present: normal external ear exam - Neck Neck exam: Present: normal inspection, other (Intubated) - Respiratory Respiratory exam: Present: decreased breath sounds. Absent: accessory muscle use, wheezes - Cardiovascular Cardiovascular exam: Present: irregular rhythm, tachycardia - GI/Abdominal GI/Abdominal exam: Present: distended, hypoactive bowel sounds - Extremities Exam Extremities exam: Present: other (Right lower extremity bandaged, both lower extremities are mottled, cyanotic) - Neurological Exam Neurological exam: Present: other (Unresponsive) - Skin Skin exam: Present: cyanosis, mottled Result/EKG - Labs CBC & BMP: 03/26/17 04:00 03/26/17 04:05 Lab Results: I have reviewed the past 24 hour labs Labs: Laboratory Results - last 24 hr 03/21/17 03/25/17 03/25/17 18:01 09:10 11:44 WBC RBC Hgb Hct MCV MCH MCHC RDW Plt Count MPV Neut % (Auto) Lymph % (Auto) [place] % (Auto) Eos % (Auto) Baso % (Auto) Neut # (Auto) Lymph # (Auto) [place] # (Auto) Eos # (Auto) Baso # (Auto) Total Counted Immature Gran % Nucleated RBC % Immature Gran # Segmented Neutrophils Band Neutrophils Lymphocytes Monocytes Nucleated RBCs # Immature Plt Fraction Hypochromasia Microcytosis Noé Cells Morphology Comment ABG pH ABG pCO2 ABG pO2 ABG HCO3 ABG Total CO2 ABG O2 Saturation ABG Base Excess VBG pH VBG pCO2 VBG pO2 VBG HCO3 VBG Total CO2 VBG O2 Saturation VBG Base Excess FiO2 Sodium Potassium Chloride Carbon Dioxide Anion Gap BUN Creatinine GFR Calculation BUN/Creatinine Ratio Glucose POC Glucose 108 H Calculated Osmolality Lactic Acid Calcium Magnesium Total Bilirubin AST ALT Alkaline Phosphatase Total Protein Albumin Globulin Albumin/Globulin Ratio O & P Concentrate Exam See comments Blood Type AB POSITIVE Antibody Screen Negative Crossmatch See Detail 03/25/17 03/25/17 03/25/17 12:24 14:48 16:12 WBC RBC Hgb Hct MCV MCH MCHC RDW Plt Count MPV Neut % (Auto) Lymph % (Auto) [place] % (Auto) Eos % (Auto) Baso % (Auto) Neut # (Auto) Lymph # (Auto) [place] # (Auto) Eos # (Auto) Baso # (Auto) Total Counted Immature Gran % Nucleated RBC % Immature Gran # Segmented Neutrophils Band Neutrophils Lymphocytes Monocytes Nucleated RBCs # Immature Plt Fraction Hypochromasia Microcytosis [place] Cells Morphology Comment ABG pH ABG pCO2 ABG pO2 ABG HCO3 ABG Total CO2 ABG O2 Saturation ABG Base Excess VBG pH VBG pCO2 VBG pO2 VBG HCO3 VBG Total CO2 VBG O2 Saturation VBG Base Excess FiO2 Sodium Potassium Chloride Carbon Dioxide Anion Gap BUN Creatinine GFR Calculation BUN/Creatinine Ratio Glucose POC Glucose 125 H 125 H Calculated Osmolality Lactic Acid 7.3 H Calcium Magnesium Total Bilirubin AST ALT Alkaline Phosphatase Total Protein Albumin Globulin Albumin/Globulin Ratio O & P Concentrate Exam Blood Type Antibody Screen Crossmatch 03/25/17 03/25/17 03/25/17 18:07 20:25 22:11 WBC RBC Hgb Hct MCV MCH MCHC RDW Plt Count MPV Neut % (Auto) Lymph % (Auto) [place] % (Auto) Eos % (Auto) Baso % (Auto) Neut # (Auto) Lymph # (Auto) [place] # (Auto) Eos # (Auto) Baso # (Auto) Total Counted Immature Gran % Nucleated RBC % Immature Gran # Segmented Neutrophils Band Neutrophils Lymphocytes Monocytes Nucleated RBCs # Immature Plt Fraction Hypochromasia Microcytosis Noé Cells Morphology Comment ABG pH ABG pCO2 ABG pO2 ABG HCO3 ABG Total CO2 ABG O2 Saturation ABG Base Excess VBG pH 7.323 VBG pCO2 30.2 L VBG pO2 48.4 H VBG HCO3 16.8 L VBG Total CO2 13.9 VBG O2 Saturation 80.6 VBG Base Excess -9.3 L FiO2 21.00 Sodium Potassium Chloride Carbon Dioxide Anion Gap BUN Creatinine GFR Calculation BUN/Creatinine Ratio Glucose POC Glucose 107 H 122 H Calculated Osmolality Lactic Acid Calcium Magnesium Total Bilirubin AST ALT Alkaline Phosphatase Total Protein Albumin Globulin Albumin/Globulin Ratio O & P Concentrate Exam Blood Type Antibody Screen Crossmatch 03/26/17 03/26/17 03/26/17 01:41 03:15 04:00 WBC 60.7 H* RBC 4.57 D Hgb 13.9 L D Hct 40.8 L MCV 89.3 MCH 30 MCHC 34.1 RDW 16.2 Plt Count 244 D MPV 10.6 Neut % (Auto) 90.6 H Lymph % (Auto) 3.0 L [place] % (Auto) 3.2 Eos % (Auto) 0.0 Baso % (Auto) 0.0 Neut # (Auto) 55.0 H Lymph # (Auto) 1.8 [place] # (Auto) 1.9 H Eos # (Auto) 0.0 Baso # (Auto) 0.0 Total Counted 100 Immature Gran % 3.2 Nucleated RBC % 0.3 Immature Gran # 1.93 Segmented Neutrophils 91 H Band Neutrophils 2 Lymphocytes 4 L Monocytes 3 Nucleated RBCs # 0.18 Immature Plt Fraction 0.0 Hypochromasia Slight Microcytosis 1+ Noé Cells Slight Morphology Comment ABG pH 7.391 ABG pCO2 21.6 L ABG pO2 257.0 H ABG HCO3 16.6 L ABG Total CO2 11.4 L ABG O2 Saturation 99.6 ABG Base Excess -10.0 L VBG pH VBG pCO2 VBG pO2 VBG HCO3 VBG Total CO2 VBG O2 Saturation VBG Base Excess FiO2 100.00 Sodium Potassium Chloride Carbon Dioxide Anion Gap BUN Creatinine GFR Calculation BUN/Creatinine Ratio Glucose POC Glucose 125 H Calculated Osmolality Lactic Acid Calcium Magnesium Total Bilirubin AST ALT Alkaline Phosphatase Total Protein Albumin Globulin Albumin/Globulin Ratio O & P Concentrate Exam Blood Type Antibody Screen Crossmatch 03/26/17 03/26/17 04:05 06:32 WBC RBC Hgb Hct MCV MCH MCHC RDW Plt Count MPV Neut % (Auto) Lymph % (Auto) [place] % (Auto) Eos % (Auto) Baso % (Auto) Neut # (Auto) Lymph # (Auto) [place] # (Auto) Eos # (Auto) Baso # (Auto) Total Counted Immature Gran % Nucleated RBC % Immature Gran # Segmented Neutrophils Band Neutrophils Lymphocytes Monocytes Nucleated RBCs # Immature Plt Fraction Hypochromasia Microcytosis Noé Cells Morphology Comment ABG pH ABG pCO2 ABG pO2 ABG HCO3 ABG Total CO2 ABG O2 Saturation ABG Base Excess VBG pH VBG pCO2 VBG pO2 VBG HCO3 VBG Total CO2 VBG O2 Saturation VBG Base Excess FiO2 Sodium 140 Potassium 5.2 H Chloride 105 Carbon Dioxide 17 L Anion Gap 23.2 H BUN 62 H D Creatinine 2.90 H GFR Calculation 25 BUN/Creatinine Ratio 21.00 H Glucose 157 H POC Glucose 156 H Calculated Osmolality 299.4 Lactic Acid Calcium 7.3 L Magnesium 3.0 H Total Bilirubin 2.20 H AST 3139 H ALT 954 H Alkaline Phosphatase 249 H Total Protein 4.6 L Albumin 1.7 L Globulin 2.9 Albumin/Globulin Ratio 0.5 L O & P Concentrate Exam Blood Type Antibody Screen Crossmatch - EKG EKG results: interpreted by me Quality Measures - VTE Contraindication to Pharmacological VTE Prophylaxis: High Risk of Bleeding Contraindication to Mechanical VTE Prophylaxis: Ischemic Vascular Disease
[2017-03-26] MEDS: INSULIN REGULAR 100 UNIT/ML SUBCUT SCH ×3 (11:41→17:37)
[2017-03-26] MEDS ORDERED: HEPARIN/NACL 0.9% 2 UNITS/ML 500 ML IV ONE (11:57)
[2017-03-26] MEDS ORDERED: VANCOMYCIN 50 MG/ML 60 ML/BOTTLE PER TUBE SCH (12:00)
--- NOTE | 2017-03-26 13:00 | Event Note ---
He has been profoundly hypotensive and anesthesia is been unable to sedate him for colonoscopy safely. We have had multiple attempts at arterial lines as well including by anesthesia. I had discussion once again with his nephew who understands that he is not going to survive this. It is clear that he is not a surgical candidate. I suspect that he has toxic megacolon. He would not tolerate induction with anesthesia. This was all discussed with his nephew and he understands that he is not going to survive and would like to have him be DO NOT RESUSCITATE which is reasonable. His nephew is contacted his children that he has been estranged from.
[2017-03-26] MEDS: VANCOMYCIN 500 MG RECTAL SCH ×2 (13:10→14:14)
[2017-03-26] MEDS: [UNRECOGNIZED DRUG - OTHER] RECTAL SCH ×2 (13:10→14:14)
--- NOTE | 2017-03-26 13:34 | Operative Note ---
Date of procedure: 03/26/17 Pre-op diagnosis: Severe leukocytosis, positive C. difficile, previous diarrhea Post-op diagnosis: other (Toxic megacolon with severe pseudomembranous colitis status post placement of descending/sigmoid rectal tube for retention vancomycin enemas. Vancomycin will also continue via the NG tube) Procedure: PROCEDURE: Flexible Sigmoidoscopy with cold biopsy for pathology and rectal tube insertion REFERRING PHYSICIAN: Norm Brown the third INDICATIONS: Severe leukocytosis, previous diarrhea, multiple antibiotics, positive C. difficile. This is a patient who has developed an ileus and is premorbid. Flexible sigmoidoscopy to confirm the diagnosis and perhaps to introduce a rectal tube for vancomycin enemas, very poor prognosis patient. Not a surgical candidate given sepsis and hypotension. The prior H&P was reviewed and interrim changes are as noted: See H&P this admission ENDOSCOPIST: Arvin Aponte MD ENDOSCOPE: Fast FiBR Video 100 System colonoscope COLON PREPARATION: soapsuds enemas x 2 ASA CLASS: 4E EXAM: CV: regular rate and rhythm Respiratory: Clear without wheezes Abdominal: active bowel sounds Rectal: Good tone, no fissures or fistulas MEDICATION: No anesthetic used PROCEDURE: After discussion of the potential risks and benefits of flexible sigmoidoscopy, the informed consent was obtained, from family member. The patient was then placed in the left lateral decubitus position where sedation was achieved as noted above. Rectal examination was followed by insertion of the colonoscope. The colonoscope was passed under direct visualization to the descending colon. Advancement was facilitated by insertion /withdrawl techniques, abdominal pressure and patient positioning. Once the maximal penetration depth of 40 cm was reached, slow withdrawal was performed with the findings as noted below. The patient tolerated the procedure adequately. BIOPSIES: In the rectosigmoid region for confirmation of diagnosis PHOTOGRAPHS: Obtained FINDINGS: The musoca appeared had a dusky violaceous appearance and dilated all consistent with toxic megacolon for the limited sections seen. Biopsies were taken of the tissue in the rectosigmoid junction. After suctioning of stool in this region Eulalio harris was advanced with an Endo Clip to help secure this in the appropriate region of the descending colon to help with vancomycin flush/enema as a last ditch effort to treat this versus going to surgery with Dr. Stephanie CAR. The patient has been made a DNR and is on max dose pressors making surgery a nonviable option. IMPRESSION: Toxic megacolon with severe pseudomembranous colitis status post placement of descending/sigmoid rectal tube for retention vancomycin enemas. Vancomycin will also continue via the NG tube RECOMMENDATIONS: High fiber diet Vancomycin via the rectal tube and by NG tube Follow up by phone for biopsy results in 1-2 weeks by phone Arvin Aponte MD COPY TO: Norm Brown the third Anesthesia: MAC Surgeon / Physician: Arvin Aponte Estimated blood loss: minimal Specimens: other (Rectosigmoid biopsy) Condition: stable Disposition: post procedure unit ([facility] Suite) Results - Labs CBC & BMP: 03/26/17 04:00 03/26/17 04:05 Discharge Plan - Discharge Medications No Action Clorazepate Dipotassium 3.75 mg PO BID Cyclobenzaprine HCl 10 mg PO BID PRN PRN Reason: Muscle Spasm Colchicine [Colcrys] 1 tablet PO QAM Glyburide/Metformin HCl [Glyburide-Metformin 5-500 mg] 1 each PO BID Levothyroxine Sodium [Levo-T] 100 mcg PO QAM Meloxicam 7.5 mg PO QAM Tramadol HCl [Tramadol Tab] 50 mg PO BID PRN PRN Reason: Pain Insulin Detemir [Levemir FlexPen] 64 unit SUBCUT BEDTIME buPROPion [Wellbutrin] 100 mg PO QAM HYDROcodone/ACETAMIN 5-325 [[place] 5-325] 1 tablet PO Q4H PRN #30 tablet PRN Reason: Pain Moderate (4-7) Collagenase Oint [Santyl Oint] 1 applic TOP QAM Chlorhexidine 4% Soln [Hibiclens] 1 applic TOP QAM Lisinopril [Lisinopril] 10 mg PO QAM Nebivolol [Bystolic] 5 mg PO QAM Magnesium Chloride [Slow Mag] 64 mg PO QAM Pravastatin Sodium 40 mg PO QAM NIFEdipine XL TAB [Procardia Xl] 60 mg PO QAM Sodium Hypochlorite 0.25% Irr [[place] 1/2 Strength 0.25% Soln] 1 applic TOP QAM predniSONE TAB [PredniSONE] 10 mg PO QAM - Follow Up or Referral - Forms/Instructions
[2017-03-26] MEDS: DILTIAZEM INJ 100 MG in SODIUM CHLORIDE 0.9% 100 ML IV SCH (14:12)
[2017-03-26] MEDS: VANCOMYCIN 50 MG/ML 60 ML/BOTTLE NG SCH ×2 (14:12→14:14)
[2017-03-26] MEDS: METOPROLOL TARTRATE 50 MG TABLET PO SCH (14:14)
[2017-03-26] MEDS: MAGNESIUM CHLORIDE 64 MG TABLET PO SCH (14:15)
[2017-03-26] MEDS: THIAMINE 100 MG TABLET PO SCH (14:15)
--- NOTE | 2017-03-26 14:24 | Anesthesia Procedures ---
Anesthesia Procedures - Intubation Time out performed intubation: Yes Sedative: Versed Mg given sedative: 6 Paralytic: Succinylcholine Mg given paralytic: 100 Laryngoscope: fiber optic video scope (Glidescope) Assist Device Used: fiber optic device ET Tube Size: 7.5 ET Tube Uncuffed: No Tube Secured Depth (cm): 23 Tube Secured Location: lips Tube Placement Confirmation: visualized tube passing through cords, equal breath sounds bilaterally, no breath sounds over epigastrium, confirmation detector color change Patient tolerated procedure intubation: well Intubation Complications: none Additional Commets: Called for intubation per Dr Brown Intubation per Dr Lowe on 03/25/2017 At 9:00am
[2017-03-26] MEDS: FOLIC ACID 1 MG TABLET PO SCH (14:27)
[2017-03-26 14:57] VITALS: BP 58/30
--- NOTE | 2017-03-26 14:57 | Hospitalist Progress Note ---
Assessment and Plan (1) Diabetes mellitus type 2 in obese Status: Chronic Assessment and plan: 1)toxic megagolon with overwhelming sepsis now with resp failure, s/p code yesterday, AFSHAN, maxxed on 3 pressors- prognosis poor. Nephew aware. continue current level of support. Current Visit: No (2) Hypertension Status: Chronic Current Visit: No (3) Hyperlipidemia Status: Chronic Current Visit: No (4) Peripheral vascular disease Status: Acute Current Visit: Yes (5) Acute renal failure (ARF) Status: Acute Current Visit: Yes (6) Ischemic necrosis of right leg Status: Acute Current Visit: Yes Hospitalist: Subjective Interval history: MR Hunt remains on vent and max pressors including levophed, sarah, and epi. His UOP has dropped off, he is comfortable on diprivan. His cdiff toxin is positive. His WBC has risen again. Today it has been impossible for the nurses to get a blood pressure consistently , and his pulse is palpable but weak. A respiratory therapist did get an ABG this morning, but has not been able to do so again and no one (4 people tried) could yesterday. the anesthesiologist tried to get an monica but was also unable to. His prognosis is very poor and Dr Brown has spoken repeatedly to his nephew who has POA. He is DNR. Dr Aponte placed a rectal tube to deliver topical vanc after flex sig confirmed toxic megacolon. Exam - Constitutional Vitals: Period Temp Pulse Resp BP Sys/Mancera Pulse Ox Last 24 Hr 97.8 F-100 F 110-156 15-34 69-146/34-112 85-100 General appearance: severe distress, over weight - Respiratory Respiratory exam: Present: rhonchi. Absent: wheezes - Cardiovascular Cardiovascular exam: Present: irregular rhythm, tachycardia - GI/Abdominal GI/Abdominal exam: Present: distended, hypoactive bowel sounds - Extremities Exam Extremities exam: Absent: edema Results - Labs CBC & BMP: 03/26/17 04:00 03/26/17 04:05 Quality Measures - VTE Contraindication to Pharmacological VTE Prophylaxis: High Risk of Bleeding Contraindication to Mechanical VTE Prophylaxis: Ischemic Vascular Disease
[2017-03-26] MEDS: PANTOPRAZOLE 40 MG TABLET PO SCH (15:30)
--- NOTE | 2017-03-27 08:20 | Discharge Summary ---
Hospital Course - Hospital Course Hospital Course: The patient was admitted with necrosis of his right lower extremity leg wound. He had signs of sepsis and developing renal insufficiency at the time of his admission by Dr. Seymour. He was taken to the operating room where the leg was debrided. The leg cleaned up nicely. He continued to have some signs of low-grade sepsis and was kept in the CCU. He was seen by infectious diseases internal medicine vascular surgery and also gastroenterology was consulted because of some bloody bowel movements. He had had some epigastric pain and upper endoscopy was performed by Dr. Lombardi which showed some erosive gastritis. The patient following this had no complaints of abdominal pain but had a gradually rising white blood cell count. His leg was inspected again and considered as a possibility as a source though the wound itself looked good. Dr. Moss obtained a CT scan of his leg which did not show any deep space infection. He was continued on IV antibiotics. He had gradually worsening signs of sepsis and pulmonary was consulted and the patient eventually developed respiratory failure requiring intubation. Prior to this point he had no abdominal pain. After he was intubated he did develop some abdominal distention. It was considered that perhaps his abdomen was a source of his sepsis but he was too unstable to go to CT scan. I performed a bedside mini laparotomy inspecting his bowel which appeared normal. There was no foul fluid in his abdomen and his visualized transverse colon appeared normal though it was mildly distended. He had a negative Clostridium difficile test on his stool. Never had profuse diarrhea or abdominal pain. Following this a second Clostridium difficile test on the stool came back positive. At this point the patient was in even worse septic shock. Patient was resuscitated with IV fluids. Long discussions were had with his nephew who is his primary caregiver. We looked at the possibility of treating the Clostridium difficile with infused vancomycin intraluminally and even surgery. Patient was not a surgical candidate. We had resuscitated him and his CVP was measuring around 8- 10 but his blood pressure was basically undetectable. This was made much more difficult to monitor because of his severe peripheral vascular disease. All attempts at getting an arterial line were unsuccessful by multiple services including anesthesia. The patient had gradual further decline and was not ever in a position where he was stable enough to consider total abdominal colectomy. He was made DNR at the request of his nephew who felt this would be Mr. Hunt's wishes. Despite IV fluids and 3 pressor agents we were unable to get his blood pressure to a state where he could have any further intervention. - Cause of Cause of : Toxic megacolon secondary to Clostridium difficile Diagnosis - Discharge Diagnosis (1) Sepsis Status: Acute Discharge Plan - Discharge Data Disposition: - Discharge Medications No Action Clorazepate Dipotassium 3.75 mg PO BID Cyclobenzaprine HCl 10 mg PO BID PRN PRN Reason: Muscle Spasm Colchicine [Colcrys] 1 tablet PO QAM Glyburide/Metformin HCl [Glyburide-Metformin 5-500 mg] 1 each PO BID Levothyroxine Sodium [Levo-T] 100 mcg PO QAM Meloxicam 7.5 mg PO QAM Tramadol HCl [Tramadol Tab] 50 mg PO BID PRN PRN Reason: Pain Insulin Detemir [Levemir FlexPen] 64 unit SUBCUT BEDTIME buPROPion [Wellbutrin] 100 mg PO QAM HYDROcodone/ACETAMIN 5-325 [[place] 5-325] 1 tablet PO Q4H PRN #30 tablet PRN Reason: Pain Moderate (4-7) Collagenase Oint [Santyl Oint] 1 applic TOP QAM Chlorhexidine 4% Soln [Hibiclens] 1 applic TOP QAM Lisinopril [Lisinopril] 10 mg PO QAM Nebivolol [Bystolic] 5 mg PO QAM Magnesium Chloride [Slow Mag] 64 mg PO QAM Pravastatin Sodium 40 mg PO QAM NIFEdipine XL TAB [Procardia Xl] 60 mg PO QAM Sodium Hypochlorite 0.25% Irr [Dakins 1/2 Strength 0.25% Soln] 1 applic TOP QAM predniSONE TAB [PredniSONE] 10 mg PO QAM - Follow Up or Referral - Forms/Instructions Exam - Constitutional Vitals: Period Temp Pulse Resp BP Sys/Mancera Pulse Ox Last 24 Hr 97.9 F 0-130 2-38 58/30 95-100 Discharge Results Procedures and tests throughout hospitalization: Pending Orders 03/25/17 09:50 Blood Culture Stat 03/26/17 04:00 c diff [C. Diff Toxins A & B] Labs on day of discharge: Labs from last 24 hours 03/26/17 03/26/17 03/26/17 16:01 16:00 14:04 POC Glucose 79 44 L* 71 L 03/26/17 03/26/17 12:06 10:57 POC Glucose 106 60 L Preliminary micro results at discharge 03/25/17 09:50 Blood Culture - Preliminary Blood No growth at 1 day 03/25/17 09:10 Blood Culture - Preliminary Blood No growth at 1 day DS: Provider Date of admission: 03/20/17 14:55 Primary care physician: Rajeev Osborne MD Attending physician on admission: Norm Brown III., Consults: 03/20/17 16:45 Consult to Pharmacy [CONS] Routine Reason for Pharmacy Consult: Adjust Meds Renal Funct Dose/Manage Vancomycin Consult to Physician [CONS] Routine Comment: medical mgmt; ARF, hyponatremia Consulting Provider: Dee Wade Consulting Provider Notified: Yes When should Consulting Provider be notified: Now Person Notified: Dr Denisa witt Date Notified: 03/20/17 Time Notified: 17:18 03/20/17 17:54 Consult to Physician [CONS] Routine Comment: necrotic leg Consulting Provider: Felipa Silver Person Notified: brittaney Date Notified: 03/23/17 Time Notified: 09:54 Consult Notification Comment: will dr michel know. 03/20/17 17:55 Consult to Case Mgmt/Social Srvs [CONS] Routine Reason for Case Mgmt/Social Srvs: LTAC Consult Comment: [facility] for IV abx and wound care Consult to Occupational Therapy [CONS] Routine Reason for Occupational Therapy: Evaluate and Treat Consult to Physical Therapy [CONS] Routine Reason for Physical Therapy: Evaluate and Treat 03/22/17 08:23 Consult to Physician [CONS] Routine Comment: anemia, guaiac stool Consulting Provider: Arvin Aponte Consulting Provider Notified: Yes When should Consulting Provider be notified: Now Consult to Specialist Group: Gastroenterology When should Consulting Provider be notified: Now Person Notified: Dr. Aponte Date Notified: 03/22/17 Time Notified: 09:17 03/22/17 10:29 Consult to Anesthesiology [CONS] Routine Consulting Provider: Reason for Anesthesiology: Pre-op Clearance 03/22/17 14:23 Consult to Physician [CONS] Routine Comment: afib rvr Consulting Provider: Bradford Contreras Person Notified: Dr. Contreras Date Notified: 03/22/17 Time Notified: 14:33 03/24/17 06:49 Consult to Physician [CONS] Routine Comment: RESPIRATORY DISTRESS Consulting Provider: Morgan Taylor Consulting Provider Notified: Yes When should Consulting Provider be notified: In am Consult to Specialist Group: Pulmonology When should Consulting Provider be notified: Now Person Notified: Rebecca Date Notified: 03/24/17 Time Notified: 09:26 Discharging clinician: Norm Brown III.,
--- NOTE | 2017-03-27 11:24 | Pathology Report from [facility] ---
[facility] ACCESSION # : [id number] PATIENT NAME : Per Dimas ORDERING DR : Arvin Aponte MD CLINICAL HX: GI bleed POST-OP DX: C.diff SPECIMEN INFO: Rectosigmoid biopsy GROSS DESCRIPTION: The specimen is received in formalin labeled with the patients name and consists of four hyperemic alatorre mucosal tissue fragments collectively measuring 0.9 x 0.2 cm. Submitted in one cassette. DIAGNOSIS FOR PER DIMAS: RECTOSIGMOID BIOPSY: Superficial necrosis with early pseudomembrane formation and glandular adenomatous changes, consistent with pseudomembranous colitis secondary to c. difficile. COLLECTED DATE: 03/26/2017 [facility] REPORT DATE: 03/27/2017 ELECTRONICALLY SIGNED BY: Aisha Dugan III, M.D. 03/27/2017 - 10:03:55 [facility]
== END 2017-03-26 17:04 | disposition expired | DRG 853 ==
LOC: EDBD → EDUNIT# → N.ED 12:56 → SUATTDRO 14:55 → N.EDINP 14:55 → N.3E 16:44 → N.CC 03-22 08:47
PROVIDERS: ADMIT Surgery; ATTEND Surgery